=== PATIENT | male | born 1945 | race Caucasian/White ===

== ENCOUNTER 2016-12-14 06:38 | Emergency (ER) | payer OTHER ==
[~2016-12-14] VITALS: Ht 175.3 cm; Wt 123.0 kg
[~2016-12-14 06:38] MED LIST: ASPI325T PO; ATOR20TA15 PO; CHOL1TAB42 PO; COQ-100C2 PO; DOXA4TAB3 PO; FEXO15TA PO; FURO1TAB62 PO; GABA300C5 PO; GABA600T PO; GLIM4TAB PO; LANTUS2P SQ; LEVO-171 PO; LISI-515 PO; LORA-373 PO; MAGN250T2 PO; METH8TAB3 PO; METO50TA PO; NOVOLOGP2 SQ; OMEG100010 PO; OXYGEN NAS.CANULA; POTA1TAB4 PO; SITA50TA4 PO; [UNRECOGNIZED DRUG - OTHER] PO
[2016-12-14 06:41] VITALS: BP 195/85; PULSE 82; RESP 22; TEMP 98; O2SAT 89
[2016-12-14 06:48] VITALS: BP 181/79; PULSE 76; RESP 22; O2SAT 92
[2016-12-14] MEDS ORDERED: FUROSEMIDE 100 MG/10 ML VIAL IVP ONE (07:00)
[2016-12-14] MEDS ORDERED: SODIUM CHLORIDE 0.9% FLUSH 10 ML FLUSH IVF PRN (07:00)
--- NOTE | 2016-12-14 07:03 | PD ---
HPI Chief Complaint: Respiratory Symptoms Time Seen by Provider: 06:55 Travel History International Travel<30 days: No Contact w/Intl Traveler<30days: No Traveled to known affect area: No History of Present Illness HPI The patient is a 71-year-old male with a history of congestive heart failure, diabetes and coronary artery disease who complains of shortness of breath for weeks but in the middle the night tonight it got worse. He states he has congestive heart failure but it doesn't cause swelling in his legs, it goes to the abdomen. He denies any significant chest pain. He denies any fever. He took an albuterol treatment at home. He does have an albuterol nebulizer at home and thinks he might have a history of COPD. PFSH Past Medical History Hx Anticoagulant Therapy: No Blood Disorders: No Heart Rhythm Problems: No Cancer: No Cardiac Catheterization: Yes Cardiovascular Problems: Yes High Cholesterol: Yes Chemotherapy: No Chest Pain: No Congestive Heart Failure: Yes (past) COPD: Yes Cerebrovascular Accident: No Diabetes: Yes Diminished Hearing: No Endocrine: Yes Genitourinary: No Hypertension: Yes Immune Disorder: No Musculoskeletal: No Neurologic: No Psychiatric: No Reproductive: No Respiratory: Yes (COPD) Immunizations Current: Yes Thyroid Disease: Yes Past Surgical History Abdominal Surgery: Yes (UMBILICAL HERNIA REPAIR.) Cardiac Surgery: Yes ([place] ANGIOPLASTY 1993) Hysterectomy: No Other Surgery: Yes Social History Alcohol Use: No Tobacco Use: No Substance Use: No Allergies-Medications (Allergen,Severity, Reaction): Coded Allergies: No Known Allergies (Unverified , 12/14/16) Reported Meds & Prescriptions Reported Meds & Active Scripts Active Reported [place] 3 1000 mg ([place]-3 Fatty Acids) 1 Cap Cap 2 Cap PO DAILY Metoprolol Tartrate 50 Mg Tab 50 Mg PO TID Magnesium 250 Mg Tab 250 Mg PO DAILY Lorazepam 0.5 Mg Tab 0.5 Mg PO BID PRN Lisinopril 20 Mg Tab 20 Mg PO BID Levothyroxine (Levothyroxine Sodium) 300 Mcg Tab 300 Mcg PO DAILY Janumet Xr (Sitagliptin-Metformin ER) 50-1,000 Mg Tab 1 Tab PO BID Lantus Inj (Insulin Glargine) 100 Unit/Ml Inj 80 Mg SQ HS Novolog Inj (Insulin Aspart) 1,000 Unit/10 Ml Vial 35 Units SQ DAILY Glimepiride 4 Mg Tab 4 Mg PO BIDAC Gabapentin 300 Mg Cap 300 Mg PO DAILY Lasix (Furosemide) 20 Mg Tab 40 Mg PO DAILY Sunni Allergy (Fexofenadine HCl) 180 Mg Tab 180 Mg PO DAILY Doxazosin (Doxazosin Mesylate) 4 Mg Tab 4 Mg PO DAILY Coq-10 (Coenzyme Q10 (Ubidecarenone)) 100 Mg Cap 1 Tab PO DAILY Vitamin D-3 (Cholecalciferol) 2,000 Unit Tab 1 Tab PO DAILY Atorvastatin (Atorvastatin Calcium) 20 Mg Tab 20 Mg PO HS Aspirin 325 Mg Tab 325 Mg PO DAILY Review of Systems Except as stated in HPI: all other systems reviewed are Neg Physical Exam Narrative GENERAL: The patient is alert, obese, oriented 3 and slight respiratory distress. His vital signs show blood pressure 195/85 with oximetry 89% on room air. SKIN: Focused skin assessment warm/dry. HEAD: Atraumatic. Normocephalic. EYES: Pupils equal and round. No scleral icterus. No injection or drainage. ENT: No nasal bleeding or discharge. Mucous membranes pink and moist. NECK: Trachea midline. No JVD. CARDIOVASCULAR: Regular rate and rhythm. No murmur appreciated. RESPIRATORY: No accessory muscle use. Clear to auscultation except for a few widely scattered Rales.. Breath sounds equal bilaterally. GASTROINTESTINAL: Abdomen soft, non-tender, distended. Hepatic and splenic margins not palpable. No guarding or rebound is present. MUSCULOSKELETAL: No obvious deformities. No clubbing. No cyanosis. No edema. NEUROLOGICAL: Awake and alert. No obvious cranial nerve deficits. Motor grossly within normal limits. Normal speech. PSYCHIATRIC: Appropriate mood and affect; insight and judgment normal. Data Data Last Documented VS Vital Signs Date Time Temp Pulse Resp B/P Pulse Ox O2 Delivery O2 Flow Rate FiO2 12/14/16 06:47 26 92 Nasal Cannula 3 12/14/16 06:41 98.0 82 195/85 [facility] Medical Decision Making Medical Screen Exam Complete: Yes Emergency Medical Condition: Yes Medical Record Reviewed: Yes Differential Diagnosis Congestive heart failure, COPD with acute exacerbation, acute coronary syndrome , pulmonary embolushighly unlikely Narrative Course Is now 07 and the patient is transferred to Dr. Pressley. Telly Obando MD December 14, 2016 07:03
[2016-12-14 07:04] VITALS: O2SAT 91
[2016-12-14 07:09] VITALS: BP 163/59; PULSE 72; RESP 24; O2SAT 90
[2016-12-14 07:11] LABS: AUTOMATED NEUTROPHIL # 4.5 TH/MM3 (1.8-7.7); BASOPHIL # 0.1 TH/MM3 (0-0.2); BASOPHIL % 1.6 % (0.0-2.0); EOSINOPHIL # 0.1 TH/MM3 (0-0.4); EOSINOPHIL % 0.9 % (0.0-4.0); HEMATOCRIT 36.2 % (39.0-51.0); LYMPH % 16.2 % (9.0-44.0); LYMPHOCYTE # 0.9 TH/MM3 (1.0-4.8); MEAN CELL VOLUME 90.6 FL (80.0-100.0); MEAN CORPUSCULAR HEMOGLOBIN 30.9 PG (27.0-34.0); MEAN CORPUSCULAR HGB CONC 34.1 % (32.0-36.0); MONO % 3.7 % (0.0-8.0); NEUT % 77.6 % (16.0-70.0); PLATELET COUNT 228 TH/MM3 (150-450); WHITE BLOOD COUNT 5.8 TH/MM3 (4.0-11.0)
[2016-12-14 07:15] LABS: HEMO FLAGS DIFF FINAL
[2016-12-14 07:29] LABS: CHLORIDE 102 MEQ/L (98-107); POTASSIUM 4.6 MEQ/L (3.5-5.1); SODIUM (NA) 139 MEQ/L (136-145)
[2016-12-14 07:33] LABS: ANION GAP 6 MEQ/L (5-15); APTT (PATIENT) 27.3 SEC (24.3-30.1); BICARBONATE 30.8 MEQ/L (21.0-32.0); BLOOD UREA NITROGEN 31 MG/DL (7-18); INTERNATIONAL NORMALIZED RATIO 1.1 RATIO; MAGNESIUM 1.7 MG/DL (1.5-2.5); PROTHROMBIN TIME - PATIENT 11.8 SEC (9.8-11.6)
[2016-12-14 07:36] LABS: ALT (GPT) 30 U/L (12-78); AST (GOT) 32 U/L (15-37); GLOMERULAR FILTRATION RATE 74 ML/MIN (>89)
[2016-12-14 07:38] LABS: TOTAL BILIRUBIN ADULT 0.3 MG/DL (0.2-1.0)
[2016-12-14 07:39] LABS: ALKALINE PHOSPHATASE 37 U/L (45-117)
[2016-12-14 07:40] VITALS: BP 156/72; PULSE 74; RESP 20; O2SAT 94
--- NOTE | 2016-12-14 08:16 | RADHPO ---
EXAM DATE/TIME: 12/14/2016 07:46 [facility] COMPARISON: CHEST PA & LAT, August 25, 2015, 10:11. INDICATIONS : Severe shortness of breath. MEDICAL HISTORY : Myocardial infarction. Hypercholesterolemia. Chronic obstructive pulmonary disease. Hypertension. CHF. Thyriod disease. Diabetic, CAD. SURGICAL HISTORY : Umbilical hernia repair. Cardiac cath. [place] angioplasty. ENCOUNTER: Initial ACUITY: 1 day PAIN SCORE: 0/10 LOCATION: chest FINDINGS: PA and lateral views of the chest show persistent cardiomegaly. Pulmonary vascular engorgement. No di screte infiltrate or effusion. Study limited by the patient's body habitus. CONCLUSION: Cardiomegaly with pulmonary vascular engorgement. Ravi Fernandez Jr., MD on December 14, 2016 at 8:13 Board Certified Radiologist. This report was verified electronically.
[2016-12-14 08:18] LABS: BLOOD, URINE NEG (NEG); GLUCOSE,URINE 250 mg/dL (NEG); KETONE, URINE NEG (NEG); NITRITE,URINE NEG (NEG); PH, URINE 5.5 (5.0-8.5)
[2016-12-14 08:20] LABS: URINE COLOR YELLOW (YELLW/STRAW)
[2016-12-14 08:32] LABS: COMMENT (UR) CULT NOT INDICATED; CULTURE IF INDICATED CULT NOT INDICATED; WBC, URINE 0-2 /hpf (0-5)
[2016-12-14 08:33] LABS: MUCUS URINE OCC /lpf (OCC)
[2016-12-14 09:19] VITALS: BP 130/62; PULSE 75; RESP 20; O2SAT 93
--- NOTE | 2016-12-14 09:29 | PD ---
Data Data Last Documented VS Vital Signs Date Time Temp Pulse Resp B/P Pulse Ox O2 Delivery O2 Flow Rate FiO2 12/14/16 09:19 75 20 130/62 93 Nasal Cannula 3 12/14/16 06:41 98.0 Orders Complete Blood Count With Diff (12/14/16 06:56) Comprehensive Metabolic Panel (12/14/16 06:56) B-Type Natriuretic Peptide (12/14/16 06:56) Act Partial Throm Time (Ptt) (12/14/16 06:56) Prothrombin Time / Inr (Pt) (12/14/16 06:56) Magnesium (Mg) (12/14/16 06:56) Troponin I (12/14/16 06:56) Urinalysis - C+S If Indicated (12/14/16 06:56) Iv Access Insert/Monitor (12/14/16 06:56) Electrocardiogram (12/14/16 06:56) Ecg Monitoring (12/14/16 06:56) Oximetry (12/14/16 06:56) Oxygen Administration (12/14/16 06:56) Chest, Pa & Lat (12/14/16 06:56) Sodium Chloride 0.9% Flush (Ns Flush) (12/14/16 07:00) Furosemide Inj (Lasix Inj) (12/14/16 07:00) Labs Laboratory Tests Test 12/14/16 12/14/16 06:45 08:10 White Blood Count 5.8 TH/MM3 Red Blood Count 4.00 MIL/MM3 Hemoglobin 12.3 GM/DL Hematocrit 36.2 % Mean Corpuscular Volume 90.6 FL Mean Corpuscular Hemoglobin 30.9 PG Mean Corpuscular Hemoglobin 34.1 % Concent Red Cell Distribution Width 15.0 % Platelet Count 228 TH/MM3 Mean Platelet Volume 10.2 FL Neutrophils (%) (Auto) 77.6 % Lymphocytes (%) (Auto) 16.2 % Monocytes (%) (Auto) 3.7 % Eosinophils (%) (Auto) 0.9 % Basophils (%) (Auto) 1.6 % Neutrophils # (Auto) 4.5 TH/MM3 Lymphocytes # (Auto) 0.9 TH/MM3 Monocytes # (Auto) 0.2 TH/MM3 Eosinophils # (Auto) 0.1 TH/MM3 Basophils # (Auto) 0.1 TH/MM3 CBC Comment DIFF FINAL Differential Comment Prothrombin Time 11.8 SEC Prothromb Time International 1.1 RATIO Ratio Activated Partial 27.3 SEC Thromboplast Time Sodium Level 139 MEQ/L Potassium Level 4.6 MEQ/L Chloride Level 102 MEQ/L Carbon Dioxide Level 30.8 MEQ/L Anion Gap 6 MEQ/L Blood Urea Nitrogen 31 MG/DL Creatinine 0.99 MG/DL Estimat Glomerular Filtration 74 ML/MIN Rate Random Glucose 261 MG/DL Calcium Level 8.8 MG/DL Magnesium Level 1.7 MG/DL Total Bilirubin 0.3 MG/DL Aspartate Amino Transf 32 U/L (AST/SGOT) Alanine Aminotransferase 30 U/L (ALT/SGPT) Alkaline Phosphatase 37 U/L Troponin I LESS THAN 0.02 NG/ML B-Type Natriuretic Peptide 90 PG/ML Total Protein 7.9 GM/DL Albumin 3.6 GM/DL Urine Color YELLOW Urine Turbidity CLEAR Urine pH 5.5 Urine Specific [place] 1.012 Urine Protein NEG mg/dL Urine Glucose (UA) 250 mg/dL Urine Ketones NEG mg/dL Urine Occult Blood NEG Urine Nitrite NEG Urine Bilirubin NEG Urine Leukocyte Esterase NEG Urine WBC 0-2 /hpf Urine Mucus OCC /lpf Microscopic Urinalysis Comment CULT NOT INDICATED MDM Supervised Visit with [facility]: No Narrative Course This case is checked out to me by Dr. Obando at 7 AM. I have reviewed the entirety of the workup with the patient and reevaluated him He has normal CBC and normal metabolic profile normal Bnp and normal cardiac enzymes I reviewed his EKG which shows sinus rhythm but no ST elevation or ectopy Extended cardiac monitoring reveals sinus rhythm without ectopy I reviewed his chest x-ray which shows cardiomegaly and some pulmonary vascular congestion He received 100 mg IV Lasix and is diuresing Patient does not have much peripheral or pulmonary edema. I suspect he has fluid in his abdomen. He says that his abdomen has been this size for a couple of years. He said he has had [address] scans of abdomen and pelvis that he reports didn't show anything wrong with his liver. Saturations are 96% on his usual nasal cannula which he wears [id number]. He reports that he feels better I don't see any indication for hospitalization Patient's follow-up with his primary care physician to determine whether he needs repeat abdominal imaging or consideration of paracentesis. Diagnosis Primary Impression: CHF (congestive heart failure) Qualified Code: I50.21 - Acute systolic congestive heart failure Additional Impression: Shortness of breath Additional Instruction: Double your Lasix for the next 3 days then return to normal dosing Have low sodium diet Limit fluid intake Follow-up with primary care Med/Other Pt SpecificInfo: Other Disposition: 01 DISCHARGE HOME Condition: Stable Diego Pressley MD December 14, 2016 09:28
--- NOTE | 2016-12-14 14:45 | EKG ---
Date Performed: 12/14/2016 Time Performed: 06:58:58 PTAGE: 71 years EKG: Sinus rhythm Inferior ST-T changes are nonspecific Compared to prior tracing no significant change Borderline ECG PREVIOUS TRACING : 08/23/2015 10.50 DOCTOR: Roel Montelongo Interpretating Date/Time 12/14/2016 14:41:38
== END 2016-12-14 09:35 | disposition home or self-care (01) ==
LOC: PHED 06:38
DX: I50.9 Heart failure, unspecified (principal); R06.02 Shortness of breath; E66.9 Obesity, unspecified; E11.9 Type 2 diabetes mellitus without complications; I25.10 Atherosclerotic heart disease of native coronary artery without angina pectoris; E78.00 Pure hypercholesterolemia, unspecified; J44.9 Chronic obstructive pulmonary disease, unspecified; I10 Essential (primary) hypertension; E07.9 Disorder of thyroid, unspecified
CPT/HCPCS: 71020; 80053; 81001; 83735; 83880; 84484; 85025; 85610; 85730; 93005; 96374; 99285; J1940

== ENCOUNTER 2017-02-02 13:30 | Inpatient (IN) | payer OTHER, MEDICARE ==
[~2017-02-02] VITALS: Ht 172.7 cm; Wt 167.0 kg
[2017-02-02] VITALS (10 sets, daily range): BP systolic 111–150; BP diastolic 57–82; PULSE 74–88; RESP 18–22; TEMP 97.2–98.6; O2SAT 86–96
[~2017-02-02 13:30] MED LIST changes: -GABA600T PO; -METH8TAB3 PO; -OXYGEN NAS.CANULA; -POTA1TAB4 PO; -[UNRECOGNIZED DRUG - OTHER] PO
[2017-02-02] MEDS ORDERED: SODIUM CHLORIDE 0.9% FLUSH 10 ML FLUSH IVF PRN (13:45)
[2017-02-02] MEDS ORDERED: FUROSEMIDE 40 MG/4 ML VIAL IVP ONE (13:45)
--- NOTE | 2017-02-02 13:45 | PD ---
HPI Chief Complaint: shortness of breath Time Seen by Provider: 13:41 Travel History International Travel<30 days: No Contact w/Intl Traveler<30days: No Traveled to known affect area: No History of Present Illness HPI This 71-year-old male says he been short of breath for several weeks. He has a history of congestive heart failure and COPD. He has a history of myocardial infarction in 1993. At that time he stop smoking. He has had abdominal distention for some time and he feels like his belly may be getting more distended. He has not been a drinker. He has had CAT scan of the abdomen which did not reveal a cause for the distention. He is on home oxygen as well as nebulizer treatments. He says his breathing breathing is worse when he lays flat. He was here in December 14 and his Lasix was increased at that time. He says he really has not felt better since then PFSH Past Medical History Hx Anticoagulant Therapy: No Blood Disorders: No Heart Rhythm Problems: No Cancer: No Cardiac Catheterization: Yes Cardiovascular Problems: Yes High Cholesterol: Yes Chemotherapy: No Chest Pain: No Congestive Heart Failure: Yes COPD: Yes Cerebrovascular Accident: No Diabetes: Yes Diminished Hearing: No Endocrine: Yes Genitourinary: No Hypertension: Yes Immune Disorder: No Musculoskeletal: No Neurologic: No Psychiatric: No Reproductive: No Respiratory: Yes (COPD) Immunizations Current: Yes Thyroid Disease: Yes Past Surgical History Abdominal Surgery: Yes (UMBILICAL HERNIA REPAIR.) Cardiac Surgery: Yes ([place] ANGIOPLASTY 1993) Hysterectomy: No Other Surgery: Yes Social History Alcohol Use: No Tobacco Use: No Substance Use: No Allergies-Medications (Allergen,Severity, Reaction): Coded Allergies: No Known Allergies (Unverified , 02/02/17) Reported Meds & Prescriptions Reported Meds & Active Scripts Active Reported Amlodipine (Amlodipine Besylate) 10 Mg Tab 10 Mg PO DAILY Magnesium 250 Mg Tab 1 Tab PO DAILY Novolog Penfill Inj (Insulin Aspart) 300 Unit/3 Ml Pen 2-40 Units SQ TIDAC PRN sliding scale Coq10 (Coenzyme Q10 (Ubidecarenone)) 50 Mg Cap 100 Mg PO DAILY Aspirin EC (Aspirin) 81 Mg Tabdr 81 Mg PO DAILY [place] 3 1000 mg ([place]-3 Fatty Acids) 1 Cap Cap 2 Cap PO DAILY Metoprolol Tartrate 50 Mg Tab 50 Mg PO TID Lorazepam 0.5 Mg Tab 0.5 Mg PO BID PRN Lisinopril 20 Mg Tab 20 Mg PO BID Levothyroxine (Levothyroxine Sodium) 300 Mcg Tab 300 Mcg PO DAILY Janumet Xr (Sitagliptin-Metformin ER) 50-1,000 Mg Tab 1 Tab PO BID Lantus Inj (Insulin Glargine) 100 Unit/Ml Inj 80 Mg SQ HS Glimepiride 4 Mg Tab 4 Mg PO BIDAC Gabapentin 300 Mg Cap 300 Mg PO HS Lasix (Furosemide) 20 Mg Tab 40 Mg PO BID Sunni Allergy (Fexofenadine HCl) 180 Mg Tab 180 Mg PO DAILY Doxazosin (Doxazosin Mesylate) 4 Mg Tab 4 Mg PO DAILY Vitamin D-3 (Cholecalciferol) 2,000 Unit Tab 1 Tab PO BID Atorvastatin (Atorvastatin Calcium) 20 Mg Tab 20 Mg PO HS Review of Systems General / Constitutional: No: Fever, Chills Eyes: No: Diploplia, Blurred Vision HENT: No: Headaches, Vertigo Cardiovascular: No: Chest Pain or Discomfort Respiratory: Positive: Shortness of Breath Gastrointestinal: No: Vomiting, Diarrhea Genitourinary: No: Urgency, Frequency Musculoskeletal: No: Myalgias, Arthralgias Skin: No Rash, No Itching Neurologic: No: Weakness Endocrine: No: Heat Intolerance, Cold Intolerance Hematologic/Lymphatic: No: Easy Bruising Physical Exam Narrative GENERAL: Well-developed male SKIN: Focused skin assessment warm/dry. HEAD: Atraumatic. Normocephalic. EYES: Pupils equal and round. No scleral icterus. No injection or drainage. ENT: No nasal bleeding or discharge. Mucous membranes pink and moist. NECK: Trachea midline. CARDIOVASCULAR: Regular rate and rhythm. No murmur appreciated. RESPIRATORY: No accessory muscle use. Clear to auscultation. Breath sounds equal bilaterally. GASTROINTESTINAL: Abdomen soft, there is marked distention. Hepatic and splenic margins not palpable. MUSCULOSKELETAL: No obvious deformities. No clubbing. No cyanosis. Bilateral pedal edema. NEUROLOGICAL: Awake and alert. No obvious cranial nerve deficits. Motor grossly within normal limits. Normal speech. PSYCHIATRIC: Appropriate mood and affect; insight and judgment normal. Data Data Last Documented VS Vital Signs Date Time Temp Pulse Resp B/P Pulse Ox O2 Delivery O2 Flow Rate FiO2 02/02/17 14:42 88 18 143/65 94 Nasal Cannula 3 74/17 13:30 98.6 Orders Complete Blood Count With Diff (02/02/17 13:42) Comprehensive Metabolic Panel (02/02/17 13:42) B-Type Natriuretic Peptide (02/02/17 13:42) Act Partial Throm Time (Ptt) (02/02/17 13:42) Prothrombin Time / Inr (Pt) (02/02/17 13:42) Magnesium (Mg) (02/02/17 13:42) Troponin I (02/02/17 13:42) Urinalysis - C+S If Indicated (02/02/17 13:42) Iv Access Insert/Monitor (02/02/17 13:42) Electrocardiogram (02/02/17 13:42) Ecg Monitoring (02/02/17 13:42) Oximetry (02/02/17 13:42) Oxygen Administration (02/02/17 13:42) Chest, Single Ap (02/02/17 13:42) Sodium Chloride 0.9% Flush (Ns Flush) (02/02/17 13:45) Furosemide Inj (Lasix Inj) (02/02/17 13:45) Albuterol-Ipratropium Neb (Duoneb Neb) (02/02/17 13:45) Labs Laboratory Tests Test 02/02/17 02/02/17 13:46 15:00 White Blood Count 6.7 TH/MM3 Red Blood Count 3.95 MIL/MM3 Hemoglobin 11.5 GM/DL Hematocrit 37.0 % Mean Corpuscular Volume 93.7 FL Mean Corpuscular Hemoglobin 29.1 PG Mean Corpuscular Hemoglobin 31.1 % Concent Red Cell Distribution Width 15.0 % Platelet Count 188 TH/MM3 Mean Platelet Volume 8.6 FL Neutrophils (%) (Auto) 76.0 % Lymphocytes (%) (Auto) 16.7 % Monocytes (%) (Auto) 5.1 % Eosinophils (%) (Auto) 1.6 % Basophils (%) (Auto) 0.6 % Neutrophils # (Auto) 5.2 TH/MM3 Lymphocytes # (Auto) 1.1 TH/MM3 Monocytes # (Auto) 0.3 TH/MM3 Eosinophils # (Auto) 0.1 TH/MM3 Basophils # (Auto) 0.0 TH/MM3 CBC Comment DIFF FINAL Differential Comment Prothrombin Time 12.2 SEC Prothromb Time International 1.1 RATIO Ratio Activated Partial 26.1 SEC Thromboplast Time Sodium Level 143 MEQ/L Potassium Level 4.3 MEQ/L Chloride Level 103 MEQ/L Carbon Dioxide Level 32.1 MEQ/L Anion Gap 8 MEQ/L Blood Urea Nitrogen 38 MG/DL Creatinine 1.10 MG/DL Estimat Glomerular Filtration 66 ML/MIN Rate Random Glucose 118 MG/DL Calcium Level 9.0 MG/DL Magnesium Level 1.9 MG/DL Total Bilirubin 0.2 MG/DL Aspartate Amino Transf 15 U/L (AST/SGOT) Alanine Aminotransferase 20 U/L (ALT/SGPT) Alkaline Phosphatase 35 U/L Troponin I LESS THAN 0.02 NG/ML B-Type Natriuretic Peptide 213 PG/ML Total Protein 7.5 GM/DL Albumin 3.5 GM/DL Urine Collection Type CLEAN CATCH Urine Color YELLOW Urine Turbidity CLEAR Urine pH 5.5 Urine Specific [place] 1.011 Urine Protein NEG mg/dL Urine Glucose (UA) NEG mg/dL Urine Ketones NEG mg/dL Urine Occult Blood NEG Urine Nitrite NEG Urine Bilirubin NEG Urine Leukocyte Esterase NEG Urine WBC 0-2 /hpf Urine Squamous Epithelial 0-5 /hpf Cells Microscopic Urinalysis Comment CULT NOT INDICATED MDM Medical Decision Making Medical Screen Exam Complete: Yes Emergency Medical Condition: Yes Medical Record Reviewed: Yes Differential Diagnosis Differential includes pneumonia, COPD, CHF Narrative Course Chest x-ray shows marked cardiomegaly. Patient has been given 3 nebulizer treatments and Lasix. He has persistent dyspnea. On 4 L his O2 sat is 94%. On arrival is 89% on 2 L. I'm reluctant to give steroids at this time because I think weight gain would be a serious problem for this gentleman. His BNP is 213. Diagnosis Primary Impression: CHF (congestive heart failure) Additional Impression: Chronic obstructive pulmonary disease Admitting Information Admitting Physician Requests: Admit Grzegorz Valles MD Feb 02, 2017 13:45
[2017-02-02] MEDS: RESP: ALBUTEROL 2.5 MG/IPRATROPIUM 0.5 MG NEB (SCH) INH (13:57)
[2017-02-02 14:02] LABS: AUTOMATED NEUTROPHIL # 5.2 TH/MM3 (1.8-7.7); BASOPHIL % 0.6 % (0.0-2.0); EOSINOPHIL # 0.1 TH/MM3 (0-0.4); EOSINOPHIL % 1.6 % (0.0-4.0); HEMO FLAGS DIFF FINAL; LYMPH % 16.7 % (9.0-44.0); LYMPHOCYTE # 1.1 TH/MM3 (1.0-4.8); MEAN CELL VOLUME 93.7 FL (80.0-100.0); MEAN CORPUSCULAR HEMOGLOBIN 29.1 PG (27.0-34.0); MEAN CORPUSCULAR HGB CONC 31.1 % (32.0-36.0); MONO % 5.1 % (0.0-8.0); PLATELET COUNT 188 TH/MM3 (150-450); RED BLOOD COUNT 3.95 MIL/MM3 (4.50-5.90); WHITE BLOOD COUNT 6.7 TH/MM3 (4.0-11.0)
[2017-02-02 14:05] LABS: CHLORIDE 103 MEQ/L (98-107); POTASSIUM 4.3 MEQ/L (3.5-5.1); SODIUM (NA) 143 MEQ/L (136-145)
[2017-02-02 14:08] LABS: ANION GAP 8 MEQ/L (5-15); BICARBONATE 32.1 MEQ/L (21.0-32.0); BLOOD UREA NITROGEN 38 MG/DL (7-18); MAGNESIUM 1.9 MG/DL (1.5-2.5)
[2017-02-02 14:11] LABS: ALT (GPT) 20 U/L (12-78); AST (GOT) 15 U/L (15-37); GLOMERULAR FILTRATION RATE 66 ML/MIN (>89)
[2017-02-02 14:13] LABS: TOTAL BILIRUBIN ADULT 0.2 MG/DL (0.2-1.0)
[2017-02-02 14:14] LABS: ALKALINE PHOSPHATASE 35 U/L (45-117)
[2017-02-02 14:18] LABS: APTT (PATIENT) 26.1 SEC (24.3-30.1); INTERNATIONAL NORMALIZED RATIO 1.1 RATIO; PROTHROMBIN TIME - PATIENT 12.2 SEC (9.8-11.6)
[2017-02-02] MEDS ORDERED: ASPI81TA11 PO (14:30)
[2017-02-02] MEDS ORDERED: NOVOINJ SQ (14:30)
[2017-02-02] MEDS ORDERED: ESSE250T PO (14:30)
[2017-02-02] MEDS ORDERED: COQ150CA PO (14:30)
[2017-02-02] MEDS ORDERED: AMLO10TA2 PO (14:32)
--- NOTE | 2017-02-02 14:46 | RADRPT ---
EXAM DATE/TIME: 02/02/2017 14:19 [facility] COMPARISON: CHEST SINGLE AP, August 23, 2015, 11:05. INDICATIONS : Short of breath. MEDICAL HISTORY : Chronic obstructive pulmonary disease. Congestive heart failure. Hypertension. Myocardial infarct ion, Diabetes SURGICAL HISTORY : Coronary artery stent. ENCOUNTER: Initial ACUITY: 3 days PAIN SCORE: 0/10 LOCATION: Bilateral chest FINDINGS: There is global cardiomegaly with basilar density, probably atelectasis. Density at the left base is believed to be related mostly to overlying soft tissues. No pneumothorax. CONCLUSION: 1. Global cardiomegaly with basilar atelectasis. Exam limited by patient's size. Yony Driscoll MD on February 02, 2017 at 14:43 Board Certified Radiologist. This report was verified electronically.
[2017-02-02 15:18] LABS: BLOOD, URINE NEG (NEG); GLUCOSE,URINE NEG (NEG); KETONE, URINE NEG (NEG); NITRITE,URINE NEG (NEG); PH, URINE 5.5 (5.0-8.5)
[2017-02-02 15:25] LABS: METHOD OF COLLECTION CLEAN CATCH; URINE COLOR YELLOW (YELLW/STRAW)
[2017-02-02 15:27] LABS: COMMENT (UR) CULT NOT INDICATED; CULTURE IF INDICATED CULT NOT INDICATED; SQUAMOUS EPITHELIAL CELL URINE 0-5 /hpf (0-5); WBC, URINE 0-2 /hpf (0-5)
[2017-02-02] MEDS ORDERED: SENNOSIDES 8.6 MG TAB PO PRN (15:45)
[2017-02-02] MEDS ORDERED: LACTULOSE SYRUP 20 GM/30 ML CUP PO PRN (15:45)
[2017-02-02] MEDS ORDERED: BISACODYL 10 MG SUPP RECTAL PRN (15:45)
[2017-02-02] MEDS ORDERED: MAGNESIUM HYDROXIDE SUSP 30 ML CUP PO PRN (15:45)
[2017-02-02] MEDS ORDERED: NALOXONE HCL 0.4 MG/ML AMP IV PRN (15:45)
[2017-02-02] MEDS ORDERED: SODIUM CHLORIDE 0.9% FLUSH 10 ML FLUSH IV FLUSH PRN (15:45)
[2017-02-02] MEDS ORDERED: ONDANSETRON HCL 4 MG/2 ML VIAL IVP PRN (15:45)
--- NOTE | 2017-02-02 17:04 | HHI.HP ---
[facility] Adri Hudson MD Admission Diagnosis CHF, COPD EXACERBATION Diagnoses: Chief Complaint: Shortness of breath. Travel History International Travel<30 Days: No Contact w/Intl Traveler <30 Da: No Traveled to Known Affected Are: No History of Present Illness Mr. Otoole is a pleasant 71 year old male with a history of diabetes mellitus, CHF, CAD, COPD who presents to the ED on 02/02/2017 due to shortness of breath. Although he has been having shortness of breath for the last several weeks, in the last few days, his shortness of breath has been worsening. He reports orthopnea although he feels slightly better in left later decubitus position. Patient denies any cough, fever, chills. No chest pain. No lower extremity swelling but he reports his abdomen is much more distended. He denies any changes in bowel or bladder habits. Review of Systems Except as stated in HPI: all other systems reviewed are Neg Past Family Social History Past Medical History Hypertension Hyperlipidemia Diabetes Coronary artery disease History myocardial infarction Hypothyroidism Chronic obstructive pulmonary disease Past Surgical History Cardiac catheterization Umbilical hernia repair Reported Medications Amlodipine (Amlodipine Besylate) 10 Mg Tab 10 Mg PO DAILY Magnesium 250 Mg Tab 1 Tab PO DAILY Novolog Penfill Inj (Insulin Aspart) 300 Unit/3 Ml Pen 2-40 Units SQ TIDAC PRN sliding scale Coq10 (Coenzyme Q10 (Ubidecarenone)) 50 Mg Cap 100 Mg PO DAILY Aspirin EC (Aspirin) 81 Mg Tabdr 81 Mg PO DAILY [place] 3 1000 mg ([place]-3 Fatty Acids) 1 Cap Cap 2 Cap PO DAILY Metoprolol Tartrate 50 Mg Tab 50 Mg PO TID Lorazepam 0.5 Mg Tab 0.5 Mg PO BID PRN Lisinopril 20 Mg Tab 20 Mg PO BID Levothyroxine (Levothyroxine Sodium) 300 Mcg Tab 300 Mcg PO DAILY Janumet Xr (Sitagliptin-Metformin ER) 50-1,000 Mg Tab 1 Tab PO BID Lantus Inj (Insulin Glargine) 100 Unit/Ml Inj 80 Mg SQ HS Glimepiride 4 Mg Tab 4 Mg PO BIDAC Gabapentin 300 Mg Cap 300 Mg PO HS Lasix (Furosemide) 20 Mg Tab 40 Mg PO BID Sunni Allergy (Fexofenadine HCl) 180 Mg Tab 180 Mg PO DAILY Doxazosin (Doxazosin Mesylate) 4 Mg Tab 4 Mg PO DAILY Vitamin D-3 (Cholecalciferol) 2,000 Unit Tab 1 Tab PO BID Atorvastatin (Atorvastatin Calcium) 20 Mg Tab 20 Mg PO HS Allergies: Coded Allergies: No Known Allergies (Unverified , 02/02/17) Family History Brother with diabetes mellitus. Social History Patient quit smoking in 1993 when he had his first heart attack. Prior to that he smoked up to 4 pack of cigarettes a day for 20 years. Patient only alcohol or illicit drugs Physical Exam Vital Signs Vital Signs Date Time Temp Pulse Resp B/P Pulse Ox O2 Delivery O2 Flow Rate FiO2 02/02/17 16:52 78 16 128/82 96 02/02/17 15:59 81 16 96 Nasal Cannula 3 02/02/17 15:45 80 18 132/67 96 Nasal Cannula 3 02/02/17 14:42 88 18 143/65 94 Nasal Cannula 3 02/02/17 14:00 94 Nasal Cannula 4.00 02/02/17 13:51 94 Nasal Cannula 4 02/02/17 13:51 93 4 02/02/17 13:51 94 Nasal Cannula 4 02/02/17 13:30 98.6 83 22 150/60 86 Physical Exam GENERAL: This is a well-nourished, well-developed patient, in no apparent distress. Morbidly obese. SKIN: No rashes, ecchymoses or lesions. Cool and dry. HEAD: Atraumatic. Normocephalic. No temporal or scalp tenderness. EYES: Pupils equal round and reactive. Extraocular motions intact. No scleral icterus. No injection or drainage. ENT: Nose without bleeding, purulent drainage or septal hematoma. Throat without erythema, tonsillar hypertrophy or exudate. Uvula midline. Airway patent. NECK: Trachea midline. No JVD or lymphadenopathy. Supple, nontender, no meningeal signs. CARDIOVASCULAR: Regular rate and rhythm without murmurs, gallops, or rubs. RESPIRATORY: Clear to auscultation. Breath sounds equal bilaterally. No wheezes , rales, or rhonchi. GASTROINTESTINAL: Morbidly obese abdomen, abdomen is soft nontender no guarding. Bowel sounds positive. MUSCULOSKELETAL: Extremities without clubbing, cyanosis, or edema. No joint tenderness, effusion, or edema noted. No calf tenderness. Negative Homans sign bilaterally. NEUROLOGICAL: Awake and alert. Cranial nerves II through XII intact. Motor and sensory grossly within normal limits. Five out of 5 muscle strength in all muscle groups. Normal speech. Laboratory Laboratory Tests Test 02/02/17 02/02/17 13:46 15:00 White Blood Count 6.7 Red Blood Count 3.95 Hemoglobin 11.5 Hematocrit 37.0 Mean Corpuscular Volume 93.7 Mean Corpuscular Hemoglobin 29.1 Mean Corpuscular Hemoglobin 31.1 Concent Red Cell Distribution Width 15.0 Platelet Count 188 Mean Platelet Volume 8.6 Neutrophils (%) (Auto) 76.0 Lymphocytes (%) (Auto) 16.7 Monocytes (%) (Auto) 5.1 Eosinophils (%) (Auto) 1.6 Basophils (%) (Auto) 0.6 Neutrophils # (Auto) 5.2 Lymphocytes # (Auto) 1.1 Monocytes # (Auto) 0.3 Eosinophils # (Auto) 0.1 Basophils # (Auto) 0.0 CBC Comment DIFF FINAL Differential Comment Prothrombin Time 12.2 Prothromb Time International 1.1 Ratio Activated Partial 26.1 Thromboplast Time Sodium Level 143 Potassium Level 4.3 Chloride Level 103 Carbon Dioxide Level 32.1 Anion Gap 8 Blood Urea Nitrogen 38 Creatinine 1.10 Estimat Glomerular Filtration 66 Rate Random Glucose 118 Calcium Level 9.0 Magnesium Level 1.9 Total Bilirubin 0.2 Aspartate Amino Transf 15 (AST/SGOT) Alanine Aminotransferase 20 (ALT/SGPT) Alkaline Phosphatase 35 Troponin I LESS THAN 0.02 B-Type Natriuretic Peptide 213 Total Protein 7.5 Albumin 3.5 Urine Collection Type CLEAN CATCH Urine Color YELLOW Urine Turbidity CLEAR Urine pH 5.5 Urine Specific [place] 1.011 Urine Protein NEG Urine Glucose (UA) NEG Urine Ketones NEG Urine Occult Blood NEG Urine Nitrite NEG Urine Bilirubin NEG Urine Leukocyte Esterase NEG Urine WBC 0-2 Urine Squamous Epithelial 0-5 Cells Microscopic Urinalysis Comment CULT NOT INDICATED Result Diagram: 02/02/17 1346 02/02/17 1346 Imaging Last Impressions Chest X-Ray 02/02/17 1342 Signed Impressions: Service Date/Time: Thursday, February 02, 2017 14:19 - CONCLUSION: 1. Global cardiomegaly with basilar atelectasis. Exam limited by patient's size. Yony Driscoll MD Assessment and Plan Problem List: (1) Diastolic heart failure ICD Code: I50.30 Status: Acute (2) Hypertension ICD Code: I10 Status: Acute (3) Diabetes ICD Code: E11.9 Status: Acute (4) Coronary artery disease ICD Code: I25.10 Status: Acute (5) Chronic obstructive pulmonary disease ICD Code: J44.9 Status: Acute Assessment and Plan Mr. Otoole is a pleasant 71-year-old male with a history of congestive heart failure, diabetes mellitus, coronary artery disease who presents to the emergency department today due to shortness of breath. He reports no chest pain , cough, fever or chills. - Acute exacerbation of diastolic heart failure - Echo from August 2015 shows ejection fraction 50-55%. - Patient will likely benefit from a repeat of echocardiogram. - Patient reports improvement after 40 mg of IV Lasix. We'll continue IV Lasix twice a day. - Consider torsemide 20 mg twice a day upon discharge. - Coronary artery disease - status post angioplasty in 1993. - Hypertension - Continue aspirin 81 mg, atorvastatin 20 mg, Lisinopril 20mg BID. - Continue metoprolol tartrate 50 mg 3 times a day. - Diabetes mellitus - Patient takes glargine 80 units daily at bedtime. However his blood glucose was 118 today. - Start Levemir 15 units daily at bedtime and sliding scale insulin. - Start aspart 6 units 3 times a day before meals. Hold if pre-meal blood glucose below 110. - Titrate up insulin as needed. - Moderately severe COPD - continue DuoNeb. O2 supplement to keep O2 sat > 90%. Full code. Lovenox 40mg Q24hrs. Jese Yeung DO Feb 02, 2017 5:04 pm
[2017-02-02] MEDS ORDERED: GLUCAGON 1 MG/ML VIAL OTHER PRN (18:15)
[2017-02-02] MEDS ORDERED: LORazepam 0.5 MG TAB PO PRN (18:15)
[2017-02-02] MEDS ORDERED: DEXTROSE 50% IN WATER 50 ML VIAL(D50) IV PRN (18:15)
[2017-02-02] MEDS ORDERED: K-TA10TA PO (18:36)
[2017-02-02] MEDS ORDERED: TORS20TA PO (18:36)
[2017-02-02] MEDS: RESP: ALBUTEROL 2.5 MG/IPRATROPIUM 0.5 MG NEB (PRN) NEB (19:45)
[2017-02-02] MEDS: INSULIN DETEMIR 100 UNITS/ML VIAL SQ SCH (21:00)
[2017-02-02] MEDS: ENOXAPARIN SODIUM 40 MG/0.4 ML SYRINGE SQ SCH (21:32)
[2017-02-02] MEDS: DOCUSATE SODIUM 50 MG/SENNA 8.6 MG TAB PO SCH (21:33)
[2017-02-02] MEDS: LISINOPRIL 20 MG TAB PO SCH (21:33)
[2017-02-02] MEDS: ATORVASTATIN 20 MG TAB PO SCH (21:34)
[2017-02-02] MEDS: GABAPENTIN 300 MG CAP PO SCH (21:34)
[2017-02-02] MEDS: SODIUM CHLORIDE 0.9% FLUSH 10 ML FLUSH IV FLUSH SCH (21:34)
[2017-02-02] MEDS: INSULIN ASPART SUPPLEMENTAL SCALE SQ SCH (21:40)
[2017-02-03] VITALS (8 sets, daily range): BP systolic 119–162; BP diastolic 51–75; PULSE 67–86; RESP 18–24; TEMP 96.6–97.9; O2SAT 90–96
[2017-02-03] MEDS: LEVOTHYROXINE SODIUM 150 MCG TAB PO SCH (06:12)
[2017-02-03] MEDS: ACETAMINOPHEN 325 MG TAB PO PRN ×2 (06:12→16:57)
[2017-02-03] MEDS: INSULIN ASPART SUPPLEMENTAL SCALE SQ SCH ×4 (06:14→21:00)
[2017-02-03 06:26] LABS: AUTOMATED NEUTROPHIL # 4.1 TH/MM3 (1.8-7.7); BASOPHIL % 0.6 % (0.0-2.0); EOSINOPHIL # 0.1 TH/MM3 (0-0.4); HEMATOCRIT 34.9 % (39.0-51.0); HEMO FLAGS DIFF FINAL; LYMPH % 19.5 % (9.0-44.0); LYMPHOCYTE # 1.1 TH/MM3 (1.0-4.8); MEAN CELL VOLUME 91.6 FL (80.0-100.0); MEAN CORPUSCULAR HEMOGLOBIN 29.7 PG (27.0-34.0); MEAN CORPUSCULAR HGB CONC 32.4 % (32.0-36.0); MONO % 6.4 % (0.0-8.0); NEUT % 71.5 % (16.0-70.0); PLATELET COUNT 159 TH/MM3 (150-450); RED BLOOD COUNT 3.81 MIL/MM3 (4.50-5.90); RED CELL DISTRIBUTION WIDTH 14.2 % (11.6-17.2); WHITE BLOOD COUNT 5.7 TH/MM3 (4.0-11.0)
[2017-02-03 06:36] LABS: POTASSIUM 4.3 MEQ/L (3.5-5.1)
[2017-02-03 06:39] LABS: BICARBONATE 34.6 MEQ/L (21.0-32.0)
[2017-02-03] MEDS ORDERED: FUROSEMIDE 40 MG/4 ML VIAL IV PUSH SCH (09:00)
[2017-02-03] MEDS: INSULIN ASPART 1,000 UNITS/10 ML VIAL SQ SCH ×3 (09:22→16:59)
[2017-02-03] MEDS: DOCUSATE SODIUM 50 MG/SENNA 8.6 MG TAB PO SCH ×2 (09:23→21:55)
[2017-02-03] MEDS: ASPIRIN EC 81 MG TABEC PO SCH (09:23)
[2017-02-03] MEDS: DOXAZOSIN MESYLATE 4 MG TAB PO SCH (09:24)
[2017-02-03] MEDS: METOPROLOL TARTRATE 50 MG TAB PO SCH ×3 (09:24→16:56)
[2017-02-03] MEDS: LISINOPRIL 20 MG TAB PO SCH (09:24)
[2017-02-03] MEDS: SODIUM CHLORIDE 0.9% FLUSH 10 ML FLUSH IV FLUSH SCH ×2 (09:24→21:55)
--- NOTE | 2017-02-03 09:59 | EKG ---
Date Performed: 02/02/2017 Time Performed: 13:50:24 PTAGE: 71 years EKG: Sinus rhythm NONSPECIFIC T-WAVE ABNORMALITY BORDERLINE ECG PREVIOUS TRACING : 12/14/2016 06.58 DOCTOR: Steve Spear Interpretating Date/Time 02/03/2017 09:58:37
[2017-02-03] MEDS: RESP: ALBUTEROL 2.5 MG/IPRATROPIUM 0.5 MG NEB (PRN) NEB ×3 (10:29→21:02)
--- NOTE | 2017-02-03 10:51 | HHI.PR ---
Subjective Remarks Patient seen today in follow-up for shortness of breath and dyspnea on exertion. Patient with a history of CHF and with COPD. Compliant with oxygen and medication at home but appears to have increased abdominal girth with associated orthopnea and trouble sleeping. Objective Vitals Vital Signs Date Time Temp Pulse Resp B/P Pulse Ox O2 Delivery O2 Flow Rate FiO2 02/03/17 10:33 92 Nasal Cannula 3.00 02/03/17 08:01 18 02/03/17 08:00 97.4 86 24 162/72 94 02/03/17 04:00 96.6 79 18 132/51 91 02/03/17 00:00 97.3 82 20 136/57 90 02/02/17 20:05 77 02/02/17 20:00 98.3 76 22 111/57 92 02/02/17 19:45 92 Nasal Cannula 2.00 02/02/17 17:00 97.2 74 22 116/62 93 02/02/17 16:52 78 16 128/82 96 02/02/17 15:59 81 16 96 Nasal Cannula 3 02/02/17 15:45 80 18 132/67 96 Nasal Cannula 3 02/02/17 14:42 88 18 143/65 94 Nasal Cannula 3 02/02/17 14:00 94 Nasal Cannula 4.00 02/02/17 13:51 94 Nasal Cannula 4 02/02/17 13:51 93 4 02/02/17 13:51 94 Nasal Cannula 4 02/02/17 13:30 98.6 83 22 150/60 86 I/O 02/02/17 02/02/17 02/02/17 02/03/17 02/03/17 02/03/17 07:00 15:00 23:00 07:00 15:00 23:00 Intake Total 2000 ml Output Total 1100 ml Balance 900 ml Intake IV Total 2000 ml Output Urine Total 1100 ml Result Diagram: 02/03/17 0457 02/03/17 0457 Imaging Last Impressions Chest X-Ray 02/02/17 1342 Signed Impressions: Service Date/Time: Thursday, February 02, 2017 14:19 - CONCLUSION: 1. Global cardiomegaly with basilar atelectasis. Exam limited by patient's size. Yony Driscoll MD Objective Remarks GENERAL: This is a well-nourished, well-developed patient, in no apparent distress. CARDIOVASCULAR: Regular rate and rhythm without murmurs, gallops, or rubs. RESPIRATORY: Clear to auscultation. Breath sounds equal bilaterally. No wheezes , rales, or rhonchi. GASTROINTESTINAL: Abdomen soft, non-tender, moderately distended. hypoactive active bowel sounds MUSCULOSKELETAL: Extremities without clubbing, cyanosis, or edema. NEURO: Alert & Oriented x4 to person, place, time, situation. Moves all ext x4 A/P Problem List: (1) Diastolic heart failure ICD Code: I50.30 Status: Acute Plan: With acute exacerbation Will use Bumex for now and follow up echocardiogram Continue JASPREET inhibitor (lisinopril) and beta gaurang (Lopressor) (2) Hypertension ICD Code: I10 Status: Acute Plan: Controlled on Cardura, amlodipine, lisinopril and Lopressor However his amlodipine may be causing more fluid retention and we will hold this medication and adjust his other medicines (3) Diabetes ICD Code: E11.9 Status: Acute Plan: Continue home medications and sliding scale, diabetic heart healthy diet Patient on junivia/metformin, NovoLog and Lantus We'll hold metformin and continue home medications (4) Coronary artery disease ICD Code: I25.10 Status: Acute Plan: Cardiac catheterization 2014 shows occlusion right coronary artery Continue aspirin and blood pressure control and diabetic control (5) Chronic obstructive pulmonary disease ICD Code: J44.9 Status: Acute Plan: Bronchodilators, home O2 at baseline currently Follow-up for acute exacerbation Assessment and Plan Plan of care to be determined by Hospital course Full code Lovenox for DVT prophylaxis Anupama Mclean MD Feb 03, 2017 10:51
--- NOTE | 2017-02-03 11:40 | ECHRPT ---
Indication: EF assessment in CHF CONCLUSIONS The left ventricular systolic function is hyperdynamic with an estimated ejection fraction in the ra nge of 65- 70%. Left ventricular diastolic function parameters are normal. Normal left ventricular size. Moderate concentric left ventricular hypertrophy. The left atrial size is mildly dilated. Technically difficult study due to poor acoutstic windows. BP: 132 / 51 HR: 79 Rhythm: Sinus MEASUREMENTS (Male / Female) Normal Values Technical Quality:Poor 2D ECHO LV Diastolic Diameter PLAX 4.1 cm 4.2 - 5.9 / 3.9 - 5.3 cm LV Systolic Diameter PLAX 2.8 cm IVS Diastolic Thickness 1.5 cm 0.6 - 1.0 / 0.6 - 0.9 cm LVPW Diastolic Thickness 1.5 cm 0.6 - 1.0 / 0.6 - 0.9 cm LV Relative Wall Thickness 0.7 LVOT Diameter 2.6 cm Aortic Root Diameter 4.2 cm LA Systolic Diameter LX 4.1 cm 3.0 - 4.0 / 2.7 - 3.8 cm M-MODE AV Cusp Separation MM 2.1 cm DOPPLER AV Peak Velocity 168.0 cm/s AV Peak Gradient 11.3 mmHg AV Mean Gradient 5.0 mmHg AV Velocity Time Integral 32.3 cm LVOT Peak Velocity 110.0 cm/s LVOT Peak Gradient 4.8 mmHg LVOT Velocity Time Integral 24.3 cm LVOT Cardiac Index 3859.6 cm/minm AV Area Cont Eq vti 4.0 cm AV Area Cont Eq pk 3.5 cm Mitral E Point Velocity 139.0 cm/s Mitral A Point Velocity 111.0 cm/s Mitral E to A Ratio 1.3 LV E' Lateral Velocity 10.3 cm/s Mitral E to LV E' Lateral Ratio 13.5 LV E' Septal Velocity 9.6 cm/s Mitral E to LV E' Septal Ratio 14.4 TR Peak Velocity 259.0 cm/s TR Peak Gradient 26.8 mmHg FINDINGS LEFT VENTRICLE The left ventricular systolic function is hyperdynamic with an estimated ejection fraction in the ra nge of 65- 70%. Left ventricular diastolic function parameters are normal. Normal left ventricular size. Moderate concentric left ventricular hypertrophy. RIGHT VENTRICLE The right ventricle is mildly dilated. LEFT ATRIUM The left atrial size is mildly dilated. RIGHT ATRIUM The right atrial size is normal. ATRIAL SEPTUM Normal atrial septal thickness without atrial level shunting by limited color doppler interrogation. AORTA The aortic root and proximal ascending aorta are normal in size on limited imaging. MITRAL VALVE Structurally normal mitral valve. Trace mitral valve regurgitation. AORTIC VALVE Aortic valve sclerosis is present. No aortic valve stenosis. TRICUSPID VALVE Structurally normal tricuspid valve. There is trace tricuspid valve regurgitation. Normal estimated pulmonary pressures. PULMONARY VALVE The pulmonary valve is not well visualized. VESSELS The inferior vena cava is normal in size. PERICARDIUM No pericardial effusion. Steve Spear MD, FACC (Electronically Signed) Final Date:03 February 2017 11:40
[2017-02-03] MEDS ORDERED: DIATRIZOATE MEGLUM/DIATRIZOATE SOD 9 ML CUP PO ONE (11:45)
[2017-02-03] MEDS: LOSARTAN 50 MG TAB PO SCH (13:22)
--- NOTE | 2017-02-03 15:31 | RADRPT ---
EXAM DATE/TIME: 02/03/2017 14:50 [place] COMPARISON: ABDOMEN FLAT & UPRIGHT, August 23, 2015, 15:07. INDICATIONS : Abdominal distention. ORAL CONTRAST: Prescribed oral contrast ingested. RADIATION DOSE: 22.64 CTDIvol (mGy) MEDICAL HISTORY : Chronic obstructive pulmonary disease. Myocardial infarction. Diabetes mellitus type 2.Hypertension. SURGICAL HISTORY : Umbilical hernia repair. ENCOUNTER: Initial ACUITY: 2 weeks PAIN SCALE: 2/10 LOCATION: Abdomen. TECHNIQUE: Volumetric scanning of the abdomen and pelvis was performed. Using automated exposure control and ad justment of the mA and/or kV according to patient size, radiation dose was kept as low as reasonably achievable to obtain optimal diagnostic quality images. DICOM format image data is available electro nically for review and comparison. The lack of IV contrast limits the diagnosis for certain organ pat hology. FINDINGS: LOWER LUNGS: Mild atelectasis in both lung bases. LIVER: Homogeneous density without lesion. The liver appears to be large in size. There is no dilation of th e biliary tree. No calcified gallstones. SPLEEN: Normal size without lesion. PANCREAS: Within normal limits. KIDNEYS: Normal in size and shape. There is no mass, stone, or hydronephrosis. ADRENAL GLANDS: Within normal limits. VASCULAR: There is no aortic aneurysm. Atherosclerotic changes. BOWEL/MESENTERY: The stomach, small bowel, and colon demonstrate no acute abnormality. There is no free intraperitone al air or fluid. Scattered diverticula in the descending and sigmoid colon without inflammatory caceres es. There is some stool in the colon. No abnormal dilatation is seen. ABDOMINAL WALL: There is nonspecific edema in the subcutaneous soft tissues of the abdominal wall. There is a very la rge pendulous. There appears to be a nonspecific small fluid collection in the panniculus along the l eft lower quadrant measuring 4.5 cm. RETROPERITONEUM: There is no lymphadenopathy. BLADDER: Decompressed. REPRODUCTIVE: The prostate gland measures 4.6 cm. INGUINAL: There is no lymphadenopathy or hernia. MUSCULOSKELETAL: Within normal limits for patient age. Bony degenerative changes. CONCLUSION: 1. The liver appears to be enlarged. 2. Normal bowel gas pattern with some scattered diverticulosis of the descending and sigmoid colon. 3. Very large panniculus with edema in the subcutaneous soft tissues. There appears to be a nonspecif ic fluid collection in the subcutaneous soft tissues of the large panniculus on the left side. This m easures about 4.5 cm. 4. No acute intra-abdominal or pelvic pathology. Hermelindo Arthur MD on February 03, 2017 at 15:24 Board Certified Radiologist. This report was verified electronically.
[2017-02-03] MEDS: BUMETANIDE INJ 1 MG/4 ML VIAL IV PUSH SCH (17:00)
[2017-02-03 17:27] LABS: HEMOGLOBIN A1a 1.6 %; HEMOGLOBIN Ao 82.2 %; HEMOGLOBIN LA1C 2.2 %; HEMOGLOBIN P3 4.1 %
[2017-02-03] MEDS: GABAPENTIN 300 MG CAP PO SCH (21:54)
[2017-02-03] MEDS: ATORVASTATIN 20 MG TAB PO SCH (21:54)
[2017-02-03] MEDS: ENOXAPARIN SODIUM 40 MG/0.4 ML SYRINGE SQ SCH (21:55)
[2017-02-03] MEDS: INSULIN DETEMIR 100 UNITS/ML VIAL SQ SCH (21:57)
[2017-02-04] VITALS: BP 126/57; PULSE 71; RESP 20; TEMP 98; O2SAT 96
[2017-02-04 04:00] VITALS: BP 110/59; PULSE 75; RESP 20; TEMP 97.6; O2SAT 96
[2017-02-04] MEDS: LEVOTHYROXINE SODIUM 150 MCG TAB PO SCH (06:22)
[2017-02-04 06:35] LABS: POTASSIUM 4.3 MEQ/L (3.5-5.1)
[2017-02-04 06:42] LABS: BICARBONATE 36.6 MEQ/L (21.0-32.0)
[2017-02-04] MEDS: RESP: ALBUTEROL 2.5 MG/IPRATROPIUM 0.5 MG NEB (PRN) NEB (07:19)
[2017-02-04 07:21] VITALS: O2SAT 92
[2017-02-04] MEDS: DOXAZOSIN MESYLATE 4 MG TAB PO SCH (07:57)
[2017-02-04] MEDS: ASPIRIN EC 81 MG TABEC PO SCH (07:57)
[2017-02-04] MEDS: DOCUSATE SODIUM 50 MG/SENNA 8.6 MG TAB PO SCH (07:57)
[2017-02-04] MEDS: METOPROLOL TARTRATE 50 MG TAB PO SCH (07:58)
[2017-02-04] MEDS: LOSARTAN 50 MG TAB PO SCH (07:58)
[2017-02-04] MEDS: ACETAMINOPHEN 325 MG TAB PO PRN (07:59)
[2017-02-04 08:00] VITALS: BP 166/83; PULSE 78; RESP 20; TEMP 97.8; O2SAT 94
[2017-02-04] MEDS: SODIUM CHLORIDE 0.9% FLUSH 10 ML FLUSH IV FLUSH SCH (08:00)
[2017-02-04] MEDS ORDERED: SODIUM CHLORIDE 0.65% NASAL SPRAY 45 ML BTL EACH NARE PRN (08:00)
[2017-02-04] MEDS: BUMETANIDE INJ 1 MG/4 ML VIAL IV PUSH SCH (08:00)
[2017-02-04] MEDS: INSULIN ASPART SUPPLEMENTAL SCALE SQ SCH (08:01)
[2017-02-04] MEDS: INSULIN ASPART 1,000 UNITS/10 ML VIAL SQ SCH (08:02)
--- NOTE | 2017-02-04 08:36 | HHI.PR ---
Subjective Remarks Feels better. He was able to sleep overnight. Shortness of breath improved significantly. No lower extremity edema. Had 3 bowel movement, feels less bloated. Eating well. He is also drinking too much water, advised to limit water intake. He expressed understanding. He feels comfortable to go home today. He has oxygen at home. Objective Vitals Vital Signs Date Time Temp Pulse Resp B/P Pulse Ox O2 Delivery O2 Flow Rate FiO2 02/04/17 08:00 97.8 78 20 166/83 94 02/04/17 07:21 92 Nasal Cannula 3.00 02/04/17 04:00 97.6 75 20 110/59 96 02/04/17 00:00 98.0 71 20 126/57 96 02/03/17 21:02 93 Nasal Cannula 3.00 02/03/17 20:00 97.5 67 18 146/70 96 02/03/17 18:02 18 02/03/17 16:00 97.9 73 24 154/75 94 02/03/17 12:00 97.9 75 22 119/67 93 02/03/17 10:33 92 Nasal Cannula 3.00 I/O 02/03/17 02/03/17 02/03/17 02/04/17 02/04/17 02/04/17 07:00 15:00 23:00 07:00 15:00 23:00 Intake Total 950 ml 420 ml Balance 950 ml 420 ml Intake Oral 950 ml 420 ml # Voids 5 4 # Bowel Movements 3 1 Result Diagram: 02/03/17 0457 02/04/17 0520 Imaging Last Impressions Abdomen/Pelvis CT 02/03/17 0000 Signed Impressions: Service Date/Time: Friday, February 03, 2017 14:50 - CONCLUSION: 1. The liver appears to be enlarged. 2. Normal bowel gas pattern with some scattered diverticulosis of the descending and sigmoid colon. 3. Very large panniculus with edema in the subcutaneous soft tissues. There appears to be a nonspecific fluid collection in the subcutaneous soft tissues of the large panniculus on the left side. This measures about 4.5 cm. 4. No acute intra-abdominal or pelvic pathology. Hermelindo Arthur MD Chest X-Ray 02/02/17 1342 Signed Impressions: Service Date/Time: Ml, February 02, 2017 14:19 - CONCLUSION: 1. Global cardiomegaly with basilar atelectasis. Exam limited by patient's size. Yony Driscoll MD Objective Remarks GENERAL: This is a well-nourished, well-developed patient, in no apparent distress. CARDIOVASCULAR: Regular rate and rhythm without murmurs, gallops, or rubs. RESPIRATORY: Clear to auscultation. Breath sounds equal bilaterally. No wheezes , rales, or rhonchi. GASTROINTESTINAL: Abdomen soft, non-tender, moderately distended. hypoactive active bowel sounds MUSCULOSKELETAL: Extremities without clubbing, cyanosis, or edema. NEURO: Alert & Oriented x4 to person, place, time, situation. Moves all ext x4 A/P Problem List: (1) Diastolic heart failure ICD Code: I50.30 Status: Acute (2) Hypertension ICD Code: I10 Status: Acute (3) Diabetes ICD Code: E11.9 Status: Acute (4) Coronary artery disease ICD Code: I25.10 Status: Acute (5) Chronic obstructive pulmonary disease ICD Code: J44.9 Status: Acute Assessment and Plan (1) Diastolic heart failure ICD Code: I50.30 Status: Acute Plan: With acute exacerbation Continue Bumex, change to torsamide 20 mg po bid as OP. Fluid restriction. 2D echocardiogram reviewed EF 65-70 % Continue JASPREET inhibitor (lisinopril) and beta gaurang (Lopressor). Monitor VS closely (2) Hypertension ICD Code: I10 Status: Acute Controlled. On Cardura, amlodipine, lisinopril and Lopressor However his amlodipine may be causing more fluid retention and we will hold this medication and adjust his other medicines (3) Diabetes, uncontrolled A1c 7.7 ICD Code: E11.9 Status: Acute Plan: Continue home medications and sliding scale, diabetic heart healthy diet Patient on junivia/metformin, NovoLog and Lantus Hold metformin. (4) Coronary artery disease ICD Code: I25.10 Status: Acute Plan: Cardiac catheterization 2014 shows occlusion right coronary artery Continue aspirin and blood pressure control and diabetic control (5) Chronic obstructive pulmonary disease ICD Code: J44.9 Status: Acute Plan: Bronchodilators, home O2 at baseline currently Follow-up for acute exacerbation DC plan: Pending improvement. Plan of care to be determined by Hospital course Full code Lovenox for DVT prophylaxis Discussed with the patient, nurse. Improved. Discharged home. To follow up as outpatient with PCP and consultants. Kathia Chahal MD Feb 04, 2017 08:36
--- NOTE | 2017-02-04 08:39 | HHI.DS ---
Discharge Summary Admission Date Feb 03, 2017 at 11:13 Discharge Date: Feb 04, 2017 Admitting Diagnosis CHF, COPD EXACERBATION (1) Diastolic heart failure ICD Code: I50.30 Diagnosis: Principal (2) Hypertension ICD Code: I10 Diagnosis: Secondary (3) Diabetes ICD Code: E11.9 Diagnosis: Secondary (4) Coronary artery disease ICD Code: I25.10 Diagnosis: Secondary (5) Chronic obstructive pulmonary disease ICD Code: J44.9 Diagnosis: Secondary Procedures None Brief History - From Admission Mr. Otoole is a pleasant 71 year old male with a history of diabetes mellitus, CHF, CAD, COPD who presents to the ED on 02/02/2017 due to shortness of breath. Although he has been having shortness of breath for the last several weeks, in the last few days, his shortness of breath has been worsening. He reports orthopnea although he feels slightly better in left later decubitus position. Patient denies any cough, fever, chills. No chest pain. No lower extremity swelling but he reports his abdomen is much more distended. He denies any changes in bowel or bladder habits. CBC/BMP: 02/03/17 0457 02/04/17 0520 Significant Findings Laboratory Tests Test 02/02/17 02/03/17 02/04/17 13:46 04:57 05:20 Red Blood Count 3.95 MIL/MM3 3.81 MIL/MM3 (4.50-5.90) (4.50-5.90) Hemoglobin 11.5 GM/DL 11.3 GM/DL (13.0-17.0) (13.0-17.0) Hematocrit 37.0 % 34.9 % (39.0-51.0) (39.0-51.0) Mean Corpuscular Hemoglobin 31.1 % Concent (32.0-36.0) Neutrophils (%) (Auto) 76.0 % 71.5 % (16.0-70.0) (16.0-70.0) Prothrombin Time 12.2 SEC (9.8-11.6) Carbon Dioxide Level 32.1 MEQ/L 34.6 MEQ/L 36.6 MEQ/L (21.0-32.0) (21.0-32.0) (21.0-32.0) Blood Urea Nitrogen 38 MG/DL (7-18) 33 MG/DL (7-18) 26 MG/DL (7-18) Estimat Glomerular Filtration 66 ML/MIN (>89) 81 ML/MIN (>89) 81 ML/MIN (>89) Rate Random Glucose 118 MG/DL 189 MG/DL 227 MG/DL (74-106) (74-106) (74-106) Alkaline Phosphatase 35 U/L (45-117) Troponin I LESS THAN 0.02 NG/ML (0.02-0.05) B-Type Natriuretic Peptide 213 PG/ML (0-100) Hemoglobin A1c 7.7 % (4.3-6.0) Chloride Level 97 MEQ/L (98-107) Anion Gap 4 MEQ/L (5-15) Imaging Last Impressions Abdomen/Pelvis CT 02/03/17 0000 Signed Impressions: Service Date/Time: Friday, February 03, 2017 14:50 - CONCLUSION: 1. The liver appears to be enlarged. 2. Normal bowel gas pattern with some scattered diverticulosis of the descending and sigmoid colon. 3. Very large panniculus with edema in the subcutaneous soft tissues. There appears to be a nonspecific fluid collection in the subcutaneous soft tissues of the large panniculus on the left side. This measures about 4.5 cm. 4. No acute intra-abdominal or pelvic pathology. Hermelindo Arthur MD Chest X-Ray 02/02/17 1342 Signed Impressions: Service Date/Time: Thursday, February 02, 2017 14:19 - CONCLUSION: 1. Global cardiomegaly with basilar atelectasis. Exam limited by patient's size. Yony Driscoll MD PE at Discharge GENERAL: This is a well-nourished, well-developed patient, in no apparent distress. CARDIOVASCULAR: Regular rate and rhythm without murmurs, gallops, or rubs. RESPIRATORY: Clear to auscultation. Breath sounds equal bilaterally. No wheezes , rales, or rhonchi. GASTROINTESTINAL: Abdomen soft, non-tender, moderately distended. hypoactive active bowel sounds MUSCULOSKELETAL: Extremities without clubbing, cyanosis, or edema. NEURO: Alert & Oriented x4 to person, place, time, situation. Moves all ext x4 Hospital Course (1) Diastolic heart failure ICD Code: I50.30 Status: Acute Plan: With acute exacerbation Continue Bumex, change to torsamide 20 mg po bid as OP. Fluid restriction. 2D echocardiogram reviewed EF 65-70 % Continue JASPREET inhibitor (lisinopril) and beta gaurang (Lopressor). Monitor VS closely (2) Hypertension ICD Code: I10 Status: Acute Controlled. On Cardura, amlodipine, lisinopril and Lopressor However his amlodipine may be causing more fluid retention and we will hold this medication and adjust his other medicines (3) Diabetes, uncontrolled A1c 7.7 ICD Code: E11.9 Status: Acute Plan: Continue home medications and sliding scale, diabetic heart healthy diet Patient on junivia/metformin, NovoLog and Lantus Hold metformin. (4) Coronary artery disease ICD Code: I25.10 Status: Acute Plan: Cardiac catheterization 2014 shows occlusion right coronary artery Continue aspirin and blood pressure control and diabetic control (5) Chronic obstructive pulmonary disease ICD Code: J44.9 Status: Acute Plan: Bronchodilators, home O2 at baseline currently Follow-up for acute exacerbation DC plan: Pending improvement. Plan of care to be determined by Hospital course Full code Lovenox for DVT prophylaxis Discussed with the patient, nurse. Improved. Discharged home. To follow up as outpatient with PCP and consultants. Pt Condition on Discharge: Stable Discharge Disposition: Discharge Home Discharge Time: > 30 minutes Discharge Instructions DIET: Follow Instructions for: Heart Healthy Diet, Diabetic Diet Activities you can perform: Regular-No Restrictions Follow up Referrals: PCP Follow-up - 2-3 Days New Medications: Potassium Chloride ER (K-Tab) 10 Meq Tab 10 MEQ PO BID Electrolyte Replacement #60 Ref 0 TAB Torsemide (Torsemide) 20 Mg Tab 20 MG PO BID CHF #60 Ref 0 TAB Discontinued Medications: Furosemide (Lasix) 20 Mg Tab 40 MG PO BID #30 Ref 0 TAB Kathia Chahal MD Feb 04, 2017 08:39
[2017-02-04 08:59] VITALS: RESP 18
== END 2017-02-04 11:40 | disposition home or self-care (01) | DRG 190 ==
LOC: PHED 13:30 → INTOOBSV 15:34 → PHEDA 15:34 → PH3A 16:53 → OBSVTOIN 02-03 11:13
PROVIDERS: ADMIT Hospitalist; ATTEND Hospitalist
DX: J44.1 Chronic obstructive pulmonary disease with (acute) exacerbation (principal); I50.33 Acute on chronic diastolic (congestive) heart failure; E11.65 Type 2 diabetes mellitus with hyperglycemia; Z99.81 Dependence on supplemental oxygen; I11.0 Hypertensive heart disease with heart failure; I25.2 Old myocardial infarction; I25.10 Atherosclerotic heart disease of native coronary artery without angina pectoris; E03.9 Hypothyroidism, unspecified; E78.5 Hyperlipidemia, unspecified; Z79.4 Long term (current) use of insulin; Z83.3 Family history of diabetes mellitus; Z87.891 Personal history of nicotine dependence; Z98.61 Coronary angioplasty status
CPT/HCPCS: 71010; 74176; 80048; 80053; 81001; 83036; 83735; 83880; 84443; 84484; 85025; 85610; 85730; 93005; 93308; 94640; 94664; 96374; G0378; J1650; J1815; J1940; Q9963

== ENCOUNTER 2017-05-05 16:03 | Inpatient (IN) | payer OTHER, MEDICARE ==
[~2017-05-05] VITALS: Ht 175.3 cm; Wt 129.2 kg
[~2017-05-05 16:03] MED LIST changes: +AMLO10TA2 PO; -ASPI325T PO; +ASPI81TA11 PO; -COQ-100C2 PO; +COQ150CA PO; +ESSE250T PO; -FURO1TAB62 PO; +K-TA10TA PO; -MAGN250T2 PO; +NOVOINJ SQ; -NOVOLOGP2 SQ; +TORS20TA PO
[2017-05-05 16:12] VITALS: BP 170/75; PULSE 84; RESP 0; RESP 20; TEMP 98.6; O2SAT 95
[2017-05-05] MEDS ORDERED: LANTUS2P SQ (16:35)
[2017-05-05] MEDS ORDERED: FURO1TAB60 PO (16:35)
[2017-05-05] MEDS ORDERED: POTA-163 PO (16:35)
[2017-05-05 16:58] VITALS: O2SAT 98
[2017-05-05] MEDS ORDERED: ACETAMINOPHEN 325 MG TAB PO ONE (17:00)
[2017-05-05] MEDS ORDERED: SODIUM CHLORIDE 0.9% FLUSH 10 ML FLUSH IVF PRN (17:00)
--- NOTE | 2017-05-05 17:04 | PD ---
HPI Chief Complaint: Headache Time Seen by Provider: 16:29 Travel History International Travel<30 days: No Contact w/Intl Traveler<30days: No Traveled to known affect area: No History of Present Illness HPI patient 71-year-old male presents emergency department for evaluation of binocular diplopia for the past 5 days. Patient does have a history of diabetes high blood pressure high cholesterol and morbid obesity. He states that when he closes one of his eyes the double vision goes away but typically gets worse when he looks to the right. Patient also states she's been having a mild retrobulbar headache on the right side. Denies any chest pain shortness of breath abdominal pain nausea vomiting. States he does have some shortness of breath he is on chronic oxygen at home for COPD. PFSH Past Medical History Hx Anticoagulant Therapy: No Blood Disorders: No Heart Rhythm Problems: No Cancer: No Cardiac Catheterization: Yes Cardiovascular Problems: Yes High Cholesterol: Yes Chemotherapy: No Chest Pain: No Congestive Heart Failure: Yes COPD: Yes Cerebrovascular Accident: No Diabetes: Yes Patient Takes Glucophage: Yes Diminished Hearing: No Endocrine: Yes Gastrointestinal Disorders: No Genitourinary: No Hypertension: Yes Immune Disorder: No Implanted Vascular Access Dvce: No Musculoskeletal: No Neurologic: No Psychiatric: No Reproductive: No Respiratory: Yes (COPD) Immunizations Current: Yes Thyroid Disease: Yes Tetanus Vaccination: > 5 Years Influenza Vaccination: Yes Past Surgical History Abdominal Surgery: Yes (UMBILICAL HERNIA REPAIR.) Cardiac Surgery: Yes ([place] ANGIOPLASTY 1993) Hysterectomy: No Neurologic Surgery: No Other Surgery: Yes Social History Alcohol Use: No Tobacco Use: No (quit 1993) Substance Use: No Allergies-Medications (Allergen,Severity, Reaction): Coded Allergies: No Known Allergies (Unverified , 05/05/17) Reported Meds & Prescriptions Reported Meds & Active Scripts Active Reported Potassium Chloride ER (Potassium Chloride) 20 Meq Tab 20 Meq PO DAILY Lasix (Furosemide) 40 Mg Tab 40 Mg PO BID Lantus Inj (Insulin Glargine) 1,000 Unit/10 Ml Vial 50 Units SQ BID Amlodipine (Amlodipine Besylate) 10 Mg Tab 10 Mg PO DAILY Magnesium 250 Mg Tab 1 Tab PO DAILY Novolog Penfill Inj (Insulin Aspart) 300 Unit/3 Ml Pen 2-40 Units SQ TIDAC PRN sliding scale Coq10 (Coenzyme Q10 (Ubidecarenone)) 50 Mg Cap 100 Mg PO DAILY Aspirin EC (Aspirin) 81 Mg Tabdr 81 Mg PO DAILY Bellevue 3 1000 mg (Bellevue-3 Fatty Acids) 1 Cap Cap 2 Cap PO DAILY Metoprolol Tartrate 50 Mg Tab 50 Mg PO TID Lorazepam 0.5 Mg Tab 0.5 Mg PO BID PRN Lisinopril 20 Mg Tab 20 Mg PO BID Levothyroxine (Levothyroxine Sodium) 300 Mcg Tab 300 Mcg PO DAILY Janumet Xr (Sitagliptin-Metformin ER) 50-1,000 Mg Tab 1 Tab PO BID Glimepiride 4 Mg Tab 4 Mg PO BIDAC Gabapentin 300 Mg Cap 300 Mg PO HS Sunni Allergy (Fexofenadine HCl) 180 Mg Tab 180 Mg PO DAILY Doxazosin (Doxazosin Mesylate) 4 Mg Tab 4 Mg PO DAILY Vitamin D-3 (Cholecalciferol) 2,000 Unit Tab 1 Tab PO BID Atorvastatin (Atorvastatin Calcium) 20 Mg Tab 20 Mg PO HS Review of Systems Except as stated in HPI: all other systems reviewed are Neg Physical Exam Narrative GENERAL: Well-developed well-nourished no obvious distress. Morbidly obese. He covers one of his eyes at all times and alternates between the 2 of them. SKIN: Focused skin assessment warm/dry. HEAD: Atraumatic. Normocephalic. EYES: Pupils equal and round. No scleral icterus. No injection or drainage. ENT: No nasal bleeding or discharge. Mucous membranes pink and moist. NECK: Trachea midline. No JVD. CARDIOVASCULAR: Regular rate and rhythm. No murmur appreciated. RESPIRATORY: No accessory muscle use. Clear to auscultation. Breath sounds equal bilaterally. GASTROINTESTINAL: Abdomen soft, non-tender, nondistended. Hepatic and splenic margins not palpable. MUSCULOSKELETAL: No obvious deformities. No clubbing. No cyanosis. No edema. NEUROLOGICAL: Awake and alert. Cranial nerve examination shows an isolated cranial nerve palsy on the right. Cranial nerves otherwise appear to be intact. 5 out of 5 strength in all 4 extremities, cerebellar testing negative. Visual finley intact by confrontation. Patient does endorse double vision through all extra movements however worse when he looks to the right. PSYCHIATRIC: Appropriate mood and affect; insight and judgment normal. Data Data Last Documented VS Vital Signs Date Time Temp Pulse Resp B/P (MAP) Pulse Ox O2 Delivery O2 Flow Rate FiO2 05/05/17 22:20 82 18 161/74 (103) 94 Nasal Cannula 3.00 05/05/17 16:12 98.6 Orders Orders Complete Blood Count With Diff (05/05/17 16:55) Comprehensive Metabolic Panel (05/05/17 16:55) Westergren Sedimentation Rate (05/05/17 16:55) C-Reactive Protein (Crp) (05/05/17 16:55) Ct Brain W/O Iv Contrast(Rout) (05/05/17 16:55) Ecg Monitoring (05/05/17 16:55) Iv Access Insert/Monitor (05/05/17 16:55) Oximetry (05/05/17 16:55) Sodium Chloride 0.9% Flush (Ns Flush) (05/05/17 17:00) Acetaminophen (Tylenol) (05/05/17 17:00) Mri Brain W/O Contrast (05/05/17 18:39) Electrocardiogram (05/05/17 ) Aspirin Chew (Aspirin Chew) (05/05/17 20:45) Rmzq-Qsdyr-Bkou 325-50-40 Mg (Fioricet 3 (05/05/17 22:30) Admit Order (Ed Use Only) (05/06/17 ) Vital Signs (Adult) Q4H (05/06/17 01:07) Nih Stroke Scale - Nihss .On admission and discharge (05/06/17 01:07) Consult Pt Eval & Treat (05/06/17 01:07) Case Management Consult (05/06/17 ) Activity Bed Rest (05/06/17 01:07) Nursing Bedside Swallow Assess .ONCE (05/06/17 01:07) Scd Bilateral/Knee High JONATHAN.QSHIFT (05/06/17 01:07) Hemoglobin (Hgb) A1c (05/06/17 01:07) Lipid Profile (05/07/17 06:00) Us Carotid Arteries Comp Bilat (05/06/17 ) Mra Brain W/O Contrast (Cow) (05/06/17 ) Echo 2d Comp With Doppler (05/06/17 ) Resp Oxygen Chirag C Titrat 1-4 L (05/06/17 ) ^ Hold Medication (05/06/17 01:07) Consult Neurology (05/06/17 ) Sodium Chloride 0.9% Flush (Ns Flush) (05/06/17 09:00) Sodium Chloride 0.9% Flush (Ns Flush) (05/06/17 01:15) Bedside Glucose JONATHAN.CSUGAR (05/06/17 01:07) ^ Discontinue Insulin Orders (05/06/17 01:07) Insulin Aspart Supplemtl Scale (Novolog (05/06/17 08:00) Dextrose 50% In Zaira (Vial) Inj (D50w (Vi (05/06/17 01:15) Glucagon Inj (Glucagon Inj) (05/06/17 01:15) Consult Rehab Medicine (05/06/17 01:07) Card Grinder / Telemetry JONATHAN.Q8H (05/06/17 01:07) Consult Stroke Navigator (05/06/17 ) Place In Observation (05/06/17 ) Labs Laboratory Tests Test 05/05/17 17:00 05/06/17 00:00 White Blood Count 5.6 TH/MM3 Red Blood Count 4.29 MIL/MM3 Hemoglobin 12.8 GM/DL Hematocrit 38.5 % Mean Corpuscular Volume 89.9 FL Mean Corpuscular Hemoglobin 29.9 PG Mean Corpuscular Hemoglobin Concent 33.2 % Red Cell Distribution Width 14.6 % Platelet Count 204 TH/MM3 Mean Platelet Volume 8.3 FL Neutrophils (%) (Auto) 68.4 % Lymphocytes (%) (Auto) 23.2 % Monocytes (%) (Auto) 6.6 % Eosinophils (%) (Auto) 1.1 % Basophils (%) (Auto) 0.7 % Neutrophils # (Auto) 3.8 TH/MM3 Lymphocytes # (Auto) 1.3 TH/MM3 Monocytes # (Auto) 0.4 TH/MM3 Eosinophils # (Auto) 0.1 TH/MM3 Basophils # (Auto) 0.0 TH/MM3 CBC Comment DIFF FINAL Differential Comment Erythrocyte Sedimentation Rate 20 mm/hr Blood Urea Nitrogen 34 MG/DL Creatinine 0.95 MG/DL Random Glucose 141 MG/DL Total Protein 8.1 GM/DL Albumin 3.9 GM/DL Calcium Level 9.5 MG/DL Alkaline Phosphatase 42 U/L Aspartate Amino Transf (AST/SGOT) 19 U/L Alanine Aminotransferase (ALT/SGPT) 34 U/L Total Bilirubin 0.3 MG/DL Sodium Level 135 MEQ/L Potassium Level 4.2 MEQ/L Chloride Level 100 MEQ/L Carbon Dioxide Level 27.7 MEQ/L Anion Gap 7 MEQ/L Estimat Glomerular Filtration Rate 78 ML/MIN C-Reactive Protein 0.56 MG/DL MDM Medical Decision Making Medical Screen Exam Complete: Yes Emergency Medical Condition: Yes Differential Diagnosis Diabetic ophthalmoplegia, CVA, TIA, less likely is giant cell arteritis. Narrative Course Patient roomed emergency department, CT head negative, basic labs negative, EKG showing sinus rhythm. Patient was discussed with Dr. Mcguire my impression of diabetic ophthalmoplegia versus stroke. She agrees with the assessment and recommends the patient have MRI prior to being discharged to confirm the absence of stroke. The patient was taken to the MRI table in call and unfortunately he does not fit into the scanner secondary to body habitus. The patient was then discussed with Dr. Trinh for observation status and she requested the MRI be done possibly at the [facility] as the MRI machine is slightly bigger per the technician plant and maintenance. She would like to avoid on the [facility] hospitalization if possible. This was discussed with patient and he is agreeable. The patient was transported to the [facility] return to [place] in stable condition. I reviewed the MRI results and the patient in fact has a pontine stroke which is small and old. Given the history that his symptoms been going on for 5 days this certainly is contributing to his symptoms. The patient was discussed with again with Dr. Mcguire and Dr. Trinh and patient will be placed in the hospital for further workup of stroke. Diagnosis Primary Impression: Left pontine stroke Admitting Information Admitting Physician Requests: Admit Condition: Stable Brendan Hernández MD May 05, 2017 17:04
[2017-05-05 17:12] LABS: AUTOMATED NEUTROPHIL # 3.8 TH/MM3 (1.8-7.7); BASOPHIL % 0.7 % (0.0-2.0); EOSINOPHIL # 0.1 TH/MM3 (0-0.4); EOSINOPHIL % 1.1 % (0.0-4.0); HEMATOCRIT 38.5 % (39.0-51.0); HEMO FLAGS DIFF FINAL; LYMPH % 23.2 % (9.0-44.0); LYMPHOCYTE # 1.3 TH/MM3 (1.0-4.8); MEAN CELL VOLUME 89.9 FL (80.0-100.0); MEAN CORPUSCULAR HEMOGLOBIN 29.9 PG (27.0-34.0); MEAN CORPUSCULAR HGB CONC 33.2 % (32.0-36.0); MONO % 6.6 % (0.0-8.0); NEUT % 68.4 % (16.0-70.0); PLATELET COUNT 204 TH/MM3 (150-450); RED BLOOD COUNT 4.29 MIL/MM3 (4.50-5.90); RED CELL DISTRIBUTION WIDTH 14.6 % (11.6-17.2); WHITE BLOOD COUNT 5.6 TH/MM3 (4.0-11.0)
[2017-05-05 17:22] LABS: CHLORIDE 100 MEQ/L (98-107); POTASSIUM 4.2 MEQ/L (3.5-5.1); SODIUM (NA) 135 MEQ/L (136-145)
[2017-05-05 17:26] LABS: ANION GAP 7 MEQ/L (5-15); BICARBONATE 27.7 MEQ/L (21.0-32.0); BLOOD UREA NITROGEN 34 MG/DL (7-18)
--- NOTE | 2017-05-05 17:26 | RADRPT ---
EXAM DATE/TIME: 05/05/2017 17:02 [facility] COMPARISON: No previous studies available for comparison. INDICATIONS : Cephalgia, posterior orbital pressure. RADIATION DOSE: 59.84 CTDIvol (mGy) MEDICAL HISTORY : Cardiovascular disease. Diabetes mellitus type 2. Hypertension. SURGICAL HISTORY : None. ENCOUNTER: Initial ACUITY: 1 day PAIN SCALE: 8/10 LOCATION: Bilateral orbits TECHNIQUE: Multiple contiguous axial images were obtained of the head. Using automated exposure control and adj ustment of the mA and/or kV according to patient size, radiation dose was kept as low as reasonably a chievable to obtain optimal diagnostic quality images. DICOM format image data is available electro nically for review and comparison. FINDINGS: CEREBRUM: The ventricles are normal for age. No evidence of midline shift, mass lesion, hemorrhage or acute in farction. No extra-axial fluid collections are seen. POSTERIOR FOSSA: The cerebellum and brainstem are intact. The 4th ventricle is midline. The cerebellopontine angle i s unremarkable. EXTRACRANIAL: The visualized portion of the orbits is intact. SKULL: The calvaria is intact. No evidence of skull fracture. CONCLUSION: 1. No acute intracranial abnormality. Zhen Stallworth MD on May 05, 2017 at 17:23 Board Certified Radiologist. This report was verified electronically.
[2017-05-05 17:29] LABS: ALT (GPT) 34 U/L (12-78); AST (GOT) 19 U/L (15-37); GLOMERULAR FILTRATION RATE 78 ML/MIN (>89)
[2017-05-05 17:30] LABS: TOTAL BILIRUBIN ADULT 0.3 MG/DL (0.2-1.0)
[2017-05-05 17:32] LABS: ALKALINE PHOSPHATASE 42 U/L (45-117)
[2017-05-05 17:49] VITALS: BP 148/66; PULSE 81; RESP 22; O2SAT 95
[2017-05-05 20:16] VITALS: BP 150/59; PULSE 88; RESP 18; O2SAT 100
[2017-05-05] MEDS ORDERED: ASPIRIN 81 MG CHEW TAB CHEW ONE (20:45)
[2017-05-05 22:20] VITALS: BP_SYST 161; BP_DIAS 74; BP_DIAS 77; PULSE 82; RESP 18; O2SAT 94
[2017-05-05] MEDS ORDERED: ACETAMIN 325 MG/BUTALBITAL 50 MG/CAFFEINE 40 MG TAB PO ONE (22:30)
[2017-05-06] VITALS (10 sets, daily range): BP systolic 137–151; BP diastolic 51–67; PULSE 59–88; RESP 18–20; TEMP 97.7–98.2; O2SAT 94–97
--- NOTE | 2017-05-06 00:04 | RADRPT ---
EXAM DATE/TIME: 05/05/2017 23:35 [facility] COMPARISON: CT BRAIN W/O CONTRAST, May 05, 2017, 17:02. INDICATIONS : TIA. Blurred vision for three days. MEDICAL HISTORY : Diabetes mellitus type 2. Hypertension. Hypercholesterolemia. SURGICAL HISTORY : Angioplasty. Hernia Repair ENCOUNTER: Initial ACUITY: 3 day PAIN SCORE: 3/10 LOCATION: Bilateral cranial TECHNIQUE: Multiplanar, multisequence MRI of the brain was performed without contrast. FINDINGS: CEREBRUM: The ventricles are normal for age. No evidence of midline shift, mass lesion, hemorrhage or acute in farction. No extraaxial fluid collections are seen. The pituitary gland and suprasellar cistern are normal in configuration. WHITE MATTER: Several scattered faint subcentimeter foci of chronic flair signal abnormality seen of both through h emispheres, mostly the frontal lobes. POSTERIOR FOSSA: The cerebellum and brainstem are intact. Approximately 3 x 5 x 5 mm area of flair signal abnormality seen of the left side of the dante. The 4th ventricle is midline. The cerebellopontine angle is unrem arkable. The cerebellar tonsils are normal in position. DIFFUSION IMAGING: No focal areas of restricted diffusion are seen. No evidence of acute infarction. EXTRACRANIAL: The visualized portions of the orbits and paranasal sinuses are unremarkable. CONCLUSION: 1. No acute infarct or other acute intracranial abnormality. 2. Minimal chronic white matter changes. Also suspected small, old infarct of the left side of the po ns. Sanchez Parra MD on May 06, 2017 at 0:00 Board Certified Radiologist. This report was verified electronically.
[2017-05-06] MEDS ORDERED: SODIUM CHLORIDE 0.9% FLUSH 5 ML FLUSH IV FLUSH PRN (01:15)
[2017-05-06] MEDS ORDERED: GLUCAGON 1 MG/ML VIAL OTHER PRN (01:15)
[2017-05-06] MEDS ORDERED: DEXTROSE 50% IN WATER 50 ML VIAL(D50) IV PUSH PRN (01:15)
[2017-05-06] MEDS ORDERED: SYMB80AE INH (03:01)
[2017-05-06] MEDS ORDERED: RESP: ALBUTEROL 2.5 MG/IPRATROPIUM 0.5 MG NEB (PRN) NEB (03:30)
[2017-05-06] MEDS ORDERED: diphenhydrAMINE HCL 25 MG CAP PO ONE (03:30)
[2017-05-06] MEDS: RESP: ALBUTEROL 2.5 MG/IPRATROPIUM 0.5 MG NEB (SCH) NEB ×4 (04:42→21:05)
[2017-05-06] MEDS: INSULIN ASPART SUPPLEMENTAL SCALE SQ SCH ×4 (08:00→20:59)
[2017-05-06] MEDS ORDERED: LORazepam 0.5 MG TAB PO PRN (08:30)
[2017-05-06] MEDS: ASPIRIN EC 325 MG TABEC PO SCH (09:00)
[2017-05-06] MEDS: DOXAZOSIN MESYLATE 4 MG TAB PO SCH (09:00)
--- NOTE | 2017-05-06 09:03 | RADRPT ---
EXAM DATE/TIME: 05/06/2017 07:53 [facility] COMPARISON: No previous studies available for comparison. INDICATIONS : Cerebrovascular accident. MEDICAL HISTORY : Hypercholesterolemia. Hypertension. Chronic obstructive pulmonary disease. Thyroid disease. Cerebrov ascular accident. Myocardial infarction. Congestive heart failure. Asthma. Urinary tract infectio n. Arthritis. Anxiety. SURGICAL HISTORY : Cardiac catheterization. Umbilical hernia repair. Balloon angioplasty. ENCOUNTER: Initial ACUITY: 2 days PAIN SCORE: 5/10 LOCATION: Bilateral neck PEAK SYSTOLIC VELOCITIES (cm/sec): ICA/CCA RATIO: Right: 1.0 Left: 1.0 ICA: Right: 83.4 Left: 95.0 CCA: Right: 80.6 Left: 95.0 ECA: Right: 167.8 Left: 83.4 VERTEBRAL: Right: 58.9 antegrade Left: 55.0 antegrade Elevated flow velocities and ICA/CCA ratios have been found to correlate with increased degrees of vessel stenosis, calculated as percentage of diameter relative to a normal segment of distal ICA/CCA FINDINGS: RIGHT CAROTID: No significant stenosis is visualized. The waveforms are within normal limits. LEFT CAROTID: No significant stenosis is visualized. The waveforms are within normal limits. VERTEBRAL ARTERIES: Antegrade flow is seen in both vertebral arteries. MISCELLANEOUS: None. CONCLUSION: No evidence of flow-limiting carotid stenosis. Sanchez Mcdonnell MD on May 06, 2017 at 9:00 Board Certified Radiologist. This report was verified electronically.
[2017-05-06 09:28] LABS: HEMOGLOBIN A1a 1.1 %; HEMOGLOBIN A1b 2.2 %; HEMOGLOBIN Ao 81.8 %; HEMOGLOBIN LA1C 2.2 %; HEMOGLOBIN P3 5.9 %
[2017-05-06] MEDS: FUROSEMIDE 40 MG TAB PO SCH ×2 (09:39→20:52)
[2017-05-06] MEDS: POTASSIUM CHLORIDE 20 MEQ CONTROLLED RELEASE TAB PO SCH (09:39)
[2017-05-06] MEDS: LORATADINE 10 MG TAB PO SCH (09:39)
[2017-05-06] MEDS: METOPROLOL TARTRATE 50 MG TAB PO SCH ×3 (09:39→18:28)
[2017-05-06] MEDS: LISINOPRIL 20 MG TAB PO SCH ×2 (09:40→20:52)
--- NOTE | 2017-05-06 14:48 | EKG ---
Date Performed: 05/05/2017 Time Performed: 20:57:44 PTAGE: 71 years EKG: Sinus rhythm WITH OCCASIONAL SUPRAVENTRICULAR PREMATURE COMPLEXES NONSPECIFIC T-WAVE ABNORMALITY BORDERLINE ECG PREVIOUS TRACING : 02/02/2017 13.50 Compared to prior tracing no significant change DOCTOR: Roel Montelongo Interpretating Date/Time 05/06/2017 14:47:45
--- NOTE | 2017-05-06 15:02 | ECHRPT ---
Indication: CVA/TIA CONCLUSIONS Normal left ventricular size. Moderate concentric left ventricular hypertrophy. The left ventricular systolic function is hyperdynamic with an estimated ejection fraction in the ra nge of 65- 70%. Calcification of both mitral valve leaflets. Aortic valve sclerosis is present. There is trace tricuspid valve regurgitation. Normal estimated pulmonary pressures. A prominent epicardial fat pad is present. BP: 138 / 51 HR: 81 Rhythm: Sinus MEASUREMENTS (Male / Female) Normal Values Technical Quality:Very technically difficult study 2D ECHO LV Diastolic Diameter PLAX 5.8 cm 4.2 - 5.9 / 3.9 - 5.3 cm LV Systolic Diameter PLAX 4.1 cm IVS Diastolic Thickness 1.4 cm 0.6 - 1.0 / 0.6 - 0.9 cm LVPW Diastolic Thickness 1.4 cm 0.6 - 1.0 / 0.6 - 0.9 cm LV Relative Wall Thickness 0.5 LVOT Diameter 1.9 cm Aortic Root Diameter 2.8 cm M-MODE AV Cusp Separation MM 2.2 cm DOPPLER AV Peak Velocity 113.0 cm/s AV Peak Gradient 5.1 mmHg AV Mean Gradient 3.0 mmHg AV Velocity Time Integral 25.1 cm LVOT Peak Velocity 72.2 cm/s LVOT Peak Gradient 2.1 mmHg LVOT Velocity Time Integral 13.0 cm LVOT Cardiac Index 1148.7 cm/minm AV Area Cont Eq vti 1.5 cm AV Area Cont Eq pk 1.8 cm Mitral E Point Velocity 75.5 cm/s Mitral A Point Velocity 69.1 cm/s Mitral E to A Ratio 1.1 TR Peak Velocity 149.0 cm/s TR Peak Gradient 8.9 mmHg PV Peak Velocity 83.5 cm/s PV Peak Gradient 2.8 mmHg FINDINGS LEFT VENTRICLE Normal left ventricular size. Moderate concentric left ventricular hypertrophy. The left ventricular systolic function is hyperdynamic with an estimated ejection fraction in the ra nge of 65- 70%. RIGHT VENTRICLE Normal right ventricular size and systolic function. LEFT ATRIUM The left atrial size is normal. RIGHT ATRIUM The right atrial size is normal. ATRIAL SEPTUM Normal atrial septal thickness without atrial level shunting by limited color doppler interrogation. AORTA The aortic root and proximal ascending aorta are normal in size on limited imaging. MITRAL VALVE Calcification of both mitral valve leaflets. AORTIC VALVE Aortic valve sclerosis is present. TRICUSPID VALVE There is trace tricuspid valve regurgitation. Normal estimated pulmonary pressures. PULMONARY VALVE The pulmonary valve is not well visualized. VESSELS The inferior vena cava is normal in size. PERICARDIUM A prominent epicardial fat pad is present. Steve Spear MD, FACC (Electronically Signed) Final Date:06 May 2017 15:01
--- NOTE | 2017-05-06 15:40 | HHI.HP ---
[facility] Adri Hudson MD Admission Diagnosis Subacute Pontine Stroke. Diagnoses: Travel History International Travel<30 Days: No Contact w/Intl Traveler <30 Da: No Traveled to Known Affected Are: No History of Present Illness This is a 71-year-old male with past medical history of COPD, type 2 diabetes, diastolic CHF who presents with a five-day history of for Hugo diplopia. The patient states that he first noticed the diplopia 5 days ago when he was driving to work the lines on the road appeared double and side-by- side. Several days later he started to develop a headache above his right eye. He denies any temporal headache. He states is not unusual for him to have this type of headache or chills usually associated with sinus congestion. He states he stopped taking his Sunni a week ago after he ran out of it. The patient denies other symptoms such as dysarthria, slurred speech, unilateral weakness or paresthesias. The patient denies previous history of stroke. He takes an aspirin a day. He continues to have persistent diplopia which resolves when he closed either eye. Denies previous vision problems. Review of Systems Constitutional: DENIES: Fever, Chills Eyes: COMPLAINS OF: Diplopia Ears, nose, mouth, throat: DENIES: Nasal discharge, Throat pain Respiratory: DENIES: Cough, Shortness of breath Cardiovascular: DENIES: Chest pain, Palpitations Gastrointestinal: DENIES: Abdominal pain, Vomiting Genitourinary: DENIES: Hematuria, Dysuria Musculoskeletal: DENIES: Back pain, Neck pain Integumentary: DENIES: Pruritus, Rash Hematologic/lymphatic: DENIES: Lymphadenopathy Neurologic: COMPLAINS OF: Headache, DENIES: Abnormal gait, Localized weakness, Paresthesias Psychiatric: DENIES: Anxiety, Confusion Past Family Social History Past Medical History Diastolic CHF coronary artery disease status post angioplasty in the Dr. Otoole is his claims specialist COPD on home oxygen at night hypothyroidism Obesity Hypertension Hyperlipidemia History of PR in Allergies: Coded Allergies: No Known Allergies (Unverified , 05/05/17) Family History Reviewed and noncontributory Social History Denies alcohol tobacco or drug use Physical Exam Vital Signs Vital Signs Date Time Temp Pulse Resp B/P (MAP) Pulse Ox O2 Delivery O2 Flow Rate FiO2 05/06/17 09:37 94 Nasal Cannula 3.00 05/06/17 08:48 98.0 86 20 145/57 (86) 96 05/06/17 04:42 96 Nasal Cannula 3.00 05/06/17 04:00 98.2 81 20 138/51 (80) 94 05/06/17 02:45 88 05/06/17 02:35 97.8 88 20 138/55 (82) 95 05/06/17 02:30 95 Nasal Cannula 3.00 05/06/17 02:02 05/06/17 01:42 86 18 151/64 (93) 94 Room Air 05/05/17 22:20 82 18 161/74 (103) 94 Nasal Cannula 3.00 05/05/17 20:16 88 18 150/59 (89) 100 Nasal Cannula 3.00 05/05/17 19:27 Nasal Cannula 3.00 05/05/17 17:49 81 22 148/66 (93) 95 Nasal Cannula 3.00 05/05/17 16:58 98 Nasal Cannula 3.00 05/05/17 16:27 73 98 Nasal Cannula 3.00 05/05/17 16:12 98.6 84 20 170/75 (106) 95 Physical Exam GENERAL: This is a well-nourished, well-developed patient, in no apparent distress. SKIN: No rashes, ecchymoses or lesions. Cool and dry. HEAD: Atraumatic. Normocephalic. No temporal or scalp tenderness. EYES: Pupils equal round and reactive. Patient is unable to fully abduct his right eye. No scleral icterus. No injection or drainage. ENT: Nose without bleeding, purulent drainage or septal hematoma. Throat without erythema, tonsillar hypertrophy or exudate. Uvula midline. Airway patent. NECK: Trachea midline. No JVD or lymphadenopathy. Supple, nontender, no meningeal signs. CARDIOVASCULAR: Regular rate and rhythm without murmurs, gallops, or rubs. RESPIRATORY: Clear to auscultation. Breath sounds equal bilaterally. No wheezes , rales, or rhonchi. GASTROINTESTINAL: Abdomen soft, non-tender, nondistended. No hepato-splenomegaly , or palpable masses. No guarding. MUSCULOSKELETAL: Extremities without clubbing, cyanosis, or edema. NEUROLOGICAL: Awake and alert. Cranial nerves II through XII intact. Motor and sensory grossly within normal limits. Five out of 5 muscle strength in all muscle groups. Normal speech. Laboratory Laboratory Tests Test 05/05/17 17:00 05/06/17 00:00 White Blood Count 5.6 Red Blood Count 4.29 Hemoglobin 12.8 Hematocrit 38.5 Mean Corpuscular Volume 89.9 Mean Corpuscular Hemoglobin 29.9 Mean Corpuscular Hemoglobin Concent 33.2 Red Cell Distribution Width 14.6 Platelet Count 204 Mean Platelet Volume 8.3 Neutrophils (%) (Auto) 68.4 Lymphocytes (%) (Auto) 23.2 Monocytes (%) (Auto) 6.6 Eosinophils (%) (Auto) 1.1 Basophils (%) (Auto) 0.7 Neutrophils # (Auto) 3.8 Lymphocytes # (Auto) 1.3 Monocytes # (Auto) 0.4 Eosinophils # (Auto) 0.1 Basophils # (Auto) 0.0 CBC Comment DIFF FINAL Differential Comment Erythrocyte Sedimentation Rate 20 Blood Urea Nitrogen 34 Creatinine 0.95 Random Glucose 141 Total Protein 8.1 Albumin 3.9 Calcium Level 9.5 Alkaline Phosphatase 42 Aspartate Amino Transf (AST/SGOT) 19 Alanine Aminotransferase (ALT/SGPT) 34 Total Bilirubin 0.3 Sodium Level 135 Potassium Level 4.2 Chloride Level 100 Carbon Dioxide Level 27.7 Anion Gap 7 Estimat Glomerular Filtration Rate 78 C-Reactive Protein 0.56 Hemoglobin A1c 7.8 Result Diagram: 05/05/17169905/05/171699 Imaging Last Impressions Carotid Artery Ultrasound 05/06/17 0000 Signed Impressions: Service Date/Time: May 07:53 - CONCLUSION: No evidence of flow-limiting carotid stenosis. Sanchez Mcdonnell MD Brain MRI 05/05/17 [id number] Signed Impressions: Service Date/Time: Friday, May 05, 2017 23:35 - CONCLUSION: 1. No acute infarct or other acute intracranial abnormality. 2. Minimal chronic white matter changes. Also suspected small, old infarct of the left side of the dante. Sanchez Parra MD Head CT 05/05/17 [id number] Signed Impressions: Service Date/Time: Friday, May 05, 2017 17:02 - CONCLUSION: 1. No acute intracranial abnormality. MD Keesha Duarte VTE Risk Assessment Keesha VTE Risk Assessment: Mod/High Risk (score >= 2) Caprini Risk Assessment Model Point Value = 1 Point Value = 2 Point Value = 3 Point Value = 5 Age 41-60 Minor surgery BMI > 25 kg/m2 Swollen legs Varicose veins or History of unexplained or recurrent spontaneous Oral contraceptives or hormone replacement Sepsis (< 1 month) Serious lung disease, including pneumonia (< 1 month) Abnormal pulmonary function Acute myocardial infarction Congestive heart failure (< 1 month) History of inflammatory bowel disease Medical patient at bed rest Age 61-74 Arthroscopic surgery Major open surgery (> 45 min) Laparoscopic surgery (> 45 min) Malignancy Confined to bed (> 72 hours) Immobilizing plaster cast Central venous access Age >= 75 History of VTE Family history of VTE Factor V Leiden Prothrombin [id number] Lupus anticoagulant Anticardiolipin antibodies Elevated serum homocysteine Heparin-induced thrombocytopenia Other congenital or acquired thrombophilia Stroke (< 1 month) Elective arthroplasty Hip, pelvis, or leg fracture Acute spinal cord injury (< 1 month) Prophylaxis Regimen Total Risk Factor Score Risk Level Prophylaxis Regimen 0-1 Low Early ambulation 2 Moderate Order ONE of the following: *Sequential Compression Device (SCD) *Heparin 5000 units SQ BID 3-4 Higher Order ONE of the following medications: *Heparin 5000 units SQ TID *Enoxaparin/Lovenox 40 mg SQ daily (WT < 150 kg, CrCl > 30 mL/min) *Enoxaparin/Lovenox 30 mg SQ daily (WT < 150 kg, CrCl > 10-29 mL/min) *Enoxaparin/Lovenox 30 mg SQ BID (WT < 150 kg, CrCl > 30 mL/min) AND/OR *Sequential Compression Device (SCD) 5 or more Highest Order ONE of the following medications: *Heparin 5000 units SQ TID (Preferred with Epidurals) *Enoxaparin/Lovenox 40 mg SQ daily (WT < 150 kg, CrCl > 30 mL/min) *Enoxaparin/Lovenox 30 mg SQ daily (WT < 150 kg, CrCl > 10-29 mL/min) *Enoxaparin/Lovenox 30 mg SQ BID (WT < 150 kg, CrCl > 30 mL/min) AND *Sequential Compression Device (SCD) Assessment and Plan Problem List: (1) 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 Brain MRI was negative for acute stroke, did show a possible old small pontine stroke. Doppler ultrasound is negative. Patient has no history of atrial fibrillation. Neurology consultation has been requested. Continue aspirin. Follow-up lipid profile and continue statin. -History of diastolic CHF, coronary artery disease, COPD on home oxygen at night , type 2 diabetes, neuropathy, obesity, hypothyroidism, hypertension. Continue home medications as appropriate. -DVT prophylaxis Neli Stapleton MD May 06, 2017 15:40
[2017-05-06] MEDS ORDERED: LORazepam 1 MG TAB PO ONE (20:00)
[2017-05-06] MEDS: BUDESONIDE-FORMOTEROL 80/4.5 MCG INHALER INH SCH ×2 (20:52→21:00)
[2017-05-06] MEDS: SODIUM CHLORIDE 0.9% FLUSH 5 ML FLUSH IV FLUSH SCH (20:53)
[2017-05-06] MEDS ORDERED: ATORVASTATIN 40 MG TAB PO SCH (21:00)
[2017-05-06] MEDS ORDERED: ATORVASTATIN 20 MG TAB PO SCH (21:00)
[2017-05-06] MEDS ORDERED: GABAPENTIN 300 MG CAP PO SCH (21:00)
--- NOTE | 2017-05-06 21:24 | MB ---
cc: ZACHARY DEVI. PHD DATE OF CONSULTATION 05/06/17 REASON FOR CONSULTATION Double vision. HISTORY OF PRESENT ILLNESS Mr. Otoole is a 71-year-old man who noted double vision several days ago. This is mainly if he looks to the right side. He has no other neurologic symptoms such as vertigo, slurred speech, focal weakness. PERSONAL HISTORY 1. History of type 2 diabetes, 2. COPD, 3. Congestive heart failure, 4. Coronary artery disease, 5. Hypertension, 6. Hyperlipidemia 7. Hypothyroidism. ALLERGIES None known. MEDICATIONS Current are 1. Gabapentin 2. Lipitor 3. Aspirin 325 mg daily on. 4. Metoprolol 50 mg t.i.d. 5. Amlodipine. 6. Symbicort. 7. Cardura. 8. Lasix. 9. Synthroid. 10. Prinivil 11. Potassium chloride 12. Claritin 13. NovoLog insulin. NEUROLOGIC EXAMINATION VITAL SIGNS: Blood pressure is 137/66, pulse 78, respirations 20, temperature 97 degrees. Higher cortical functions normal. Cranial nerves: He has a right lateral rectus palsy. Other cranial nerves are normal. Pupils equal, reactive. There is no ptosis. Motor exam normal strength and tone of all groups in both upper and lower extremities. There is no drift. Fine motor skills normal. MRI of the brain - no acute change present. There is chronic ischemic change, old infarct left dante identified but no acute change. Carotid ultrasound is normal. LABORATORY DATA The white count is 5600, hemoglobin 12.8, hematocrit 38%, platelet count is 204,000, sed rate is 20. Sodium 135, potassium 4.2, chloride 100, CO2 27, BUN is 34, creatinine 0.95, glucose 141, hemoglobin A1c 7.8. IMPRESSION Right cranial nerve palsy, probably from diabetes. There is no evidence of stroke. RECOMMENDATIONS We will check additional labs including a thyroid panel, B12 level, myasthenia gravis antibody panel. From the neurologic standpoint, the patient is stable for discharge tomorrow if okay with the medicine service. MD CRISTOBAL Vanegas/ /7:46 PM /9:11 PM
[2017-05-07] VITALS: BP 124/47; PULSE 73; RESP 24; TEMP 97.1; O2SAT 96
[2017-05-07] MEDS: RESP: ALBUTEROL 2.5 MG/IPRATROPIUM 0.5 MG NEB (SCH) NEB ×2 (03:16→09:44)
[2017-05-07 04:00] VITALS: BP 144/71; PULSE 73; RESP 20; TEMP 97.8; O2SAT 93
[2017-05-07] MEDS: LEVOTHYROXINE SODIUM 150 MCG TAB PO SCH ×2 (06:00→09:20)
[2017-05-07 08:08] VITALS: BP 150/52; PULSE 67; RESP 16; TEMP 97.6; O2SAT 97
[2017-05-07] MEDS ORDERED: INFLUENZA VIRUS VACCINE (QUADRIVALENT) 0.5 ML SYR IM ONE (09:00)
[2017-05-07] MEDS: LISINOPRIL 20 MG TAB PO SCH (09:10)
[2017-05-07] MEDS: POTASSIUM CHLORIDE 20 MEQ CONTROLLED RELEASE TAB PO SCH (09:11)
[2017-05-07] MEDS: LORATADINE 10 MG TAB PO SCH (09:11)
[2017-05-07] MEDS: METOPROLOL TARTRATE 50 MG TAB PO SCH ×2 (09:13→13:12)
[2017-05-07] MEDS: FUROSEMIDE 40 MG TAB PO SCH (09:13)
[2017-05-07] MEDS: BUDESONIDE-FORMOTEROL 80/4.5 MCG INHALER INH SCH (09:16)
[2017-05-07] MEDS: SODIUM CHLORIDE 0.9% FLUSH 5 ML FLUSH IV FLUSH SCH (09:17)
[2017-05-07] MEDS: DOXAZOSIN MESYLATE 4 MG TAB PO SCH (09:18)
[2017-05-07] MEDS: ASPIRIN EC 325 MG TABEC PO SCH (09:18)
[2017-05-07] MEDS: INSULIN ASPART SUPPLEMENTAL SCALE SQ SCH ×2 (09:35→12:20)
[2017-05-07 09:46] VITALS: O2SAT 88
--- NOTE | 2017-05-07 10:25 | HHI.PR ---
Subjective Remarks Patient still has double vision which is worse when he looks to the right. No other acute concerns. Objective Vitals Vital Signs Date Time Temp Pulse Resp B/P (MAP) Pulse Ox O2 Delivery O2 Flow Rate FiO2 05/07/17 09:46 88 21 05/07/17 08:08 97.6 67 16 150/52 (84) 97 05/07/17 04:00 97.8 73 20 144/71 (95) 93 05/07/17 00:00 97.1 73 24 124/47 (72) 96 05/06/17 21:05 95 Nasal Cannula 3.00 05/06/17 20:00 60 05/06/17 20:00 Nasal Cannula 2.00 05/06/17 20:00 97.8 59 20 141/67 (91) 95 05/06/17 16:20 97.7 78 20 137/66 (89) 97 I/O 05/06/17 05/06/17 05/06/17 05/07/17 05/07/17 05/07/17 07:00 15:00 23:00 07:00 15:00 23:00 Intake Total 220 ml 1680 ml 480 ml Output Total 250 ml 0 ml Balance -30 ml 1680 ml 480 ml Intake Oral 220 ml 1680 ml 480 ml Output Urine Total 250 ml Stool Total 0 ml # Voids 2 10 2 # Bowel Movements 0 3 0 Result Diagram: 05/05/17 1700 05/05/17 1700 Objective Remarks GENERAL: Well-nourished, well-developed obese male patient. SKIN: Warm and dry. HEAD: Normocephalic. EYES: No scleral icterus. No injection or drainage. Unable to abduct the right eye. NECK: Supple, trachea midline. No JVD or lymphadenopathy. CARDIOVASCULAR: Regular rate and rhythm without murmurs, gallops, or rubs. RESPIRATORY: Breath sounds equal bilaterally. No accessory muscle use. GASTROINTESTINAL: Abdomen soft, non-tender, nondistended. EXTREMITIES: No cyanosis, or edema. NEUROLOGICAL: Awake, alert, and oriented x 3. Non-focal. A/P Problem List: (1) 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 Brain MRI was negative for acute stroke, did show a possible old small pontine stroke. Doppler ultrasound is negative. Continue aspirin and statin. Patient was seen by neurology. He is cleared for discharge. Myasthenia gravis antibodies were ordered; these will need to be followed up by his primary care physician, patient was educated on this and to follow-up with PCP next week. -History of diastolic CHF, coronary artery disease, COPD on home oxygen at night , type 2 diabetes, neuropathy, obesity, hypothyroidism, hypertension. Continue home medications as appropriate. Neli Stapleton MD May 07, 2017 10:25
[2017-05-07 12:43] VITALS: BP 137/74; PULSE 72; RESP 18; TEMP 97.7; O2SAT 97
--- NOTE | 2017-05-10 16:34 | PD.CONS ---
Assessment and Plan Plan Consult received per stroke order set. EMR reviewed. MRI negative for acute stroke. Neurology consult reviewed and indicates cranial nerve VII palsy Consult deferred due to no acute stroke. Please reconsult as appropriate. Thank you. Demetria Amaro MD May 10, 2017 16:34
[2017-05-11 13:51] LABS: ACETYLCHOLINE REC BINDING LESS THAN 0.30 nmol/L
[2017-05-11 19:50] LABS: STRIATED MUCLE AB TITER ND (<1:40)
== END 2017-05-07 13:17 | disposition home or self-care (01) | DRG 123 ==
LOC: PHED 16:03 → PHEDA 05-06 01:06 → INTOOBSV 05-06 01:11 → UNDOADMOB 05-06 01:11 → OBSVTOIN 05-06 01:11 → PHEDA 05-06 01:11 → PH5A 05-06 02:20 → OBSVTOIN 05-06 08:26 → INTOOBSV 05-06 08:26 → UNDODISOB 05-07 13:17
PROVIDERS: ADMIT Family Medicine; ATTEND Family Medicine
DX: H49.21 Sixth [abducent] nerve palsy, right eye (principal); I11.0 Hypertensive heart disease with heart failure; I50.32 Chronic diastolic (congestive) heart failure; Z99.81 Dependence on supplemental oxygen; Z68.41 Body mass index [BMI] 40.0-44.9, adult; J44.9 Chronic obstructive pulmonary disease, unspecified; E11.9 Type 2 diabetes mellitus without complications; Z98.61 Coronary angioplasty status; E03.9 Hypothyroidism, unspecified; E78.5 Hyperlipidemia, unspecified; I25.10 Atherosclerotic heart disease of native coronary artery without angina pectoris; E66.01 Morbid (severe) obesity due to excess calories; I25.2 Old myocardial infarction; Z79.4 Long term (current) use of insulin; Z23 Encounter for immunization
CPT/HCPCS: 70450; 70551; 80053; 80061; 82607; 82948; 83036; 83519; 84443; 85025; 85652; 86140; 86255; 90471; 90686; 93005; 93306; 93880; 94640; 94664; G0008; G8987-GP; G8988-GP; J1815; Q2038

== ENCOUNTER 2017-09-27 17:11 | Inpatient (IN) | payer OTHER, MEDICARE ==
[2017-09-27] VITALS (7 sets, daily range): BP systolic 109–144; BP diastolic 46–69; PULSE 72–85; RESP 20–32; TEMP 97.8–98.1; O2SAT 88–92
[~2017-09-27 17:11] MED LIST changes: -ASPI81TA11 PO; +ASPI81TA23 PO; +FURO1TAB60 PO; -K-TA10TA PO; -LORA-373 PO; +LORA0.5T PO; +POTA-163 PO; +SYMB80AE INH; -TORS20TA PO
[2017-09-27] MEDS ORDERED: MAGNESIUM SULFATE 1 GM PREMIX 100 ML IV ONE (17:15)
[2017-09-27] MEDS ORDERED: RESP: ALBUTEROL 2.5 MG/IPRATROPIUM 0.5 MG NEB (SCH) INH ONE (17:15)
--- NOTE | 2017-09-27 17:19 | PD ---
HPI Chief Complaint: Respiratory Distress Time Seen by Provider: 17:14 Travel History International Travel<30 days: No Contact w/Intl Traveler<30days: No Traveled to known affect area: No History of Present Illness HPI Patient states that he has had a worsening shortness of breath and increasing swelling to his abdomen over the past 3-4 days. denies alleviating factors...worsened sob when laying on his back....denies assoc factors such as fever/rash/cp/abdpain/backpain/shirley/n/v/d/ at this point. No known drug allergy. Past medical and surgical history significant for hypothyroidism, [place], CHF, catheterization, hypercholesterolemia, hypertension, COPD oxygen dependent on 2 L, umbilical hernia, previous UTI, arthritis, and diabetes. PFSH Past Medical History Hx Anticoagulant Therapy: No Arthritis: Yes Asthma: Yes Autoimmune Disease: No Blood Disorders: No Anxiety: Yes Depression: No Heart Rhythm Problems: No Cancer: No Cardiac Catheterization: Yes Cardiovascular Problems: Yes High Cholesterol: Yes Chemotherapy: No Chest Pain: No Congestive Heart Failure: Yes COPD: Yes Cerebrovascular Accident: Yes (CURRANT DIAGNOSIS) Diabetes: Yes Diminished Hearing: No Endocrine: Yes Gastrointestinal Disorders: No Genitourinary: Yes Hypertension: Yes Immune Disorder: No Implanted Vascular Access Dvce: No Musculoskeletal: Yes Neurologic: Yes Psychiatric: Yes Reproductive: No Respiratory: Yes (COPD) Immunizations Current: Yes Migraines: Yes Seizures: No Thyroid Disease: Yes Past Surgical History Abdominal Surgery: Yes (UMBILICAL HERNIA REPAIR.) Cardiac Surgery: Yes ([place] ANGIOPLASTY 1993) Eye Surgery: No Hysterectomy: No Neurologic Surgery: No Thoracic Surgery: No Other Surgery: Yes Social History Alcohol Use: No Tobacco Use: No (quit 1993) Substance Use: No Allergies-Medications (Allergen,Severity, Reaction): Coded Allergies: No Known Allergies (Unverified , 05/05/17) Reported Meds & Prescriptions Reported Meds & Active Scripts Active Reported Potassium Chloride ER (Potassium Chloride) 20 Meq Tab 20 Meq PO DAILY Lasix (Furosemide) 40 Mg Tab 40 Mg PO BID Lantus Inj (Insulin Glargine) 1,000 Unit/10 Ml Vial 50 Units SQ BID Amlodipine (Amlodipine Besylate) 10 Mg Tab 10 Mg PO DAILY Magnesium 250 Mg Tab 1 Tab PO DAILY Novolog Penfill Inj (Insulin Aspart) 300 Unit/3 Ml Pen 2-40 Units SQ TIDAC PRN sliding scale Coq10 (Coenzyme Q10 (Ubidecarenone)) 50 Mg Cap 100 Mg PO DAILY Aspirin EC (Aspirin) 81 Mg Tabdr 81 Mg PO DAILY [place] 3 1000 mg ([place]-3 Fatty Acids) 1 Cap Cap 2 Cap PO DAILY Metoprolol Tartrate 50 Mg Tab 50 Mg PO TID Lorazepam 0.5 Mg Tab 0.5 Mg PO BID PRN Lisinopril 20 Mg Tab 20 Mg PO BID Levothyroxine (Levothyroxine Sodium) 300 Mcg Tab 300 Mcg PO DAILY Janumet Xr (Sitagliptin-Metformin ER) 50-1,000 Mg Tab 1 Tab PO BID Gabapentin 300 Mg Cap 300 Mg PO HS Doxazosin (Doxazosin Mesylate) 4 Mg Tab 4 Mg PO DAILY Vitamin D-3 (Cholecalciferol) 2,000 Unit Tab 1 Tab PO BID Atorvastatin (Atorvastatin Calcium) 20 Mg Tab 20 Mg PO HS Review of Systems General / Constitutional: No: Fever Eyes: No: Visual changes HENT: No: Headaches Cardiovascular: No: Chest Pain or Discomfort Respiratory: Positive: Shortness of Breath, Wheezing Gastrointestinal: No: Abdominal Pain Genitourinary: No: Dysuria Musculoskeletal: No: Pain Skin: No Rash Neurologic: No: Weakness Psychiatric: No: Depression Endocrine: No: Polydipsia Hematologic/Lymphatic: No: Easy Bruising Physical Exam Narrative GENERAL: SKIN: Warm and dry. HEAD: Atraumatic. Normocephalic. EYES: Pupils equal and round. No scleral icterus. No injection or drainage. ENT: No nasal bleeding or discharge. Mucous membranes pink and moist. NECK: Trachea midline. No JVD. CARDIOVASCULAR: Regular rate and rhythm. RESPIRATORY: No accessory muscle use. Bilateral scattered wheezing noted. Good tidal volume. GASTROINTESTINAL: Abdomen soft, non-tender, obese abdomen difficult to assess if any fluid waves are present. MUSCULOSKELETAL: Extremities without clubbing, cyanosis, or edema. No obvious deformities. NEUROLOGICAL: Awake and alert. No obvious cranial nerve deficits. Motor grossly within normal limits. Five out of 5 muscle strength in the arms and legs. Normal speech. PSYCHIATRIC: Appropriate mood and affect; insight and judgment normal. Data Data Last Documented VS Vital Signs Date Time Temp Pulse Resp B/P (MAP) Pulse Ox O2 Delivery O2 Flow Rate FiO2 09/27/17 18:41 90 Nasal Cannula 4.00 09/27/17 17:15 98.1 83 32 109/46 (67) Orders Orders Complete Blood Count With Diff (09/27/17 17:14) Comprehensive Metabolic Panel (09/27/17 17:14) B-Type Natriuretic Peptide (09/27/17 17:14) Act Partial Throm Time (Ptt) (09/27/17 17:14) Prothrombin Time / Inr (Pt) (09/27/17 17:14) Ckmb (Isoenzyme) Profile (09/27/17 17:14) Troponin I (09/27/17 17:14) Arterial Blood Gas (Abg) (09/27/17 17:14) Influenzae A/B Antigen (09/27/17 17:14) Iv Access Insert/Monitor (09/27/17 17:14) Electrocardiogram (09/27/17 17:14) Ecg Monitoring (09/27/17 17:14) Oximetry (09/27/17 17:14) Oxygen Administration (09/27/17 17:14) Chest, Single Ap (09/27/17 17:14) Albuterol-Ipratropium Neb (Duoneb Neb) (09/27/17 17:15) Magnesium Sulfate 1 Gm Premix (Magnesium (09/27/17 17:15) Furosemide Inj (Lasix Inj) (09/27/17 18:00) Nitroglycerin 2% Oint (Nitroglycerin 2% (09/27/17 18:00) Furosemide Inj (Lasix Inj) (09/27/17 18:15) Place In Observation (09/27/17 ) Vital Signs (Adult) Q4H (09/27/17 18:36) Activity Oob With Assistance (09/27/17 18:36) Physical Optics Teacher / Telemetry .CONTINUOUS (09/27/17 18:36) Intake + Output JONATHAN.QSHIFT (09/27/17 18:36) Diet Heart Healthy (09/27/17 Dinner) Sodium Chloride 0.9% Flush (Ns Flush) (09/27/17 18:45) Sodium Chloride 0.9% Flush (Ns Flush) (09/27/17 21:00) Acetaminophen (Tylenol) (09/27/17 18:45) Ondansetron Inj (Zofran Inj) (09/27/17 18:45) Comprehensive Metabolic Panel (09/28/17 06:00) Complete Blood Count With Diff (09/28/17 06:00) Resp Oxygen Chirag C Titrat 1-4 L (09/27/17 ) Pt Request For Service (09/27/17 18:36) Ot Request For Service (09/27/17 18:36) Heparin Inj (Heparin Inj) (09/27/17 21:00) Scd Bilateral/Knee High JONATHAN.BID (09/27/17 18:36) Naloxone Inj (Narcan Inj) (09/27/17 18:45) Docusate Sodium-Senna (Renae-Colace) (09/27/17 21:00) Magnesium Hydroxide Liq (Milk Of Magnesi (09/27/17 18:45) Sennosides (Senokot) (09/27/17 18:45) Bisacodyl Supp (Dulcolax Supp) (09/27/17 18:45) Amlodipine (Norvasc) (09/28/17 09:00) Aspirin Ec (Ecotrin Ec) (09/28/17 09:00) Atorvastatin (Lipitor) (09/27/17 21:00) Doxazosin (Cardura) (09/28/17 09:00) Gabapentin (Neurontin) (09/27/17 21:00) Levothyroxine (Synthroid) (09/28/17 06:00) Lorazepam (Ativan) (09/27/17 18:45) Metoprolol Tartrate (Lopressor) (09/28/17 09:00) Cholecalciferol (Vitamin D3) (09/27/17 21:00) (Nf) Coenzyme Q10 (Ubidecarenone) (Coq10 (09/28/17 09:00) Magnesium Oxide (Mag-Ox) (09/28/17 11:00) (Nf) [place]-3 Fatty Acids ([place] 3 1000 M (09/28/17 09:00) Bedside Glucose JONATHAN.CSUGAR (09/27/17 18:40) Blood Glucose Goal (Criteria) (09/27/17 18:40) Hypoglycemia 70 Mg/Dl Or < (09/27/17 18:40) Notify Dr: Other (09/27/17 18:40) Dextrose 50% In Zaira (Vial) Inj (D50w (Vi (09/27/17 18:45) Glucagon Inj (Glucagon Inj) (09/27/17 18:45) Insulin Aspart Supplemtl Scale (Novolog (09/27/17 21:00) Furosemide Inj (Lasix Inj) (09/28/17 09:00) Admit Order (Ed Use Only) (09/27/17 18:50) Labs Laboratory Tests Test 09/27/17 17:10 09/27/17 18:00 Blood Gas Puncture Site LT RADIAL Blood Gas Patient Temperature 98.6 Blood Gas HCO3 32 mmol/L Blood Gas Base Excess 6.3 mmol/L Blood Gas Oxygen Saturation 89 % Arterial Blood pH 7.34 Arterial Blood Partial Pressure CO2 61 mmHG Arterial Blood Partial Pressure O2 63 mmHG Arterial Blood Oxygen Content 13.6 Vol % Arterial Blood Carboxyhemoglobin 2.0 % Arterial Blood Methemoglobin 1.2 % Blood Gas Hemoglobin 10.8 G/DL Oxygen Delivery Device NASAL CANNULA Blood Gas Liter Flow 4 L/M White Blood Count 7.1 TH/MM3 Red Blood Count 3.67 MIL/MM3 Hemoglobin 10.8 GM/DL Hematocrit 34.6 % Mean Corpuscular Volume 94.3 FL Mean Corpuscular Hemoglobin 29.5 PG Mean Corpuscular Hemoglobin Concent 31.3 % Red Cell Distribution Width 14.7 % Platelet Count 235 TH/MM3 Mean Platelet Volume 8.9 FL Neutrophils (%) (Auto) 83.2 % Lymphocytes (%) (Auto) 12.2 % Monocytes (%) (Auto) 2.8 % Eosinophils (%) (Auto) 0.8 % Basophils (%) (Auto) 1.0 % Neutrophils # (Auto) 5.8 TH/MM3 Lymphocytes # (Auto) 0.9 TH/MM3 Monocytes # (Auto) 0.2 TH/MM3 Eosinophils # (Auto) 0.1 TH/MM3 Basophils # (Auto) 0.1 TH/MM3 CBC Comment DIFF FINAL Differential Comment Prothrombin Time 12.0 SEC Prothromb Time International Ratio 1.2 RATIO Activated Partial Thromboplast Time 24.3 SEC Blood Urea Nitrogen 54 MG/DL Creatinine 1.20 MG/DL Random Glucose 139 MG/DL Total Protein 7.1 GM/DL Albumin 3.2 GM/DL Calcium Level 8.4 MG/DL Alkaline Phosphatase 33 U/L Aspartate Amino Transf (AST/SGOT) 14 U/L Alanine Aminotransferase (ALT/SGPT) 16 U/L Total Bilirubin 0.2 MG/DL Sodium Level 143 MEQ/L Potassium Level 5.6 MEQ/L Chloride Level 106 MEQ/L Carbon Dioxide Level 31.1 MEQ/L Anion Gap 6 MEQ/L Estimat Glomerular Filtration Rate 59 ML/MIN Total Creatine Kinase 41 U/L Troponin I LESS THAN 0.02 NG/ML B-Type Natriuretic Peptide 241 PG/ML MDM Medical Decision Making Medical Screen Exam Complete: Yes Emergency Medical Condition: Yes Medical Record Reviewed: Yes Interpretation(s) Pulse ox on 4 L showed good Pleth wave, pulse ox of 94% on 4 L which is consistent with hypoxemia ABG shows a pH of 7.34 PCO2 of 61 PaO2 of 63 this was on 4 L nasal cannula. This ABG is consistent with compensated hypoxemic respiratory failure. Patient's EKG shows a normal sinus rhythm at 70 bpm, normal intervals, no evidence of any LVH or any STEMI pattern noted. Differential Diagnosis COPD versus CHF versus non-STEMI versus STEMI versus coronary effusion versus pulmonary edema versus pneumothorax Narrative Course Chest x-ray shows cardiomegaly with bilateral lower pulmonary edema Diagnosis Primary Impression: Hypoxemic respiratory insufficiency Additional Impression: pulmonary edema Admitting Information Admitting Physician Requests: Gabriel Mukherjee MD Sep 27, 2017 17:19
--- NOTE | 2017-09-27 17:45 | RADRPT ---
EXAM DATE/TIME: 09/27/2017 17:26 [facility] COMPARISON: CHEST SINGLE AP, February 02, 2017, 14:19. INDICATIONS : Shortness of breath. MEDICAL HISTORY : Chronic obstructive pulmonary disease. Congestive heart failure. Hypertension. Myocardial infarct ion, Diabetes SURGICAL HISTORY : Coronary artery stent. ENCOUNTER: Initial ACUITY: 1 day PAIN SCORE: 0/10 LOCATION: Bilateral chest FINDINGS: The lower lung finley are underpenetrated. There does appear to be stable moderate cardiomegaly and v ascular congestion. CONCLUSION: Stable chest appearance of cardiomegaly and vascular congestion. Lower lung zones are underpenetrated for technical reasons Sanchez Mcdonnell MD on September 27, 2017 at 17:43 Board Certified Radiologist. This report was verified electronically.
[2017-09-27] MEDS ORDERED: FUROSEMIDE 100 MG/10 ML VIAL IVP ONE (18:00)
[2017-09-27] MEDS ORDERED: NITROGLYCERIN 2% OINT 1 GM PACKET TOPICAL ONE (18:00)
[2017-09-27] MEDS ORDERED: FUROSEMIDE 100 MG/10 ML VIAL IV PUSH ONE (18:15)
[2017-09-27 18:27] LABS: AUTOMATED NEUTROPHIL # 5.8 TH/MM3 (1.8-7.7); BASOPHIL # 0.1 TH/MM3 (0-0.2); EOSINOPHIL # 0.1 TH/MM3 (0-0.4); EOSINOPHIL % 0.8 % (0.0-4.0); HEMATOCRIT 34.6 % (39.0-51.0); HEMOGLOBIN 10.8 GM/DL (13.0-17.0); LYMPH % 12.2 % (9.0-44.0); LYMPHOCYTE # 0.9 TH/MM3 (1.0-4.8); MEAN CELL VOLUME 94.3 FL (80.0-100.0); MEAN CORPUSCULAR HEMOGLOBIN 29.5 PG (27.0-34.0); MEAN CORPUSCULAR HGB CONC 31.3 % (32.0-36.0); MEAN PLATELET VOLUME 8.9 FL (7.0-11.0); MONO % 2.8 % (0.0-8.0); MONOCYTE # 0.2 TH/MM3 (0-0.9); NEUT % 83.2 % (16.0-70.0); PLATELET COUNT 235 TH/MM3 (150-450); RED BLOOD COUNT 3.67 MIL/MM3 (4.50-5.90); RED CELL DISTRIBUTION WIDTH 14.7 % (11.6-17.2); WHITE BLOOD COUNT 7.1 TH/MM3 (4.0-11.0)
[2017-09-27 18:38] LABS: CHLORIDE 106 MEQ/L (98-107); SODIUM (NA) 143 MEQ/L (136-145)
[2017-09-27 18:42] LABS: ALBUMIN 3.2 GM/DL (3.4-5.0); BICARBONATE 31.1 MEQ/L (21.0-32.0); BLOOD UREA NITROGEN 54 MG/DL (7-18); CALCIUM 8.4 MG/DL (8.5-10.1); GLUCOSE,RANDOM 139 MG/DL (74-106)
[2017-09-27 18:44] LABS: INTERNATIONAL NORMALIZED RATIO 1.2 RATIO
[2017-09-27 18:45] LABS: ALT (GPT) 16 U/L (12-78); AST (GOT) 14 U/L (15-37); GLOMERULAR FILTRATION RATE 59 ML/MIN (>89)
[2017-09-27] MEDS ORDERED: GLUCAGON 1 MG/ML VIAL OTHER PRN (18:45)
[2017-09-27] MEDS ORDERED: SODIUM CHLORIDE 0.9% FLUSH 10 ML FLUSH IV FLUSH PRN (18:45)
[2017-09-27] MEDS ORDERED: NALOXONE HCL 0.4 MG/ML AMP IV PUSH PRN (18:45)
[2017-09-27] MEDS ORDERED: ONDANSETRON HCL 4 MG/2 ML VIAL IVP PRN (18:45)
[2017-09-27] MEDS ORDERED: BISACODYL 10 MG SUPP RECTAL PRN (18:45)
[2017-09-27] MEDS ORDERED: SENNOSIDES 8.6 MG TAB PO PRN (18:45)
[2017-09-27] MEDS ORDERED: MAGNESIUM HYDROXIDE SUSP 30 ML CUP PO PRN (18:45)
[2017-09-27] MEDS ORDERED: DEXTROSE 50% IN WATER 50 ML VIAL(D50) IV PUSH PRN (18:45)
[2017-09-27 18:47] LABS: TOTAL BILIRUBIN ADULT 0.2 MG/DL (0.2-1.0); TOTAL PROTEIN 7.1 GM/DL (6.4-8.2)
[2017-09-27 18:48] LABS: ALKALINE PHOSPHATASE 33 U/L (45-117)
[2017-09-27 18:50] LABS: TROPONIN I LESS THAN 0.02 NG/ML (0.02-0.05)
[2017-09-27] MEDS: RESP: ALBUTEROL 2.5 MG/IPRATROPIUM 0.5 MG NEB (PRN) NEB (22:27)
[2017-09-27] MEDS: INSULIN ASPART SUPPLEMENTAL SCALE SQ SCH (23:24)
[2017-09-27] MEDS: CHOLECALCIFEROL (VIT D3) 1000 UNIT TAB PO SCH (23:26)
[2017-09-27] MEDS: ATORVASTATIN 20 MG TAB PO SCH (23:27)
[2017-09-27] MEDS: GABAPENTIN 300 MG CAP PO SCH (23:27)
[2017-09-27] MEDS: DOCUSATE SODIUM 50 MG/SENNA 8.6 MG TAB PO SCH (23:27)
[2017-09-27] MEDS: SODIUM CHLORIDE 0.9% FLUSH 10 ML FLUSH IV FLUSH SCH (23:28)
[2017-09-27] MEDS: HEPARIN SODIUM - SQ 10,000 UNITS/ML VIAL SQ SCH (23:28)
[2017-09-27] MEDS: LORazepam 0.5 MG TAB PO PRN (23:36)
[2017-09-28] VITALS (9 sets, daily range): BP systolic 127–178; BP diastolic 61–80; PULSE 72–87; RESP 20–22; TEMP 96.5–97.7; O2SAT 91–94
[2017-09-28] MEDS: RESP: ALBUTEROL 2.5 MG/IPRATROPIUM 0.5 MG NEB (PRN) NEB (04:37)
[2017-09-28] MEDS: LEVOTHYROXINE SODIUM 150 MCG TAB PO SCH (06:10)
[2017-09-28 07:12] LABS: AUTOMATED NEUTROPHIL # 7.5 TH/MM3 (1.8-7.7); BASOPHIL % 0.4 % (0.0-2.0); EOSINOPHIL % 0.1 % (0.0-4.0); HEMATOCRIT 34.3 % (39.0-51.0); HEMOGLOBIN 10.9 GM/DL (13.0-17.0); LYMPH % 8.9 % (9.0-44.0); LYMPHOCYTE # 0.8 TH/MM3 (1.0-4.8); MEAN CELL VOLUME 94.8 FL (80.0-100.0); MEAN CORPUSCULAR HGB CONC 31.6 % (32.0-36.0); MEAN PLATELET VOLUME 9.9 FL (7.0-11.0); MONOCYTE # 0.2 TH/MM3 (0-0.9); NEUT % 88.6 % (16.0-70.0); PLATELET COUNT 197 TH/MM3 (150-450); RED BLOOD COUNT 3.62 MIL/MM3 (4.50-5.90); RED CELL DISTRIBUTION WIDTH 14.2 % (11.6-17.2); WHITE BLOOD COUNT 8.5 TH/MM3 (4.0-11.0)
[2017-09-28 07:31] LABS: ALBUMIN 3.4 GM/DL (3.4-5.0); ALKALINE PHOSPHATASE 37 U/L (45-117); ALT (GPT) 15 U/L (12-78); AST (GOT) 8 U/L (15-37); BICARBONATE 32.3 MEQ/L (21.0-32.0); BLOOD UREA NITROGEN 53 MG/DL (7-18); CALCIUM 8.8 MG/DL (8.5-10.1); CHLORIDE 102 MEQ/L (98-107); GLOMERULAR FILTRATION RATE 54 ML/MIN (>89); GLUCOSE,RANDOM 304 MG/DL (74-106); SODIUM (NA) 141 MEQ/L (136-145); TOTAL BILIRUBIN ADULT 0.2 MG/DL (0.2-1.0); TOTAL PROTEIN 7.5 GM/DL (6.4-8.2)
[2017-09-28] MEDS ORDERED: RESP: ALBUTEROL 2.5 MG/IPRATROPIUM 0.5 MG NEB (SCH) NEB (08:00)
[2017-09-28] MEDS ORDERED: FATTY ACIDS PO SCH (09:00)
[2017-09-28] MEDS ORDERED: OMEGA PO SCH (09:00)
[2017-09-28] MEDS ORDERED: FUROSEMIDE 40 MG/4 ML VIAL IV PUSH SCH (09:00)
[2017-09-28] MEDS ORDERED: NON-FORMULARY DRUG (Coenzyme Q10 (Ubidecarenone) (Coq10) 100 MG) PO SCH (09:00)
--- NOTE | 2017-09-28 10:01 | HHI.HP ---
HPI Service [facility] Primary Care Physician Adri Hudson MD Admission Diagnosis CHF EXACERBATION, HYPOXEMIA Diagnoses: Travel History International Travel<30 Days: No Contact w/Intl Traveler <30 Da: No Traveled to Known Affected Are: No History of Present Illness History from patient, interview of medical records. ER notes overnight reviewed short of breath for past 1 week no fever but had aches and pains no cough usually on o2 2-3L at home, here needs at least 4L and is still short of breath today no sputum no bleedign no real chest pains, but felt no air in no peripheral edema have to raise bed to sleep last month, have bloated up has copd exacerbations whenever pollen hits here from aug to september had to take days off from work when it rains, pollen down, and breathing perfect then usually takes flonase bid, and claritin/ zyrtec/shailesh- not much help takes albuterol nebs at home stating alubtero/ atrovent from [facility] helps him more 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 Review of Systems Except as stated in HPI: all other systems reviewed are Neg Past Family Social History Past Medical History htn dm hyperlipidemia cad- [place] in 1993- Petey Otoole prior use of bumex but was never told of chf copd on home oxygen 2-3L never had sleep studies hx of 6th nerve palsy hypothyroidism BPH Past Surgical History umbilical hernia coronary angiogram and angioplasty Allergies: Coded Allergies: No Known Allergies (Unverified , 05/05/17) Family History none that he knows of except mom- emphysema Social History used to smoke , quit 22 yrs ago no etoh abuse no drugs lives with son, 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 Physical Exam Vital Signs Vital Signs Date Time Temp Pulse Resp B/P (MAP) Pulse Ox O2 Delivery O2 Flow Rate FiO2 09/28/17 08:00 97.1 87 20 178/80 (112) 91 09/28/17 07:54 92 Nasal Cannula 4.00 09/28/17 04:00 96.8 86 22 155/70 (98) 09/28/17 04:00 93 09/28/17 00:15 96.8 87 22 133/62 (85) 94 09/28/17 00:00 94 Nasal Cannula 4.00 09/27/17 22:25 92 Nasal Cannula 4.00 09/27/17 21:15 97.8 85 22 144/69 (94) 90 09/27/17 20:45 80 20 90 Nasal Cannula 4.00 09/27/17 20:30 80 20 140/61 (87) 90 Nasal Cannula 4.00 09/27/17 19:10 72 20 118/53 (74) 92 Nasal Cannula 4.00 09/27/17 18:41 90 Nasal Cannula 4.00 09/27/17 18:13 88 Nasal Cannula 4.00 09/27/17 18:12 88 Nasal Cannula 4.00 09/27/17 17:28 92 Nasal Cannula 2.00 09/27/17 17:15 98.1 83 32 109/46 (67) 90 Physical Exam GENERAL: This is a well-nourished, well-developed patient, dyspenic at rest while sitting up in bed, able to complete sentences ; obese SKIN: No rashes, ecchymoses or lesions. Cool and dry. HEAD: Atraumatic. Normocephalic. No temporal or scalp tenderness. EYES: No scleral icterus. No injection or drainage. ENT: Nose without bleeding, purulent drainage or septal hematoma.. Airway patent. NECK: Trachea midline. No JVD. Supple, nontender, no meningeal signs. CARDIOVASCULAR: Regular rate and rhythm without murmurs, gallops, or rubs. RESPIRATORY: bilateral expiratory wheezing GASTROINTESTINAL: Abdomen soft, non-tender, nondistended. No guarding. limited exam due to body habitus MUSCULOSKELETAL: Extremities without clubbing, cyanosis,. No calf tenderness. bilateral LE 2+ pedal edema NEUROLOGICAL: Awake and alert. Motor and sensory grossly within normal limits. Normal speech. Laboratory Laboratory Tests Test 09/27/17 17:10 09/27/17 18:00 09/28/17 05:12 Blood Gas Puncture Site LT RADIAL Blood Gas Patient Temperature 98.6 Blood Gas HCO3 32 Blood Gas Base Excess 6.3 Blood Gas Oxygen Saturation 89 Arterial Blood pH 7.34 Arterial Blood Partial Pressure CO2 61 Arterial Blood Partial Pressure O2 63 Arterial Blood Oxygen Content 13.6 Arterial Blood Carboxyhemoglobin 2.0 Arterial Blood Methemoglobin 1.2 Blood Gas Hemoglobin 10.8 Oxygen Delivery Device NASAL CANNULA Blood Gas Liter Flow 4 White Blood Count 7.1 8.5 Red Blood Count 3.67 3.62 Hemoglobin 10.8 10.9 Hematocrit 34.6 34.3 Mean Corpuscular Volume 94.3 94.8 Mean Corpuscular Hemoglobin 29.5 30.0 Mean Corpuscular Hemoglobin Concent 31.3 31.6 Red Cell Distribution Width 14.7 14.2 Platelet Count 235 197 Mean Platelet Volume 8.9 9.9 Neutrophils (%) (Auto) 83.2 88.6 Lymphocytes (%) (Auto) 12.2 8.9 Monocytes (%) (Auto) 2.8 2.0 Eosinophils (%) (Auto) 0.8 0.1 Basophils (%) (Auto) 1.0 0.4 Neutrophils # (Auto) 5.8 7.5 Lymphocytes # (Auto) 0.9 0.8 Monocytes # (Auto) 0.2 0.2 Eosinophils # (Auto) 0.1 0.0 Basophils # (Auto) 0.1 0.0 CBC Comment DIFF FINAL DIFF FINAL Differential Comment Prothrombin Time 12.0 Prothromb Time International Ratio 1.2 Activated Partial Thromboplast Time 24.3 Blood Urea Nitrogen 54 53 Creatinine 1.20 1.30 Random Glucose 139 304 Total Protein 7.1 7.5 Albumin 3.2 3.4 Calcium Level 8.4 8.8 Alkaline Phosphatase 33 37 Aspartate Amino Transf (AST/SGOT) 14 8 Alanine Aminotransferase (ALT/SGPT) 16 15 Total Bilirubin 0.2 0.2 Sodium Level 143 141 Potassium Level 5.6 4.7 Chloride Level 106 102 Carbon Dioxide Level 31.1 32.3 Anion Gap 6 7 Estimat Glomerular Filtration Rate 59 54 Total Creatine Kinase 41 Troponin I LESS THAN 0.02 B-Type Natriuretic Peptide 241 Date/Time Source Procedure Growth Status 09/27/17 18:00 Nasal Washing Influenza Types A,B Antigen (RODERICK) - Final NEGATIVE FOR FLU A AND B ANTIGEN.... Complete Result Diagram: 09/28/1751109/28/17511 Caprini VTE Risk Assessment Caprini VTE Risk Assessment: Mod/High Risk (score >= 2) Caprini Risk Assessment Model Point Value = 1 Point Value = 2 Point Value = 3 Point Value = 5 Age 41-60 Minor surgery BMI > 25 kg/m2 Swollen legs Varicose veins or History of unexplained or recurrent spontaneous Oral contraceptives or hormone replacement Sepsis (< 1 month) Serious lung disease, including pneumonia (< 1 month) Abnormal pulmonary function Acute myocardial infarction Congestive heart failure (< 1 month) History of inflammatory bowel disease Medical patient at bed rest Age 61-74 Arthroscopic surgery Major open surgery (> 45 min) Laparoscopic surgery (> 45 min) Malignancy Confined to bed (> 72 hours) Immobilizing plaster cast Central venous access Age >= 75 History of VTE Family history of VTE Factor V Leiden Prothrombin [id number] Lupus anticoagulant Anticardiolipin antibodies Elevated serum homocysteine Heparin-induced thrombocytopenia Other congenital or acquired thrombophilia Stroke (< 1 month) Elective arthroplasty Hip, pelvis, or leg fracture Acute spinal cord injury (< 1 month) Prophylaxis Regimen Total Risk Factor Score Risk Level Prophylaxis Regimen 0-1 Low Early ambulation 2 Moderate Order ONE of the following: *Sequential Compression Device (SCD) *Heparin 5000 units SQ BID 3-4 Higher Order ONE of the following medications: *Heparin 5000 units SQ TID *Enoxaparin/Lovenox 40 mg SQ daily (WT < 150 kg, CrCl > 30 mL/min) *Enoxaparin/Lovenox 30 mg SQ daily (WT < 150 kg, CrCl > 10-29 mL/min) *Enoxaparin/Lovenox 30 mg SQ BID (WT < 150 kg, CrCl > 30 mL/min) AND/OR *Sequential Compression Device (SCD) 5 or more Highest Order ONE of the following medications: *Heparin 5000 units SQ TID (Preferred with Epidurals) *Enoxaparin/Lovenox 40 mg SQ daily (WT < 150 kg, CrCl > 30 mL/min) *Enoxaparin/Lovenox 30 mg SQ daily (WT < 150 kg, CrCl > 10-29 mL/min) *Enoxaparin/Lovenox 30 mg SQ BID (WT < 150 kg, CrCl > 30 mL/min) AND *Sequential Compression Device (SCD) Assessment and Plan Assessment and Plan Impression: dyspnea/hypoxia - multifactorial- likely due to allergy triggering copd exacerbation copd exacerbation possible pulmonary embolism given pt is obese, sedantary 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 Resolved. Patient received a few doses of Lasix overnight which resolved this. Possible angina equivalent in a diabetic patient with prior history of AL, risk factors. htn dm hyperlipidemia cad- [place] in 1993- Petey Otoole prior use of bumex but was never told of chf copd on home oxygen 2-3L never had sleep studies hx of 6th nerve palsy hypothyroidism BPH Plan: Nebulizers scheduled and when necessary. Serial enzymes and EKGs. Echocardiogram in a.m. CT pulmonary angiogram to rule out pulmonary embolism. Oxygen supplementation. Discontinue Lasix as patient's history is not really suggestive of heart failure. Will use it as when necessary if there is further evidence of pulmonary edema. Chest x-ray personally reviewed. No acute evidence of pulmonary edema/vascular congestion Questionable infiltrates. Also with patient's history of quite long-standing symptoms, COPD with already compromised long, I would cover with antibiotics. Start on levofloxacin 500 mg by mouth daily. We'll monitor fingersticks and cover with sliding scale coverage. Resume patient's home meds. Patient is advised to have sleep studies as an outpatient. DVT prophylaxis with heparin. Discussed Condition With Patient, nursing staff Physician Certification 2 Midnight Certification Type: Admission for Inpatient Services Order for Inpatient Services The services are ordered in accordance with Medicare regulations or non- Medicare payer requirements, as applicable. In the case of services not specified as inpatient-only, they are appropriately provided as inpatient services in accordance with the 2-midnight benchmark. Estimated LOS (days): 3 days is the estimated time the patient will need to remain in the hospital, assuming treatment plan goals are met and no additional complications. Post-Hospital Plan: Home Nicole Cavanaugh MD Sep 28, 2017 10:01
[2017-09-28] MEDS: ASPIRIN EC 81 MG TABEC PO SCH (10:35)
[2017-09-28] MEDS: CHOLECALCIFEROL (VIT D3) 1000 UNIT TAB PO SCH ×2 (10:35→21:11)
[2017-09-28] MEDS: METOPROLOL TARTRATE 50 MG TAB PO SCH ×3 (10:35→18:44)
[2017-09-28] MEDS: DOCUSATE SODIUM 50 MG/SENNA 8.6 MG TAB PO SCH ×2 (10:35→21:11)
[2017-09-28] MEDS: DOXAZOSIN MESYLATE 4 MG TAB PO SCH (10:35)
[2017-09-28] MEDS: MAGNESIUM OXIDE 400 MG TAB PO SCH (10:35)
[2017-09-28] MEDS: INSULIN ASPART SUPPLEMENTAL SCALE SQ SCH ×4 (10:36→21:17)
[2017-09-28] MEDS: SODIUM CHLORIDE 0.9% FLUSH 10 ML FLUSH IV FLUSH SCH ×2 (10:36→21:10)
[2017-09-28] MEDS: HEPARIN SODIUM - SQ 10,000 UNITS/ML VIAL SQ SCH ×2 (10:36→21:12)
[2017-09-28 11:24] LABS: TROPONIN I LESS THAN 0.02 NG/ML (0.02-0.05)
[2017-09-28] MEDS: RESP: ALBUTEROL 2.5 MG/IPRATROPIUM 0.5 MG NEB (SCH) NEB ×2 (14:39→19:53)
[2017-09-28] MEDS ORDERED: IOHEXOL 350 MG/ML 10 ML VIAL (for RAD DIAG) IVCONTRAST ONE (15:35)
--- NOTE | 2017-09-28 15:55 | RADRPT ---
EXAM DATE/TIME: 09/28/2017 15:22 [facility] COMPARISON: CT PULMONARY ANGIOGRAM, February 21, 2015, 4:54. INDICATIONS : Hypoxemia. Evaluate for pulmonary embolism. IV CONTRAST: 65 cc Omnipaque 350 (iohexol) IV RADIATION DOSE: 21.91 CTDIvol (mGy) ; Patient body habitus MEDICAL HISTORY : Cerebrovascular disease. Cardiovascular disease Chronic obstructive pulmonary disease.Congestive hear t failure. Diabetes. Hypertension. SURGICAL HISTORY : Umbilical hernia repair. Cardiac catheterization. ENCOUNTER: Initial ACUITY: 2 days PAIN SCALE: 0/10 LOCATION: chest TECHNIQUE: Volumetric scanning of the chest was performed using a pulmonary embolism protocol MIP images were re constructed. Using automated exposure control and adjustment of the mA and/or kV according to patien t size, radiation dose was kept as low as reasonably achievable to obtain optimal diagnostic quality images. DICOM format image data is available electronically for review and comparison. Follow-up recommendations for detected pulmonary nodules are based at a minimum on nodule size and pa tient risk factors according to Fleischner Society Guidelines. FINDINGS: PULMONARY ARTERIES: No filling defects are seen in the pulmonary arteries through the segmental level. LUNGS: There is no pneumothorax . There is mild consolidation in both posterior lung bases right greater amira n left The previously noted right middle lobe pulmonary nodule is stable on axial image #67. PLEURAE: Small bilateral pleural effusions are now noted right greater than left. MEDIASTINUM: There is good visualization of the great vessels of the middle mediastinum. No evidence of mediastin al or hilar adenopathy/mass. MUSCULOSKELETAL: Within normal limits for patient age. MISCELLANEOUS: The visualized upper abdominal organs demonstrate no acute abnormality. CONCLUSION: 1. No evidence of pulmonary embolism. 2. Small bilateral pleural effusions right greater than left with mild consolidation in both posterio r lung bases right greater than left. 3. Stable 9 mm pulmonary nodule in the right middle lobe. This is a benign finding. Maurice Staples MD on September 28, 2017 at 15:49 Board Certified Radiologist. This report was verified electronically.
--- NOTE | 2017-09-28 17:10 | ECHRPT ---
Indication: sob CONCLUSIONS Normal left ventricular size. Estimated EF 60-65%, normal LV systolic function. Mild mitral valve regurgitation. There is mild tricuspid valve regurgitation. Mild to moderate pulmonary hypertension. The estimated pulmonary arterial pressure is 52 mmHg. BP: / HR: Rhythm: MEASUREMENTS (Male / Female) Normal Values Technical Quality:Very technically difficult study 2D ECHO LV Diastolic Diameter PLAX 4.4 cm 4.2 - 5.9 / 3.9 - 5.3 cm LV Systolic Diameter PLAX 3.1 cm IVS Diastolic Thickness 1.6 cm 0.6 - 1.0 / 0.6 - 0.9 cm LVPW Diastolic Thickness 1.3 cm 0.6 - 1.0 / 0.6 - 0.9 cm LV Relative Wall Thickness 0.7 RV Internal Dim ED PLAX 3.3 cm M-MODE Aortic Root Diameter MM 5.0 cm LA Systolic Diameter MM 5.5 cm LA Ao Ratio MM 1.1 AV Cusp Separation MM 2.5 cm DOPPLER TR Peak Velocity 326.0 cm/s TR Peak Gradient 42.5 mmHg Right Atrial Pressure 10.0 mmHg Pulmonary Artery Systolic Pressu 52.5 mmHg Right Ventricular Systolic Press 52.5 mmHg FINDINGS LEFT VENTRICLE Normal left ventricular size. The left ventricular systolic function is normal with an estimated ejection fraction in the range of 60-65%. RIGHT VENTRICLE Normal right ventricular size and systolic function. LEFT ATRIUM The left atrial size is normal. RIGHT ATRIUM The right atrial size is normal. ATRIAL SEPTUM Normal atrial septal thickness without atrial level shunting by limited color doppler interrogation. AORTA The aortic root and proximal ascending aorta are normal in size on limited imaging. MITRAL VALVE Structurally normal mitral valve. Mild mitral valve regurgitation. AORTIC VALVE Trileaflet aortic valve. TRICUSPID VALVE Structurally normal tricuspid valve. There is mild tricuspid valve regurgitation. The estimated pulmonary arterial pressure is 52.5 mmHg. PULMONARY VALVE No pulmonary valve regurgitation or stenosis. VESSELS The inferior vena cava is normal in size. PERICARDIUM No pericardial effusion. Soha Shah MD, FACC (Electronically Signed) Final Date:28 September 2017 17:10
[2017-09-28 17:43] LABS: TROPONIN I LESS THAN 0.02 NG/ML (0.02-0.05)
[2017-09-28] MEDS ORDERED: MELATONIN 5 MG TAB PO ONE (21:00)
[2017-09-28] MEDS: ACETAMINOPHEN 325 MG TAB PO PRN (21:10)
[2017-09-28] MEDS: ATORVASTATIN 20 MG TAB PO SCH (21:11)
[2017-09-28] MEDS: GABAPENTIN 300 MG CAP PO SCH (21:11)
[2017-09-28] MEDS: LEVOFLOXACIN 500 MG TAB PO SCH (21:11)
[2017-09-28] MEDS: LORazepam 0.5 MG TAB PO PRN (21:22)
--- NOTE | 2017-09-28 21:49 | EKG ---
Date Performed: 09/28/2017 Time Performed: 10:57:40 PTAGE: 72 years EKG: Sinus rhythm NONSPECIFIC ST & T-WAVE ABNORMALITY ABNORMAL ECG PREVIOUS TRACING : 09/27/2017 17.32 Since the prior tracing, there has been no significant benz DOCTOR: Soha Shah Interpretating Date/Time 09/28/2017 21:48:50
--- NOTE | 2017-09-28 22:41 | EKG ---
Date Performed: 09/27/2017 Time Performed: 17:32:05 PTAGE: 72 years EKG: Sinus rhythm ABNORMAL RHYTHM ECG PREVIOUS TRACING : 05/05/2017 20.57 Since the prior tracing, there has been no significant benz jorge l DOCTOR: Soha Shah Interpretating Date/Time 09/28/2017 22:39:36
[2017-09-29] VITALS (12 sets, daily range): BP systolic 117–161; BP diastolic 55–83; PULSE 52–97; RESP 18–22; TEMP 96.3–97.8; O2SAT 90–94
[2017-09-29] MEDS: LEVOTHYROXINE SODIUM 150 MCG TAB PO SCH (06:36)
[2017-09-29] MEDS: ACETAMINOPHEN 325 MG TAB PO PRN ×2 (06:50→22:59)
[2017-09-29] MEDS: RESP: ALBUTEROL 2.5 MG/IPRATROPIUM 0.5 MG NEB (SCH) NEB ×3 (07:41→20:41)
[2017-09-29] MEDS: HEPARIN SODIUM - SQ 10,000 UNITS/ML VIAL SQ SCH ×2 (08:57→23:00)
[2017-09-29] MEDS: DOXAZOSIN MESYLATE 4 MG TAB PO SCH (08:57)
[2017-09-29] MEDS: CHOLECALCIFEROL (VIT D3) 1000 UNIT TAB PO SCH ×2 (08:58→22:58)
[2017-09-29] MEDS: METOPROLOL TARTRATE 50 MG TAB PO SCH ×3 (08:58→17:28)
[2017-09-29] MEDS: INSULIN ASPART SUPPLEMENTAL SCALE SQ SCH ×3 (08:58→17:27)
[2017-09-29] MEDS: SODIUM CHLORIDE 0.9% FLUSH 10 ML FLUSH IV FLUSH SCH ×2 (08:58→21:20)
[2017-09-29] MEDS: DOCUSATE SODIUM 50 MG/SENNA 8.6 MG TAB PO SCH ×2 (08:58→22:58)
[2017-09-29] MEDS: ASPIRIN EC 81 MG TABEC PO SCH (08:58)
[2017-09-29] MEDS: MAGNESIUM OXIDE 400 MG TAB PO SCH (10:00)
[2017-09-29] MEDS: LISINOPRIL 20 MG TAB PO SCH ×2 (10:02→22:59)
--- NOTE | 2017-09-29 10:14 | HHI.PR ---
Subjective Remarks Nursing denies any deterioration since last night. Patient Subsys he reports being 50% better with his breathing. Says that every year he has seasonal allergies that are quite problematic. Objective Vital Signs Date Time Temp Pulse Resp B/P (MAP) Pulse Ox O2 Delivery O2 Flow Rate FiO2 09/29/17 07:50 96.5 79 20 137/63 (87) 94 09/29/17 07:43 92 Nasal Cannula 4.00 09/29/17 04:00 96.3 85 22 161/78 (105) 94 09/29/17 00:00 97.8 80 20 126/64 (84) 93 09/28/17 21:30 85 09/28/17 20:00 97.7 80 20 127/61 (83) 92 09/28/17 20:00 92 Nasal Cannula 4.00 09/28/17 19:52 92 Nasal Cannula 4.00 09/28/17 16:00 97.4 75 20 160/61 (94) 93 09/28/17 12:00 96.5 72 20 135/62 (86) 94 I/O 09/28/17 09/28/17 09/28/17 09/29/17 09/29/17 09/29/17 06:59 14:59 22:59 06:59 14:59 22:59 Intake Total 780 ml 600 ml 240 ml 680 ml Output Total 1750 ml 1100 ml 1200 ml 1460 ml Balance -970 ml -500 ml -960 ml -780 ml Intake Oral 780 ml 600 ml 240 ml 680 ml Output Urine Total 1750 ml 1100 ml 1200 ml 1460 ml # Voids 2 # Bowel Movements 0 1 Result Diagram: 09/28/17 0512 09/28/17 [address] Angiography 09/28/17 0000 Signed Impressions: Service Date/Time: Thursday, September 28, 2017 15:22 - CONCLUSION: 1. No evidence of pulmonary embolism. 2. Small bilateral pleural effusions right greater than left with mild consolidation in both posterior lung bases right greater than left. 3. Stable 9 mm pulmonary nodule in the right middle lobe. This is a benign finding. Maurice Staples MD Chest X-Ray 09/27/17 [id number] Signed Impressions: Service Date/Time: Wednesday, September 27, 2017 17:26 - CONCLUSION: Stable chest appearance of cardiomegaly and vascular congestion. Lower lung zones are underpenetrated for technical reasons Sanchez Mcdonnell MD Objective Remarks Coarse breath sounds bilaterally that are slightly diminished in the bases, no sana wheezing heard Sitting up, minimal respiratory distress, with nasal cannula in place, no cyanosis, no lower extremity edema noted A/P Assessment and Plan Acute hypoxic respiratory failure -Likely multifactorial from pleural effusions and COPD -Still requiring 4 L, titrate as tolerated down to home 2 L Pleural effusion -I personally reviewed the CT scan I see mild to moderate right-sided pleural effusion, will see if radiology can perform ultrasound guided thoracentesis COPD - continue duonebs and starting steroids and Levaquin, will obtain procalcitonin HTN -Lopressor, lisinopril, amlodipine Lovenox Julio Cardenas MD Sep 29, 2017 10:14
[2017-09-29] MEDS ORDERED: methylPREDNISolone SOD SUCC 125 MG/2 ML VIAL IV PUSH ONE (10:15)
--- NOTE | 2017-09-29 12:22 | EKG ---
Date Performed: 09/28/2017 Time Performed: 16:52:33 PTAGE: 72 years EKG: Sinus rhythm WITH SINUS ARRHYTHMIA NORMAL ECG PREVIOUS TRACING : 09/28/2017 10.57 Since the prior tracing, there has been no significant benz DOCTOR: Lopez Antonio Interpretating Date/Time 09/29/2017 12:20:49
--- NOTE | 2017-09-29 13:41 | RADRPT ---
EXAM DATE/TIME: 09/29/2017 13:28 [facility] COMPARISON: CT PULMONARY ANGIOGRAM, September 28, 2017, 15:22. INDICATIONS : Post thoracentesis. MEDICAL HISTORY : :Cerebrovascular disease. Cardiovascular disease Chronic obstructive pulmonary SURGICAL HISTORY : Umbilical hernia repair. Cardiac catheterization. ENCOUNTER: Initial ACUITY: 1 day PAIN SCORE: 0/10 LOCATION: Right chest FINDINGS: There is no pneumothorax. Cardiomegaly with consolidative changes both lung base is worse on the rig ht. CONCLUSION: No pneumothorax. Jaun Pascual MD FACR on September 29, 2017 at 13:39 Board Certified Radiologist. This report was verified electronically.
[2017-09-29 15:11] LABS: PLEURAL FLUID RBC 6100 /MM3 (0-0)
[2017-09-29 15:13] LABS: PLEURAL FLUID WBC 260 /MM3 (0-10)
[2017-09-29 16:00] LABS: PLEURAL FLUID HISTIOCYTES 4 %; PLEURAL FLUID LYMPHS 92 %; PLEURAL FLUID MESOTHELIAL 4 %
--- NOTE | 2017-09-29 16:03 | RADRPT ---
EXAM DATE/TIME: 09/29/2017 13:00 [facility] COMPARISON: CHEST EXPIRATION ONLY, September 29, 2017, 13:28. INDICATIONS : Right pleural effusion. MEDICAL HISTORY : Hypercholesterolemia. Myocardial infarction. Chronic obstructive pulmonary disease. CVA. Hypertension . CHF. UTI. SURGICAL HISTORY : Cardiac cath. ENCOUNTER: Initial ACUITY: 1 week PAIN SCORE: 3/10 LOCATION: Right chest FLUID: Total volume of 10 cc of clear, red fluid was removed. Fluid was sent to lab for ordered studies. TECHNIQUE: 1. Ultrasound guidance for thoracentesis. 2. Thoracentesis. The risks, benefits, and alternatives to ultrasound guided thoracentesis were explained to the patien t in lay simple terms, including the risk of bleeding and infection. Written and verbal informed con sent was obtained. Appropriate area for thoracentesis was marked under ultrasound guidance with the patient in the uprig ht position. Overlying skin was prepped and draped in the usual sterile fashion and with local anest hetic, a dermatotomy was made with an 11 blade scalpel. A 6 Armenian thoracentesis catheter was placed in the pleural space. Only approximately 10 cc of thick fluid were removed. The catheter was manipulated but significant am ounts of pleural fluid could not be obtained. An ultrasound examination was performed demonstrating t he catheter in the pleural space. The catheter was then removed and a sterile dressing applied. There were no immediate complications. The patient tolerated the procedure well and the left the ultrasound suite in stable condition. [facility] radiograph is to be obtained. CONCLUSION: Ultrasound guided thoracentesis with only a small line, 10 cc, obtained. This was sent for analysis. Sanchez Larios MD on September 29, 2017 at 16:00 Board Certified Radiologist. This report was verified electronically.
[2017-09-29] MEDS: INSULIN NovoLIN REGULAR SUPPLEMENTAL SCALE SQ SCH (21:19)
[2017-09-29] MEDS: INSULIN DETEMIR 100 UNITS/ML VIAL SQ SCH (21:20)
[2017-09-29] MEDS: LEVOFLOXACIN 500 MG TAB PO SCH (21:30)
[2017-09-29] MEDS: MELATONIN 5 MG TAB PO PRN (22:56)
[2017-09-29] MEDS: ATORVASTATIN 20 MG TAB PO SCH (22:59)
[2017-09-29] MEDS: GABAPENTIN 300 MG CAP PO SCH (23:00)
[2017-09-29] MEDS: methylPREDNISolone SOD SUCC 125 MG/2 ML VIAL IV PUSH SCH (23:01)
[2017-09-29] MEDS: LORazepam 0.5 MG TAB PO PRN (23:06)
[2017-09-30] VITALS (8 sets, daily range): BP systolic 103–165; BP diastolic 52–83; PULSE 63–86; RESP 20–22; TEMP 96.6–97.5; O2SAT 92–95
[2017-09-30] MEDS: ACETAMINOPHEN 325 MG TAB PO PRN (05:53)
[2017-09-30] MEDS: LEVOTHYROXINE SODIUM 150 MCG TAB PO SCH (05:54)
[2017-09-30] MEDS: RESP: ALBUTEROL 2.5 MG/IPRATROPIUM 0.5 MG NEB (SCH) NEB ×3 (07:18→19:54)
[2017-09-30] MEDS: DOXAZOSIN MESYLATE 4 MG TAB PO SCH (09:32)
[2017-09-30] MEDS: ASPIRIN EC 81 MG TABEC PO SCH (09:32)
[2017-09-30] MEDS: METOPROLOL TARTRATE 50 MG TAB PO SCH ×3 (09:32→17:36)
[2017-09-30] MEDS: LISINOPRIL 20 MG TAB PO SCH ×2 (09:32→21:00)
[2017-09-30] MEDS: HEPARIN SODIUM - SQ 10,000 UNITS/ML VIAL SQ SCH ×2 (09:32→21:11)
[2017-09-30] MEDS: CHOLECALCIFEROL (VIT D3) 1000 UNIT TAB PO SCH ×2 (09:32→21:00)
[2017-09-30] MEDS: DOCUSATE SODIUM 50 MG/SENNA 8.6 MG TAB PO SCH ×2 (09:32→21:10)
[2017-09-30] MEDS: SODIUM CHLORIDE 0.9% FLUSH 10 ML FLUSH IV FLUSH SCH ×2 (09:33→20:09)
[2017-09-30] MEDS: methylPREDNISolone SOD SUCC 125 MG/2 ML VIAL IV PUSH SCH (09:33)
[2017-09-30] MEDS: INSULIN DETEMIR 100 UNITS/ML VIAL SQ SCH ×2 (09:33→21:10)
[2017-09-30] MEDS: MAGNESIUM OXIDE 400 MG TAB PO SCH (09:36)
[2017-09-30] MEDS: INSULIN NovoLIN REGULAR SUPPLEMENTAL SCALE SQ SCH ×4 (09:36→21:10)
--- NOTE | 2017-09-30 10:36 | HHI.PR ---
Subjective Remarks Nursing denies any deterioration since last night except for some arm pain that he slept on. says his breathing is unchanged in improvement since yesterday. Thoracentesis yesterday performed with only 10 cc obtained Objective Vital Signs Date Time Temp Pulse Resp B/P (MAP) Pulse Ox O2 Delivery O2 Flow Rate FiO2 09/30/17 07:50 96.8 79 20 165/83 (110) 93 09/30/17 07:20 92 Nasal Cannula 4.00 09/30/17 00:00 97.5 86 22 126/58 (80) 93 09/29/17 20:40 92 Nasal Cannula 4.00 09/29/17 20:00 91 Nasal Cannula 4.00 Humidified 09/29/17 20:00 97.8 76 22 122/58 (79) 91 09/29/17 16:37 92 Nasal Cannula 4.00 09/29/17 16:37 76 09/29/17 15:50 97.0 52 20 117/56 (76) 91 09/29/17 15:47 72 09/29/17 14:00 97.0 97 20 124/55 (78) 93 09/29/17 13:55 78 18 142/83 (102) 92 09/29/17 11:50 96.7 77 20 145/77 (99) 90 I/O 09/29/17 09/29/17 09/29/17 09/30/17 09/30/17 09/30/17 07:00 15:00 23:00 07:00 15:00 23:00 Intake Total 680 ml 742 ml Output Total 1460 ml 1800 ml Balance -780 ml -1058 ml Intake Oral 680 ml 742 ml Output Urine Total 1460 ml 1800 ml # Bowel Movements 1 3 Result Diagram: 09/28/1751109/28/17 0512 Objective Remarks no wheezing heard today; good aeration Sitting up, minimal respiratory distress, with nasal cannula in place, no cyanosis, no lower extremity edema noted A/P Assessment and Plan Acute hypoxic respiratory failure - Likely multifactorial from pleural effusions and COPD - Still requiring 4 L, titrate as tolerated down to home 2 L Pleural effusion - 10 cc obtained; specimen sent for workup; starting Lasix, continue Levaquin given elevated procalcitonin COPD - continue duonebs and tapering steroids and Levaquin HTN -Lopressor, lisinopril, amlodipine Lovenox Julio Cardenas MD Sep 30, 2017 10:36
[2017-09-30] MEDS: FUROSEMIDE 20 MG/2 ML VIAL IV PUSH SCH ×2 (11:38→17:36)
[2017-09-30] MEDS: REMOVE OLD PATCH T-DERMAL SCH (14:00)
[2017-09-30] MEDS: LIDOCAINE HCL 5% PATCH T-DERMAL SCH (14:04)
[2017-09-30] MEDS: POTASSIUM CHLORIDE 10 MEQ CONTROLLED RELEASE TAB PO SCH (14:35)
[2017-09-30] MEDS: FINASTERIDE 5 MG TAB PO SCH (14:35)
[2017-09-30] MEDS ORDERED: TAMSULOSIN HCL 0.4 MG CAP PO ONE (15:00)
[2017-09-30] MEDS: ATORVASTATIN 20 MG TAB PO SCH (21:10)
[2017-09-30] MEDS: GABAPENTIN 300 MG CAP PO SCH (21:10)
[2017-09-30] MEDS: LORazepam 0.5 MG TAB PO PRN (21:11)
[2017-09-30] MEDS: LEVOFLOXACIN 500 MG TAB PO SCH (21:11)
[2017-10-01] VITALS (8 sets, daily range): BP systolic 117–151; BP diastolic 56–69; PULSE 66–98; RESP 14–22; TEMP 96.2–98; O2SAT 90–96
[2017-10-01] MEDS: LEVOTHYROXINE SODIUM 150 MCG TAB PO SCH (05:35)
[2017-10-01 06:56] LABS: BICARBONATE 33.8 MEQ/L (21.0-32.0)
[2017-10-01] MEDS: RESP: ALBUTEROL 2.5 MG/IPRATROPIUM 0.5 MG NEB (SCH) NEB ×3 (07:38→19:06)
[2017-10-01] MEDS: INSULIN NovoLIN REGULAR SUPPLEMENTAL SCALE SQ SCH ×4 (07:40→21:11)
[2017-10-01] MEDS: REMOVE OLD PATCH T-DERMAL SCH (09:00)
[2017-10-01] MEDS: HEPARIN SODIUM - SQ 10,000 UNITS/ML VIAL SQ SCH ×2 (09:26→21:11)
[2017-10-01] MEDS: LIDOCAINE HCL 5% PATCH T-DERMAL SCH (09:29)
[2017-10-01] MEDS: DOCUSATE SODIUM 50 MG/SENNA 8.6 MG TAB PO SCH ×2 (09:31→21:09)
[2017-10-01] MEDS: METOPROLOL TARTRATE 50 MG TAB PO SCH ×3 (09:31→17:09)
[2017-10-01] MEDS: FINASTERIDE 5 MG TAB PO SCH (09:31)
[2017-10-01] MEDS: LISINOPRIL 20 MG TAB PO SCH ×2 (09:32→21:09)
[2017-10-01] MEDS: POTASSIUM CHLORIDE 10 MEQ CONTROLLED RELEASE TAB PO SCH (09:32)
[2017-10-01] MEDS: ASPIRIN EC 81 MG TABEC PO SCH (09:32)
[2017-10-01] MEDS: DOXAZOSIN MESYLATE 4 MG TAB PO SCH (09:32)
[2017-10-01] MEDS: FUROSEMIDE 20 MG/2 ML VIAL IV PUSH SCH (09:33)
[2017-10-01] MEDS: SODIUM CHLORIDE 0.9% FLUSH 10 ML FLUSH IV FLUSH SCH ×2 (09:34→20:32)
[2017-10-01] MEDS: CHOLECALCIFEROL (VIT D3) 1000 UNIT TAB PO SCH ×2 (09:54→21:10)
[2017-10-01] MEDS: INSULIN DETEMIR 100 UNITS/ML VIAL SQ SCH ×2 (09:55→21:10)
[2017-10-01] MEDS: MAGNESIUM OXIDE 400 MG TAB PO SCH (11:33)
--- NOTE | 2017-10-01 12:36 | HHI.PR ---
Subjective Remarks Patient seen and evaluated today in follow-up for CHF and COPD with acute exacerbation of both. Overall improved. Up and comfortable in the bedside chair chair. Still requiring quite a bit oxygen and may require this at home. We will continue with medical management. Objective Vitals Vital Signs Date Time Temp Pulse Resp B/P (MAP) Pulse Ox O2 Delivery O2 Flow Rate FiO2 10/01/17 08:00 96.3 98 14 151/67 (95) 90 10/01/17 07:45 92 Nasal Cannula 4.00 10/01/17 04:00 97.0 72 22 130/66 (87) 96 10/01/17 00:00 97.1 81 22 133/62 (85) 93 09/30/17 22:16 Nasal Cannula 09/30/17 20:00 96.6 63 22 103/52 (69) 95 09/30/17 19:54 95 Nasal Cannula 4.00 09/30/17 16:48 94 Nasal Cannula 4.00 09/30/17 16:32 69 09/30/17 15:50 97.3 66 20 130/63 (85) 92 I/O 09/30/17 09/30/17 09/30/17 10/01/17 10/01/17 10/01/17 07:00 15:00 23:00 07:00 15:00 23:00 Intake Total 1122 ml 540 ml Output Total 1250 ml Balance -128 ml 540 ml Intake Oral 1122 ml 540 ml Output Urine Total 1250 ml # Voids 5 # Bowel Movements 3 Result Diagram: 09/28/17 0512 10/01/17 0518 Imaging Last Impressions Thoracentesis Ultrasound 09/29/17 0000 Signed Impressions: Service Date/Time: Friday, September 29, 2017 13:00 - CONCLUSION: Ultrasound guided thoracentesis with only a small line, 10 cc, obtained. This was sent for analysis. Sanchez Larios MD Chest X-Ray 09/29/17 0000 Signed Impressions: Service Date/Time: Friday, September 29, 2017 13:28 - CONCLUSION: No pneumothorax. Jaun Pascual MD FACR CT Angiography 09/28/17 0000 Signed Impressions: Service Date/Time: Thursday, September 28, 2017 15:22 - CONCLUSION: 1. No evidence of pulmonary embolism. 2. Small bilateral pleural effusions right greater than left with mild consolidation in both posterior lung bases right greater than left. 3. Stable 9 mm pulmonary nodule in the right middle lobe. This is a benign finding. Maurice Staples MD Objective Remarks GENERAL: This is a well-nourished, well-developed patient, comfortable breathing but dyspneic with exertion CARDIOVASCULAR: Regular rate and rhythm without murmurs, gallops, or rubs. RESPIRATORY: Clear to auscultation. Breath sounds equal bilaterally. No wheezes , rales, or rhonchi. GASTROINTESTINAL: Abdomen soft, non-tender, nondistended. Normal active bowel sounds MUSCULOSKELETAL: Extremities without clubbing, cyanosis, or edema. NEURO: Alert & Oriented x4 to person, place, time, situation. Moves all ext x4 A/P Problem List: (1) Diastolic heart failure ICD Code: I50.30 - Unspecified diastolic (congestive) heart failure Status: Acute Plan: With mild exacerbation, patient education provided Continue with medical management with oral Lasix, echocardiogram reviewed which does show some evidence of diastolic heart failure We will continue treating his COPD (2) Chronic obstructive pulmonary disease ICD Code: J44.9 - Chronic obstructive pulmonary disease, unspecified Status: Acute Plan: We will continue with bronchodilators, patient education provided Will taper steroids, patient encouraged to continue follow-up with his primary electronic prepress technician, Continue nebulized bronchodilators Discharge Planning Likely discharge in a.m. We will repeat walk study Anupama Mclean MD Oct 01, 2017 12:36
[2017-10-01] MEDS ORDERED: predniSONE 50 MG TAB PO SCH (14:00)
[2017-10-01] MEDS: predniSONE 20 MG TAB PO SCH (14:37)
[2017-10-01] MEDS ORDERED: TAMSULOSIN HCL 0.4 MG CAP PO SCH (21:00)
[2017-10-01] MEDS: MELATONIN 5 MG TAB PO PRN (21:09)
[2017-10-01] MEDS: LEVOFLOXACIN 500 MG TAB PO SCH (21:09)
[2017-10-01] MEDS: ATORVASTATIN 20 MG TAB PO SCH (21:10)
[2017-10-01] MEDS: FUROSEMIDE 40 MG TAB PO SCH (21:10)
[2017-10-01] MEDS: GABAPENTIN 300 MG CAP PO SCH (21:10)
[2017-10-02 00:05] VITALS: BP 138/68; PULSE 60; RESP 18; TEMP 98.3; O2SAT 94
[2017-10-02] MEDS: LEVOTHYROXINE SODIUM 150 MCG TAB PO SCH (06:13)
[2017-10-02 07:30] VITALS: O2SAT 95
[2017-10-02] MEDS: RESP: ALBUTEROL 2.5 MG/IPRATROPIUM 0.5 MG NEB (SCH) NEB (07:38)
[2017-10-02 08:00] VITALS: BP 158/70; PULSE 86; RESP 22; TEMP 96.7; O2SAT 92
[2017-10-02] MEDS: INSULIN DETEMIR 100 UNITS/ML VIAL SQ SCH (08:25)
[2017-10-02] MEDS: INSULIN NovoLIN REGULAR SUPPLEMENTAL SCALE SQ SCH ×2 (08:30→11:55)
[2017-10-02] MEDS: LIDOCAINE HCL 5% PATCH T-DERMAL SCH (08:33)
[2017-10-02] MEDS: DOCUSATE SODIUM 50 MG/SENNA 8.6 MG TAB PO SCH (08:36)
[2017-10-02] MEDS: CHOLECALCIFEROL (VIT D3) 1000 UNIT TAB PO SCH (08:36)
[2017-10-02] MEDS: predniSONE 20 MG TAB PO SCH (08:36)
[2017-10-02] MEDS: DOXAZOSIN MESYLATE 4 MG TAB PO SCH (08:36)
[2017-10-02] MEDS: ASPIRIN EC 81 MG TABEC PO SCH (08:36)
[2017-10-02] MEDS: METOPROLOL TARTRATE 50 MG TAB PO SCH ×2 (08:36→11:57)
[2017-10-02] MEDS: FINASTERIDE 5 MG TAB PO SCH (08:37)
[2017-10-02] MEDS: LISINOPRIL 20 MG TAB PO SCH (08:37)
[2017-10-02] MEDS: FUROSEMIDE 40 MG TAB PO SCH (08:37)
[2017-10-02] MEDS: POTASSIUM CHLORIDE 10 MEQ CONTROLLED RELEASE TAB PO SCH (08:37)
[2017-10-02] MEDS: SODIUM CHLORIDE 0.9% FLUSH 10 ML FLUSH IV FLUSH SCH (08:46)
[2017-10-02] MEDS: REMOVE OLD PATCH T-DERMAL SCH (08:46)
[2017-10-02] MEDS: HEPARIN SODIUM - SQ 10,000 UNITS/ML VIAL SQ SCH (08:46)
[2017-10-02] MEDS ORDERED: TAMS5CAP PO (10:14)
[2017-10-02] MEDS ORDERED: MELA5 PO (10:14)
[2017-10-02] MEDS ORDERED: LEVA500T33 PO (10:14)
[2017-10-02] MEDS ORDERED: SYMB80AE INH (10:14)
[2017-10-02] MEDS ORDERED: Albuterol-Ipratropium Neb NEB (10:14)
--- NOTE | 2017-10-02 10:15 | HHI.DCPOC ---
Discharge Care Plan Diagnosis: (1) Diastolic heart failure (2) Chronic obstructive pulmonary disease Goals to Promote Your Health * To prevent worsening of your condition and complications * To maintain your health at the optimal level Directions to Meet Your Goals Take your medications as prescribed Follow your dietary instruction Follow activity as directed Keep your appointments as scheduled Take your immunizations and boosters as scheduled If your symptoms worsen call your PCP, if no PCP go to Urgent Care Center or Emergency Room Smoking is Dangerous to Your Health. Avoid second hand smoke Call the 24-hour hour crisis hotline for domestic abuse at Anupama Mclean MD Oct 02, 2017 10:15
--- NOTE | 2017-10-02 11:17 | HHI.DS ---
Discharge Summary Admission Date Sep 30, 2017 at 10:14 Discharge Date: Oct 02, 2017 Admitting Diagnosis CHF EXACERBATION, HYPOXEMIA (1) Diastolic heart failure ICD Code: I50.30 - Unspecified diastolic (congestive) heart failure Status: Acute (2) Chronic obstructive pulmonary disease ICD Code: J44.9 - Chronic obstructive pulmonary disease, unspecified Status: Acute Procedures none Brief History - From Admission History from patient, interview of medical records. ER notes overnight reviewed short of breath for past 1 week no fever but had aches and pains no cough usually on o2 2-3L at home, here needs at least 4L and is still short of breath today no sputum no bleedign no real chest pains, but felt no air in no peripheral edema have to raise bed to sleep last month, have bloated up has copd exacerbations whenever pollen hits here from aug to september had to take days off from work when it rains, pollen down, and breathing perfect then usually takes flonase bid, and claritin/ zyrtec/shailesh- not much help takes albuterol nebs at home stating alubtero/ atrovent from [facility] helps 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 RESPIRATORY: Clear to auscultation. Breath sounds equal bilaterally. No wheezes , rales, or rhonchi. GASTROINTESTINAL: Abdomen soft, non-tender, nondistended. Normal active bowel sounds MUSCULOSKELETAL: Extremities without clubbing, cyanosis, or edema. NEURO: Alert & Oriented x4 to person, place, time, situation. Moves all ext x4 Pt update on day of discharge GENERAL: This is a well-nourished, well-developed patient, in no apparent distress. CARDIOVASCULAR: Regular rate and rhythm without murmurs, gallops, or rubs. RESPIRATORY: Clear to auscultation. Breath sounds equal bilaterally. No wheezes , rales, or rhonchi. GASTROINTESTINAL: Abdomen soft, non-tender, nondistended. Normal active bowel sounds MUSCULOSKELETAL: Extremities without clubbing, cyanosis, or edema. NEURO: Alert & Oriented x4 to person, place, time, situation. Moves all ext x4 Hospital Course Patient was seen and treated for CHF exacerbation in the setting of COPD. Patient has systolic diastolic heart failure secondary COPD. He did receive steroids, bronchodilators as well as patient education. Patient did improve and was discharged home Pt Condition on Discharge: Good Discharge Disposition: Discharge Home Discharge Time: <= 30 minutes Discharge Instructions DIET: Follow Instructions for: Diabetic Diet Activities you can perform: Regular-No Restrictions Follow up Referrals: PCP Follow-up - 1 Week New Medications: Budesonide-Formoterol Inh (Symbicort Inh) 80-4.5 Mcg/Act Aero 1 PUFF INH Q12HR for Asthma Management, #1 INHALER 0 Refills Levofloxacin (Levaquin) 500 Mg Tablet 500 MG PO Q24H for Infection, #4 TAB Melatonin (Melatonin) 5 Mg Tab 5 MG PO HS PRN for INSOMINA, #30 TAB Tamsulosin (Flomax) 0.4 Mg Cap 0.4 MG PO HS for urine, #30 CAP [Albuterol-Ipratropium Neb] () 1 AMPULE NEBU 1 AMPULE NEB Q2HR NEB PRN for sob, wheeze, #90 AMPULE 3 Refills Continued Medications: Amlodipine (Amlodipine) 10 Mg Tab 10 MG PO DAILY for Blood Pressure Management, #30 TAB [address] (Aspirin EC) 81 Mg Tabdr 81 MG PO DAILY, TAB 0 Refills Atorvastatin (Atorvastatin) 20 Mg Tab 20 MG PO HS for Cholesterol Management, #30 TAB 0 Refills Cholecalciferol (Vitamin D-3) 2,000 Unit Tab 1 TAB PO BID Coenzyme Q10 (Ubidecarenone) (Coq10) 50 Mg Cap 100 MG PO DAILY Doxazosin (Doxazosin) 4 Mg Tab 4 MG PO DAILY, TAB Furosemide (Lasix) 40 Mg Tab 40 MG PO BID, #60 TAB 0 Refills Gabapentin (Gabapentin) 300 Mg Cap 300 MG PO HS, #60 CAP 0 Refills Insulin Aspart Inj (Novolog Penfill Inj) 300 Unit/3 Ml Pen 2-40 UNITS SQ TIDAC PRN for Blood Sugar Management, BOX 0 Refills sliding scale Insulin Glargine Inj (Lantus Inj) 1,000 Unit/10 Ml Vial 50 UNITS SQ BID for Blood Sugar Management, VIAL 0 Refills Levothyroxine (Levothyroxine) 300 Mcg Tab 300 MCG PO DAILY for Thyroid, #30 TAB 0 Refills Lisinopril (Lisinopril) 20 Mg Tab 20 MG PO BID, #30 TAB 0 Refills Lorazepam (Lorazepam) 0.5 Mg Tab 0.5 MG PO BID PRN for ANXIETY, TAB 0 Refills Magnesium (Magnesium) 250 Mg Tab 1 TAB PO DAILY Metoprolol Tartrate (Metoprolol Tartrate) 50 Mg Tab 50 MG PO TID, #30 TAB 0 Refills Othello-3 Fatty Acids (Othello 3 1000 mg) 1 Cap Cap 2 CAP PO DAILY Potassium Chloride ER (Potassium Chloride ER) 20 Meq Tab 20 MEQ PO DAILY for Electrolyte Replacement, #30 TAB 0 Refills Sitagliptin-Metformin ER (Janumet Xr) 50-1,000 Mg Tab 1 TAB PO BID for Blood Sugar Management, #30 TAB 0 Refills Anupama Mclean MD Oct 02, 2017 11:17
[2017-10-02] MEDS ORDERED: OXYGENDME NAS.CANULA (11:27)
[2017-10-02] MEDS: MAGNESIUM OXIDE 400 MG TAB PO SCH (11:57)
[2017-10-02 12:00] VITALS: BP 139/62; PULSE 60; RESP 22; TEMP 98; O2SAT 96
== END 2017-10-02 13:53 | disposition home or self-care (01) | DRG 291 ==
LOC: PHED 17:11 → PHEDA 18:51 → PH3A 20:50 → OBSVTOIN 09-30 10:14
PROVIDERS: ADMIT Hospitalist; ATTEND Hospitalist
PROC: 0W993ZX Drainage of Right Pleural Cavity, Percutaneous Approach, Diagnostic (ICD-10-PCS; principal; 2017-09-29)
DX: I11.0 Hypertensive heart disease with heart failure (principal); J96.01 Acute respiratory failure with hypoxia; J90 Pleural effusion, not elsewhere classified; J44.1 Chronic obstructive pulmonary disease with (acute) exacerbation; I50.30 Unspecified diastolic (congestive) heart failure; Z99.81 Dependence on supplemental oxygen; E11.9 Type 2 diabetes mellitus without complications; E78.00 Pure hypercholesterolemia, unspecified; E03.9 Hypothyroidism, unspecified; M19.90 Unspecified osteoarthritis, unspecified site; E07.9 Disorder of thyroid, unspecified; N40.0 Benign prostatic hyperplasia without lower urinary tract symptoms; E66.9 Obesity, unspecified; E87.5 Hyperkalemia; I25.10 Atherosclerotic heart disease of native coronary artery without angina pectoris; M79.603 Pain in arm, unspecified; R91.1 Solitary pulmonary nodule; Z87.440 Personal history of urinary (tract) infections; I25.2 Old myocardial infarction; Z95.5 Presence of coronary angioplasty implant and graft; Z87.891 Personal history of nicotine dependence; Z86.73 Personal history of transient ischemic attack (TIA), and cerebral infarction without residual deficits; Z79.84 Long term (current) use of oral hypoglycemic drugs
CPT/HCPCS: 32555; 36600; 71045; 71275; 80048; 80053; 82550; 82805; 82948; 83880; 84145; 84484; 85025; 85610; 85730; 87015; 87070; 87102; 87116; 87205; 87206; 87804; 88112; 89051; 93005; 93306; 94640; 94664; 96365; 96372; 96375; 96376; C1729; G0378; G8987-GO; G8987-GP; G8988-GO; G8988-GP; G8989-GO; J1644; J1815; J1940; J2930; J3475; J7512; Q9967

== ENCOUNTER 2017-10-09 11:34 | Inpatient (IN) | payer OTHER, MEDICARE ==
[2017-10-09] VITALS (8 sets, daily range): BP systolic 114–153; BP diastolic 52–67; PULSE 80–90; RESP 20–22; TEMP 97.9–98.4; O2SAT 89–95
[~2017-10-09] VITALS: Ht 175.3 cm; Wt 134.5 kg
[~2017-10-09 11:34] MED LIST changes: +Albuterol-Ipratropium Neb NEB; -FEXO15TA PO; -GLIM4TAB PO; +LEVA500T33 PO; +MELA5 PO; +OXYGENDME NAS.CANULA; +TAMS5CAP PO
[2017-10-09] MEDS ORDERED: SODIUM CHLORIDE 0.9% FLUSH 10 ML FLUSH IVF PRN (12:30)
[2017-10-09 12:42] LABS: BASOPHIL % 0.6 % (0.0-2.0); EOSINOPHIL % 0.5 % (0.0-4.0); HEMATOCRIT 34.5 % (39.0-51.0); LYMPH % 10.3 % (9.0-44.0); LYMPHOCYTE # 0.7 TH/MM3 (1.0-4.8); MEAN CELL VOLUME 92.9 FL (80.0-100.0); MEAN CORPUSCULAR HEMOGLOBIN 29.7 PG (27.0-34.0); MEAN PLATELET VOLUME 10.2 FL (7.0-11.0); MONO % 6.8 % (0.0-8.0); MONOCYTE # 0.5 TH/MM3 (0-0.9); NEUT % 81.8 % (16.0-70.0); PLATELET COUNT 158 TH/MM3 (150-450); RED BLOOD COUNT 3.72 MIL/MM3 (4.50-5.90); RED CELL DISTRIBUTION WIDTH 13.8 % (11.6-17.2); WHITE BLOOD COUNT 7.2 TH/MM3 (4.0-11.0)
[2017-10-09 12:52] LABS: CHLORIDE 102 MEQ/L (98-107); SODIUM (NA) 137 MEQ/L (136-145)
[2017-10-09 12:55] LABS: ALBUMIN 3.3 GM/DL (3.4-5.0); CALCIUM 9.2 MG/DL (8.5-10.1)
[2017-10-09 12:56] LABS: BICARBONATE 32.9 MEQ/L (21.0-32.0); BLOOD UREA NITROGEN 66 MG/DL (7-18); GLUCOSE,RANDOM 187 MG/DL (74-106); MAGNESIUM 2.1 MG/DL (1.5-2.5)
[2017-10-09 12:57] LABS: INTERNATIONAL NORMALIZED RATIO 1.2 RATIO
[2017-10-09 12:58] LABS: ALT (GPT) 20 U/L (12-78)
[2017-10-09 12:59] LABS: AST (GOT) 13 U/L (15-37); GLOMERULAR FILTRATION RATE 59 ML/MIN (>89)
[2017-10-09 13:00] LABS: TOTAL BILIRUBIN ADULT 0.2 MG/DL (0.2-1.0)
[2017-10-09 13:02] LABS: ALKALINE PHOSPHATASE 35 U/L (45-117)
[2017-10-09 13:04] LABS: TROPONIN I LESS THAN 0.02 NG/ML (0.02-0.05)
--- NOTE | 2017-10-09 13:06 | RADRPT ---
EXAM DATE/TIME: 10/09/2017 12:37 [facility] COMPARISON: CHEST EXPIRATION ONLY, September 29, 2017, 13:28. CHEST SINGLE AP, September 27, 2017, 17:26. INDICATIONS : Short of breath, weak MEDICAL HISTORY : Chronic obstructive pulmonary disease. Congestive heart failure. SURGICAL HISTORY : None. ENCOUNTER: Initial ACUITY: 2 weeks PAIN SCORE: 0/10 LOCATION: Bilateral chest FINDINGS: Single AP view of the chest. Bilateral confluent lower lung zone opacity. The opacity in the right zena ng has decreased when compared to 09/29/17. Persistent enlargement of the cardiac silhouette unchanged . No evidence of pleural effusion or pneumothorax. CONCLUSION: Bilateral lower lung zone opacity and cardiac silhouette margin. Decrease in opacity on t he right when compared to most recent chest radiograph. Baudilio Cornell MD on October 09, 2017 at 13:02 Board Certified Radiologist. This report was verified electronically.
--- NOTE | 2017-10-09 13:21 | PD ---
HPI Chief Complaint: General Weakness Time Seen by Provider: 11:49 Travel History International Travel<30 days: No Contact w/Intl Traveler<30days: No Traveled to known affect area: No History of Present Illness HPI 72-year-old male describes weakness. He has difficulty ambulating in his house. He describes shortness of breath on exertion. He describes insomnia for the past 5 days or so. He reports discharged from here about 5 days ago as well following admission for CHF exacerbation. He reports urinary hesitancy. Additional complaints loose stools. Compliance with CHF medications and dietary guidelines is reported. No fever or chest pain. PFSH Past Medical History Hx Anticoagulant Therapy: No Arthritis: Yes Asthma: Yes Autoimmune Disease: No Blood Disorders: No Anxiety: Yes Depression: No Heart Rhythm Problems: No Cancer: No Cardiac Catheterization: Yes Cardiovascular Problems: Yes High Cholesterol: Yes Chemotherapy: No Chest Pain: No Congestive Heart Failure: Yes COPD: Yes Cerebrovascular Accident: Yes Diabetes: Yes Patient Takes Glucophage: No Diminished Hearing: No Endocrine: Yes Gastrointestinal Disorders: Yes GERD: No Genitourinary: Yes Headaches: Yes Hiatal Hernia: No Hypertension: Yes Immune Disorder: No Implanted Vascular Access Dvce: No Kidney Stones: No Musculoskeletal: Yes Neurologic: Yes Psychiatric: Yes Reproductive: No Respiratory: Yes (COPD) Immunizations Current: Yes Migraines: Yes Seizures: No Sleep Apnea: No Thyroid Disease: Yes Ulcer: No Tetanus Vaccination: > 5 Years Influenza Vaccination: Yes Past Surgical History Abdominal Surgery: Yes (UMBILICAL HERNIA REPAIR.) Cardiac Surgery: Yes ([place] ANGIOPLASTY 1993) Endocrine Surgery: No Eye Surgery: No Genitourinary Surgery: No Gynecologic Surgery: No Hysterectomy: No Neurologic Surgery: No Thoracic Surgery: No Other Surgery: Yes Social History Alcohol Use: No Tobacco Use: No (quit 1993) Substance Use: No Allergies-Medications (Allergen,Severity, Reaction): Coded Allergies: No Known Allergies (Unverified Allergy, Unknown, 10/09/17) Reported Meds & Prescriptions Reported Meds & Active Scripts Active Oxygen (O2) Device Liter TAMMI.CANULA CONTINUOUS Oxygen Concentrator Portable Gaseous 4 L/min via Nasal Canula Continuous For 99 months Symbicort Inh (Budesonide/Formoterol Fumarate) 80-4.5 Mcg/Act Aero 1 Puff INH Q12HR Melatonin 5 Mg Tab 5 Mg PO HS PRN Flomax (Tamsulosin HCl) 0.4 Mg Cap 0.4 Mg PO HS [Albuterol-Ipratropium Neb] 1 AMPULE Nebu 1 Ampule NEB Q2HR NEB PRN Reported Potassium Chloride ER (Potassium Chloride) 20 Meq Tab 20 Meq PO DAILY Lasix (Furosemide) 40 Mg Tab 40 Mg PO BID Lantus Inj (Insulin Glargine) 1,000 Unit/10 Ml Vial 50 Units SQ BID Amlodipine (Amlodipine Besylate) 10 Mg Tab 10 Mg PO DAILY Magnesium 250 Mg Tab 1 Tab PO DAILY Novolog Penfill Inj (Insulin Aspart) 300 Unit/3 Ml Pen 2-40 Units SQ TIDAC PRN sliding scale Coq10 (Coenzyme Q10 (Ubidecarenone)) 50 Mg Cap 100 Mg PO DAILY Aspirin EC (Aspirin) 81 Mg Tabdr 81 Mg PO DAILY [place] 3 1000 mg ([place]-3 Fatty Acids) 1 Cap Cap 2 Cap PO DAILY Metoprolol Tartrate 50 Mg Tab 50 Mg PO TID Lorazepam 0.5 Mg Tab 0.5 Mg PO BID PRN Lisinopril 20 Mg Tab 20 Mg PO BID Levothyroxine (Levothyroxine Sodium) 300 Mcg Tab 300 Mcg PO DAILY Janumet Xr (Sitagliptin-Metformin ER) 50-1,000 Mg Tab 1 Tab PO BID Gabapentin 300 Mg Cap 300 Mg PO HS Doxazosin (Doxazosin Mesylate) 4 Mg Tab 4 Mg PO DAILY Vitamin D-3 (Cholecalciferol) 2,000 Unit Tab 1 Tab PO BID Atorvastatin (Atorvastatin Calcium) 20 Mg Tab 20 Mg PO HS Review of Systems Except as stated in HPI: all other systems reviewed are Neg Physical Exam Narrative GENERAL: 72 yo M, WNWD, minimal dyspnea Vital Signs Date Time Temp Pulse Resp B/P (MAP) Pulse Ox O2 Delivery O2 Flow Rate FiO2 10/09/17 12:33 91 Nasal Cannula 4.00 10/09/17 12:33 91 Nasal Cannula 4.00 10/09/17 11:42 (81) 10/09/17 11:38 97.9 80 22 114/65 (81) 90 Nasal Cannula 4.00 10/09/17 11:38 90 Nasal Cannula 4.00 SKIN: Warm and dry. The abdominal wall is markedly erythematous without fluctuance or induration. Minimal warmth is present along with tenderness. HEAD: Atraumatic. Normocephalic. EYES: Pupils equal and round. No scleral icterus. No injection or drainage. ENT: No nasal bleeding or discharge. Mucous membranes pink and moist. NECK: Trachea midline. No JVD. CARDIOVASCULAR: Regular rate and rhythm. RESPIRATORY: Nasal cannula. Respiratory rate about 22. The patient's be short sentences. Lungs sound clear. GASTROINTESTINAL: Abdomen habitus is notable for substantial pannus. Erythema about the abdominal wall is noted with minimal tenderness without induration or fluctuance. GENITOURINARY: No gross abnormality for external genitalia. MUSCULOSKELETAL: Extremities without clubbing, cyanosis, or edema. No obvious deformities. NEUROLOGICAL: Awake and alert. No obvious cranial nerve deficits. Motor grossly within normal limits. Five out of 5 muscle strength in the arms and legs. Normal speech. PSYCHIATRIC: Appropriate mood and affect; insight and judgment normal. Data Data Last Documented VS Vital Signs Date Time Temp Pulse Resp B/P (MAP) Pulse Ox O2 Delivery O2 Flow Rate FiO2 10/09/17 13:26 80 22 128/58 (81) 94 Nasal Cannula 4.00 10/09/17 11:38 97.9 Vital signs reviewed Orders Orders Complete Blood Count With Diff (10/09/17 12:28) Comprehensive Metabolic Panel (10/09/17 12:28) B-Type Natriuretic Peptide (10/09/17 12:28) Act Partial Throm Time (Ptt) (10/09/17 12:28) Prothrombin Time / Inr (Pt) (10/09/17 12:28) Magnesium (Mg) (10/09/17 12:28) Ckmb (Isoenzyme) Profile (10/09/17 12:28) Troponin I (10/09/17 12:28) Urinalysis - C+S If Indicated (10/09/17 12:28) Iv Access Insert/Monitor (10/09/17 12:28) Electrocardiogram (10/09/17 12:28) Ecg Monitoring (10/09/17 12:28) Oximetry (10/09/17 12:28) Oxygen Administration (10/09/17 12:28) Chest, Single Ap (10/09/17 12:28) Sodium Chloride 0.9% Flush (Ns Flush) (10/09/17 12:30) Ct Brain W/O Iv Contrast(Rout) (10/09/17 ) Calcium Gluconate Inj (Calcium Gluconate (10/09/17 13:45) Dextrose 50% In Zaira (Vial) Inj (D50w (Vi (10/09/17 13:45) Sodium Polysty Sulfate Liq (Kayexalate L (10/09/17 13:45) Insulin Human Regular Inj (Novolin R Inj (10/09/17 13:45) Ct Pulmonary Angiogram (10/09/17 14:15) Admit Order (Ed Use Only) (10/09/17 ) Maintenance Mechanic Elevators / Telemetry JONATHAN.Q8H (10/09/17 14:15) Vital Signs (Adult) Q4H (10/09/17 14:15) Diet Heart Healthy (10/09/17 Dinner) Activity Bed Rest (10/09/17 14:15) Notify Dr: Other (10/09/17 14:15) Sulfamet-Trimeth Ds 800-160 Mg (Bactrim (10/09/17 14:15) Labs Laboratory Tests Test 10/09/17 12:30 10/09/17 14:15 White Blood Count 7.2 TH/MM3 Red Blood Count 3.72 MIL/MM3 Hemoglobin 11.0 GM/DL Hematocrit 34.5 % Mean Corpuscular Volume 92.9 FL Mean Corpuscular Hemoglobin 29.7 PG Mean Corpuscular Hemoglobin Concent 32.0 % Red Cell Distribution Width 13.8 % Platelet Count 158 TH/MM3 Mean Platelet Volume 10.2 FL Neutrophils (%) (Auto) 81.8 % Lymphocytes (%) (Auto) 10.3 % Monocytes (%) (Auto) 6.8 % Eosinophils (%) (Auto) 0.5 % Basophils (%) (Auto) 0.6 % Neutrophils # (Auto) 6.0 TH/MM3 Lymphocytes # (Auto) 0.7 TH/MM3 Monocytes # (Auto) 0.5 TH/MM3 Eosinophils # (Auto) 0.0 TH/MM3 Basophils # (Auto) 0.0 TH/MM3 CBC Comment DIFF FINAL Differential Comment Prothrombin Time 12.0 SEC Prothromb Time International Ratio 1.2 RATIO Activated Partial Thromboplast Time 25.2 SEC Blood Urea Nitrogen 66 MG/DL Creatinine 1.20 MG/DL Random Glucose 187 MG/DL Total Protein 7.0 GM/DL Albumin 3.3 GM/DL Calcium Level 9.2 MG/DL Magnesium Level 2.1 MG/DL Alkaline Phosphatase 35 U/L Aspartate Amino Transf (AST/SGOT) 13 U/L Alanine Aminotransferase (ALT/SGPT) 20 U/L Total Bilirubin 0.2 MG/DL Sodium Level 137 MEQ/L Potassium Level 6.0 MEQ/L Chloride Level 102 MEQ/L Carbon Dioxide Level 32.9 MEQ/L Anion Gap 2 MEQ/L Estimat Glomerular Filtration Rate 59 ML/MIN Total Creatine Kinase 67 U/L Troponin I LESS THAN 0.02 NG/ML B-Type Natriuretic Peptide 197 PG/ML Urine Collection Type CLEAN CATCH Urine Color YELLOW Urine Turbidity CLEAR Urine pH 5.0 Urine Specific [place] 1.010 Urine Protein NEG mg/dL Urine Glucose (UA) NEG mg/dL Urine Ketones NEG mg/dL Urine Occult Blood NEG Urine Nitrite NEG Urine Bilirubin NEG Urine Urobilinogen 0.2 MG/DL Urine Leukocyte Esterase NEG Urine Squamous Epithelial Cells 0-5 /hpf Urine Amorphous Sediment FEW Urine Hyaline Casts 3-5 /lpf Microscopic Urinalysis Comment CULT NOT INDICATED Urine Collection Time 1415 MDM Medical Decision Making Medical Screen Exam Complete: Yes Emergency Medical Condition: Yes Medical Record Reviewed: Yes Differential Diagnosis CHF exacerbation, anemia, metabolic disorder, urinary retention, pneumonia Narrative Course CBC & BMP Diagram 10/09/17 12:30 Total Protein 7.0, Albumin 3.3 L, Calcium Level 9.2, Magnesium Level 2.1, Alkaline Phosphatase 35 L, Aspartate Amino Transf (AST/SGOT) 13 L, Alanine Aminotransferase (ALT/SGPT) 20, Total Bilirubin 0.2 Troponin is less than 0.02 the BNP is 197 INR is 1.2 Calcium, insulin and dextrose given EKG: No hyperK EKG changes on EKG, sinus rhythm, rate 81, no ischemic EKG change Last Impressions Chest X-Ray 10/09/17 1228 Signed Impressions: Service Date/Time: Monday, October 09, 2017 12:37 - CONCLUSION: Bilateral lower lung zone opacity and cardiac silhouette margin. Decrease in opacity on the right when compared to most recent chest radiograph. Baudilio Cornell MD Head CT 10/09/17 0000 Signed Impressions: Service Date/Time: Monday, October 09, 2017 12:59 - CONCLUSION: No acute disease. No significant change has occurred. No evidence of acute infarct, hemorrhage, mass or edema. Zachary Hensley MD Bedside US: distended urinary bladder RN reports pt urinated 600cc at bedside d/w Dr Luu who request CT pulmonary angiogram add on Diagnosis Primary Impression: Hyperkalemia Additional Impressions: Weakness Urinary hesitancy Admitting Information Admitting Physician Requests: Admit Nikita Dyer MD Oct 09, 2017 13:21
--- NOTE | 2017-10-09 13:27 | RADRPT ---
EXAM DATE/TIME: 10/09/2017 12:59 [facility] COMPARISON: CT BRAIN W/O CONTRAST, May 05, 2017, 17:02. INDICATIONS : Weakness, altered mental status. RADIATION DOSE: 64.69 CTDIvol (mGy) ; Patient body habitus MEDICAL HISTORY : Congestive hearrt failure. Cardiovascular disease Hypercholesterolemia.Diabetes,HTN SURGICAL HISTORY : Umbilical hernia repair. ENCOUNTER: Initial ACUITY: 1 day PAIN SCALE: 0/10 LOCATION: cranial TECHNIQUE: Multiple contiguous axial images were obtained of the head. Using automated exposure control and adj ustment of the mA and/or kV according to patient size, radiation dose was kept as low as reasonably a chievable to obtain optimal diagnostic quality images. DICOM format image data is available electro nically for review and comparison. FINDINGS: CEREBRUM: The ventricles are normal for age. No evidence of midline shift, mass lesion, hemorrhage or acute in farction. No extra-axial fluid collections are seen. POSTERIOR FOSSA: The cerebellum and brainstem are intact. The 4th ventricle is midline. The cerebellopontine angle i s unremarkable. EXTRACRANIAL: The visualized portion of the orbits is intact. SKULL: The calvaria is intact. No evidence of skull fracture. CONCLUSION: No acute disease. No significant change has occurred. No evidence of acute infarct, hemorrhage, mass or edema. Zachary Hensley MD on October 09, 2017 at 13:24 Board Certified Radiologist. This report was verified electronically.
[2017-10-09] MEDS ORDERED: SODIUM POLYSTYRENE SULFONATE SUSP 15 GM/60 ML CUP PO ONE (13:45)
[2017-10-09] MEDS ORDERED: DEXTROSE 50% IN WATER 50 ML VIAL(D50) IV PUSH ONE (13:45)
[2017-10-09] MEDS ORDERED: INSULIN HUMAN REGULAR 1,000 UNITS/10 ML VIAL IV PUSH ONE (13:45)
[2017-10-09] MEDS ORDERED: CALCIUM GLUCONATE 10% 1 GM/10 ML VIAL SLOW IVP ONE (13:45)
[2017-10-09] MEDS ORDERED: SODIUM CHLORIDE 0.9% FLUSH 10 ML FLUSH IV FLUSH PRN (14:15)
[2017-10-09] MEDS ORDERED: MAGNESIUM HYDROXIDE SUSP 30 ML CUP PO PRN (14:15)
[2017-10-09] MEDS ORDERED: ONDANSETRON HCL 4 MG/2 ML VIAL IVP PRN (14:15)
[2017-10-09] MEDS ORDERED: SULFAMETHOXAZOLE-TRIMETHOPRIM DS 800-160 MG TAB PO ONE (14:15)
[2017-10-09] MEDS ORDERED: NALOXONE HCL 0.4 MG/ML AMP IV PUSH PRN (14:15)
[2017-10-09] MEDS ORDERED: SODIUM CHLOR 0.9% 250 ML INJ 250 ML IV ONE (14:30)
[2017-10-09 14:31] LABS: BILIRUBIN, URINE NEG (NEG); BLOOD, URINE NEG (NEG); GLUCOSE,URINE NEG (NEG); KETONE, URINE NEG (NEG); NITRITE,URINE NEG (NEG); URINE COLOR YELLOW (YELLW/STRAW); URINE LEUKOCYTE ESTERASE NEG (NEG)
[2017-10-09 14:41] LABS: AMORPHOUS SEDIMENT, URINE FEW; SQUAMOUS EPITHELIAL CELL URINE 0-5 /hpf (0-5)
--- NOTE | 2017-10-09 14:48 | EKG ---
Date Performed: 10/09/2017 Time Performed: 12:45:37 PTAGE: 72 years EKG: PROBABLE Normal Sinus rhythm No significant change from prior electrocardiogram. PREVIOUS TRACING : 09/28/2017 16.52 DOCTOR: Varinder Llamas Interpretating Date/Time 10/09/2017 14:47:13
[2017-10-09] MEDS: ENOXAPARIN SODIUM 40 MG/0.4 ML SYRINGE SQ SCH (14:49)
[2017-10-09] MEDS ORDERED: IOHEXOL 350 MG/ML 10 ML VIAL (for RAD DIAG) IVCONTRAST ONE (15:18)
--- NOTE | 2017-10-09 15:34 | RADRPT ---
EXAM DATE/TIME: 10/09/2017 15:11 [facility] COMPARISON: CT PULMONARY ANGIOGRAM, September 28, 2017, 15:22. INDICATIONS : General weakness. IV CONTRAST: 75 cc Omnipaque 350 (iohexol) IV RADIATION DOSE: 21.64 CTDIvol (mGy) MEDICAL HISTORY : Cerebrovascular disease. Chronic obstructive pulmonary disease. CHF,Diabetes,GERD SURGICAL HISTORY : Umbilical hernia repair. ENCOUNTER: Initial ACUITY: 2 days PAIN SCALE: 0/10 LOCATION: chest TECHNIQUE: Volumetric scanning of the chest was performed using a pulmonary embolism protocol MIP images were re constructed. Using automated exposure control and adjustment of the mA and/or kV according to patien t size, radiation dose was kept as low as reasonably achievable to obtain optimal diagnostic quality images. DICOM format image data is available electronically for review and comparison. Follow-up recommendations for detected pulmonary nodules are based at a minimum on nodule size and pa tient risk factors according to Fleischner Society Guidelines. FINDINGS: PULMONARY ARTERIES: Pulmonary arteries are only moderately opacified on this study limiting evaluation of the smaller bra nches. No filling defects are seen to suggest pulmonary embolus. LUNGS: Bilateral lower lobe atelectasis/mild consolidation again seen previously noted right middle lobe nod ular density is not seen on today's study. PLEURAE: Right greater than left pleural effusions again seen with slight increase in size of right pleural ef fusion when compared to the prior study. It is now moderate in size measuring approximately 30% of th e AP diameter of the thorax. Left pleural effusion is small. MEDIASTINUM: Small pericardial effusion unchanged. No enlarged lymph nodes. Coronary artery calcifications. Thorac ic aorta is calcified but normal diameter. MUSCULOSKELETAL: Within normal limits for patient age. MISCELLANEOUS: The visualized upper abdominal organs demonstrate no acute abnormality. CONCLUSION: 1. No evidence of pulmonary embolus. 2. Right greater than left pleural effusion again seen with slight increase on the right. 3. Bilateral lower lobe atelectasis/mild consolidation again seen. Baudilio Cornell MD on October 09, 2017 at 15:27 Board Certified Radiologist. This report was verified electronically.
[2017-10-09] MEDS ORDERED: DEXTROSE 50% IN WATER 50 ML VIAL(D50) IV PUSH PRN (20:00)
[2017-10-09] MEDS ORDERED: GLUCAGON 1 MG/ML VIAL OTHER PRN (20:00)
--- NOTE | 2017-10-09 20:17 | HHI.HP ---
[facility] [place] [facility] Adri Hudson MD Admission Diagnosis HyperK, Weakness, Abd Wall Cellulitis Diagnoses: Travel History International Travel<30 Days: No Contact w/Intl Traveler <30 Da: No Traveled to Known Affected Are: No History of Present Illness Mr. Otoole is a 72-year-old male. He came to the hospital today because she's been feeling weak and his oxygen level has been low. He is found to be hyperkalemic. Hyperkalemia may be contributory to his weakness but is likely not contributory to his hypoxia. Imaging of the chest shows no evidence of pulmonary embolism. However he does have progression of pleural effusion which is a right side greater than left. Degree of pleural effusion is considered moderate at this time. The patient has attempted a thoracentesis at a prior hospitalization and he reports he only got 10 mL out at that time so the pleural effusion is likely loculated. He denies any cough or fevers. He has CHF at baseline. No evidence of diffuse pulmonary edema on imaging and blood work shows no acute exacerbation of his CHF, however she does have mild pulmonary edema on physical exam heard at the left. Review of Systems Constitutional: COMPLAINS OF: Fatigue, DENIES: Fever, Chills, Night Sweats Eyes: DENIES: Blurred vision, Diplopia, Eye inflammation, Eye pain Respiratory: COMPLAINS OF: Shortness of breath, DENIES: Cough, Wheezing Cardiovascular: DENIES: Chest pain, Palpitations, Syncope Gastrointestinal: DENIES: Abdominal pain, Black stools, Bloody stools Musculoskeletal: DENIES: Joint pain, Muscle aches, Stiffness, Joint Swelling Integumentary: DENIES: Abnormal pigmentation, Nail changes, Pruritus, Rash Hematologic/lymphatic: DENIES: Bruising, Lymphadenopathy Immunologic/allergic: DENIES: Eczema, Urticaria Neurologic: DENIES: Abnormal gait, Headache, Paresthesias Psychiatric: DENIES: Anxiety, Confusion, Hallucinations Past Family Social History Past Medical History Diabetes mellitus type 2 Hypertension Hyperlipidemia Coronary artery disease [place] in 1993- Angelo Xiang Congestive heart failure COPD Chronic respiratory failure with oxygen dependence hx of 6th nerve palsy hypothyroidism BPH Past Surgical History umbilical hernia coronary angiogram and angioplasty Reported Medications Reported Meds & Active Scripts Active Oxygen (O2) Device Liter TAMMI.CANULA CONTINUOUS Oxygen Concentrator Portable Gaseous 4 L/min via Nasal Canula Continuous For 99 months Symbicort Inh (Budesonide/Formoterol Fumarate) 80-4.5 Mcg/Act Aero 1 Puff INH Q12HR Melatonin 5 Mg Tab 5 Mg PO HS PRN Flomax (Tamsulosin HCl) 0.4 Mg Cap 0.4 Mg PO HS [Albuterol-Ipratropium Neb] 1 AMPULE Nebu 1 Ampule NEB Q2HR NEB PRN Reported Potassium Chloride ER (Potassium Chloride) 20 Meq Tab 20 Meq PO DAILY Lasix (Furosemide) 40 Mg Tab 40 Mg PO BID Lantus Inj (Insulin Glargine) 1,000 Unit/10 Ml Vial 50 Units SQ BID Amlodipine (Amlodipine Besylate) 10 Mg Tab 10 Mg PO DAILY Magnesium 250 Mg Tab 1 Tab PO DAILY Novolog Penfill Inj (Insulin Aspart) 300 Unit/3 Ml Pen 2-40 Units SQ TIDAC PRN sliding scale Coq10 (Coenzyme Q10 (Ubidecarenone)) 50 Mg Cap 100 Mg PO DAILY Aspirin EC (Aspirin) 81 Mg Tabdr 81 Mg PO DAILY [place] 3 1000 mg ([place]-3 Fatty Acids) 1 Cap Cap 2 Cap PO DAILY Metoprolol Tartrate 50 Mg Tab 50 Mg PO TID Lorazepam 0.5 Mg Tab 0.5 Mg PO BID PRN Lisinopril 20 Mg Tab 20 Mg PO BID Levothyroxine (Levothyroxine Sodium) 300 Mcg Tab 300 Mcg PO DAILY Janumet Xr (Sitagliptin-Metformin ER) 50-1,000 Mg Tab 1 Tab PO BID Gabapentin 300 Mg Cap 300 Mg PO HS Doxazosin (Doxazosin Mesylate) 4 Mg Tab 4 Mg PO DAILY Vitamin D-3 (Cholecalciferol) 2,000 Unit Tab 1 Tab PO BID Atorvastatin (Atorvastatin Calcium) 20 Mg Tab 20 Mg PO HS Allergies: Coded Allergies: No Known Allergies (Unverified Allergy, Unknown, 10/09/17) Active Ordered Medications Administered Medications Medications (Trade) Dose Ordered Sig/[place] Route PRN Reason Start Time Stop Time Status Last Admin Dose Admin Enoxaparin Sodium (Lovenox Inj) 40 mg Q24H SQ 3/10/18 15:00 10/09/17 14:49 Family History Emphysema in mother Social History Past history of smoking, not currently smoking No alcohol abuse No illicit drug abuse Physical Exam Vital Signs Vital Signs Date Time Temp Pulse Resp B/P (MAP) Pulse Ox O2 Delivery O2 Flow Rate FiO2 10/09/17 17:41 98.4 88 22 134/61 (85) 92 Nasal Cannula 4.00 10/09/17 16:32 Nasal Cannula 4.00 10/09/17 16:06 90 22 153/52 (85) 89 Nasal Cannula 10/09/17 15:22 90 22 152/67 (95) 93 Nasal Cannula 4.00 10/09/17 13:26 80 22 128/58 (81) 94 Nasal Cannula 4.00 10/09/17 12:33 91 Nasal Cannula 4.00 10/09/17 12:33 91 Nasal Cannula 4.00 10/09/17 11:42 (81) 10/09/17 11:38 97.9 80 22 114/65 (81) 90 Nasal Cannula 4.00 10/09/17 11:38 90 Nasal Cannula 4.00 Physical Exam GENERAL: This is a well-nourished, well-developed patient, in no apparent distress. SKIN: No rashes, ecchymoses or lesions. Cool and dry. HEAD: Atraumatic. Normocephalic. No temporal or scalp tenderness. EYES: Pupils equal round and reactive. Extraocular motions intact. No scleral icterus. No injection or drainage. ENT: Nose without bleeding, purulent drainage or septal hematoma. Throat without erythema, tonsillar hypertrophy or exudate. Uvula midline. Airway patent. NECK: Trachea midline. No JVD or lymphadenopathy. Supple, nontender, no meningeal signs. CARDIOVASCULAR: Regular rate and rhythm without murmurs, gallops, or rubs. RESPIRATORY: Clear to auscultation. Breath sounds equal bilaterally. No wheezes , rales, or rhonchi. GASTROINTESTINAL: Abdomen soft, non-tender, nondistended. No hepato-splenomegaly , or palpable masses. No guarding. MUSCULOSKELETAL: Extremities without clubbing, cyanosis, or edema. No joint tenderness, effusion, or edema noted. No calf tenderness. Negative Homans sign bilaterally. NEUROLOGICAL: Awake and alert. Cranial nerves II through XII intact. Motor and sensory grossly within normal limits. Five out of 5 muscle strength in all muscle groups. Normal speech. Laboratory Laboratory Tests Test 10/09/17 12:30 10/09/17 14:15 10/09/17 15:20 White Blood Count 7.2 Red Blood Count 3.72 Hemoglobin 11.0 Hematocrit 34.5 Mean Corpuscular Volume 92.9 Mean Corpuscular Hemoglobin 29.7 Mean Corpuscular Hemoglobin Concent 32.0 Red Cell Distribution Width 13.8 Platelet Count 158 Mean Platelet Volume 10.2 Neutrophils (%) (Auto) 81.8 Lymphocytes (%) (Auto) 10.3 Monocytes (%) (Auto) 6.8 Eosinophils (%) (Auto) 0.5 Basophils (%) (Auto) 0.6 Neutrophils # (Auto) 6.0 Lymphocytes # (Auto) 0.7 Monocytes # (Auto) 0.5 Eosinophils # (Auto) 0.0 Basophils # (Auto) 0.0 CBC Comment DIFF FINAL Differential Comment Prothrombin Time 12.0 Prothromb Time International Ratio 1.2 Activated Partial Thromboplast Time 25.2 Blood Urea Nitrogen 66 Creatinine 1.20 Random Glucose 187 Total Protein 7.0 Albumin 3.3 Calcium Level 9.2 Magnesium Level 2.1 Alkaline Phosphatase 35 Aspartate Amino Transf (AST/SGOT) 13 Alanine Aminotransferase (ALT/SGPT) 20 Total Bilirubin 0.2 Sodium Level 137 Potassium Level 6.0 5.5 Chloride Level 102 Carbon Dioxide Level 32.9 Anion Gap 2 Estimat Glomerular Filtration Rate 59 Total Creatine Kinase 67 Troponin I LESS THAN 0.02 B-Type Natriuretic Peptide 197 Urine Collection Type CLEAN CATCH Urine Color YELLOW Urine Turbidity CLEAR Urine pH 5.0 Urine Specific [place] 1.010 Urine Protein NEG Urine Glucose (UA) NEG Urine Ketones NEG Urine Occult Blood NEG Urine Nitrite NEG Urine Bilirubin NEG Urine Urobilinogen 0.2 Urine Leukocyte Esterase NEG Urine Squamous Epithelial Cells 0-5 Urine Amorphous Sediment FEW Urine Hyaline Casts 3-5 Microscopic Urinalysis Comment CULT NOT INDICATED Urine Collection Time 1415 Result Diagram: 10/09/17 1230 10/09/[address] Angiography 10/09/17 141 Signed Impressions: Service Date/Time: Monday, October 09, 2017 15:11 - CONCLUSION: 1. No evidence of pulmonary embolus. 2. Right greater than left pleural effusion again seen with slight increase on the right. 3. Bilateral lower lobe atelectasis/mild consolidation again seen. Baudilio Cornell MD Chest X-Ray 10/09/17 1228 Signed Impressions: Service Date/Time: Monday, October 09, 2017 12:37 - CONCLUSION: Bilateral lower lung zone opacity and cardiac silhouette margin. Decrease in opacity on the right when compared to most recent chest radiograph. Baudilio Cornell MD Head CT 10/09/17 0000 Signed Impressions: Service Date/Time: Monday, October 09, 2017 12:59 - CONCLUSION: No acute disease. No significant change has occurred. No evidence of acute infarct, hemorrhage, mass or edema. Zachary Hensley MD Caprini VTE Risk Assessment Caprini VTE Risk Assessment: Mod/High Risk (score >= 2) Caprini Risk Assessment Model Point Value = 1 Point Value = 2 Point Value = 3 Point Value = 5 Age 41-60 Minor surgery BMI > 25 kg/m2 Swollen legs Varicose veins or History of unexplained or recurrent spontaneous Oral contraceptives or hormone replacement Sepsis (< 1 month) Serious lung disease, including pneumonia (< 1 month) Abnormal pulmonary function Acute myocardial infarction Congestive heart failure (< 1 month) History of inflammatory bowel disease Medical patient at bed rest Age 61-74 Arthroscopic surgery Major open surgery (> 45 min) Laparoscopic surgery (> 45 min) Malignancy Confined to bed (> 72 hours) Immobilizing plaster cast Central venous access Age >= 75 History of VTE Family history of VTE Factor V Leiden Prothrombin [id number] Lupus anticoagulant Anticardiolipin antibodies Elevated serum homocysteine Heparin-induced thrombocytopenia Other congenital or acquired thrombophilia Stroke (< 1 month) Elective arthroplasty Hip, pelvis, or leg fracture Acute spinal cord injury (< 1 month) Prophylaxis Regimen Total Risk Factor Score Risk Level Prophylaxis Regimen 0-1 Low Early ambulation 2 Moderate Order ONE of the following: *Sequential Compression Device (SCD) *Heparin 5000 units SQ BID 3-4 Higher Order ONE of the following medications: *Heparin 5000 units SQ TID *Enoxaparin/Lovenox 40 mg SQ daily (WT < 150 kg, CrCl > 30 mL/min) *Enoxaparin/Lovenox 30 mg SQ daily (WT < 150 kg, CrCl > 10-29 mL/min) *Enoxaparin/Lovenox 30 mg SQ BID (WT < 150 kg, CrCl > 30 mL/min) AND/OR *Sequential Compression Device (SCD) 5 or more Highest Order ONE of the following medications: *Heparin 5000 units SQ TID (Preferred with Epidurals) *Enoxaparin/Lovenox 40 mg SQ daily (WT < 150 kg, CrCl > 30 mL/min) *Enoxaparin/Lovenox 30 mg SQ daily (WT < 150 kg, CrCl > 10-29 mL/min) *Enoxaparin/Lovenox 30 mg SQ BID (WT < 150 kg, CrCl > 30 mL/min) AND *Sequential Compression Device (SCD) Assessment and Plan Problem List: (1) Weakness ICD Code: R53.1 - Weakness Status: Acute (2) Hyperkalemia ICD Code: E87.5 - Hyperkalemia Status: Acute (3) Shortness of breath ICD Code: R06.02 - Shortness of breath Status: Acute Assessment and Plan 72-year-old male admitted secondary to hypoxia, hyperkalemia, and weakness with pleural effusion Right-sided pleural effusion Failed thoracentesis a prior admit Increase strength of Lasix for now Consult pulmonology If no other options are present will consider undigested regime of diuretics for attempt of long-term treatment Diabetes mellitus type 2 Follow blood sugars Insulin sliding scale Diabetic diet Hypertension Continue baseline treatment Follow blood pressures Adjust treatments as needed Hyperlipidemia Continue present treatment Follow as an outpatient Coronary artery disease [place] in 1993- Petey Otoole Congestive heart failure No acute exacerbation Follow clinically No change to baseline treatments COPD Chronic respiratory failure with oxygen dependence Worsened from baseline, likely secondary to pleural effusion Progression of right pleural effusion compared to previous admitted/imaging Increased diuretics as above hypothyroidism BPH Continue baseline treatments Follow clinically DVT prophylaxis Lovenox Physician Certification 2 Midnight Certification Type: Admission for Inpatient Services Order for Inpatient Services The services are ordered in accordance with Medicare regulations or non- Medicare payer requirements, as applicable. In the case of services not specified as inpatient-only, they are appropriately provided as inpatient services in accordance with the 2-midnight benchmark. Estimated LOS (days): 3 days is the estimated time the patient will need to remain in the hospital, assuming treatment plan goals are met and no additional complications. Post-Hospital Plan: Home Nikita Luu MD Oct 09, 2017 20:17
[2017-10-09] MEDS: ATORVASTATIN 20 MG TAB PO SCH (21:23)
[2017-10-09] MEDS: CHOLECALCIFEROL (VIT D3) 1000 UNIT TAB PO SCH (21:23)
[2017-10-09] MEDS: TAMSULOSIN HCL 0.4 MG CAP PO SCH (21:23)
[2017-10-09] MEDS: LISINOPRIL 20 MG TAB PO SCH (21:24)
[2017-10-09] MEDS: INSULIN DETEMIR 100 UNITS/ML VIAL SQ SCH (21:24)
[2017-10-09] MEDS: GABAPENTIN 300 MG CAP PO SCH (21:24)
[2017-10-09] MEDS: SODIUM CHLORIDE 0.9% FLUSH 10 ML FLUSH IV FLUSH SCH (21:25)
[2017-10-09] MEDS: INSULIN ASPART SUPPLEMENTAL SCALE SQ SCH (21:25)
[2017-10-09] MEDS: BUDESONIDE-FORMOTEROL 80/4.5 MCG INHALER INH SCH (22:13)
[2017-10-09] MEDS: RESP: ALBUTEROL 2.5 MG/IPRATROPIUM 0.5 MG NEB (PRN) NEB (22:48)
[2017-10-10] VITALS (7 sets, daily range): BP systolic 115–170; BP diastolic 51–72; PULSE 77–102; RESP 18–22; TEMP 97.5–98.2; O2SAT 92–98
[2017-10-10] MEDS: LEVOTHYROXINE SODIUM 150 MCG TAB PO SCH (06:00)
[2017-10-10] MEDS: RESP: ALBUTEROL 2.5 MG/IPRATROPIUM 0.5 MG NEB (PRN) NEB ×2 (07:54→22:24)
[2017-10-10] MEDS: METOPROLOL TARTRATE 50 MG TAB PO SCH ×3 (08:12→16:39)
[2017-10-10] MEDS: DOXAZOSIN MESYLATE 4 MG TAB PO SCH (08:12)
[2017-10-10] MEDS: LISINOPRIL 20 MG TAB PO SCH ×2 (08:12→21:38)
[2017-10-10] MEDS: FUROSEMIDE 40 MG/4 ML VIAL IV PUSH SCH ×2 (08:13→16:30)
[2017-10-10] MEDS: MAGNESIUM OXIDE 400 MG TAB PO SCH (08:13)
[2017-10-10] MEDS: ASPIRIN EC 81 MG TABEC PO SCH (08:13)
[2017-10-10] MEDS: BUDESONIDE-FORMOTEROL 80/4.5 MCG INHALER INH SCH ×2 (08:14→21:34)
[2017-10-10] MEDS: SODIUM CHLORIDE 0.9% FLUSH 10 ML FLUSH IV FLUSH SCH ×2 (08:17→21:34)
[2017-10-10] MEDS ORDERED: FATTY ACIDS PO SCH (09:00)
[2017-10-10] MEDS ORDERED: OMEGA PO SCH (09:00)
[2017-10-10] MEDS ORDERED: POTASSIUM CHLORIDE 20 MEQ CONTROLLED RELEASE TAB PO SCH (09:00)
[2017-10-10 09:14] LABS: CHLORIDE 102 MEQ/L (98-107); SODIUM (NA) 140 MEQ/L (136-145)
[2017-10-10 09:17] LABS: CALCIUM 9.4 MG/DL (8.5-10.1)
[2017-10-10 09:18] LABS: ALBUMIN 3.4 GM/DL (3.4-5.0); BICARBONATE 31.8 MEQ/L (21.0-32.0); GLUCOSE,RANDOM 180 MG/DL (74-106)
[2017-10-10 09:20] LABS: AUTOMATED NEUTROPHIL # 5.9 TH/MM3 (1.8-7.7); BASOPHIL # 0.2 TH/MM3 (0-0.2); BASOPHIL % 2.9 % (0.0-2.0); EOSINOPHIL # 0.1 TH/MM3 (0-0.4); EOSINOPHIL % 0.9 % (0.0-4.0); HEMATOCRIT 33.7 % (39.0-51.0); HEMOGLOBIN 10.7 GM/DL (13.0-17.0); LYMPH % 10.6 % (9.0-44.0); LYMPHOCYTE # 0.8 TH/MM3 (1.0-4.8); MEAN CELL VOLUME 93.1 FL (80.0-100.0); MEAN CORPUSCULAR HEMOGLOBIN 29.5 PG (27.0-34.0); MEAN CORPUSCULAR HGB CONC 31.7 % (32.0-36.0); MEAN PLATELET VOLUME 9.6 FL (7.0-11.0); MONO % 6.7 % (0.0-8.0); MONOCYTE # 0.5 TH/MM3 (0-0.9); NEUT % 78.9 % (16.0-70.0); PLATELET COUNT 149 TH/MM3 (150-450); RED BLOOD COUNT 3.62 MIL/MM3 (4.50-5.90); RED CELL DISTRIBUTION WIDTH 14.1 % (11.6-17.2); WHITE BLOOD COUNT 7.5 TH/MM3 (4.0-11.0)
[2017-10-10 09:28] LABS: ALKALINE PHOSPHATASE 35 U/L (45-117); ALT (GPT) 20 U/L (12-78); AST (GOT) 12 U/L (15-37); BLOOD UREA NITROGEN 41 MG/DL (7-18); CREATININE 0.98 MG/DL (0.60-1.30); GLOMERULAR FILTRATION RATE 75 ML/MIN (>89); TOTAL BILIRUBIN ADULT 0.3 MG/DL (0.2-1.0); TOTAL PROTEIN 7.3 GM/DL (6.4-8.2)
[2017-10-10] MEDS: INSULIN ASPART SUPPLEMENTAL SCALE SQ SCH ×4 (09:55→21:36)
[2017-10-10] MEDS: CHOLECALCIFEROL (VIT D3) 1000 UNIT TAB PO SCH ×2 (09:58→21:37)
[2017-10-10] MEDS: INSULIN DETEMIR 100 UNITS/ML VIAL SQ SCH ×2 (11:57→21:35)
--- NOTE | 2017-10-10 13:13 | MB ---
cc: Kayla Garza MD DATE OF CONSULT: REASON FOR CONSULTATION: Shortness of breath, pleural effusion. HISTORY OF PRESENT ILLNESS: Mr. Otoole is a 72-year-old male who is admitted with weakness, increasing shortness of breath. The patient was noted upon presentation to the ER to be hyperkalemia. CT angiogram was undertaken without evidence of pulmonary embolization. It did reveal bilateral pleural effusions, which were perviously present; however, the effusion on the right has increased. An attempt at a thoracentesis during previous visit was unsuccessful. PAST MEDICAL HISTORY: 1. Congestive heart failure. 2. COPD. 3. Diabetes mellitus. 4. Hypertension. 5. Hyperlipidemia. 6. Coronary artery disease. 7. Chronic respiratory failure, on home oxygen therapy. 8. Hypothyroidism, on replacement therapy. 9. History of sixth nerve palsy. 10. BPH. PAST SURGICAL HISTORY: Had previously angioplasty as well as umbilical hernia repair. ALLERGIES: NONE KNOWN TO MEDICATION. MEDICATIONS AT HOME: Include insulin, Lasix, amlodipine, CO-Q10, aspirin, lisinopril, levothyroxine, gabapentin, doxazosin, and he uses an inhaler, he does not recall the name, and atorvastatin. FAMILY HISTORY: Noncontributory. SYSTEMS REVIEW: A 12-point review of systems as per HPI and past history, otherwise negative. PHYSICAL EXAMINATION: GENERAL: Patient alert. VITAL SIGNS: Temperature 98, pulse 80, respiration 18, blood pressure 130/60. HEENT: Unremarkable. Eyes without icterus. NECK: Without adenopathy, thyroid enlargement. Central trachea. CHEST: Decreased breath sounds at bases. CARDIAC: PMI not appreciated. S1, S2 audible. A I/ ejection systolic murmur, left sternal border. ABDOMEN: Obese, lax, bowel sounds audible. EXTREMITIES: No clubbing, cyanosis or edema. LABORATORY DATA:: White count 7000, hemoglobin 10, hematocrit 33, platelets at 149,000. Sodium 140, potassium 5.1, admission potassium was 6.0, BUN 41, creatinine 0.98. DIAGNOSTIC DATA: CT angiogram of the chest without evidence of pulmonary emboli, bilateral effusion, bigger on the right, has indeed increased in size, and underlying bibasilar atelectatic change. IMPRESSION: 1. Bilateral pleural effusions, probably due to congestive heart failure and/or chronic. 2. Chronic obstructive pulmonary disease. 3. Diabetes mellitus. 4. Hypertension. 5. Coronary artery disease. 6. Chronic kidney disease. 7. Benign prostatic hypertrophy. 8. Hypothyroidism. PLAN: Patient will be maintained on oxygen therapy as needed, patient's home O2. Meanwhile, bronchodilator therapy should be continued. Nebulized medication would be appropriate at present during his hospitalization. Attempt at repeat thoracentesis on the right would be appropriate since the effusion has indeed increased. This effusion may be loculated and chronic in nature and difficult to remove; however, it has increased in size, may allow for some aspiration for diagnostic as well as therapeutic objective. Treatment for the patient's underlying COPD will be continue now and upon discharge, and Dr. Otoole, who knows the patient, can reevaluate now or as an outpatient as well. The patient is obese. He does snore on occasion and sleep-disordered breathing is a consideration as well, which could be addressed as an outpatient. I do thank you for asking me to partake in Mr. Otoole's care. Kayla Garza MD [facility] , 12:49 PM , 01:13 PM
--- NOTE | 2017-10-10 13:40 | HHI.PR ---
Subjective Remarks Minimal improvement in respiratory status today. Patient complains of periumbilical redness and irritation in thickness. Case discussed with pulmonology, repeat thoracentesis recommended. Objective Vital Signs Date Time Temp Pulse Resp B/P (MAP) Pulse Ox O2 Delivery O2 Flow Rate FiO2 10/10/17 12:00 98.2 85 22 131/56 (81) 92 10/10/17 08:00 92 Nasal Cannula 3.00 10/10/17 08:00 97.8 102 20 163/70 (101) 92 10/10/17 04:00 97.7 92 18 115/51 (72) 94 10/10/17 00:00 97.7 90 18 170/72 (104) 95 10/09/17 22:38 95 Nasal Cannula 4.00 10/09/17 22:15 10/09/17 21:00 89 20 143/55 (84) 92 Nasal Cannula 4.00 10/09/17 17:41 98.4 88 22 134/61 (85) 92 Nasal Cannula 4.00 10/09/17 16:32 Nasal Cannula 4.00 10/09/17 16:06 90 22 153/52 (85) 89 Nasal Cannula 10/09/17 15:22 90 22 152/67 (95) 93 Nasal Cannula 4.00 I/O 10/09/17 10/09/17 10/09/17 10/10/17 10/10/17 10/10/17 07:00 15:00 23:00 07:00 15:00 23:00 Intake Total 250 ml 480 ml Output Total 600 ml Balance -600 ml 250 ml 480 ml Intake Oral 480 ml IV Total 250 ml Output Urine Total 600 ml # Voids 1 1 1 Result Diagram: 10/10/17 0850 10/10/17 0850 Objective Remarks GENERAL: NAD, A&Ox3 HEAD: Normocephalic. NECK: Supple, trachea midline. No lymphadenopathy. EYES: No scleral icterus. No injection or drainage. CARDIOVASCULAR: Regular rate and rhythm without murmurs, gallops, or rubs. RESPIRATORY: Breath sounds equal bilaterally. No accessory muscle use. GASTROINTESTINAL: Abdomen soft, non-tender, nondistended. MUSCULOSKELETAL: No cyanosis, or edema. SKIN: Warm and dry. NEURO: No focal neurological deficitis. A/P Problem List: (1) Pleural effusion ICD Code: J90 - Pleural effusion, not elsewhere classified (2) Shortness of breath ICD Code: R06.02 - Shortness of breath Status: Acute (3) CHF (congestive heart failure) ICD Code: I50.9 - Heart failure, unspecified Status: Acute Assessment and Plan 72-year-old male admitted secondary to hypoxia, hyperkalemia, and weakness with pleural effusion Right-sided pleural effusion Failed thoracentesis a prior admit Case discussed with pulmonology Plan to repeat thoracentesis If right side fails we'll attempt left-sided Continue Lasix Pulmonology following Periumbilical cellulitis Bactrim started Probiotics Diabetes mellitus type 2 Follow blood sugars Insulin sliding scale Diabetic diet Hypertension Continue baseline treatment Follow blood pressures Adjust treatments as needed Hyperlipidemia Continue present treatment Follow as an outpatient Coronary artery disease [place] in 1993- Petey Otoole Congestive heart failure No acute exacerbation Follow clinically No change to baseline treatments COPD Chronic respiratory failure with oxygen dependence Worsened from baseline, likely secondary to pleural effusion Progression of right pleural effusion compared to previous admitted/imaging Increased diuretics as above hypothyroidism BPH Continue baseline treatments Follow clinically DVT prophylaxis Nikita Grissom MD Oct 10, 2017 13:40
[2017-10-10] MEDS ORDERED: diphenhydrAMINE HCL 50 MG CAP PO PRN (13:45)
[2017-10-10] MEDS ORDERED: SULFAMETHOXAZOLE-TRIMETHOPRIM DS 800-160 MG TAB PO ONE (14:00)
[2017-10-10 14:10] LABS: HEMATOCRIT 33.4 % (39.0-51.0); HEMOGLOBIN 10.2 GM/DL (13.0-17.0); MEAN CELL VOLUME 93.3 FL (80.0-100.0); MEAN CORPUSCULAR HEMOGLOBIN 28.5 PG (27.0-34.0); MEAN CORPUSCULAR HGB CONC 30.5 % (32.0-36.0); MEAN PLATELET VOLUME 9.6 FL (7.0-11.0); PLATELET COUNT 149 TH/MM3 (150-450); RED BLOOD COUNT 3.58 MIL/MM3 (4.50-5.90)
[2017-10-10 14:20] LABS: INTERNATIONAL NORMALIZED RATIO 1.2 RATIO
[2017-10-10] MEDS: ENOXAPARIN SODIUM 40 MG/0.4 ML SYRINGE SQ SCH (14:48)
[2017-10-10] MEDS: LACTOBACILLUS ACIDOPHILUS TAB PO SCH (16:39)
[2017-10-10] MEDS: ATORVASTATIN 20 MG TAB PO SCH (21:38)
[2017-10-10] MEDS: GABAPENTIN 300 MG CAP PO SCH (21:39)
[2017-10-10] MEDS: TAMSULOSIN HCL 0.4 MG CAP PO SCH (21:39)
[2017-10-11] VITALS (7 sets, daily range): BP systolic 121–163; BP diastolic 58–73; PULSE 67–89; RESP 14–22; TEMP 96.9–97.6; O2SAT 90–96
[2017-10-11] MEDS: LEVOTHYROXINE SODIUM 150 MCG TAB PO SCH (06:33)
[2017-10-11 06:57] LABS: AUTOMATED NEUTROPHIL # 3.6 TH/MM3 (1.8-7.7); BASOPHIL # 0.2 TH/MM3 (0-0.2); BASOPHIL % 3.5 % (0.0-2.0); EOSINOPHIL # 0.1 TH/MM3 (0-0.4); EOSINOPHIL % 1.3 % (0.0-4.0); HEMATOCRIT 33.6 % (39.0-51.0); HEMOGLOBIN 10.8 GM/DL (13.0-17.0); LYMPH % 21.5 % (9.0-44.0); LYMPHOCYTE # 1.2 TH/MM3 (1.0-4.8); MEAN CELL VOLUME 92.5 FL (80.0-100.0); MEAN CORPUSCULAR HEMOGLOBIN 29.7 PG (27.0-34.0); MEAN CORPUSCULAR HGB CONC 32.1 % (32.0-36.0); MEAN PLATELET VOLUME 9.6 FL (7.0-11.0); MONO % 7.3 % (0.0-8.0); MONOCYTE # 0.4 TH/MM3 (0-0.9); NEUT % 66.4 % (16.0-70.0); PLATELET COUNT 141 TH/MM3 (150-450); RED BLOOD COUNT 3.63 MIL/MM3 (4.50-5.90); RED CELL DISTRIBUTION WIDTH 13.9 % (11.6-17.2); WHITE BLOOD COUNT 5.5 TH/MM3 (4.0-11.0)
[2017-10-11 07:04] LABS: CHLORIDE 100 MEQ/L (98-107); SODIUM (NA) 139 MEQ/L (136-145)
[2017-10-11 07:13] LABS: CALCIUM 8.9 MG/DL (8.5-10.1)
[2017-10-11 07:14] LABS: ALBUMIN 3.4 GM/DL (3.4-5.0); BLOOD UREA NITROGEN 33 MG/DL (7-18); GLUCOSE,RANDOM 143 MG/DL (74-106)
[2017-10-11 07:17] LABS: ALT (GPT) 18 U/L (12-78); AST (GOT) 15 U/L (15-37); CREATININE 0.94 MG/DL (0.60-1.30); GLOMERULAR FILTRATION RATE 79 ML/MIN (>89)
[2017-10-11 07:18] LABS: TOTAL BILIRUBIN ADULT 0.3 MG/DL (0.2-1.0); TOTAL PROTEIN 7.2 GM/DL (6.4-8.2)
[2017-10-11 07:20] LABS: ALKALINE PHOSPHATASE 36 U/L (45-117)
[2017-10-11] MEDS: INSULIN ASPART SUPPLEMENTAL SCALE SQ SCH ×4 (08:00→22:10)
[2017-10-11] MEDS: MAGNESIUM OXIDE 400 MG TAB PO SCH (08:29)
[2017-10-11] MEDS: METOPROLOL TARTRATE 50 MG TAB PO SCH ×3 (08:29→19:41)
[2017-10-11] MEDS: CHOLECALCIFEROL (VIT D3) 1000 UNIT TAB PO SCH ×2 (08:29→22:08)
[2017-10-11] MEDS: LISINOPRIL 20 MG TAB PO SCH ×2 (08:29→22:09)
[2017-10-11] MEDS: SULFAMETHOXAZOLE-TRIMETHOPRIM DS 800-160 MG TAB PO SCH ×2 (08:29→22:08)
[2017-10-11] MEDS: DOXAZOSIN MESYLATE 4 MG TAB PO SCH (08:29)
[2017-10-11] MEDS: LACTOBACILLUS ACIDOPHILUS TAB PO SCH ×3 (08:29→18:00)
[2017-10-11] MEDS: ACETAMINOPHEN 500 MG CPLT PO PRN ×2 (08:30→16:41)
[2017-10-11] MEDS: ASPIRIN EC 81 MG TABEC PO SCH (08:30)
[2017-10-11] MEDS: LORazepam 0.5 MG TAB PO PRN ×2 (08:30→22:08)
[2017-10-11] MEDS: BUDESONIDE-FORMOTEROL 80/4.5 MCG INHALER INH SCH ×2 (08:31→22:07)
[2017-10-11] MEDS: SODIUM CHLORIDE 0.9% FLUSH 10 ML FLUSH IV FLUSH SCH ×2 (08:31→22:09)
[2017-10-11] MEDS: FUROSEMIDE 40 MG/4 ML VIAL IV PUSH SCH ×2 (08:55→18:00)
[2017-10-11] MEDS: INSULIN DETEMIR 100 UNITS/ML VIAL SQ SCH ×2 (08:55→22:09)
--- NOTE | 2017-10-11 13:57 | HHI.PR ---
Subjective Remarks alert no sob at rest Objective Vital Signs Date Time Temp Pulse Resp B/P (MAP) Pulse Ox O2 Delivery O2 Flow Rate FiO2 10/11/17 08:00 97.2 89 14 163/73 (103) 90 10/11/17 00:00 97.6 81 20 121/58 (79) 96 10/10/17 22:25 95 Nasal Cannula 3.00 10/10/17 20:00 97.6 82 18 149/67 (94) 98 10/10/17 16:00 97.5 77 20 137/60 (85) 97 I/O 10/10/17 10/10/17 10/10/17 10/11/17 10/11/17 10/11/17 06:59 14:59 22:59 06:59 14:59 22:59 Intake Total 480 ml 720 ml 562 ml Output Total 2000 ml 1052 ml Balance 480 ml -2000 ml -332 ml 562 ml Intake Oral 480 ml 720 ml 562 ml Output Urine Total 2000 ml 1050 ml Stool Total 2 ml # Voids 1 3 2 4 # Bowel Movements 3 Result Diagram: 10/11/17 0638 10/11/17 0638 Objective Remarks GENERAL: SKIN: Warm and dry. HEAD: Atraumatic. Normocephalic. EYES: Pupils equal and round. No scleral icterus. No injection or drainage. ENT: No nasal bleeding or discharge. Mucous membranes pink and moist. NECK: Trachea midline. No JVD. CARDIOVASCULAR: Regular rate and rhythm. RESPIRATORY: No accessory muscle use.decrease breath sounds at basis GASTROINTESTINAL: Abdomen soft, non-tender, nondistended. Hepatic and splenic margins not palpable. MUSCULOSKELETAL: Extremities without clubbing, cyanosis, or edema. No obvious deformities. NEUROLOGICAL: Awake and alert. No obvious cranial nerve deficits. Motor grossly within normal limits. Five out of 5 muscle strength in the arms and legs. Normal speech. PSYCHIATRIC: Appropriate mood and affect; insight and judgment normal. Assessment and Plan Assessment and Plan ipression copd chf pleural effusion plan thoracentesis Bronchodilators will follow Kayla Garza MD Oct 11, 2017 13:57
--- NOTE | 2017-10-11 14:06 | RADRPT ---
EXAM DATE/TIME: 10/11/2017 13:47 [facility] COMPARISON: No previous studies available for comparison. INDICATIONS : Post thoracentesis. MEDICAL HISTORY : CHF, Diabetes, GERD,Cerebrovascular disease. Chronic obstructive pulmonary disease. SURGICAL HISTORY : Umbilical hernia repair. ENCOUNTER: Initial ACUITY: 1 day PAIN SCORE: 0/10 LOCATION: Right chest FINDINGS: There is cardiomegaly and aortic calcification. Atelectatic changes at the bases area there is signif icant improved aeration of the right lung status post thoracentesis. Small effusions remain. I do not see a pneumothorax. CONCLUSION: No evidence for pneumothorax. Improved aeration. Hank Onofre MD on October 11, 2017 at 14:04 Board Certified Radiologist. This report was verified electronically.
--- NOTE | 2017-10-11 14:13 | HHI.PR ---
Subjective Remarks Complaint of diarrhea today. Diarrhea may be related to recent start of antibiotic to treat his umbilical cellulitis. Abscess he had poor sleep. No other complaints. Respiratory status has not significantly changed. Plan for thoracentesis of the right side today. Objective Vital Signs Date Time Temp Pulse Resp B/P (MAP) Pulse Ox O2 Delivery O2 Flow Rate FiO2 10/11/17 08:00 97.2 89 14 163/73 (103) 90 10/11/17 00:00 97.6 81 20 121/58 (79) 96 10/10/17 22:25 95 Nasal Cannula 3.00 10/10/17 20:00 97.6 82 18 149/67 (94) 98 10/10/17 16:00 97.5 77 20 137/60 (85) 97 I/O 10/10/17 10/10/17 10/10/17 10/11/17 10/11/17 10/11/17 07:00 15:00 23:00 07:00 15:00 23:00 Intake Total 480 ml 720 ml 562 ml Output Total 2000 ml 1052 ml Balance 480 ml -2000 ml -332 ml 562 ml Intake Oral 480 ml 720 ml 562 ml Output Urine Total 2000 ml 1050 ml Stool Total 2 ml # Voids 1 3 2 4 # Bowel Movements 3 Result Diagram: 10/11/17 0638 10/11/17 0638 Objective Remarks GENERAL: NAD, A&Ox3 HEAD: Normocephalic. NECK: Supple, trachea midline. No lymphadenopathy. EYES: No scleral icterus. No injection or drainage. CARDIOVASCULAR: Regular rate and rhythm without murmurs, gallops, or rubs. RESPIRATORY: Breath sounds equal bilaterally. No accessory muscle use. GASTROINTESTINAL: Abdomen soft, non-tender, nondistended. MUSCULOSKELETAL: No cyanosis, or edema. SKIN: Warm and dry. NEURO: No focal neurological deficitis. A/P Problem List: (1) Pleural effusion ICD Code: J90 - Pleural effusion, not elsewhere classified (2) Shortness of breath ICD Code: R06.02 - Shortness of breath Status: Acute (3) CHF (congestive heart failure) ICD Code: I50.9 - Heart failure, unspecified Status: Acute Assessment and Plan 72-year-old male admitted secondary to hypoxia, hyperkalemia, and weakness with pleural effusion Pending thoracentesis of right lung today. If that thoracentesis fails we'll attempt left-sided. Any thoracentesis which remains significant amount of fluid that is present should help his respiratory status. Labs reviewed. No electrolyte disturbance at this point. Continue to monitor electrolytes closely status post thoracentesis. Continue to monitor labs. Labs ordered for further monitoring. Follow CBC status post thoracentesis. Right-sided pleural effusion Failed thoracentesis a prior admit Case discussed with pulmonology Plan to repeat thoracentesis If right side fails we'll attempt left-sided Continue Lasix Pulmonology following Periumbilical cellulitis Bactrim started Probiotics Diabetes mellitus type 2 Follow blood sugars Insulin sliding scale Diabetic diet Hypertension Continue baseline treatment Follow blood pressures Adjust treatments as needed Hyperlipidemia Continue present treatment Follow as an outpatient Coronary artery disease DC in 1993- Petey Otoole Congestive heart failure No acute exacerbation Follow clinically No change to baseline treatments COPD Chronic respiratory failure with oxygen dependence Worsened from baseline, likely secondary to pleural effusion Progression of right pleural effusion compared to previous admitted/imaging Increased diuretics as above hypothyroidism BPH Continue baseline treatments Follow clinically DVT prophylaxis Nikita Grissom MD Oct 11, 2017 14:13
--- NOTE | 2017-10-11 14:28 | RADRPT ---
EXAM DATE/TIME: 10/11/2017 16:22 CORRECTION Corrected on: October 18, 2017; Updated study date [facility] COMPARISON: EXTERNAL COMPARISON: CHEST EXPIRATION ONLY, October 11, 2017, 13:47. US GUIDED THORACENTESIS RIGHT, September 29, 2017, 13:0 0. [facility], Sep 27 2015. Chest xray 09/26/2015. INDICATIONS : Right pleural effusion. MEDICAL HISTORY : Cerebrovascular disease. Chronic obstructive pulmonary disease. CHF. Diabetes. GERD. SURGICAL HISTORY : Hernia repair. ENCOUNTER: Initial ACUITY: 3 weeks PAIN SCORE: 0/10 LOCATION: Right Chest. FLUID: Total volume of 0 cc of fluid was removed. TECHNIQUE: 1. Ultrasound guidance for thoracentesis. 2. Thoracentesis. The risks, benefits, and alternatives to ultrasound guided thoracentesis were explained to the patien t in lay simple terms, including the risk of bleeding and infection. Written and verbal informed con sent was obtained. Appropriate area for thoracentesis was marked under ultrasound guidance with the patient in the uprig ht position. Overlying skin was prepped and draped in the usual sterile fashion and with local anest hetic, a dermatotomy was made with an 11 blade scalpel. A 6 [place] thoracentesis catheter was placed in the pleural space. No significant fluid was seen. Only a small amount fluid was seen within the t ubing of the catheter. An ultrasound examination confirmed the catheter was in the pleural space. Robert pite manipulating the tube, fluid could not be obtained. The fluid did appear thick and echogenic on ultrasound. Catheter was then removed and a sterile dressing applied. There were no immediate compli cations. The patient tolerated the procedure well and the left the ultrasound suite in stable condit ion. Chest radiograph is to be obtained. CONCLUSION: Unsuccessful ultrasound guided thoracentesis. Only a few drops of fluid were seen within the cathete r. It is thought that if this would need to be drained, it be performed under CT were larger tube cou ld be used. Sanchez Larios MD on October 11, 2017 at 14:24 Board Certified Radiologist. This report was verified electronically.
[2017-10-11] MEDS: ENOXAPARIN SODIUM 40 MG/0.4 ML SYRINGE SQ SCH (16:37)
[2017-10-11] MEDS ORDERED: MELATONIN 5 MG TAB PO SCH (21:00)
[2017-10-11] MEDS: GABAPENTIN 300 MG CAP PO SCH (22:07)
[2017-10-11] MEDS: TAMSULOSIN HCL 0.4 MG CAP PO SCH (22:08)
[2017-10-11] MEDS: ATORVASTATIN 20 MG TAB PO SCH (22:08)
[2017-10-12] VITALS: BP 102/46; PULSE 76; RESP 22; TEMP 96.4; O2SAT 94
[2017-10-12 00:10] VITALS: O2SAT 93
[2017-10-12] MEDS: LEVOTHYROXINE SODIUM 150 MCG TAB PO SCH (06:07)
[2017-10-12 06:53] LABS: AUTOMATED NEUTROPHIL # 3.8 TH/MM3 (1.8-7.7); BASOPHIL % 0.7 % (0.0-2.0); EOSINOPHIL # 0.1 TH/MM3 (0-0.4); EOSINOPHIL % 1.5 % (0.0-4.0); HEMOGLOBIN 10.8 GM/DL (13.0-17.0); LYMPHOCYTE # 1.1 TH/MM3 (1.0-4.8); MEAN CELL VOLUME 92.8 FL (80.0-100.0); MEAN CORPUSCULAR HEMOGLOBIN 29.4 PG (27.0-34.0); MEAN CORPUSCULAR HGB CONC 31.6 % (32.0-36.0); MEAN PLATELET VOLUME 9.4 FL (7.0-11.0); MONO % 6.1 % (0.0-8.0); MONOCYTE # 0.3 TH/MM3 (0-0.9); NEUT % 71.7 % (16.0-70.0); PLATELET COUNT 143 TH/MM3 (150-450); RED BLOOD COUNT 3.67 MIL/MM3 (4.50-5.90); RED CELL DISTRIBUTION WIDTH 13.7 % (11.6-17.2); WHITE BLOOD COUNT 5.3 TH/MM3 (4.0-11.0)
[2017-10-12 06:58] LABS: CHLORIDE 98 MEQ/L (98-107); SODIUM (NA) 138 MEQ/L (136-145)
[2017-10-12 07:03] LABS: CALCIUM 8.8 MG/DL (8.5-10.1)
[2017-10-12 07:04] LABS: BLOOD UREA NITROGEN 26 MG/DL (7-18); GLUCOSE,RANDOM 180 MG/DL (74-106)
[2017-10-12 07:05] LABS: ALBUMIN 3.4 GM/DL (3.4-5.0)
[2017-10-12 07:08] LABS: ALT (GPT) 20 U/L (12-78); AST (GOT) 19 U/L (15-37); CREATININE 0.99 MG/DL (0.60-1.30); GLOMERULAR FILTRATION RATE 74 ML/MIN (>89)
[2017-10-12 07:10] LABS: ALKALINE PHOSPHATASE 37 U/L (45-117); TOTAL BILIRUBIN ADULT 0.4 MG/DL (0.2-1.0); TOTAL PROTEIN 7.3 GM/DL (6.4-8.2)
[2017-10-12 08:31] VITALS: BP 160/64; PULSE 84; RESP 18
[2017-10-12] MEDS: CHOLECALCIFEROL (VIT D3) 1000 UNIT TAB PO SCH (08:33)
[2017-10-12] MEDS: DOXAZOSIN MESYLATE 4 MG TAB PO SCH (08:33)
[2017-10-12] MEDS: SULFAMETHOXAZOLE-TRIMETHOPRIM DS 800-160 MG TAB PO SCH (08:33)
[2017-10-12] MEDS: LACTOBACILLUS ACIDOPHILUS TAB PO SCH ×2 (08:33→12:52)
[2017-10-12] MEDS: METOPROLOL TARTRATE 50 MG TAB PO SCH ×2 (08:34→12:52)
[2017-10-12] MEDS: LISINOPRIL 20 MG TAB PO SCH (08:34)
[2017-10-12] MEDS: ASPIRIN EC 81 MG TABEC PO SCH (08:34)
[2017-10-12] MEDS: MAGNESIUM OXIDE 400 MG TAB PO SCH (08:34)
[2017-10-12] MEDS: SODIUM CHLORIDE 0.9% FLUSH 10 ML FLUSH IV FLUSH SCH (08:35)
[2017-10-12] MEDS: BUDESONIDE-FORMOTEROL 80/4.5 MCG INHALER INH SCH (08:35)
[2017-10-12] MEDS: FUROSEMIDE 40 MG/4 ML VIAL IV PUSH SCH (08:41)
[2017-10-12] MEDS: INSULIN ASPART SUPPLEMENTAL SCALE SQ SCH ×2 (08:41→12:53)
[2017-10-12] MEDS: INSULIN DETEMIR 100 UNITS/ML VIAL SQ SCH (08:41)
[2017-10-12 12:00] VITALS: BP 124/73; PULSE 76; RESP 22; TEMP 97.3; O2SAT 95
[2017-10-12] MEDS ORDERED: FURO1TAB60 PO (14:26)
[2017-10-12] MEDS ORDERED: SULF1TAB23 PO (14:26)
[2017-10-12] MEDS ORDERED: FURO1TAB61 PO (14:26)
[2017-10-12] MEDS ORDERED: LACTTAB8 PO (14:26)
--- NOTE | 2017-10-12 14:45 | HHI.DS ---
Discharge Summary Admission Date Oct 09, 2017 at 14:17 Discharge Date: Oct 12, 2017 Admitting Diagnosis HyperK, Weakness, Abd Wall Cellulitis (1) Weakness ICD Code: R53.1 - Weakness Diagnosis: Principal Status: Acute (2) Hyperkalemia ICD Code: E87.5 - Hyperkalemia Diagnosis: Principal Status: Acute (3) Shortness of breath ICD Code: R06.02 - Shortness of breath Diagnosis: Principal Status: Acute Procedures Right Thoracentesis Brief History - From Admission Mr. Otoole is a 72-year-old male. He came to the hospital today because she's been feeling weak and his oxygen level has been low. He is found to be hyperkalemic. Hyperkalemia may be contributory to his weakness but is likely not contributory to his hypoxia. Imaging of the chest shows no evidence of pulmonary embolism. However he does have progression of pleural effusion which is a right side greater than left. Degree of pleural effusion is considered moderate at this time. The patient has attempted a thoracentesis at a prior hospitalization and he reports he only got 10 mL out at that time so the pleural effusion is likely loculated. He denies any cough or fevers. He has CHF at baseline. No evidence of diffuse pulmonary edema on imaging and blood work shows no acute exacerbation of his CHF, however she does have mild pulmonary edema on physical exam heard at the left. CBC/BMP: 10/12/17 0627 10/12/17 0627 Significant Findings Laboratory Tests Test 10/09/17 15:20 10/10/17 08:50 10/10/17 13:50 10/11/17 06:38 Potassium Level 5.5 MEQ/L (3.5-5.1) Red Blood Count 3.62 MIL/MM3 (4.50-5.90) 3.58 MIL/MM3 (4.50-5.90) 3.63 MIL/MM3 (4.50-5.90) Hemoglobin 10.7 GM/DL (13.0-17.0) 10.2 GM/DL (13.0-17.0) 10.8 GM/DL (13.0-17.0) Hematocrit 33.7 % (39.0-51.0) 33.4 % (39.0-51.0) 33.6 % (39.0-51.0) Mean Corpuscular Hemoglobin Concent 31.7 % (32.0-36.0) 30.5 % (32.0-36.0) Platelet Count 149 TH/MM3 (150-450) 149 TH/MM3 (150-450) 141 TH/MM3 (150-450) Neutrophils (%) (Auto) 78.9 % (16.0-70.0) Basophils (%) (Auto) 2.9 % (0.0-2.0) 3.5 % (0.0-2.0) Lymphocytes # (Auto) 0.8 TH/MM3 (1.0-4.8) Blood Urea Nitrogen 41 MG/DL (7-18) 33 MG/DL (7-18) Random Glucose 180 MG/DL (74-106) 143 MG/DL (74-106) Alkaline Phosphatase 35 U/L (45-117) 36 U/L (45-117) Aspartate Amino Transf (AST/SGOT) 12 U/L (15-37) Estimat Glomerular Filtration Rate 75 ML/MIN (>89) 79 ML/MIN (>89) Prothrombin Time 12.0 SEC (9.8-11.6) Activated Partial Thromboplast Time 24.1 SEC (24.3-30.1) Test 10/12/17 06:27 Red Blood Count 3.67 MIL/MM3 (4.50-5.90) Hemoglobin 10.8 GM/DL (13.0-17.0) Hematocrit 34.0 % (39.0-51.0) Mean Corpuscular Hemoglobin Concent 31.6 % (32.0-36.0) Platelet Count 143 TH/MM3 (150-450) Neutrophils (%) (Auto) 71.7 % (16.0-70.0) Blood Urea Nitrogen 26 MG/DL (7-18) Random Glucose 180 MG/DL (74-106) Alkaline Phosphatase 37 U/L (45-117) Carbon Dioxide Level 35.0 MEQ/L (21.0-32.0) Estimat Glomerular Filtration Rate 74 ML/MIN (>89) Hospital Course Mr. Otoole is a 72-year-old male. He came in secondary to respiratory distress. In the past he has had CHF exacerbation. No CHF exacerbation present this time. She does have a interval increase in his right pleural effusion. The past is that he has had attempted thoracentesis with failure. Repeat thoracentesis of the right was performed but fluid was unable to be obtained. As previously discussed the patient was offered a left thoracentesis , but at this time he wishes to decline any further interventional options. He wants to try diuresis at home. He says his breathing has improved a little bit. She feels at baseline and stable for discharge. During his stay here he had a noted abdominal wall cellulitis which is being treated with Bactrim. 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 Medical clearance stable for discharge home today. Pt Condition on Discharge: Stable Discharge Disposition: Discharge Home Discharge Time: <= 30 minutes Discharge Instructions DIET: Follow Instructions for: As Tolerated, No Restrictions Activities you can perform: Regular-No Restrictions Follow up Referrals: Cardiology - 2 Weeks PCP Follow-up - 2 Weeks Pulmonology - 2 Weeks New Medications: Furosemide (Lasix) 80 Mg Tab 80 MG PO DAILY for Diuresis, #30 TAB 0 Refills Take Daily at approximately 8am Furosemide (Lasix) 40 Mg Tab 40 MG PO Q24H for Diuretic, #30 TAB 0 Refills Take Daily at approximately 2pm. Lactobacillus Acidophilus (Lactobacillus Acidophilus) 1 Billion Cell Tab 1 TAB PO TIDAC for Nutritional Supplement, #30 TAB 0 Refills Sulfamethoxazole-Trimethoprim (Sulfamethoxazole-Trimethoprim) 800-160 Mg Tab 1 TAB PO Q12HR for Infection, #10 TAB Continued Medications: Amlodipine (Amlodipine) 10 Mg Tab 10 MG PO DAILY for Blood Pressure Management, #30 TAB [address] (Aspirin EC) 81 Mg Tabdr 81 MG PO DAILY, TAB 0 Refills Atorvastatin (Atorvastatin) 20 Mg Tab 20 MG PO HS for Cholesterol Management, #30 TAB 0 Refills Budesonide-Formoterol Inh (Symbicort Inh) 80-4.5 Mcg/Act Aero 1 PUFF INH Q12HR for Asthma Management, #1 INHALER 0 Refills Cholecalciferol (Vitamin D-3) 2,000 Unit Tab 1 TAB PO BID Coenzyme Q10 (Ubidecarenone) (Coq10) 50 Mg Cap 100 MG PO DAILY Doxazosin (Doxazosin) 4 Mg Tab 4 MG PO DAILY, TAB Gabapentin (Gabapentin) 300 Mg Cap 300 MG PO HS, #60 CAP 0 Refills Insulin Aspart Inj (Novolog Penfill Inj) 300 Unit/3 Ml Pen 2-40 UNITS SQ TIDAC PRN for Blood Sugar Management, BOX 0 Refills sliding scale Insulin Glargine Inj (Lantus Inj) 1,000 Unit/10 Ml Vial 50 UNITS SQ BID for Blood Sugar Management, VIAL 0 Refills Levothyroxine (Levothyroxine) 300 Mcg Tab 300 MCG PO DAILY for Thyroid, #30 TAB 0 Refills Lisinopril (Lisinopril) 20 Mg Tab 20 MG PO BID, #30 TAB 0 Refills Lorazepam (Lorazepam) 0.5 Mg Tab 0.5 MG PO BID PRN for ANXIETY, TAB 0 Refills Magnesium (Magnesium) 250 Mg Tab 1 TAB PO DAILY Melatonin (Melatonin) 5 Mg Tab 5 MG PO HS PRN for INSOMINA, #30 TAB Metoprolol Tartrate (Metoprolol Tartrate) 50 Mg Tab 50 MG PO TID, #30 TAB 0 Refills [place]-3 Fatty Acids ([place] 3 1000 mg) 1 Cap Cap 2 CAP PO DAILY Potassium Chloride ER (Potassium Chloride ER) 20 Meq Tab 20 MEQ PO DAILY for Electrolyte Replacement, #30 TAB 0 Refills Sitagliptin-Metformin ER (Janumet Xr) 50-1,000 Mg Tab 1 TAB PO BID for Blood Sugar Management, #30 TAB 0 Refills Tamsulosin (Flomax) 0.4 Mg Cap 0.4 MG PO HS for urine, #30 CAP [Albuterol-Ipratropium Neb] () 1 AMPULE NEBU 1 AMPULE NEB Q2HR NEB PRN for sob, wheeze, #90 AMPULE 3 Refills Discontinued Medications: Furosemide (Lasix) 40 Mg Tab 40 MG PO BID, #60 TAB 0 Refills Nikita Luu MD Oct 12, 2017 14:45
[2017-10-12 15:05] VITALS: O2SAT 93
[2017-10-12] MEDS: ACETAMINOPHEN 500 MG CPLT PO PRN (16:08)
[2017-10-12] MEDS: LORazepam 0.5 MG TAB PO PRN (16:08)
== END 2017-10-12 17:10 | disposition home or self-care (01) | DRG 167 ==
LOC: PHED 11:34 → PHEDA 14:17 → PH3A 22:27 → PH3B 10-11 13:32
PROVIDERS: ADMIT Hospitalist; ATTEND Hospitalist
PROC: 0W994ZZ Drainage of Right Pleural Cavity, Percutaneous Endoscopic Approach (ICD-10-PCS; principal; 2017-10-11)
DX: J90 Pleural effusion, not elsewhere classified (principal); J96.11 Chronic respiratory failure with hypoxia; I50.9 Heart failure, unspecified; I13.0 Hypertensive heart and chronic kidney disease with heart failure and stage 1 through stage 4 chronic kidney disease, or unspecified chronic kidney disease; K52.1 Toxic gastroenteritis and colitis; Z68.43 Body mass index [BMI] 50.0-59.9, adult; L03.311 Cellulitis of abdominal wall; E11.22 Type 2 diabetes mellitus with diabetic chronic kidney disease; Z99.81 Dependence on supplemental oxygen; J44.9 Chronic obstructive pulmonary disease, unspecified; E78.5 Hyperlipidemia, unspecified; G47.00 Insomnia, unspecified; M19.90 Unspecified osteoarthritis, unspecified site; F41.9 Anxiety disorder, unspecified; E78.00 Pure hypercholesterolemia, unspecified; E07.9 Disorder of thyroid, unspecified; I25.10 Atherosclerotic heart disease of native coronary artery without angina pectoris; N40.1 Benign prostatic hyperplasia with lower urinary tract symptoms; T36.95XA Adverse effect of unspecified systemic antibiotic, initial encounter; R39.11 Hesitancy of micturition; N18.9 Chronic kidney disease, unspecified; E66.9 Obesity, unspecified; E03.9 Hypothyroidism, unspecified; Z86.73 Personal history of transient ischemic attack (TIA), and cerebral infarction without residual deficits; Z79.82 Long term (current) use of aspirin; I25.2 Old myocardial infarction; Z87.891 Personal history of nicotine dependence; Z79.4 Long term (current) use of insulin
CPT/HCPCS: 32555; 70450; 71045; 71275; 80053; 81001; 82550; 82948; 83735; 83880; 84132; 84484; 85025; 85027; 85610; 85730; 87015; 93005; 94640; 94664; 96374; 96375; C1729; J0610; J1650; J1815; J1940; J7050; Q9967

== ENCOUNTER 2017-10-18 20:50 | Inpatient (IN) | payer OTHER, MEDICARE ==
[~2017-10-18] VITALS: Ht 175.3 cm; Wt 120.5 kg
[2017-10-18 20:50] VITALS: BP 109/49; PULSE 67; RESP 30; TEMP 98.1; O2SAT 81
[~2017-10-18 20:50] MED LIST changes: +FURO1TAB61 PO; +LACTTAB8 PO; -LEVA500T33 PO; +SULF1TAB23 PO
[2017-10-18 21:05] VITALS: O2SAT 93
--- NOTE | 2017-10-18 21:07 | PD ---
HPI Chief Complaint: Respiratory Symptoms Time Seen by Provider: 20:55 Travel History International Travel<30 days: No Contact w/Intl Traveler<30days: No Traveled to known affect area: No History of Present Illness HPI 72-year-old male with history of CHF, hypertension, hypo-thyroidism, diabetes, here for evaluation of shortness of breath. The patient was admitted on and discharged on 10/12/17 for similar symptoms. He reports that his shortness of breath has progressively worsened since he was discharged. Shortness of breath is at rest. He is unable to exert himself because the shortness of breath. He has chest tightness as well. Nonproductive cough. He has not noted any fevers. He reports compliance with Lasix. Apparently during his last hospital admission he had a CT pulmonary angiogram that showed no PE with bilateral pleural effusions, right greater than left. Thoracentesis was attempted, however no fluid was able to be aspirated. It was thought that these effusions are loculated. Patient was also hyperkalemic with a potassium of 6 on last admission. PFSH Past Medical History Hx Anticoagulant Therapy: No Arthritis: Yes Asthma: Yes Autoimmune Disease: No Blood Disorders: No Anxiety: Yes Depression: No Heart Rhythm Problems: No Cancer: No Cardiac Catheterization: Yes Cardiovascular Problems: Yes High Cholesterol: Yes Chemotherapy: No Chest Pain: No Congestive Heart Failure: Yes COPD: Yes Cerebrovascular Accident: Yes Diabetes: Yes Diminished Hearing: No Endocrine: Yes Gastrointestinal Disorders: Yes GERD: No Genitourinary: Yes Headaches: Yes Hiatal Hernia: No Hypertension: Yes Immune Disorder: No Implanted Vascular Access Dvce: No Kidney Stones: No Musculoskeletal: Yes Neurologic: Yes Psychiatric: Yes Reproductive: No Respiratory: Yes (COPD) Immunizations Current: Yes Migraines: Yes Seizures: No Sleep Apnea: No Thyroid Disease: Yes Ulcer: No Past Surgical History Abdominal Surgery: Yes (UMBILICAL HERNIA REPAIR.) Cardiac Surgery: Yes ([place] ANGIOPLASTY 1993) Endocrine Surgery: No Eye Surgery: No Genitourinary Surgery: No Gynecologic Surgery: No Hysterectomy: No Neurologic Surgery: No Thoracic Surgery: No Other Surgery: Yes Social History Alcohol Use: No Tobacco Use: No (quit 1993) Substance Use: No Allergies-Medications (Allergen,Severity, Reaction): Coded Allergies: No Known Allergies (Unverified Allergy, Unknown, 10/09/17) Reported Meds & Prescriptions Reported Meds & Active Scripts Active Lasix (Furosemide) 40 Mg Tab 40 Mg PO Q24H Take Daily at approximately 2pm. Lasix (Furosemide) 80 Mg Tab 80 Mg PO DAILY Take Daily at approximately 8am Lactobacillus Acidophilus 1 Billion Cell Tab 1 Tab PO TIDAC Sulfamethoxazole-Trimethoprim 800-160 Mg Tab 1 Tab PO Q12HR Oxygen (O2) Device Liter TAMMI.CANULA CONTINUOUS Oxygen Concentrator Portable Gaseous 4 L/min via Nasal Canula Continuous For 99 months Symbicort Inh (Budesonide/Formoterol Fumarate) 80-4.5 Mcg/Act Aero 1 Puff INH Q12HR Melatonin 5 Mg Tab 5 Mg PO HS PRN Flomax (Tamsulosin HCl) 0.4 Mg Cap 0.4 Mg PO HS [Albuterol-Ipratropium Neb] 1 AMPULE Nebu 1 Ampule NEB Q2HR NEB PRN Reported Potassium Chloride ER (Potassium Chloride) 20 Meq Tab 20 Meq PO DAILY Lantus Inj (Insulin Glargine) 1,000 Unit/10 Ml Vial 50 Units SQ BID Amlodipine (Amlodipine Besylate) 10 Mg Tab 10 Mg PO DAILY Magnesium 250 Mg Tab 1 Tab PO DAILY Novolog Penfill Inj (Insulin Aspart) 300 Unit/3 Ml Pen 2-40 Units SQ TIDAC PRN sliding scale Coq10 (Coenzyme Q10 (Ubidecarenone)) 50 Mg Cap 100 Mg PO DAILY Aspirin EC (Aspirin) 81 Mg Tabdr 81 Mg PO DAILY [place] 3 1000 mg ([place]-3 Fatty Acids) 1 Cap Cap 2 Cap PO DAILY Metoprolol Tartrate 50 Mg Tab 50 Mg PO TID Lorazepam 0.5 Mg Tab 0.5 Mg PO BID PRN Lisinopril 20 Mg Tab 20 Mg PO BID Levothyroxine (Levothyroxine Sodium) 300 Mcg Tab 300 Mcg PO DAILY Janumet Xr (Sitagliptin-Metformin ER) 50-1,000 Mg Tab 1 Tab PO BID Gabapentin 300 Mg Cap 300 Mg PO HS Doxazosin (Doxazosin Mesylate) 4 Mg Tab 4 Mg PO DAILY Vitamin D-3 (Cholecalciferol) 2,000 Unit Tab 1 Tab PO BID Atorvastatin (Atorvastatin Calcium) 20 Mg Tab 20 Mg PO HS Review of Systems Except as stated in HPI: all other systems reviewed are Neg Physical Exam Narrative GENERAL: Well-developed, well-nourished, moderate respiratory distress, speaking a few words at a time, accessory muscle use. SKIN: Focused skin assessment warm/dry. HEAD: Atraumatic. Normocephalic. EYES: Pupils equal and round. No scleral icterus. No injection or drainage. ENT: Mucous membranes pink and moist. NECK: Trachea midline. No JVD. CARDIOVASCULAR: Regular rate and rhythm. RESPIRATORY: Accessory muscle use. Moderate respiratory distress. Speaking a few words at a time. Diminished breath sounds on the right. Rales on the left. No wheezes. GASTROINTESTINAL: Protuberant abdomen that is soft, nontender with mild periumbilical erythema. MUSCULOSKELETAL: No obvious deformities. No clubbing. No cyanosis. No edema. NEUROLOGICAL: Awake and alert. No obvious cranial nerve deficits. Motor grossly within normal limits. Normal speech. PSYCHIATRIC: Appropriate mood and affect; insight and judgment normal. Data Data Last Documented VS Vital Signs Date Time Temp Pulse Resp B/P (MAP) Pulse Ox O2 Delivery O2 Flow Rate FiO2 10/18/17 21:33 65 14 105/48 (67) 93 BiPAP 40 10/18/17 20:50 98.1 Orders Orders Complete Blood Count With Diff (10/18/17 21:) Comprehensive Metabolic Panel (10/18/17 21:) B-Type Natriuretic Peptide (10/18/17 21:01) Act Partial Throm Time (Ptt) (10/18/17 21:01) Prothrombin Time / Inr (Pt) (10/18/17 21:01) Ckmb (Isoenzyme) Profile (10/18/17 21:) Troponin I (10/18/17 21:01) Influenzae A/B Antigen (10/18/17 21:) Iv Access Insert/Monitor (10/18/17 21:) Electrocardiogram (10/18/17 21:) Ecg Monitoring (10/18/17 21:) Oximetry (10/18/17 21:01) Oxygen Administration (10/18/17 21:) Chest, Single Ap (10/18/17 21:) Sodium Chloride 0.9% Flush (Ns Flush) (10/18/17 21:15) Furosemide Inj (Lasix Inj) (10/18/17 21:15) Resp Bipap / Cpap Non Invas Vt (10/18/17 21:01) Arterial Blood Gas (Abg) (10/18/17 ) Urinary Catheter Insert/Apply (10/18/17 21:02) Aspirin Chew (Aspirin Chew) (10/18/17 21:45) Sodium Chlor 0.9% 1000 Ml Inj (Ns 1000 M (10/18/17 21:35) Insulin Human Regular Inj (Novolin R Inj (10/18/17 21:45) Dextrose 50% In Zaira (Vial) Inj (D50w (Vi (10/18/17 21:45) Sodium Polysty Sulfate Liq (Kayexalate L (10/18/17 21:45) Calcium Gluconate Inj (Calcium Gluconate (10/18/17 21:45) Oseltamivir (Tamiflu) (10/18/17 21:45) Sodium Chlorid 0.9% 500 Ml Inj (Ns 500 M (10/18/17 21:45) Admit Order (Ed Use Only) (10/18/17 21:47) Labs Laboratory Tests Test 10/18/17 21:00 White Blood Count 9.1 TH/MM3 Red Blood Count 3.56 MIL/MM3 Hemoglobin 10.7 GM/DL Hematocrit 33.2 % Mean Corpuscular Volume 93.4 FL Mean Corpuscular Hemoglobin 30.1 PG Mean Corpuscular Hemoglobin Concent 32.2 % Red Cell Distribution Width 14.2 % Platelet Count 191 TH/MM3 Mean Platelet Volume 9.8 FL Neutrophils (%) (Auto) 77.4 % Lymphocytes (%) (Auto) 11.5 % Monocytes (%) (Auto) 6.1 % Eosinophils (%) (Auto) 0.7 % Basophils (%) (Auto) 4.3 % Neutrophils # (Auto) 7.0 TH/MM3 Lymphocytes # (Auto) 1.0 TH/MM3 Monocytes # (Auto) 0.6 TH/MM3 Eosinophils # (Auto) 0.1 TH/MM3 Basophils # (Auto) 0.4 TH/MM3 CBC Comment DIFF FINAL Differential Comment Prothrombin Time 11.9 SEC Prothromb Time International Ratio 1.2 RATIO Activated Partial Thromboplast Time 25.7 SEC Blood Urea Nitrogen 69 MG/DL Creatinine 3.40 MG/DL Random Glucose 151 MG/DL Total Protein 6.9 GM/DL Albumin 3.3 GM/DL Calcium Level 8.5 MG/DL Alkaline Phosphatase 33 U/L Aspartate Amino Transf (AST/SGOT) 10 U/L Alanine Aminotransferase (ALT/SGPT) 17 U/L Total Bilirubin 0.1 MG/DL Sodium Level 131 MEQ/L Potassium Level 6.3 MEQ/L Chloride Level 95 MEQ/L Carbon Dioxide Level 27.9 MEQ/L Anion Gap 8 MEQ/L Estimat Glomerular Filtration Rate 18 ML/MIN Total Creatine Kinase 79 U/L Troponin I LESS THAN 0.02 NG/ML B-Type Natriuretic Peptide 225 PG/ML MDM Medical Decision Making Medical Screen Exam Complete: Yes Emergency Medical Condition: Yes Interpretation(s) EKG: Sinus, rate 63, normal axis, normal intervals, new Q waves and T-wave inversions in I and aVL. Differential Diagnosis Pulmonary edema, CHF, pleural effusions, pneumonia, empyema, ACS, PE Narrative Course Initial vital signs show heart rate 67, respiratory rate 30, blood pressure 109/ 49, pulse ox 81% on room air, oral temperature 98.1F. CBC: WBC 9.1, hemoglobin 10.7, hematocrit 33.2, platelets 191. CMP is remarkable for potassium 6.3, BUN 69, creatinine 3.4, GFR 18. Cardiac enzymes are negative. BNP is 225. Chest x-ray: Cardiomegaly with mild edema pattern and bilateral effusions most characteristic of congestive heart failure. The patient was started on BiPAP almost immediately after arriving to the emergency department for hypoxia, respiratory distress, likely CHF. He experienced significant improvement in his respiratory status while on BiPAP. He was also written for 80 mEq of Lasix for suspected CHF, and was given this medication before his labs were resulted. Larson was placed with only a few cc of urine output. He was written for calcium, insulin/D50, Kayexalate after CMP was resulted showing hyperkalemia with acute renal failure. He was also given a 500 cc normal saline bolus and started on normal saline at 125 cc/h. The patient was also started on Tamiflu for influenza A positive. I discussed the case with the patient's parachute folder Dr. Otoole to inform him of the patient's EKG findings. The patient does not have any chest pain. This is not a STEMI. He agrees with management to have the patient transferred to the ICU at the [facility]. Patient was written for aspirin 325 mg. Case discussed with newspaper carriers supervisor Dr. Mead who will admit the patient to his service to the ICU at the [facility]. The patient will be transferred there emergently. The patient was made aware of all findings and plan for admission to the [facility] ICU. Critical Care Narrative Aggregate critical care time was 45 minutes. Time to perform other separately billable procedures was not included in the critical care time. My time did not include minutes spent treating any other patients simultaneously or on activities that did not directly contribute to the patient's treatment. The services I provided to this patient were to treat and/or prevent clinically significant deterioration that could result in: , permanent disability, worsening clinical condition, septic shock, acute respiratory failure I provided critical care services requiring my management, as noted below: Chart data review, documentation time, medication orders and management, vital sign assessments/reviewing monitor data, ordering and reviewing lab tests, ordering and interpreting/reviewing x-rays and diagnostic studies, care of the patient and discussion of the patient with the admitting physicians. Diagnosis Primary Impression: Hypoxia Additional Impressions: Respiratory distress Acute renal failure Qualified Codes: N17.9 - Acute kidney failure, unspecified Hyperkalemia Acute electrocardiogram changes Admitting Information Admitting Physician Requests: it Klever Barba MD Oct 18, 2017 21:07
[2017-10-18] MEDS ORDERED: SODIUM CHLORIDE 0.9% FLUSH 10 ML FLUSH IVF PRN (21:15)
[2017-10-18] MEDS ORDERED: FUROSEMIDE 100 MG/10 ML VIAL IVP ONE (21:15)
[2017-10-18 21:19] LABS: BASOPHIL # 0.4 TH/MM3 (0-0.2); BASOPHIL % 4.3 % (0.0-2.0); EOSINOPHIL # 0.1 TH/MM3 (0-0.4); EOSINOPHIL % 0.7 % (0.0-4.0); HEMATOCRIT 33.2 % (39.0-51.0); HEMOGLOBIN 10.7 GM/DL (13.0-17.0); LYMPH % 11.5 % (9.0-44.0); MEAN CELL VOLUME 93.4 FL (80.0-100.0); MEAN CORPUSCULAR HEMOGLOBIN 30.1 PG (27.0-34.0); MEAN CORPUSCULAR HGB CONC 32.2 % (32.0-36.0); MEAN PLATELET VOLUME 9.8 FL (7.0-11.0); MONO % 6.1 % (0.0-8.0); MONOCYTE # 0.6 TH/MM3 (0-0.9); NEUT % 77.4 % (16.0-70.0); PLATELET COUNT 191 TH/MM3 (150-450); RED BLOOD COUNT 3.56 MIL/MM3 (4.50-5.90); RED CELL DISTRIBUTION WIDTH 14.2 % (11.6-17.2); WHITE BLOOD COUNT 9.1 TH/MM3 (4.0-11.0)
[2017-10-18 21:23] LABS: CHLORIDE 95 MEQ/L (98-107); SODIUM (NA) 131 MEQ/L (136-145)
[2017-10-18 21:26] LABS: CALCIUM 8.5 MG/DL (8.5-10.1); INTERNATIONAL NORMALIZED RATIO 1.2 RATIO; PROTHROMBIN TIME - PATIENT 11.9 SEC (9.8-11.6)
[2017-10-18 21:27] LABS: ALBUMIN 3.3 GM/DL (3.4-5.0); BICARBONATE 27.9 MEQ/L (21.0-32.0); BLOOD UREA NITROGEN 69 MG/DL (7-18); GLUCOSE,RANDOM 151 MG/DL (74-106)
[2017-10-18 21:29] LABS: ALT (GPT) 17 U/L (12-78)
[2017-10-18 21:30] LABS: AST (GOT) 10 U/L (15-37); GLOMERULAR FILTRATION RATE 18 ML/MIN (>89)
[2017-10-18 21:31] LABS: TOTAL BILIRUBIN ADULT 0.1 MG/DL (0.2-1.0); TOTAL PROTEIN 6.9 GM/DL (6.4-8.2)
[2017-10-18 21:32] LABS: ALKALINE PHOSPHATASE 33 U/L (45-117)
[2017-10-18 21:33] VITALS: BP 105/48; PULSE 65; RESP 14; O2SAT 93
[2017-10-18 21:34] LABS: TROPONIN I LESS THAN 0.02 NG/ML (0.02-0.05)
[2017-10-18] MEDS ORDERED: SODIUM CHLOR 0.9% 1000 ML INJ 1,000 ML IV SCH (21:35)
--- NOTE | 2017-10-18 21:43 | RADRPT ---
EXAM DATE/TIME: 10/18/2017 21:06 [place] COMPARISON: CHEST SINGLE AP, October 09, 2017, 12:37. INDICATIONS : Shortness of breath. MEDICAL HISTORY : Congestive heart failure. Chronic obstructive pulmonary disease. SURGICAL HISTORY : None. ENCOUNTER: Initial ACUITY: 1 day PAIN SCORE: 0/10 LOCATION: Bilateral chest FINDINGS: A single view of the chest demonstrates cardiomegaly. Tortuous aorta. Basal airspace disease and smal l effusions. No pneumothorax. Mild edema findings are similar to October 09. CONCLUSION: 1. Cardiomegaly with mild edema pattern and bilateral effusions most characteristic of congestive hea rt failure. Yony Driscoll MD on October 18, 2017 at 21:40 Board Certified Radiologist. This report was verified electronically.
[2017-10-18] MEDS ORDERED: INSULIN HUMAN REGULAR 1,000 UNITS/10 ML VIAL IV PUSH ONE (21:45)
[2017-10-18] MEDS ORDERED: SODIUM CHLORID 0.9% 500 ML INJ 500 ML IV ONE (21:45)
[2017-10-18] MEDS ORDERED: ASPIRIN 81 MG CHEW TAB CHEW ONE (21:45)
[2017-10-18] MEDS ORDERED: SODIUM POLYSTYRENE SULFONATE SUSP 15 GM/60 ML CUP PO ONE (21:45)
[2017-10-18] MEDS ORDERED: OSELTAMIVIR PHOSPHATE 75 MG CAP PO ONE (21:45)
[2017-10-18] MEDS ORDERED: CALCIUM GLUCONATE 10% 1 GM/10 ML VIAL IV PUSH ONE (21:45)
[2017-10-18] MEDS ORDERED: DEXTROSE 50% IN WATER 50 ML VIAL(D50) IV PUSH ONE (21:45)
[2017-10-18] MEDS ORDERED: CALCIUM GLUCONATE INJ 1 GM in SODIUM CHLORIDE 0.9% INJ 100 ML IV ONE (22:15)
[2017-10-18 22:20] VITALS: BP 99/44; PULSE 70; RESP 21; O2SAT 95
[2017-10-18 22:34] VITALS: BP 163/82; PULSE 71; RESP 20; O2SAT 94
[2017-10-18 23:56] VITALS: O2SAT 95
[2017-10-19] VITALS (19 sets, daily range): BP systolic 97–158; BP diastolic 46–72; PULSE 72–96; RESP 19–26; TEMP 96.9–98.7; O2SAT 90–96
[2017-10-19] MEDS ORDERED: RESP: ALBUTEROL 2.5 MG/IPRATROPIUM 0.5 MG NEB (PRN) INH (01:00)
[2017-10-19] MEDS ORDERED: CHLORHEXIDINE GLUCONATE 2 % 1 PACK (2 CLOTHS) TOP PRN (01:00)
[2017-10-19] MEDS ORDERED: TEMAZEPAM 15 MG CAP PO PRN (01:00)
[2017-10-19] MEDS ORDERED: MORPHINE SULFATE 4 MG/ML INJ IV PUSH PRN (01:00)
[2017-10-19] MEDS ORDERED: BISACODYL 10 MG SUPP RECTAL PRN (01:00)
[2017-10-19] MEDS ORDERED: SODIUM CHLORIDE 0.9% FLUSH 10 ML FLUSH IV FLUSH PRN (01:00)
[2017-10-19] MEDS ORDERED: ONDANSETRON HCL 4 MG/2 ML VIAL IV PUSH PRN (01:00)
[2017-10-19] MEDS ORDERED: MAGNESIUM HYDROXIDE SUSP 30 ML CUP PO PRN (01:00)
[2017-10-19] MEDS ORDERED: LACTULOSE SYRUP 20 GM/30 ML CUP PO PRN (01:00)
[2017-10-19] MEDS ORDERED: MISCELLANEOUS NURSING INFORMATION XX SCH (01:00)
[2017-10-19] MEDS ORDERED: MELATONIN 5 MG TAB PO PRN (01:00)
[2017-10-19] MEDS ORDERED: SENNOSIDES 8.6 MG TAB PO PRN (01:00)
[2017-10-19] MEDS ORDERED: GLUCAGON 1 MG/ML VIAL OTHER PRN (01:15)
[2017-10-19] MEDS ORDERED: DEXTROSE 50% IN WATER 50 ML VIAL(D50) IV PUSH PRN (01:15)
[2017-10-19] MEDS ORDERED: SODIUM POLYSTYRENE SULFONATE SUSP 15 GM/60 ML CUP PO ONE (01:15)
--- NOTE | 2017-10-19 01:33 | HHI.HP ---
HPI Service Critical Care Medicine Primary Care Physician Adri Hudson MD Admission Diagnosis Hypoxia, respiratory distress, acute renal failure, influenza A Diagnosis: Travel History International Travel<30 Days: No Contact w/Intl Traveler <30 Da: No Traveled to Known Affected Are: No History of Present Illness 72-year-old male with history of CHF, hypertension, hypo-thyroidism, diabetes, presents with complaints of shortness of breath. The patient was admitted on 05/19 and discharged on 10/12/17 for similar symptoms. He reports that his shortness of breath has progressively worsened since he was discharged. Shortness of breath is at rest. He is unable to exert himself because the shortness of breath. He has chest tightness as well. Nonproductive cough. He has not noted any fevers. He reports compliance with Lasix. Apparently during his last hospital admission he had a CT pulmonary angiogram that showed no PE with bilateral pleural effusions, right greater than left. Thoracentesis was attempted, however no fluid was able to be aspirated. It was thought that these effusions are loculated. Patient was also hyperkalemic with a potassium of 6 on last admission. He was initially seen in the emergency department at [facility] and was transferred to [facility] after treatment with BiPAP, aerosols, and some he fluids with significant improvement of symptoms. Review of Systems ROS Unobtainable patient on facemask BiPAP in respiratory distress Past Family Social History Allergies: Coded Allergies: No Known Allergies (Unverified Allergy, Unknown, 10/09/17) Past Medical History Diabetes mellitus type 2 Hypertension Hyperlipidemia Coronary artery disease [place] in 1993- [facility] Congestive heart failure COPD Chronic respiratory failure with oxygen dependence hx of 6th nerve palsy hypothyroidism BPH Past Surgical History umbilical hernia coronary angiogram and angioplasty Reported Medications Reported Meds & Active Scripts Active Lasix (Furosemide) 40 Mg Tab 40 Mg PO Q24H Take Daily at approximately 2pm. Lasix (Furosemide) 80 Mg Tab 80 Mg PO DAILY Take Daily at approximately 8am Lactobacillus Acidophilus 1 Billion Cell Tab 1 Tab PO TIDAC Sulfamethoxazole-Trimethoprim 800-160 Mg Tab 1 Tab PO Q12HR Oxygen (O2) Device Liter TAMMI.CANULA CONTINUOUS Oxygen Concentrator Portable Gaseous 4 L/min via Nasal Canula Continuous For 99 months Symbicort Inh (Budesonide/Formoterol Fumarate) 80-4.5 Mcg/Act Aero 1 Puff INH Q12HR Melatonin 5 Mg Tab 5 Mg PO HS PRN Flomax (Tamsulosin HCl) 0.4 Mg Cap 0.4 Mg PO HS [Albuterol-Ipratropium Neb] 1 AMPULE Nebu 1 Ampule NEB Q2HR NEB PRN Reported Potassium Chloride ER (Potassium Chloride) 20 Meq Tab 20 Meq PO DAILY Lantus Inj (Insulin Glargine) 1,000 Unit/10 Ml Vial 50 Units SQ BID Amlodipine (Amlodipine Besylate) 10 Mg Tab 10 Mg PO DAILY Magnesium 250 Mg Tab 1 Tab PO DAILY Novolog Penfill Inj (Insulin Aspart) 300 Unit/3 Ml Pen 2-40 Units SQ TIDAC PRN sliding scale Coq10 (Coenzyme Q10 (Ubidecarenone)) 50 Mg Cap 100 Mg PO DAILY Aspirin EC (Aspirin) 81 Mg Tabdr 81 Mg PO DAILY Datil 3 1000 mg (Datil-3 Fatty Acids) 1 Cap Cap 2 Cap PO DAILY Metoprolol Tartrate 50 Mg Tab 50 Mg PO TID Lorazepam 0.5 Mg Tab 0.5 Mg PO BID PRN Lisinopril 20 Mg Tab 20 Mg PO BID Levothyroxine (Levothyroxine Sodium) 300 Mcg Tab 300 Mcg PO DAILY Janumet Xr (Sitagliptin-Metformin ER) 50-1,000 Mg Tab 1 Tab PO BID Gabapentin 300 Mg Cap 300 Mg PO HS Doxazosin (Doxazosin Mesylate) 4 Mg Tab 4 Mg PO DAILY Vitamin D-3 (Cholecalciferol) 2,000 Unit Tab 1 Tab PO BID Atorvastatin (Atorvastatin Calcium) 20 Mg Tab 20 Mg PO HS Active Ordered Medications Current Medications Medications (Trade) Dose Ordered Sig/[place] Route PRN Reason Start Time Stop Time Status Last Admin Dose Admin Sodium Chloride 1,000 ml @ 125 mls/hr Q8H IV 10/18/17 21:35 10/19/17 05:34 10/18/17 21:49 Amlodipine Besylate (Norvasc) 10 mg DAILY PO 10/19/17 09:00 Aspirin (Ecotrin Ec) 81 mg DAILY PO 10/19/17 09:00 Atorvastatin Calcium (Lipitor) 20 mg HS PO 10/19/17 21:00 Budesonide/ Formoterol Fumarate (Symbicort 80-4.5 Mcg Inh) 1 puff Q12HR INH 10/19/17 09:00 Doxazosin Mesylate (Cardura) 4 mg DAILY PO 10/19/17 09:00 Gabapentin (Neurontin) 300 mg HS PO 10/19/17 21:00 Insulin Detemir (Levemir Inj) 50 units BID SQ 10/19/17 09:00 Lactobacillus Acidophilus (Lactinex) 1 tab TIDAC PO 10/19/17 08:00 Levothyroxine Sodium (Synthroid) 300 mcg DAILY@0600 PO 10/19/17 06:00 Lorazepam (Ativan) 0.5 mg BID PRN PO ANXIETY 10/19/17 01:00 Melatonin (Melatonin) 5 mg HS PRN PO INSOMINA 10/19/17 01:00 Metoprolol Tartrate (Lopressor) 50 mg TID PO 10/19/17 09:00 Trimethoprim/ Sulfamethoxazole (Bactrim Ds 800-160 Mg) 1 tab Q12HR PO 10/19/17 09:00 Tamsulosin HCl (Flomax) 0.4 mg HS PO 10/19/17 21:00 Cholecalciferol (Vitamin D3) 2,000 units BID PO 10/19/17 09:00 Magnesium Oxide (Mag-Ox) 400 mg DAILY PO 10/19/17 09:00 Sodium Chloride (NS Flush) 2 ml UNSCH PRN IV FLUSH FLUSH AFTER USING IV ACCESS 10/19/17 01:00 Sodium Chloride (NS Flush) 2 ml BID IV FLUSH 10/19/17 09:00 Acetaminophen (Tylenol) 650 mg Q6H PRN PO PAIN 1-5 AND/OR FEVER >101F 10/19/17 01:00 Morphine Sulfate (Morphine Inj) 2 mg Q2H PRN IV PUSH PAIN SCALE 6 TO 10 10/19/17 01:00 Famotidine (Pepcid Inj) 20 mg Q12HR IV PUSH 10/19/17 09:00 Ondansetron HCl (Zofran Inj) 4 mg Q6H PRN IV PUSH NAUSEA OR VOMITING 10/19/17 01:00 Temazepam (Restoril) 15 mg HS PRN PO INSOMNIA 10/19/17 01:00 Albuterol/ Ipratropium (Duoneb Neb) 1 ampule Q4HR NEB INH 10/19/17 04:00 Albuterol/ Ipratropium (Duoneb Neb) 1 ampule Q2HR NEB PRN INH WHEEZING 10/19/17 01:00 Heparin Sodium (Porcine) (Heparin Inj) 5,000 units Q8H SQ 10/19/17 01:00 Miscellaneous Information 1 Q361D XX 10/19/17 01:00 Chlorhexidine Gluconate (Chlorhexidine 2% Cloth) 3 pack Taper DAILY@04 TOP 10/19/17 04:00 10/15/18 03:59 Chlorhexidine Gluconate (Chlorhexidine 2% Cloth) 3 pack UNSCH PRN TOP HYGIENIC CARE 10/19/17 01:00 Senna/Docusate Sodium (Renae-Colace) 1 tab BID PO 10/19/17 09:00 Magnesium Hydroxide (Milk Of Magnesia Liq) 30 ml Q12H PRN PO Mild constipation 10/19/17 01:00 Sennosides (Senokot) 17.2 mg Q12H PRN PO Moderate constipation 10/19/17 01:00 Bisacodyl (Dulcolax Supp) 10 mg DAILY PRN RECTAL SEVERE CONSITIPATION 10/19/17 01:00 Lactulose (Lactulose Liq) 30 ml DAILY PRN PO SEVERE CONSITIPATION 10/19/17 01:00 Dextrose (D50w (Vial) Inj) 50 ml UNSCH PRN IV PUSH HYPOGLYCEMIA-SEE COMMENTS 10/19/17 01:15 Glucagon (Glucagon Inj) 1 mg UNSCH PRN OTHER HYPOGLYCEMIA-SEE COMMENTS 10/19/17 01:15 Insulin Aspart (NovoLOG SUPPLEMENTAL SCALE) 1 ACHS SLIDING SCALE SQ 10/19/17 08:00 Family History Emphysema in mother Social History Past history of smoking, not currently smoking No alcohol abuse No illicit drug abuse Physical Exam Vital Signs Vital Signs Date Time Temp Pulse Resp B/P (MAP) Pulse Ox O2 Delivery O2 Flow Rate FiO2 10/19/17 00:00 96.9 73 24 111/54 (73) 94 10/19/17 00:00 Bi-Pap 40 10/18/17 23:19 10/18/17 22:36 BiPAP 10/18/17 22:34 71 20 163/82 (109) 94 BiPAP 40 10/18/17 22:20 70 21 99/44 (62) 95 BiPAP 40 10/18/17 21:33 65 14 105/48 (67) 93 BiPAP 40 10/18/17 21:06 BiPAP 10/18/17 21:05 93 40 10/18/17 20:50 98.1 67 30 109/49 (46) 81 Physical Exam GENERAL: Well-developed, well-nourished, moderate respiratory distress, speaking a few words at a time, accessory muscle use. Facemask BiPAP, morbidly obese SKIN: Focused skin assessment warm/dry. HEAD: Atraumatic. Normocephalic. EYES: Pupils equal and round. No scleral icterus. No injection or drainage. ENT: Mucous membranes pink and moist. NECK: Trachea midline. No JVD. CARDIOVASCULAR: Regular rate and rhythm. RESPIRATORY: Accessory muscle use. Moderate respiratory distress. Speaking a few words at a time. Diminished breath sounds on the right. Rales on the left. No wheezes. GASTROINTESTINAL: Protuberant abdomen that is soft, nontender with mild periumbilical erythema. MUSCULOSKELETAL: No obvious deformities. No clubbing. No cyanosis. No edema. NEUROLOGICAL: Awake and alert. No obvious cranial nerve deficits. Motor grossly within normal limits. Normal speech. Laboratory Laboratory Tests Test 10/18/17 21:00 10/18/17 21:40 White Blood Count 9.1 Red Blood Count 3.56 Hemoglobin 10.7 Hematocrit 33.2 Mean Corpuscular Volume 93.4 Mean Corpuscular Hemoglobin 30.1 Mean Corpuscular Hemoglobin Concent 32.2 Red Cell Distribution Width 14.2 Platelet Count 191 Mean Platelet Volume 9.8 Neutrophils (%) (Auto) 77.4 Lymphocytes (%) (Auto) 11.5 Monocytes (%) (Auto) 6.1 Eosinophils (%) (Auto) 0.7 Basophils (%) (Auto) 4.3 Neutrophils # (Auto) 7.0 Lymphocytes # (Auto) 1.0 Monocytes # (Auto) 0.6 Eosinophils # (Auto) 0.1 Basophils # (Auto) 0.4 CBC Comment DIFF FINAL Differential Comment Prothrombin Time 11.9 Prothromb Time International Ratio 1.2 Activated Partial Thromboplast Time 25.7 Blood Urea Nitrogen 69 Creatinine 3.40 Random Glucose 151 Total Protein 6.9 Albumin 3.3 Calcium Level 8.5 Alkaline Phosphatase 33 Aspartate Amino Transf (AST/SGOT) 10 Alanine Aminotransferase (ALT/SGPT) 17 Total Bilirubin 0.1 Sodium Level 131 Potassium Level 6.3 Chloride Level 95 Carbon Dioxide Level 27.9 Anion Gap 8 Estimat Glomerular Filtration Rate 18 Total Creatine Kinase 79 Troponin I LESS THAN 0.02 B-Type Natriuretic Peptide 225 Blood Gas Puncture Site RT BRACHIAL Blood Gas Patient Temperature 98.6 Blood Gas HCO3 27 Blood Gas Base Excess 0.6 Blood Gas Oxygen Saturation 92 Arterial Blood pH 7.26 Arterial Blood Partial Pressure CO2 62 Arterial Blood Partial Pressure O2 78 Arterial Blood Oxygen Content 13.0 Arterial Blood Carboxyhemoglobin 1.8 Arterial Blood Methemoglobin 1.2 Blood Gas Hemoglobin 10.0 Oxygen Delivery Device BIPAP Blood Gas Ventilator Setting IPAP 12/EPAP 5 Blood Gas Inspired Oxygen 40 Date/Time Source Procedure Growth Status 10/18/17 21:00 Nasal Washing Influenza Types A,B Antigen (RODERICK) - Final Positive For Flu A Antigen Complete Result Diagram: 10/18/17209910/18/172099 Imaging Last 24 hours Impressions Chest X-Ray 10/18/172100 Signed Impressions: Service Date/Time: Wednesday, October 18, 2017 21:06 - CONCLUSION: 1. Cardiomegaly with mild edema pattern and bilateral effusions most characteristic of congestive heart failure. Yony Driscoll MD Caprini VTE Risk Assessment Caprini VTE Risk Assessment: Mod/High Risk (score >= 2) Caprini Risk Assessment Model Point Value = 1 Point Value = 2 Point Value = 3 Point Value = 5 Age 41-60 Minor surgery BMI > 25 kg/m2 Swollen legs Varicose veins or History of unexplained or recurrent spontaneous Oral contraceptives or hormone replacement Sepsis (< 1 month) Serious lung disease, including pneumonia (< 1 month) Abnormal pulmonary function Acute myocardial infarction Congestive heart failure (< 1 month) History of inflammatory bowel disease Medical patient at bed rest Age 61-74 Arthroscopic surgery Major open surgery (> 45 min) Laparoscopic surgery (> 45 min) Malignancy Confined to bed (> 72 hours) Immobilizing plaster cast Central venous access Age >= 75 History of VTE Family history of VTE Factor V Leiden Prothrombin [id number] Lupus anticoagulant Anticardiolipin antibodies Elevated serum homocysteine Heparin-induced thrombocytopenia Other congenital or acquired thrombophilia Stroke (< 1 month) Elective arthroplasty Hip, pelvis, or leg fracture Acute spinal cord injury (< 1 month) Prophylaxis Regimen Total Risk Factor Score Risk Level Prophylaxis Regimen 0-1 Low Early ambulation 2 Moderate Order ONE of the following: *Sequential Compression Device (SCD) *Heparin 5000 units SQ BID 3-4 Higher Order ONE of the following medications: *Heparin 5000 units SQ TID *Enoxaparin/Lovenox 40 mg SQ daily (WT < 150 kg, CrCl > 30 mL/min) *Enoxaparin/Lovenox 30 mg SQ daily (WT < 150 kg, CrCl > 10-29 mL/min) *Enoxaparin/Lovenox 30 mg SQ BID (WT < 150 kg, CrCl > 30 mL/min) AND/OR *Sequential Compression Device (SCD) 5 or more Highest Order ONE of the following medications: *Heparin 5000 units SQ TID (Preferred with Epidurals) *Enoxaparin/Lovenox 40 mg SQ daily (WT < 150 kg, CrCl > 30 mL/min) *Enoxaparin/Lovenox 30 mg SQ daily (WT < 150 kg, CrCl > 10-29 mL/min) *Enoxaparin/Lovenox 30 mg SQ BID (WT < 150 kg, CrCl > 30 mL/min) AND *Sequential Compression Device (SCD) Assessment and Plan Assessment and Plan Respiratory failure - COPD exacerbation - IV steroid - Aerosols scheduled and when necessary - Facemask BiPAP as needed - CXR and ABG daily - Consider empiric antibiotics if no improvement CHF - Continue metoprolol - Hold diuretics due to acute kidney injury and worsening renal function Acute kidney injury - Overdiuresis - Gentle hydration - Monitor urine output - Nephrology consultation Influenza - Tamiflu twice a day 5 days Hypertension - Norvasc - Metoprolol Diabetes mellitus - Insulin sliding scale - Levemir Hypothyroidism - Levothyroxine DVT GI prophylaxis - Teds SCDs - Subcutaneous heparin - Pepcid Critical Care: The total critical care time was 35 minutes. Time to perform other separately billable procedures was not included in the critical care time. Art Mead MD Oct 19, 2017 1:33 am
[2017-10-19] MEDS: HEPARIN SODIUM - SQ 10,000 UNITS/ML VIAL SQ SCH ×3 (02:36→17:00)
[2017-10-19] MEDS: SODIUM CHLOR 0.9% 1000 ML INJ 1,000 ML IV SCH ×2 (02:45→10:45)
[2017-10-19 03:40] LABS: AUTOMATED NEUTROPHIL # 7.3 TH/MM3 (1.8-7.7); BASOPHIL % 0.4 % (0.0-2.0); EOSINOPHIL # 0.1 TH/MM3 (0-0.4); EOSINOPHIL % 0.7 % (0.0-4.0); HEMATOCRIT 32.6 % (39.0-51.0); HEMOGLOBIN 10.6 GM/DL (13.0-17.0); LYMPH % 11.5 % (9.0-44.0); MEAN CELL VOLUME 94.7 FL (80.0-100.0); MEAN CORPUSCULAR HEMOGLOBIN 30.8 PG (27.0-34.0); MEAN CORPUSCULAR HGB CONC 32.5 % (32.0-36.0); MEAN PLATELET VOLUME 9.4 FL (7.0-11.0); MONO % 6.7 % (0.0-8.0); MONOCYTE # 0.6 TH/MM3 (0-0.9); NEUT % 80.7 % (16.0-70.0); PLATELET COUNT 165 TH/MM3 (150-450); RED BLOOD COUNT 3.45 MIL/MM3 (4.50-5.90); RED CELL DISTRIBUTION WIDTH 14.6 % (11.6-17.2); WHITE BLOOD COUNT 9.1 TH/MM3 (4.0-11.0)
[2017-10-19] MEDS: RESP: ALBUTEROL 2.5 MG/IPRATROPIUM 0.5 MG NEB (SCH) INH ×5 (03:47→20:28)
[2017-10-19] MEDS: CHLORHEXIDINE GLUCONATE 2 % 1 PACK (2 CLOTHS) TOP SCH (04:00)
[2017-10-19] MEDS: methylPREDNISolone SOD SUCC 40 MG/1 ML VIAL IV PUSH SCH ×3 (06:33→18:36)
[2017-10-19] MEDS: LEVOTHYROXINE SODIUM 150 MCG TAB PO SCH (06:33)
[2017-10-19] MEDS: INSULIN ASPART SUPPLEMENTAL SCALE SQ SCH ×4 (08:00→21:00)
--- NOTE | 2017-10-19 08:44 | EKG ---
Date Performed: 10/19/2017 Time Performed: 07:59:48 PTAGE: 72 years EKG: Sinus rhythm NONSPECIFIC T-WAVE ABNORMALITY ABNORMAL ECG PREVIOUS TRACING : 10/18/2017 21.20 No significant change from previous tracing noted. DOCTOR: Noe Gomez Interpretating Date/Time 10/19/2017 08:22:48
--- NOTE | 2017-10-19 08:45 | EKG ---
Date Performed: 10/18/2017 Time Performed: 21:20:26 PTAGE: 72 years EKG: Sinus rhythm POSSIBLE ARM LEAD REVERSAL LATERAL MYOCARDIAL INFARCTION, AGE UNDETERMINED PREVIOUS TRACING : 10/09/2017 12.45 Compared to previous tracing, arm lead reversal is no w present. DOCTOR: Noe Gomez Interpretating Date/Time 10/19/2017 08:31:30
[2017-10-19] MEDS ORDERED: NON-FORMULARY DRUG (Coenzyme Q10 (Ubidecarenone) (Coq10) 100 MG) PO SCH (09:00)
[2017-10-19] MEDS: DOCUSATE SODIUM 50 MG/SENNA 8.6 MG TAB PO SCH ×2 (09:00→21:09)
[2017-10-19] MEDS: BUDESONIDE-FORMOTEROL 80/4.5 MCG INHALER INH SCH ×2 (09:00→21:09)
[2017-10-19] MEDS ORDERED: OMEGA PO SCH (09:00)
[2017-10-19] MEDS: SODIUM CHLORIDE 0.9% FLUSH 10 ML FLUSH IV FLUSH SCH ×2 (09:00→21:00)
[2017-10-19] MEDS ORDERED: SULFAMETHOXAZOLE-TRIMETHOPRIM DS 800-160 MG TAB PO SCH (09:00)
[2017-10-19] MEDS ORDERED: FATTY ACIDS PO SCH (09:00)
[2017-10-19 10:49] LABS: ALBUMIN 3.5 GM/DL (3.4-5.0); ALT (GPT) 20 U/L (12-78); AST (GOT) 16 U/L (15-37); BICARBONATE 29.4 MEQ/L (21.0-32.0); BLOOD UREA NITROGEN 68 MG/DL (7-18); CHLORIDE 97 MEQ/L (98-107); CREATININE 2.87 MG/DL (0.60-1.30); GLOMERULAR FILTRATION RATE 22 ML/MIN (>89); GLUCOSE,RANDOM 152 MG/DL (74-106); SODIUM (NA) 134 MEQ/L (136-145)
[2017-10-19 10:54] LABS: ALKALINE PHOSPHATASE 35 U/L (45-117); TOTAL BILIRUBIN ADULT 0.2 MG/DL (0.2-1.0); TOTAL PROTEIN 7.2 GM/DL (6.4-8.2); TROPONIN I LESS THAN 0.02 NG/ML (0.02-0.05)
[2017-10-19] MEDS: MAGNESIUM OXIDE 400 MG TAB PO SCH (11:39)
[2017-10-19] MEDS: LACTOBACILLUS ACIDOPHILUS TAB PO SCH ×3 (11:39→17:00)
[2017-10-19] MEDS: OSELTAMIVIR PHOSPHATE 75 MG CAP PO SCH ×2 (11:39→21:09)
[2017-10-19] MEDS: ASPIRIN EC 81 MG TABEC PO SCH (11:39)
[2017-10-19] MEDS: DOXAZOSIN MESYLATE 4 MG TAB PO SCH (11:40)
[2017-10-19] MEDS: METOPROLOL TARTRATE 50 MG TAB PO SCH ×2 (11:40→18:00)
[2017-10-19] MEDS: FAMOTIDINE 20 MG/2 ML VIAL IV PUSH SCH ×2 (11:40→21:09)
[2017-10-19] MEDS: INSULIN DETEMIR 100 UNITS/ML VIAL SQ SCH ×2 (11:40→21:00)
[2017-10-19] MEDS ORDERED: DEXTROSE 50% IN WATER 50 ML VIAL(D50) IV PUSH ONE (12:30)
[2017-10-19] MEDS ORDERED: INSULIN HUMAN REGULAR 1,000 UNITS/10 ML VIAL IV PUSH ONE (12:30)
--- NOTE | 2017-10-19 12:39 | PD.CONS ---
[facility] Service Nephrology Consult Requested By Reason for Consult Acute Renal Failure Primary Care Physician Adri Hudson MD History of Present Illness This is a 72 y/o male who is obese and has COPD. He was recently admitted to [facility] for similar complaints of shortness of breath. That admission they attempted a pleural tap but were unsuccessful. They diuresed him and sent him home. He was also given Bactrim, diuretics, and potassium supplements. At that time his renal function was normal. This admission his creatinine was 3.4 repeated is 2.87 today. He was hyperkalemic at 6.3 and today it is 5.9. He is making urine, has a cee, but abdomen is very distended, firm , he is possibly constipated. He also tested positive for the flu and is on tamiflu. We were consulted to assist with management. (Lissett Contreras) Review of Systems Respiratory: COMPLAINS OF: Shortness of breath Cardiovascular: COMPLAINS OF: Dyspnea on Exertion, Lower Extremity Edema, DENIES: Chest pain Gastrointestinal: COMPLAINS OF: Abdominal pain, Constipation (Lissett Contreras) Past Family Social History Allergies: Coded Allergies: No Known Allergies (Unverified Allergy, Unknown, 10/09/17) Past Medical History Diabetes mellitus type 2 Hypertension Hyperlipidemia Coronary artery disease [place] in 1993- Petey Otoole Congestive heart failure COPD Chronic respiratory failure with oxygen dependence hx of 6th nerve palsy hypothyroidism BPH Past Surgical History umbilical hernia coronary angiogram and angioplasty Reported Medications Lasix (Furosemide) 40 Mg Tab 40 Mg PO Q24H Take Daily at approximately 2pm. Lasix (Furosemide) 80 Mg Tab 80 Mg PO DAILY Take Daily at approximately 8am Lactobacillus Acidophilus 1 Billion Cell Tab 1 Tab PO TIDAC Sulfamethoxazole-Trimethoprim 800-160 Mg Tab 1 Tab PO Q12HR Oxygen (O2) Device Liter TAMMI.CANULA CONTINUOUS Oxygen Concentrator Portable Gaseous 4 L/min via Nasal Canula Continuous For 99 months Symbicort Inh (Budesonide/Formoterol Fumarate) 80-4.5 Mcg/Act Aero 1 Puff INH Q12HR Melatonin 5 Mg Tab 5 Mg PO HS PRN Flomax (Tamsulosin HCl) 0.4 Mg Cap 0.4 Mg PO HS [Albuterol-Ipratropium Neb] 1 AMPULE Nebu 1 Ampule NEB Q2HR NEB PRN Reported Potassium Chloride ER (Potassium Chloride) 20 Meq Tab 20 Meq PO DAILY Lantus Inj (Insulin Glargine) 1,000 Unit/10 Ml Vial 50 Units SQ BID Amlodipine (Amlodipine Besylate) 10 Mg Tab 10 Mg PO DAILY Magnesium 250 Mg Tab 1 Tab PO DAILY Novolog Penfill Inj (Insulin Aspart) 300 Unit/3 Ml Pen 2-40 Units SQ TIDAC PRN sliding scale Coq10 (Coenzyme Q10 (Ubidecarenone)) 50 Mg Cap 100 Mg PO DAILY Aspirin EC (Aspirin) 81 Mg Tabdr 81 Mg PO DAILY Gambell 3 1000 mg (Gambell-3 Fatty Acids) 1 Cap Cap 2 Cap PO DAILY Metoprolol Tartrate 50 Mg Tab 50 Mg PO TID Lorazepam 0.5 Mg Tab 0.5 Mg PO BID PRN Lisinopril 20 Mg Tab 20 Mg PO BID Levothyroxine (Levothyroxine Sodium) 300 Mcg Tab 300 Mcg PO DAILY Janumet Xr (Sitagliptin-Metformin ER) 50-1,000 Mg Tab 1 Tab PO BID Gabapentin 300 Mg Cap 300 Mg PO HS Doxazosin (Doxazosin Mesylate) 4 Mg Tab 4 Mg PO DAILY Vitamin D-3 (Cholecalciferol) 2,000 Unit Tab 1 Tab PO BID Atorvastatin (Atorvastatin Calcium) 20 Mg Tab 20 Mg PO HS Active Ordered Medications Current Medications Medications (Trade) Dose Ordered Sig/Everton Route Start Time Stop Time Status Last Admin (Norvasc) 10 mg DAILY PO 10/19/17 09:00 10/19/17 11:39 (Ecotrin Ec) 81 mg DAILY PO 10/19/17 09:00 10/19/17 11:39 (Lipitor) 20 mg HS PO 10/19/17 21:00 (Symbicort 80-4.5 Mcg Inh) 1 puff Q12HR INH 10/19/17 09:00 (Cardura) 4 mg DAILY PO 10/19/17 09:00 10/19/17 11:40 (Neurontin) 300 mg HS PO 10/19/17 21:00 (Levemir Inj) 50 units BID SQ 10/19/17 09:00 10/19/17 11:40 (Lactinex) 1 tab TIDAC PO 10/19/17 08:00 10/19/17 11:39 (Synthroid) 300 mcg DAILY@0600 PO 10/19/17 06:00 10/19/17 06:33 (Ativan) 0.5 mg BID PRN PO 10/19/17 01:00 (Melatonin) 5 mg HS PRN PO 10/19/17 01:00 (Lopressor) 50 mg TID PO 10/19/17 09:00 10/19/17 11:40 (Flomax) 0.4 mg HS PO 10/19/17 21:00 (Vitamin D3) 2,000 units BID PO 10/19/17 09:00 (Mag-Ox) 400 mg DAILY PO 10/19/17 09:00 10/19/17 11:39 (NS Flush) 2 ml UNSCH PRN IV FLUSH 10/19/17 01:00 (NS Flush) 2 ml BID IV FLUSH 10/19/17 09:00 10/19/17 09:00 (Tylenol) 650 mg Q6H PRN PO 10/19/17 01:00 (Morphine Inj) 2 mg Q2H PRN IV PUSH 10/19/17 01:00 (Pepcid Inj) 20 mg Q12HR IV PUSH 10/19/17 09:00 10/19/17 11:40 (Zofran Inj) 4 mg Q6H PRN IV PUSH 10/19/17 01:00 (Restoril) 15 mg HS PRN PO 10/19/17 01:00 (Duoneb Neb) 1 ampule Q4HR NEB INH 10/19/17 04:00 10/19/17 12:06 (Duoneb Neb) 1 ampule Q2HR NEB PRN INH 10/19/17 01:00 (Heparin Inj) 5,000 units Q8H SQ 10/19/17 01:00 10/19/17 02:36 Miscellaneous Information 1 Q361D XX 10/19/17 01:00 10/19/17 01:00 (Chlorhexidine 2% Cloth) 3 pack Taper DAILY@04 TOP 10/19/17 04:00 10/15/18 03:59 (Chlorhexidine 2% Cloth) 3 pack UNSCH PRN TOP 10/19/17 01:00 (Renae-Colace) 1 tab BID PO 10/19/17 09:00 (Milk Of Magnesia Liq) 30 ml Q12H PRN PO 10/19/17 01:00 (Senokot) 17.2 mg Q12H PRN PO 10/19/17 01:00 (Dulcolax Supp) 10 mg DAILY PRN RECTAL 10/19/17 01:00 (Lactulose Liq) 30 ml DAILY PRN PO 10/19/17 01:00 (D50w (Vial) Inj) 50 ml UNSCH PRN IV PUSH 10/19/17 01:15 (Glucagon Inj) 1 mg UNSCH PRN OTHER 10/19/17 01:15 (NovoLOG SUPPLEMENTAL SCALE) 1 ACHS SLIDING SCALE SQ 10/19/17 08:00 10/19/17 08:00 Sodium Chloride 1,000 ml @ 125 mls/hr Q8H IV 10/19/17 02:45 10/19/17 10:45 (SoluMEDROL INJ) 40 mg Q6HR IV PUSH 10/19/17 06:00 10/19/17 06:33 (Tamiflu) 75 mg BID PO 10/19/17 09:00 10/23/17 21:01 10/19/17 11:39 Family History Non contributory Social History former smoker, quit 22 yrs ago he is single lives alone full code (Lissett Contreras) Physical Exam Vital Signs Vital Signs Date Time Temp Pulse Resp B/P (MAP) Pulse Ox O2 Delivery O2 Flow Rate FiO2 10/19/17 12:00 85 10/19/17 10:00 85 10/19/17 10:00 90 Nasal Cannula 5.00 10/19/17 08:27 90 Nasal Cannula 3.00 10/19/17 08:00 75 10/19/17 08:00 90 Nasal Cannula 4.00 10/19/17 07:00 Bi-Pap 40 10/19/17 06:00 89 10/19/17 05:50 92 Nasal Cannula 3.00 10/19/17 04:00 80 10/19/17 03:46 92 40 10/19/17 03:00 98.0 78 20 116/64 (81) 96 10/19/17 02:00 98.7 74 22 116/64 (81) 96 10/19/17 01:00 97.8 72 23 105/53 (70) 95 10/19/17 00:00 96.9 73 24 111/54 (73) 94 10/19/17 00:00 Bi-Pap 40 10/18/17 23:56 95 40 10/18/17 23:19 10/18/17 22:36 BiPAP 10/18/17 22:34 71 20 163/82 (109) 94 BiPAP 40 10/18/17 22:20 70 21 99/44 (62) 95 BiPAP 40 10/18/17 21:33 65 14 105/48 (67) 93 BiPAP 40 10/18/17 21:06 BiPAP 10/18/17 21:05 93 40 10/18/17 20:50 98.1 67 30 109/49 (69) 81 Physical Exam Elderly male, obese On oxygen, visibly dyspneic, lung sounds decreased in the bases Abd distended, firm, not tender Urine is pale yellow in cee S1/S2. RRR Ext without edema, distal pulses strong. Laboratory Laboratory Tests Test 10/18/17 21:00 10/18/17 21:40 10/19/17 03:31 10/19/17 09:54 White Blood Count 9.1 9.1 Red Blood Count 3.56 3.45 Hemoglobin 10.7 10.6 Hematocrit 33.2 32.6 Mean Corpuscular Volume 93.4 94.7 Mean Corpuscular Hemoglobin 30.1 30.8 Mean Corpuscular Hemoglobin Concent 32.2 32.5 Red Cell Distribution Width 14.2 14.6 Platelet Count 191 165 Mean Platelet Volume 9.8 9.4 Neutrophils (%) (Auto) 77.4 80.7 Lymphocytes (%) (Auto) 11.5 11.5 Monocytes (%) (Auto) 6.1 6.7 Eosinophils (%) (Auto) 0.7 0.7 Basophils (%) (Auto) 4.3 0.4 Neutrophils # (Auto) 7.0 7.3 Lymphocytes # (Auto) 1.0 1.0 Monocytes # (Auto) 0.6 0.6 Eosinophils # (Auto) 0.1 0.1 Basophils # (Auto) 0.4 0.0 CBC Comment DIFF FINAL DIFF FINAL Differential Comment Prothrombin Time 11.9 Prothromb Time International Ratio 1.2 Activated Partial Thromboplast Time 25.7 Blood Urea Nitrogen 69 68 Creatinine 3.40 2.87 Random Glucose 151 152 Total Protein 6.9 7.2 Albumin 3.3 3.5 Calcium Level 8.5 8.0 Alkaline Phosphatase 33 35 Aspartate Amino Transf (AST/SGOT) 10 16 Alanine Aminotransferase (ALT/SGPT) 17 20 Total Bilirubin 0.1 0.2 Sodium Level 131 134 Potassium Level 6.3 5.9 Chloride Level 95 97 Carbon Dioxide Level 27.9 29.4 Anion Gap 8 8 Estimat Glomerular Filtration Rate 18 22 Total Creatine Kinase 79 Troponin I LESS THAN 0.02 LESS THAN 0.02 LESS THAN 0.02 B-Type Natriuretic Peptide 225 Blood Gas Puncture Site RT BRACHIAL Blood Gas Patient Temperature 98.6 Blood Gas HCO3 27 Blood Gas Base Excess 0.6 Blood Gas Oxygen Saturation 92 Arterial Blood pH 7.26 Arterial Blood Partial Pressure CO2 62 Arterial Blood Partial Pressure O2 78 Arterial Blood Oxygen Content 13.0 Arterial Blood Carboxyhemoglobin 1.8 Arterial Blood Methemoglobin 1.2 Blood Gas Hemoglobin 10.0 Oxygen Delivery Device BIPAP Blood Gas Ventilator Setting IPAP 12/EPAP 5 Blood Gas Inspired Oxygen 40 Phosphorus Level 5.0 Magnesium Level 2.0 Date/Time Source Procedure Growth Status 10/18/17 21:00 Nasal Washing Influenza Types A,B Antigen (RODERICK) - Final Positive For Flu A Antigen Complete (Lissett Contreras) Result Diagram: 10/19/17 0331 10/19/17 0954 Imaging Last 72 hours Impressions Chest X-Ray 10/18/17 210 Signed Impressions: Service Date/Time: Wednesday, October 18, 2017 21:06 - CONCLUSION: 1. Cardiomegaly with mild edema pattern and bilateral effusions most characteristic of congestive heart failure. Yony Driscoll MD (Lissett Contreras) Assessment and Plan Problem List: (1) Acute renal failure ICD Codes: N17.9 - Acute kidney failure, unspecified Status: Acute Plan: Normal renal function at baseline VICKIE multifactorial: due to overdiuresis, diuretics on hold Also due to Bactrim use: trimethoprim in Bactrim can prevent distal tubule secretion of potassium and creatinine, casuisng elevated serum levels of both On IVF, reduce to 75 cc/hr Monitor output, has jaye Obtain renal US Renal function is improving, expect continued improvement Avoid nephrotoxic agents Repeat labs in AM (2) Hyperkalemia ICD Codes: E87.5 - Hyperkalemia Status: Acute Plan: Due to reduction in GFR, KCL supplements, and bactrim use Give insulin, dextrose, repeat labs Stop Bactrim Stop potassium supplements. (3) Shortness of breath ICD Codes: R06.02 - Shortness of breath Status: Acute Plan: continue oxygen therapy nebs as needed On Tamiflu (Lissett Contreras) Assessment and Plan patient was seen and examined, agree with above assessment and plan. Continue IVF, albeit at lower rate, stop Bactrim, monitor potassium, urine output and renal function. (Lee Palomino MD) Problem Qualifiers (1) Acute renal failure: Qualified Codes: N17.9 - Acute kidney failure, unspecified Lissett Contreras Oct 19, 2017 12:39 Lee Palomino MD Oct 19, 2017 20:47
--- NOTE | 2017-10-19 12:43 | RADRPT ---
EXAM DATE/TIME: 10/19/2017 11:52 [facility] COMPARISON: No previous studies available for comparison. INDICATIONS : Increased BUN/creatinine. MEDICAL HISTORY : Myocardial infarction. Congestive heart failure. Hypercholesterolemia. Thyroid disease. CVA. Head tra [place]is. Migraines. HTN. COPD. Emphysema. Asthma. Dyspnea. UTI. Arthritis. Diabetes. Anxiety. SURGICAL HISTORY : Umbilical hernia repair. Balloon angioplasty. Cardiac cath. ENCOUNTER: Initial ACUITY: 1 day PAIN SCORE: 2/10 LOCATION: Bilateral flank MEASUREMENTS: RIGHT KIDNEY: 12.8 x 7.0 x 6.4 cm LEFT KIDNEY: 12.8 x 5.5 x 7.5 cm cm FINDINGS: RIGHT KIDNEY: Renal cortex is normal in thickness and echotexture. No hydronephrosis, stone, or mass. LEFT KIDNEY: Renal cortex is normal in thickness and echotexture. No hydronephrosis, stone, or mass. BLADDER: Larson catheter. Urinary bladder is decompressed. CONCLUSION: Unremarkable bilateral renal ultrasound. Hermelindo Arthur MD on October 19, 2017 at 12:40 Board Certified Radiologist. This report was verified electronically.
[2017-10-19] MEDS: CHOLECALCIFEROL (VIT D3) 1000 UNIT TAB PO SCH ×2 (15:24→21:10)
--- NOTE | 2017-10-19 18:04 | ECHRPT ---
Indication: heart failure CONCLUSIONS The left ventricular systolic function is normal with an estimated ejection fraction in the range of 60-65%. Normal left ventricular size. Mild concentric left ventricular hypertrophy. No regional wall motion abnormalities are present. BP: 116 / 64 HR: 78 Rhythm: MEASUREMENTS (Male / Female) Normal Values Technical Quality:Technically difficult study 2D ECHO LV Diastolic Diameter PLAX 5.4 cm 4.2 - 5.9 / 3.9 - 5.3 cm LV Systolic Diameter PLAX 3.7 cm IVS Diastolic Thickness 1.3 cm 0.6 - 1.0 / 0.6 - 0.9 cm LVPW Diastolic Thickness 1.3 cm 0.6 - 1.0 / 0.6 - 0.9 cm LV Relative Wall Thickness 0.5 M-MODE LV Diastolic Diameter MM 7.1 cm 4.2 - 5.9 / 3.9 - 5.3 cm LV Systolic Diameter MM 5.1 cm LV Ejection Fraction MM Teich 52.5 % LV Cardiac Index MM Teich 4353.9 cm/minm IVS Diastolic Thickness MM 1.3 cm 0.6 - 1.0 / 0.6 - 0.9 cm LVPW Diastolic Thickness MM 1.2 cm 0.6 - 1.0 / 0.6 - 0.9 cm LV Relative Wall Thickness MM 0.4 0.24 - 0.42 / 0.22 - 0.42 LV Mass Index MM 183.9 g/m 49 - 115 / 43 - 95 g/m FINDINGS LEFT VENTRICLE The left ventricular systolic function is normal with an estimated ejection fraction in the range of 60-65%. Normal left ventricular size. Mild concentric left ventricular hypertrophy. No regional wall motion abnormalities are present. RIGHT VENTRICLE Normal right ventricular size and systolic function. LEFT ATRIUM The left atrial size is normal. RIGHT ATRIUM The right atrial size is normal. ATRIAL SEPTUM Normal atrial septal thickness without atrial level shunting by limited color doppler interrogation. AORTA The aortic root and proximal ascending aorta are normal in size on limited imaging. MITRAL VALVE Structurally normal mitral valve. No mitral valve stenosis or regurgitation. AORTIC VALVE Trileaflet aortic valve. No aortic valve stenosis or regurgitation. TRICUSPID VALVE Structurally normal tricuspid valve. No tricuspid valve stenosis or regurgitation. PULMONARY VALVE The pulmonary valve is not well visualized. VESSELS The inferior vena cava is normal in size. PERICARDIUM No pericardial effusion. Steve Spear MD, FACC (Electronically Signed) Final Date:19 October 2017 18:04
[2017-10-19] MEDS: TAMSULOSIN HCL 0.4 MG CAP PO SCH (21:09)
[2017-10-19] MEDS: GABAPENTIN 300 MG CAP PO SCH (21:09)
[2017-10-19] MEDS: ATORVASTATIN 20 MG TAB PO SCH (21:10)
[2017-10-19] MEDS: LORazepam 0.5 MG TAB PO PRN (21:33)
[2017-10-19] MEDS: ACETAMINOPHEN 325 MG TAB PO PRN (21:33)
[2017-10-20] VITALS (13 sets, daily range): BP systolic 135–159; BP diastolic 63–95; PULSE 76–98; RESP 19–33; TEMP 97.8–98.3; O2SAT 87–94
[2017-10-20] MEDS: RESP: ALBUTEROL 2.5 MG/IPRATROPIUM 0.5 MG NEB (SCH) INH ×7 (00:08→23:46)
[2017-10-20] MEDS: SODIUM CHLOR 0.9% 1000 ML INJ 1,000 ML IV SCH ×2 (00:21→13:24)
[2017-10-20] MEDS: HEPARIN SODIUM - SQ 10,000 UNITS/ML VIAL SQ SCH ×3 (00:26→17:40)
[2017-10-20] MEDS: methylPREDNISolone SOD SUCC 40 MG/1 ML VIAL IV PUSH SCH ×4 (00:26→17:41)
[2017-10-20] MEDS: CHLORHEXIDINE GLUCONATE 2 % 1 PACK (2 CLOTHS) TOP SCH (04:00)
[2017-10-20 05:00] LABS: AUTOMATED NEUTROPHIL # 4.5 TH/MM3 (1.8-7.7); BASOPHIL % 0.1 % (0.0-2.0); EOSINOPHIL % 0.1 % (0.0-4.0); HEMATOCRIT 32.5 % (39.0-51.0); HEMOGLOBIN 10.4 GM/DL (13.0-17.0); LYMPH % 4.9 % (9.0-44.0); LYMPHOCYTE # 0.2 TH/MM3 (1.0-4.8); MEAN CELL VOLUME 94.9 FL (80.0-100.0); MEAN CORPUSCULAR HEMOGLOBIN 30.3 PG (27.0-34.0); MEAN PLATELET VOLUME 9.9 FL (7.0-11.0); MONO % 1.7 % (0.0-8.0); MONOCYTE # 0.1 TH/MM3 (0-0.9); NEUT % 93.2 % (16.0-70.0); PLATELET COUNT 153 TH/MM3 (150-450); RED BLOOD COUNT 3.43 MIL/MM3 (4.50-5.90); RED CELL DISTRIBUTION WIDTH 15.1 % (11.6-17.2); WHITE BLOOD COUNT 4.8 TH/MM3 (4.0-11.0)
[2017-10-20 05:08] LABS: INTERNATIONAL NORMALIZED RATIO 1.2 RATIO
[2017-10-20 05:40] LABS: ALBUMIN 3.2 GM/DL (3.4-5.0); ALKALINE PHOSPHATASE 37 U/L (45-117); ALT (GPT) 19 U/L (12-78); AST (GOT) 6 U/L (15-37); BICARBONATE 26.4 MEQ/L (21.0-32.0); BLOOD UREA NITROGEN 65 MG/DL (7-18); CALCIUM 8.3 MG/DL (8.5-10.1); CHLORIDE 99 MEQ/L (98-107); GLOMERULAR FILTRATION RATE 33 ML/MIN (>89); GLUCOSE,RANDOM 330 MG/DL (74-106); MAGNESIUM 2.5 MG/DL (1.5-2.5); PHOSPHORUS 3.7 MG/DL (2.5-4.9); SODIUM (NA) 133 MEQ/L (136-145); TOTAL BILIRUBIN ADULT 0.2 MG/DL (0.2-1.0); TOTAL PROTEIN 6.9 GM/DL (6.4-8.2)
[2017-10-20] MEDS: LEVOTHYROXINE SODIUM 150 MCG TAB PO SCH (05:53)
--- NOTE | 2017-10-20 06:06 | RADRPT ---
EXAM DATE/TIME: 10/20/2017 04:45 [facility] COMPARISON: CHEST SINGLE AP, October 18, 2017, 21:06. INDICATIONS : Short of breath. MEDICAL HISTORY : Congestive heart failure. Chronic obstructive pulmonary disease. SURGICAL HISTORY : None. ENCOUNTER: Subsequent ACUITY: 1 week PAIN SCORE: 0/10 LOCATION: Bilateral chest FINDINGS: Stable severe cardiomegaly. Patchy areas of consolidation in both lower lungs, left greater than rig ht, with interval increase in severity with loss of delineation of both hemidiaphragms. CONCLUSION: Increasing bilateral lower lung infiltrates. Ravi Johnson MD on October 20, 2017 at 6:02 Board Certified Radiologist. This report was verified electronically.
[2017-10-20] MEDS: BUDESONIDE-FORMOTEROL 80/4.5 MCG INHALER INH SCH ×2 (08:02→20:58)
[2017-10-20] MEDS: INSULIN DETEMIR 100 UNITS/ML VIAL SQ SCH ×2 (08:03→20:56)
[2017-10-20] MEDS: INSULIN ASPART SUPPLEMENTAL SCALE SQ SCH ×4 (08:03→20:56)
[2017-10-20] MEDS: DOCUSATE SODIUM 50 MG/SENNA 8.6 MG TAB PO SCH ×2 (08:03→20:57)
[2017-10-20] MEDS: ASPIRIN EC 81 MG TABEC PO SCH (08:03)
[2017-10-20] MEDS: OSELTAMIVIR PHOSPHATE 75 MG CAP PO SCH ×2 (08:04→20:57)
[2017-10-20] MEDS: ACETAMINOPHEN 325 MG TAB PO PRN (08:05)
[2017-10-20] MEDS: LACTOBACILLUS ACIDOPHILUS TAB PO SCH ×3 (08:05→17:41)
[2017-10-20] MEDS: FAMOTIDINE 20 MG/2 ML VIAL IV PUSH SCH (08:06)
[2017-10-20] MEDS: CHOLECALCIFEROL (VIT D3) 1000 UNIT TAB PO SCH ×2 (08:06→20:56)
[2017-10-20] MEDS: METOPROLOL TARTRATE 50 MG TAB PO SCH ×3 (08:06→17:40)
[2017-10-20] MEDS: MAGNESIUM OXIDE 400 MG TAB PO SCH (08:07)
[2017-10-20] MEDS: DOXAZOSIN MESYLATE 4 MG TAB PO SCH (08:07)
[2017-10-20] MEDS: SODIUM CHLORIDE 0.9% FLUSH 10 ML FLUSH IV FLUSH SCH ×2 (08:08→20:57)
--- NOTE | 2017-10-20 09:43 | HHI.CCPN ---
Subjective Remarks/Hospital Course 10/19: 72-year-old male with history of CHF, hypertension, hypo-thyroidism, diabetes, presents with complaints of shortness of breath. The patient was admitted on 10/09/17 and discharged on 10/12/17 for similar symptoms. He reports that his shortness of breath has progressively worsened since he was discharged. Shortness of breath is at rest. He is unable to exert himself because the shortness of breath. He has chest tightness as well. Nonproductive cough. He has not noted any fevers. He reports compliance with Lasix. Apparently during his last hospital admission he had a CT pulmonary angiogram that showed no PE with bilateral pleural effusions, right greater than left. Thoracentesis was attempted, however no fluid was able to be aspirated. It was thought that these effusions are loculated. Patient was also hyperkalemic with a potassium of 6 on last admission. He was initially seen in the emergency department at [facility] and was transferred to [facility] after treatment with BiPAP, aerosols, and some he fluids with significant improvement of symptoms. 10/20: Patient doing better, no events over the night. Patient states that breathing is much improved, he did not use BiPAP over the night. He denies chest pain, palpitations, abdominal pain. T-max 98.7. Great urine output, 5200 mL's over the last 24 hours. Objective Vital Signs Date Time Temp Pulse Resp B/P (MAP) Pulse Ox O2 Delivery O2 Flow Rate FiO2 10/20/17 08:32 92 Nasal Cannula 5.00 10/20/17 06:00 98 10/20/17 04:00 98.2 33 140/65 (90) 10/19/17 07:00 40 Intake and Output 10/20/17 10/20/17 10/21/17 08:00 16:00 00:00 Intake Total 960 ml Output Total 2000 ml Balance -1040 ml Result Diagram: 10/20/17 0354 10/20/17 0354 Other Results Microbiology Date/Time Source Procedure Growth Status 10/18/17 21:00 Nasal Washing Influenza Types A,B Antigen (RODERICK) - Final Positive For Flu A Antigen Complete Imaging Last 24 hours Impressions Chest X-Ray 10/18/172100 Signed Impressions: Service Date/Time: Wednesday, October 18, 2017 21:06 - CONCLUSION: 1. Cardiomegaly with mild edema pattern and bilateral effusions most characteristic of congestive heart failure. Yony Driscoll MD Objective Remarks General - elderly gentleman, obese, awake, in no distress HEENT - pupils equal, reactive, sclerae anicteric, neck supple, no nuchal rigidity, neck veins not distended, no carotid bruit, MMM CV - regular S1, S2, no murmurs, distant Chest - clear b/l, good air entry, no wheezes Abdomen - soft, non-tender, obese, BS present Skin - no rashes, no cyanosis Extremities - warm and well perfused, no edema, + peripheral pulses, no clubbing Neuro -awake, alert, oriented 3, moves all extremities, intact A/P Assessment and Plan Respiratory failure - Acute COPD exacerbation -much improved - Probable RADHA/OHS - Taper IV steroid - Bronchodilators - Symbicort - BiPAP at night - Supplemental O2 to keep SPO2 between 88 and 92% - Pulmonary consult CHF -does not seem to be acutely exacerbated - Continue metoprolol - Hold diuretics due to acute kidney injury and worsening renal function Acute kidney injury and hyperkalemia -improved, creatinine trending down, potassium still elevated but better - Off Bactrim and off diuretics - Gentle hydration - Monitor urine output - Appreciate nephrology consultation Influenza - Tamiflu twice a day 5 days Hypertension - Norvasc - Metoprolol Diabetes mellitus - Insulin sliding scale - Levemir Hypothyroidism - Levothyroxine DVT GI prophylaxis - Teds SCDs - Subcutaneous heparin - Pepcid We will ask hospitalist team to take over the medical management. Please call back with any questions or if additional help is needed. Thank you Karel Zavala MD Oct 20, 2017 09:42
[2017-10-20] MEDS: LORazepam 0.5 MG TAB PO PRN (10:09)
--- NOTE | 2017-10-20 11:01 | HHI.NPPN ---
Subjective Renal Failure: Acute Interval History Sitting on edge of bed. Renal function and potassium have improved. (Lissett Contreras) Review of Systems Respiratory Lungs: SOB (Lissett Contreras) Objective Data Data Vital Signs Date Time Temp Pulse Resp B/P (MAP) Pulse Ox O2 Delivery O2 Flow Rate FiO2 10/20/17 10:00 85 10/20/17 08:32 92 Nasal Cannula 5.00 10/20/17 08:00 85 10/20/17 08:00 94 Nasal Cannula 5.00 10/20/17 08:00 86 10/20/17 06:00 98 10/20/17 04:00 84 10/20/17 04:00 98.2 84 33 140/65 (90) 90 10/20/17 02:00 82 10/20/17 00:00 88 10/20/17 00:00 98.0 88 31 159/68 (98) 87 10/19/17 22:00 76 10/19/17 20:00 76 10/19/17 20:00 98.5 76 24 119/57 (77) 92 10/19/17 19:00 94 Nasal Cannula 5.00 10/19/17 18:00 74 10/19/17 16:00 81 10/19/17 16:00 98.7 78 26 97/46 (63) 90 10/19/17 15:00 86 10/19/17 14:00 84 10/19/17 12:00 97.9 96 24 158/72 (100) 96 10/19/17 12:00 85 (Lissett Contreras) -: 10/20/17 0354 10/20/17 0354 Imaging Last 72 hours Impressions Chest X-Ray 10/20/17 0000 Signed Impressions: Service Date/Time: Friday, October 20, 2017 04:45 - CONCLUSION: Increasing bilateral lower lung infiltrates. Ravi Johnson MD Renal Ultrasound 10/19/17 0000 Signed Impressions: Service Date/Time: Thursday, October 19, 2017 11:52 - CONCLUSION: Unremarkable bilateral renal ultrasound. Hermelindo Arthur MD Chest X-Ray 10/18/172100 Signed Impressions: Service Date/Time: Wednesday, October 18, 2017 21:06 - CONCLUSION: 1. Cardiomegaly with mild edema pattern and bilateral effusions most characteristic of congestive heart failure. Yony Dricsoll MD Tubes & Lines: Cee (Enrique Contrerason B. FLAME CUTTING MACHINE OPERATOR HELPER) Physical Exam General Appearance: Well Developed, Comfortable, Obese (Ben,Lissett B. FLAME CUTTING MACHINE OPERATOR HELPER) Throat Throat Exam: Oral Mucosa Ida & Moist (Ben,Lissett B. FLAME CUTTING MACHINE OPERATOR HELPER) Pulmonary Resp Exam: Breath Sounds Equal, Rhonchi, Decreased Bases, Labored (Ben,Lissett B. FLAME CUTTING MACHINE OPERATOR HELPER) Cardiology CV Exam: Regular, Normal Sinus Rhythm (Ben,Lissett B. FLAME CUTTING MACHINE OPERATOR HELPER) Gastrointestinal/Abdomen GI Exam: Non-Tender, Bowel Sounds Present (Ben,Lissett B. FLAME CUTTING MACHINE OPERATOR HELPER) Musculoskeletal MS Exam: Normal Gait, Normal Tone (BenLissett B. FLAME CUTTING MACHINE OPERATOR HELPER) Integumentary Skin Exam: Warm, Dry, Intact (Ben,Lissett B. FLAME CUTTING MACHINE OPERATOR HELPER) Extremeties Extremities Exam: No Edema, Pedal Pulses Palpable (BenLissett B. FLAME CUTTING MACHINE OPERATOR HELPER) Neurologic Neuro Exam: Alert, Awake, Oriented, Speech Clear, Moving All Extremities (Ben,Lissett B. FLAME CUTTING MACHINE OPERATOR HELPER) Psychiatric Psych Exam: Appropriate Responses (BenLissett B. FLAME CUTTING MACHINE OPERATOR HELPER) Assessment/Plan Discussed Condition With: Patient Problem List: (1) Acute renal failure ICD Codes: N17.9 - Acute kidney failure, unspecified Status: Acute Plan: Normal renal function at baseline VICKIE most likely due to overdiuresis, diuretics on hold Renal US was normal On IVF, reduce to 50 cc/hr Monitor output, has cee. Wait one more day before attempting voiding trial. Obtain UA Renal function is improving, expect continued improvement Avoid nephrotoxic agents Repeat labs in AM (2) Hyperkalemia ICD Codes: E87.5 - Hyperkalemia Status: Acute Plan: Due to reduction in GFR, KCL supplements, and Bactrim use Improved, continue to monitor (3) Shortness of breath ICD Codes: R06.02 - Shortness of breath Status: Acute Plan: continue oxygen therapy nebs as needed On Tamiflu (Ben,Lissett B. FLAME CUTTING MACHINE OPERATOR HELPER) Plan patient was seen and examined. Renal function has improved. Taper off fluids. Cee can be removed in 24 hours. (Lee Palomino MD) Problem Qualifiers (1) Acute renal failure: Qualified Codes: N17.9 - Acute kidney failure, unspecified Lissett Contreras Oct 20, 2017 11:01 Lee Palomino MD Oct 20, 2017 20:56
[2017-10-20] MEDS: GABAPENTIN 300 MG CAP PO SCH (20:56)
[2017-10-20] MEDS: TAMSULOSIN HCL 0.4 MG CAP PO SCH (20:56)
[2017-10-20] MEDS: ATORVASTATIN 20 MG TAB PO SCH (20:57)
[2017-10-21] VITALS (10 sets, daily range): BP systolic 143–157; BP diastolic 60–74; PULSE 70–92; RESP 18–30; TEMP 97.5–98.4; O2SAT 90–96
[2017-10-21] MEDS: methylPREDNISolone SOD SUCC 40 MG/1 ML VIAL IV PUSH SCH ×3 (00:12→12:13)
[2017-10-21] MEDS: HEPARIN SODIUM - SQ 10,000 UNITS/ML VIAL SQ SCH ×3 (00:12→17:59)
[2017-10-21] MEDS: ACETAMINOPHEN 325 MG TAB PO PRN ×2 (00:43→21:30)
[2017-10-21] MEDS: LORazepam 0.5 MG TAB PO PRN ×2 (00:43→20:25)
[2017-10-21] MEDS: RESP: ALBUTEROL 2.5 MG/IPRATROPIUM 0.5 MG NEB (SCH) INH ×5 (03:10→20:20)
[2017-10-21] MEDS: CHLORHEXIDINE GLUCONATE 2 % 1 PACK (2 CLOTHS) TOP SCH (04:00)
[2017-10-21] MEDS: LEVOTHYROXINE SODIUM 150 MCG TAB PO SCH (05:32)
[2017-10-21 06:28] LABS: AUTOMATED NEUTROPHIL # 5.7 TH/MM3 (1.8-7.7); BASOPHIL % 0.2 % (0.0-2.0); EOSINOPHIL % 0.1 % (0.0-4.0); HEMATOCRIT 32.2 % (39.0-51.0); HEMOGLOBIN 10.3 GM/DL (13.0-17.0); LYMPH % 6.5 % (9.0-44.0); LYMPHOCYTE # 0.4 TH/MM3 (1.0-4.8); MEAN CELL VOLUME 94.7 FL (80.0-100.0); MEAN CORPUSCULAR HEMOGLOBIN 30.4 PG (27.0-34.0); MEAN CORPUSCULAR HGB CONC 32.1 % (32.0-36.0); MEAN PLATELET VOLUME 9.9 FL (7.0-11.0); MONO % 3.7 % (0.0-8.0); MONOCYTE # 0.2 TH/MM3 (0-0.9); NEUT % 89.5 % (16.0-70.0); PLATELET COUNT 159 TH/MM3 (150-450); RED CELL DISTRIBUTION WIDTH 14.9 % (11.6-17.2); WHITE BLOOD COUNT 6.3 TH/MM3 (4.0-11.0)
[2017-10-21 06:44] LABS: ALBUMIN 3.1 GM/DL (3.4-5.0); ALKALINE PHOSPHATASE 31 U/L (45-117); ALT (GPT) 18 U/L (12-78); AST (GOT) 13 U/L (15-37); BICARBONATE 25.4 MEQ/L (21.0-32.0); BLOOD UREA NITROGEN 62 MG/DL (7-18); CALCIUM 8.6 MG/DL (8.5-10.1); CHLORIDE 101 MEQ/L (98-107); CREATININE 1.47 MG/DL (0.60-1.30); GLOMERULAR FILTRATION RATE 47 ML/MIN (>89); GLUCOSE,RANDOM 320 MG/DL (74-106); MAGNESIUM 2.4 MG/DL (1.5-2.5); PHOSPHORUS 2.5 MG/DL (2.5-4.9); SODIUM (NA) 134 MEQ/L (136-145); TOTAL BILIRUBIN ADULT 0.2 MG/DL (0.2-1.0); TOTAL PROTEIN 6.9 GM/DL (6.4-8.2)
[2017-10-21] MEDS: METOPROLOL TARTRATE 50 MG TAB PO SCH ×3 (08:14→17:59)
[2017-10-21] MEDS: FAMOTIDINE 20 MG/2 ML VIAL IV PUSH SCH (08:14)
[2017-10-21] MEDS: DOXAZOSIN MESYLATE 4 MG TAB PO SCH (08:14)
[2017-10-21] MEDS: LACTOBACILLUS ACIDOPHILUS TAB PO SCH ×3 (08:14→17:59)
[2017-10-21] MEDS: OSELTAMIVIR PHOSPHATE 75 MG CAP PO SCH ×2 (08:14→22:41)
[2017-10-21] MEDS: DOCUSATE SODIUM 50 MG/SENNA 8.6 MG TAB PO SCH ×2 (08:14→20:24)
[2017-10-21] MEDS: CHOLECALCIFEROL (VIT D3) 1000 UNIT TAB PO SCH ×2 (08:14→20:25)
[2017-10-21] MEDS: MAGNESIUM OXIDE 400 MG TAB PO SCH (08:14)
[2017-10-21] MEDS: ASPIRIN EC 81 MG TABEC PO SCH (08:15)
[2017-10-21] MEDS: BUDESONIDE-FORMOTEROL 80/4.5 MCG INHALER INH SCH ×2 (08:15→21:30)
[2017-10-21] MEDS: SODIUM CHLORIDE 0.9% FLUSH 10 ML FLUSH IV FLUSH SCH ×2 (08:15→21:00)
[2017-10-21] MEDS: INSULIN ASPART SUPPLEMENTAL SCALE SQ SCH ×4 (08:15→21:32)
[2017-10-21] MEDS: INSULIN DETEMIR 100 UNITS/ML VIAL SQ SCH ×2 (08:15→21:31)
[2017-10-21] MEDS ORDERED: INSULIN HUMAN REGULAR 1,000 UNITS/10 ML VIAL IV PUSH ONE (09:00)
[2017-10-21] MEDS ORDERED: DEXTROSE 50% IN WATER 50 ML VIAL(D50) IV PUSH ONE (09:00)
[2017-10-21] MEDS: SODIUM CHLOR 0.9% 1000 ML INJ 1,000 ML IV SCH (09:24)
[2017-10-21 10:20] LABS: BACTERIA, URINE RARE /hpf; BILIRUBIN, URINE NEG (NEG); BLOOD, URINE SMALL (NEG); GLUCOSE,URINE 1000 mg/dL (NEG); KETONE, URINE NEG (NEG); NITRITE,URINE NEG (NEG); URINE COLOR LIGHT-YELLOW (YELLW/STRAW); URINE LEUKOCYTE ESTERASE NEG (NEG)
--- NOTE | 2017-10-21 11:35 | PD.CONS ---
History of Present Illness Consult Requested By Primary Care Physician Adri Hudson MD Diagnoses: Past Family Social History Allergies: Coded Allergies: No Known Allergies (Unverified Allergy, Unknown, 10/09/17) Physical Exam Vital Signs Vital Signs Date Time Temp Pulse Resp B/P (MAP) Pulse Ox O2 Delivery O2 Flow Rate FiO2 10/21/17 08:00 98.4 92 30 155/66 (95) 96 10/21/17 08:00 92 10/21/17 07:42 93 Nasal Cannula 5.00 10/21/17 07:00 93 Nasal Cannula 5.00 10/21/17 04:00 76 10/21/17 04:00 98.2 76 22 143/65 (91) 93 10/21/17 03:27 94 Nasal Cannula 6.00 10/21/17 00:00 78 10/21/17 00:00 97.9 78 22 154/67 (96) 92 10/20/17 21:00 Nasal Cannula 5.00 10/20/17 20:10 94 50 10/20/17 20:00 94 Bi-Pap 10/20/17 20:00 98.0 89 19 149/95 (113) 94 10/20/17 20:00 89 10/20/17 18:00 86 10/20/17 16:00 97.8 85 24 142/68 (92) 93 10/20/17 16:00 84 10/20/17 14:00 76 10/20/17 12:00 82 10/20/17 12:00 98.3 84 25 135/66 (89) 91 Physical Exam GENERAL: This is a well-nourished, well-developed patient, in no apparent distress. SKIN: No rashes, ecchymoses or lesions. Cool and dry. HEAD: Atraumatic. Normocephalic. No temporal or scalp tenderness. EYES: Pupils equal round and reactive. Extraocular motions intact. No scleral icterus. No injection or drainage. ENT: Nose without bleeding, purulent drainage or septal hematoma. Throat without erythema, tonsillar hypertrophy or exudate. Uvula midline. Airway patent. NECK: Trachea midline. No JVD or lymphadenopathy. Supple, nontender, no meningeal signs. CARDIOVASCULAR: Regular rate and rhythm without murmurs, gallops, or rubs. RESPIRATORY: Clear to auscultation. Breath sounds equal bilaterally. No wheezes , rales, or rhonchi. GASTROINTESTINAL: Abdomen soft, non-tender, nondistended. No hepato-splenomegaly , or palpable masses. No guarding. MUSCULOSKELETAL: Extremities without clubbing, cyanosis, or edema. No joint tenderness, effusion, or edema noted. No calf tenderness. Negative Homans sign bilaterally. NEUROLOGICAL: Awake and alert. Cranial nerves II through XII intact. Motor and sensory grossly within normal limits. Five out of 5 muscle strength in all muscle groups. Normal speech. Laboratory Laboratory Tests Test 10/21/17 05:33 10/21/17 09:50 White Blood Count 6.3 Red Blood Count 3.40 Hemoglobin 10.3 Hematocrit 32.2 Mean Corpuscular Volume 94.7 Mean Corpuscular Hemoglobin 30.4 Mean Corpuscular Hemoglobin Concent 32.1 Red Cell Distribution Width 14.9 Platelet Count 159 Mean Platelet Volume 9.9 Neutrophils (%) (Auto) 89.5 Lymphocytes (%) (Auto) 6.5 Monocytes (%) (Auto) 3.7 Eosinophils (%) (Auto) 0.1 Basophils (%) (Auto) 0.2 Neutrophils # (Auto) 5.7 Lymphocytes # (Auto) 0.4 Monocytes # (Auto) 0.2 Eosinophils # (Auto) 0.0 Basophils # (Auto) 0.0 CBC Comment AUTO DIFF Differential Comment AUTO DIFF CONFIRMED Blood Urea Nitrogen 62 Creatinine 1.47 Random Glucose 320 Total Protein 6.9 Albumin 3.1 Calcium Level 8.6 Phosphorus Level 2.5 Magnesium Level 2.4 Alkaline Phosphatase 31 Aspartate Amino Transf (AST/SGOT) 13 Alanine Aminotransferase (ALT/SGPT) 18 Total Bilirubin 0.2 Sodium Level 134 Potassium Level 6.0 Chloride Level 101 Carbon Dioxide Level 25.4 Anion Gap 8 Estimat Glomerular Filtration Rate 47 Urine Color LIGHT-YELLOW Urine Turbidity CLEAR Urine pH 6.0 Urine Specific [place] 1.017 Urine Protein NEG Urine Glucose (UA) 1000 Urine Ketones NEG Urine Occult Blood SMALL Urine Nitrite NEG Urine Bilirubin NEG Urine Urobilinogen LESS THAN 2.0 Urine Leukocyte Esterase NEG Urine RBC 7 Urine WBC 5 Urine Bacteria RARE Microscopic Urinalysis Comment CATH-CULTURE IND Date/Time Source Procedure Growth Status 10/18/17 21:00 Nasal Washing Influenza Types A,B Antigen (RODERICK) - Final Positive For Flu A Antigen Complete 10/21/17 09:50 Urine Catheterized Urine Urine Culture Pending Received Result Diagram: 10/21/17 0533 10/21/17 0533 Assessment and Plan Assessment and Plan The patient is a 72-year-old gentleman who is known to have history of congestive heart failure diabetes chemo shortness of breath. The patient is known to have history of morbid obesity. The patient started on treatment with BiPAP and he improved a lot he lost the BiPAP specially when he sleeps with it. The patient reported that he needs to see a viticulture teacher in [facility] because that is where he lives. Right now is not having any cough is not having any chest pain. He is being treated with diuretics. Past medical history positive for diabetes mellitus, hypertension, hyperlipidemia, carotid disease, COPD, congestive heart failure. Past surgical history about for umbilical hernia and coronary artery disease. Review of system done negative except was mentioned HPI. Physical exam Vital signs reviewed in detail stable vital signs at this point General appearance morbidly obese Neck trachea midline lungs decreased breath sounds with basilar crackles heart S1-S2 abdomen morbidly obese extremities positive edema Neurological again time she moves all extremities. All labs reviewed Imaging reviewed in details assessment and plan 1. Shortness of breath 2. CHF with exacerbation 3. COPD 4. Obstructive sleep apnea 5. Possible obesity hypoventilation syndrome I had a long discussion the patient and do believe he is improving I do recommend diuretics and optimization of his volume status. Since the patient wants a viticulture teacher in [facility] I decided to have him see Dr. elton daily he requested already because his primary care physician recommended to him. I do recommend noninvasive positive pressure ventilation with sleep and as needed. I will sign off at this point since Dr. conde showed be following him later on. I will sign off at this point. of note the consultation was done on 10/20/2017 Carroll Farrell MD Oct 21, 2017 11:35
--- NOTE | 2017-10-21 12:29 | HHI.NPPN ---
Subjective Renal Failure: Acute Interval History Renal function improved. He does however have worsening hyperkalemia, K 6.0 today. He reports a diet high in potassium past few days. Up in chair, on venti mask as he had some epistaxis related to oxygen via NC. (Lissett Contreras) Review of Systems Respiratory Lungs: SOB (Lissett Contreras) Cardiovascular Cardiac: Edema (Lissett Contreras) Objective Data Data Vital Signs Date Time Temp Pulse Resp B/P (MAP) Pulse Ox O2 Delivery O2 Flow Rate FiO2 10/21/17 08:00 98.4 92 30 155/66 (95) 96 10/21/17 08:00 92 10/21/17 07:42 93 Nasal Cannula 5.00 10/21/17 07:00 93 Nasal Cannula 5.00 10/21/17 04:00 76 10/21/17 04:00 98.2 76 22 143/65 (91) 93 10/21/17 03:27 94 Nasal Cannula 6.00 10/21/17 00:00 78 10/21/17 00:00 97.9 78 22 154/67 (96) 92 10/20/17 21:00 Nasal Cannula 5.00 10/20/17 20:10 94 50 10/20/17 20:00 94 Bi-Pap 10/20/17 20:00 98.0 89 19 149/95 (113) 94 10/20/17 20:00 89 10/20/17 18:00 86 10/20/17 16:00 97.8 85 24 142/68 (92) 93 10/20/17 16:00 84 10/20/17 14:00 76 (Lissett Contreras) -: 10/21/17 0533 10/21/17 0533 Microbiology 10/21/17 Urine Culture, Received Pending Imaging Last Impressions Chest X-Ray 10/20/17 0000 Signed Impressions: Service Date/Time: Friday, October 20, 2017 04:45 - CONCLUSION: Increasing bilateral lower lung infiltrates. Ravi Johnson MD Renal Ultrasound 10/19/17 0000 Signed Impressions: Service Date/Time: Thursday, October 19, 2017 11:52 - CONCLUSION: Unremarkable bilateral renal ultrasound. Hermelindo Arthur MD Tubes & Lines: Cee (Lissett Contreras) Physical Exam General Appearance: Well Developed, Well Nourished, Comfortable, Obese (Lissett Contreras) Ears & Nose Ears & Nose Exam: Nosebleed Ears & Nose Remarks minor epistaxis related to non humidified oxygen (Lissett ContrerasP) Throat Throat Exam: Oral Mucosa Laura & Moist (Lissett Contreras AURIST) Pulmonary Resp Exam: Breath Sounds Equal, Rhonchi, Decreased Bases, Labored (Lissett Contreras AURIST) Cardiology CV Exam: Regular, Normal Sinus Rhythm (Lissett Contreras) Gastrointestinal/Abdomen GI Exam: Non-Tender, Bowel Sounds Present, Distended GI Remarks firm abd, distended, normal BS (Lissett Contreras AURIST) Musculoskeletal MS Exam: Joints Intact, Normal Tone, Good Strength (Lissett Contreras) Integumentary Skin Exam: Clear, Warm, Dry, Intact (Lissett Contreras) Extremeties Extremities Exam: No Edema, Pedal Pulses Palpable (Lissett Contreras) Neurologic Neuro Exam: Alert, Awake, Oriented, Speech Clear, Moving All Extremities (Lissett Contreras) Psychiatric Psych Exam: Appropriate Responses (Lissett Contreras) Assessment/Plan Discussed Condition With: Patient Assessment Summary: VICKIE/Acute Renal Failure Electrolyte Assessment: Hyperkalemia Problem List: (1) Acute renal failure ICD Codes: N17.9 - Acute kidney failure, unspecified Status: Acute Plan: Normal renal function at baseline VICKIE most likely due to overdiuresis, diuretics on hold Renal US was normal Renal function is improving, expect continued improvement Stop IVF Treat hyperkalemia per below Non oliguric. cee removal today with voiding trial. UA with glucosuria otherwise unremarkable Avoid nephrotoxic agents Repeat labs in AM (2) Hyperkalemia ICD Codes: E87.5 - Hyperkalemia Status: Acute Plan: Initially due to reduction in GFR, KCL supplements, and Bactrim use Had improved, now most likely related to diet high in potassium Low K diet discussed Ordered IV insulin and dextrose. Repeat labs. (3) Shortness of breath ICD Codes: R06.02 - Shortness of breath Status: Acute Plan: continue oxygen therapy nebs as needed On Tamiflu (Lissett Contreras) Plan patient was seen and examined. Renal function has improved, but he has hyperkalemia. Hyperkalemia is most likely secondary to respiratory acidosis and extracellular shift of potassium. Patient has been advised to follow a potassium restricted diet. Insulin and dextrose ordered. He needs CPAP or BiPAP. (Lee Palomino MD) Problem Qualifiers (1) Acute renal failure: Qualified Codes: N17.9 - Acute kidney failure, unspecified Lisestt Contreras Oct 21, 2017 12:29 Lee Palomino MD Oct 21, 2017 15:37
--- NOTE | 2017-10-21 14:41 | HHI.PR ---
Subjective Remarks Follow up for dyspnea, COPD, CHF, probable RADHA. Patient is currently sitting in his chair, on nasal cannula. No fever, chills. No chest pain. He reports some shortness of breath especially with any movements. Objective Vitals Vital Signs Date Time Temp Pulse Resp B/P (MAP) Pulse Ox O2 Delivery O2 Flow Rate FiO2 10/21/17 12:00 76 10/21/17 12:00 98.1 76 30 157/74 (101) 90 10/21/17 08:00 98.4 92 30 155/66 (95) 96 10/21/17 08:00 92 10/21/17 07:42 93 Nasal Cannula 5.00 10/21/17 07:00 93 Nasal Cannula 5.00 10/21/17 04:00 76 10/21/17 04:00 98.2 76 22 143/65 (91) 93 10/21/17 03:27 94 Nasal Cannula 6.00 10/21/17 00:00 78 10/21/17 00:00 97.9 78 22 154/67 (96) 92 10/20/17 21:00 Nasal Cannula 5.00 10/20/17 20:10 94 50 10/20/17 20:00 94 Bi-Pap 10/20/17 20:00 98.0 89 19 149/95 (113) 94 10/20/17 20:00 89 10/20/17 18:00 86 10/20/17 16:00 97.8 85 24 142/68 (92) 93 10/20/17 16:00 84 I/O 10/20/17 10/20/17 10/20/17 10/21/17 10/21/17 10/21/17 07:00 15:00 23:00 07:00 15:00 23:00 Intake Total 960 ml 620 ml 600 ml Output Total 2000 ml 2350 ml 2200 ml Balance -1040 ml -1730 ml -1600 ml Intake Oral 960 ml 620 ml 600 ml Output Urine Total 2000 ml 2350 ml 2200 ml # Bowel Movements 0 1 1 Result Diagram: 10/21/17 0533 10/21/17 0533 Imaging Last Impressions Chest X-Ray 10/20/17 0000 Signed Impressions: Service Date/Time: Friday, October 20, 2017 04:45 - CONCLUSION: Increasing bilateral lower lung infiltrates. Ravi Johnson MD Renal Ultrasound 10/19/17 0000 Signed Impressions: Service Date/Time: Thursday, October 19, 2017 11:52 - CONCLUSION: Unremarkable bilateral renal ultrasound. Hermelindo Arthur MD Objective Remarks GENERAL: Alert, Oriented x 3, NAD. Mild difficulty in speaking in full sentences. Morbidly obese. SKIN: Warm and dry. HEAD: Normocephalic. EYES: No scleral icterus. No injection or drainage. NECK: Supple, trachea midline. No JVD or lymphadenopathy. CARDIOVASCULAR: Regular rate and rhythm without murmurs, gallops, or rubs. RESPIRATORY: Poor air entry, no appreciable wheezing. No accessory muscle use. GASTROINTESTINAL: Abdomen soft, non-tender, nondistended. MUSCULOSKELETAL: No cyanosis, or edema. BACK: Nontender without obvious deformity. No CVA tenderness. Procedures Echo 10/19/2017 The left ventricular systolic function is normal with an estimated ejection fraction in the range of 60-65%. Normal left ventricular size. Mild concentric left ventricular hypertrophy. No regional wall motion abnormalities are present. A/P Assessment and Plan 72-year-old male with history of CHF, hypertension, hypo-thyroidism, diabetes, presented with complaints of shortness of breath on 10/19/2017. He was initially seen in [place]. However, he was transferred to the [facility] hospital due to need for BiPAP. He remained under the care of [facility] team. - Acute respiratory failure with hypoxia and hypercapnia (O2 sat was 81 initially, PCO2 was 62). - Acute COPD exacerbation - Probable Obesity hypoventilation syndrome - Probable Obstructive sleep apnea - Continue DuoNeb treatments, Symbicort, supplemental O2 to keep O2 sat > 90% . - Will give Spiriva upon discharge. - Will need pulmonary follow up. Patient wants to follow up with Dr. Barton. - May need an outpatient sleep study and CPAP. - Start Levaquin 750mg Q48hrs. - D/C Solu-medrol and start Prednisone 20mg BID. - Influenza - continue Tamiflu. - Diabetes mellitus - Hypothyroidism - Continue Levemir 50 units BID, sliding scale insulin and add pre-meal insulin. - Continue Levothyroxine. - Hypertension - continue Amlodipine 10mg Qday, Metoprolol 50mg TID. Full code. Heparin SQ. Jese Yeung DO Oct 21, 2017 14:41
[2017-10-21] MEDS ORDERED: LEVOFLOXACIN 750 MG TAB PO SCH (18:00)
[2017-10-21] MEDS: INSULIN ASPART 1,000 UNITS/10 ML VIAL SQ SCH (18:00)
[2017-10-21] MEDS: predniSONE 20 MG TAB PO SCH (20:24)
[2017-10-21] MEDS: ATORVASTATIN 20 MG TAB PO SCH (20:24)
[2017-10-21] MEDS: TAMSULOSIN HCL 0.4 MG CAP PO SCH (20:25)
[2017-10-21] MEDS: GABAPENTIN 300 MG CAP PO SCH (20:25)
[2017-10-22] VITALS (11 sets, daily range): BP systolic 139–167; BP diastolic 59–88; PULSE 66–90; RESP 18–22; TEMP 97.5–98.6; O2SAT 93–97
[2017-10-22] MEDS: RESP: ALBUTEROL 2.5 MG/IPRATROPIUM 0.5 MG NEB (SCH) INH ×7 (00:06→23:40)
[2017-10-22] MEDS: CHLORHEXIDINE GLUCONATE 2 % 1 PACK (2 CLOTHS) TOP SCH (01:47)
[2017-10-22] MEDS: HEPARIN SODIUM - SQ 10,000 UNITS/ML VIAL SQ SCH ×3 (01:47→16:40)
[2017-10-22] MEDS: LEVOTHYROXINE SODIUM 150 MCG TAB PO SCH (05:31)
[2017-10-22 07:51] LABS: ALBUMIN 3.5 GM/DL (3.4-5.0); BICARBONATE 31.1 MEQ/L (21.0-32.0); CALCIUM 9.7 MG/DL (8.5-10.1); CREATININE 1.12 MG/DL (0.60-1.30); PHOSPHORUS 2.3 MG/DL (2.5-4.9)
[2017-10-22] MEDS: DOCUSATE SODIUM 50 MG/SENNA 8.6 MG TAB PO SCH ×2 (09:04→21:33)
[2017-10-22] MEDS: DOXAZOSIN MESYLATE 4 MG TAB PO SCH (09:04)
[2017-10-22] MEDS: OSELTAMIVIR PHOSPHATE 75 MG CAP PO SCH ×2 (09:04→21:34)
[2017-10-22] MEDS: MAGNESIUM OXIDE 400 MG TAB PO SCH (09:05)
[2017-10-22] MEDS: LACTOBACILLUS ACIDOPHILUS TAB PO SCH ×3 (09:05→16:40)
[2017-10-22] MEDS: METOPROLOL TARTRATE 50 MG TAB PO SCH ×3 (09:05→16:40)
[2017-10-22] MEDS: predniSONE 20 MG TAB PO SCH ×2 (09:05→21:34)
[2017-10-22] MEDS: CHOLECALCIFEROL (VIT D3) 1000 UNIT TAB PO SCH ×2 (09:05→21:33)
[2017-10-22] MEDS: FAMOTIDINE 20 MG/2 ML VIAL IV PUSH SCH (09:06)
[2017-10-22] MEDS: SODIUM CHLORIDE 0.9% FLUSH 10 ML FLUSH IV FLUSH SCH ×2 (09:06→21:34)
[2017-10-22] MEDS: BUDESONIDE-FORMOTEROL 80/4.5 MCG INHALER INH SCH ×2 (09:06→21:34)
[2017-10-22] MEDS: ASPIRIN EC 81 MG TABEC PO SCH (09:07)
[2017-10-22] MEDS: INSULIN ASPART SUPPLEMENTAL SCALE SQ SCH ×4 (09:08→21:35)
[2017-10-22] MEDS: LORATADINE 10 MG TAB PO SCH (09:08)
[2017-10-22] MEDS: INSULIN ASPART 1,000 UNITS/10 ML VIAL SQ SCH ×3 (09:08→16:39)
[2017-10-22] MEDS: INSULIN DETEMIR 100 UNITS/ML VIAL SQ SCH ×3 (09:09→21:35)
[2017-10-22] MEDS ORDERED: FUROSEMIDE 40 MG/4 ML VIAL IV PUSH ONE (09:15)
[2017-10-22] MEDS: LORazepam 0.5 MG TAB PO PRN ×2 (09:17→21:34)
[2017-10-22] MEDS ORDERED: SODIUM POLYSTYRENE SULFONATE SUSP 15 GM/60 ML CUP PO ONE (09:30)
--- NOTE | 2017-10-22 10:22 | HHI.PR ---
Subjective Remarks Follow up for dyspnea, COPD, CHF, probable RADHA. Patient is currently doing well. Sitting at the side of his bed. No fever or chills. He does not feel like he is at his baseline. He is currently on nasal cannula oxygen 5 L. Objective Vitals Vital Signs Date Time Temp Pulse Resp B/P (MAP) Pulse Ox O2 Delivery O2 Flow Rate FiO2 10/22/17 08:55 96 Nasal Cannula 4.00 10/22/17 05:21 97.8 79 18 139/63 (88) 96 10/22/17 03:48 96 50 10/22/17 01:14 98.6 80 18 156/88 (110) 97 10/22/17 00:00 97 50 10/21/17 21:34 97.5 75 18 152/68 (96) 95 10/21/17 20:20 91 Nasal Cannula 6.00 10/21/17 19:30 91 Nasal Cannula 5.00 10/21/17 18:31 98.2 81 20 154/60 (91) 92 10/21/17 16:00 98.2 92 28 153/66 (95) 92 10/21/17 16:00 70 10/21/17 12:00 76 10/21/17 12:00 98.1 76 30 157/74 (101) 90 I/O 10/21/17 10/21/17 10/21/17 10/22/17 10/22/17 10/22/17 07:00 15:00 23:00 07:00 15:00 23:00 Intake Total 600 ml Output Total 2200 ml 450 ml 1150 ml 750 ml Balance -1600 ml -450 ml -1150 ml -750 ml Intake Oral 600 ml Output Urine Total 2200 ml 450 ml 1150 ml 750 ml # Voids 2 # Bowel Movements 1 Result Diagram: 10/21/17 0533 10/22/17 0553 Imaging Last Impressions Chest X-Ray 10/20/17 0000 Signed Impressions: Service Date/Time: Friday, October 20, 2017 04:45 - CONCLUSION: Increasing bilateral lower lung infiltrates. Ravi Johnson MD Renal Ultrasound 10/19/17 0000 Signed Impressions: Service Date/Time: Thursday, October 19, 2017 11:52 - CONCLUSION: Unremarkable bilateral renal ultrasound. Hermelindo Arthur MD Objective Remarks GENERAL: Alert, Oriented x 3, NAD. Mild difficulty in speaking in full sentences. Morbidly obese. SKIN: Warm and dry. HEAD: Normocephalic. EYES: No scleral icterus. No injection or drainage. NECK: Supple, trachea midline. No JVD or lymphadenopathy. CARDIOVASCULAR: Regular rate and rhythm without murmurs, gallops, or rubs. RESPIRATORY: Poor air entry, no appreciable wheezing. No accessory muscle use. GASTROINTESTINAL: Abdomen soft, non-tender, nondistended. MUSCULOSKELETAL: No cyanosis, or edema. BACK: Nontender without obvious deformity. No CVA tenderness. Procedures Echo 10/19/2017 The left ventricular systolic function is normal with an estimated ejection fraction in the range of 60-65%. Normal left ventricular size. Mild concentric left ventricular hypertrophy. No regional wall motion abnormalities are present. A/P Problem List: (1) Acute respiratory failure with hypoxia and hypercapnia ICD Code: J96.01 - Acute respiratory failure with hypoxia; J96.02 - Acute respiratory failure with hypercapnia (2) COPD with acute exacerbation ICD Code: J44.1 - Chronic obstructive pulmonary disease with (acute) exacerbation (3) VICKIE (acute kidney injury) ICD Code: N17.9 - Acute kidney failure, unspecified (4) Hyperkalemia ICD Code: E87.5 - Hyperkalemia Status: Acute Assessment and Plan 72-year-old male with history of CHF, hypertension, hypo-thyroidism, diabetes, presented with complaints of shortness of breath on 10/19/2017. He was initially seen in [place]. However, he was transferred to the Main hospital due to need for BiPAP. He remained under the care of [facility] team. - Acute respiratory failure with hypoxia and hypercapnia (O2 sat was 81 initially, PCO2 was 62). - Acute COPD exacerbation - Probable Obesity hypoventilation syndrome - Probable Obstructive sleep apnea - Continue DuoNeb treatments, Symbicort, supplemental O2 to keep O2 sat > 90% . - Will give Spiriva upon discharge. - Patient wants to follow up with Dr. Barton. Will consult Dr. Barton. - May need an outpatient sleep study and CPAP. - Levaquin 750mg Q48hrs. - Prednisone 20mg BID. - Acute kidney injury - Hyperkalemia - Creatinine continues to improve. 3.40 on admission to 1.12 on 10/22/2017. - K+ improved from 6.0 --> 5.7. - Will give Kayexalate 30 mg once and then 50 mg twice daily for 1 day. - Nephrology is following. - Influenza - continue Tamiflu. - Diabetes mellitus - Hypothyroidism - Continue Levemir 50 units BID, sliding scale insulin and add pre-meal insulin. - Continue Levothyroxine. - Blood glucose is improved but still higher than 200. Will increase pre- meal insulin from 6 to 8 units TIDAC. - Hypertension - continue Amlodipine 10mg Qday, Metoprolol 50mg TID. Full code. Heparin SQ. Jese Yeung DO Oct 22, 2017 10:22 am
[2017-10-22] MEDS ORDERED: TORSEMIDE 5 MG TAB PO ONE (10:30)
--- NOTE | 2017-10-22 12:47 | HHI.NPPN ---
Subjective Renal Failure: Acute Interval History Moved out of ICU. Renal function is better but he is again hyperkalemic. (Lissett Contreras) Review of Systems Respiratory Lungs: SOB (Lissett Contreras) Cardiovascular Cardiac: Edema (Lissett Contreras) Objective Data Data 10/22/17 10/23/17 19:00 07:00 Output Total 750 ml Balance -750 ml Output Urine Total 750 ml Vital Signs Date Time Temp Pulse Resp B/P (MAP) Pulse Ox O2 Delivery O2 Flow Rate FiO2 10/22/17 08:55 96 Nasal Cannula 4.00 10/22/17 08:00 97.5 90 22 167/84 (111) 94 10/22/17 05:21 97.8 79 18 139/63 (88) 96 10/22/17 03:48 96 50 10/22/17 01:14 98.6 80 18 156/88 (110) 97 10/22/17 00:00 97 50 10/21/17 21:34 97.5 75 18 152/68 (96) 95 10/21/17 20:20 91 Nasal Cannula 6.00 10/21/17 19:30 91 Nasal Cannula 5.00 10/21/17 18:31 98.2 81 20 154/60 (91) 92 10/21/17 16:00 98.2 92 28 153/66 (95) 92 10/21/17 16:00 70 (Lissett Contreras) -: 10/21/17 0533 10/22/17 0553 Imaging Last 72 hours Impressions Chest X-Ray 10/20/17 0000 Signed Impressions: Service Date/Time: Friday, October 20, 2017 04:45 - CONCLUSION: Increasing bilateral lower lung infiltrates. Rvai Johnson MD (Lissett Contreras) Physical Exam General Appearance: Well Developed, Well Nourished, Comfortable, Obese (Lissett Contreras) Ears & Nose Ears & Nose Exam: Nosebleed Ears & Nose Remarks minor epistaxis related to non humidified oxygen (Lissett Contreras) Throat Throat Exam: Oral Mucosa [place] & Moist (Lissett Contreras) Pulmonary Resp Exam: Breath Sounds Equal, Rhonchi, Decreased Bases, Diminished Breath Sounds, Labored (Lissett Contreras) Cardiology CV Exam: Regular, Normal Sinus Rhythm, Good Perfusion (Lissett Contreras) Gastrointestinal/Abdomen GI Exam: Non-Tender, Bowel Sounds Present, Distended GI Remarks morbidly obese, abd is firm, distended, normal BS (Lissett Contreras) Musculoskeletal MS Exam: Joints Intact, Normal Tone, Good Strength (Lissett Contreras) Integumentary Skin Exam: Clear, Warm, Dry, Intact (Lissett Contreras) Extremeties Extremities Exam: Pedal Pulses Palpable, Trace Edema (Lissett Contreras) Neurologic Neuro Exam: Alert, Awake, Oriented, Speech Clear, Moving All Extremities (Lissett Contreras) Psychiatric Psych Exam: Appropriate Responses (Lissett Contreras) Assessment/Plan Discussed Condition With: Patient Assessment Summary: VICKIE/Acute Renal Failure Electrolyte Assessment: Hyperkalemia Problem List: (1) Acute renal failure ICD Codes: N17.9 - Acute kidney failure, unspecified Status: Acute Plan: Normal renal function at baseline VICKIE most likely due to overdiuresis Renal function has improved, off IVF. Treat hyperkalemia per below Non oliguric. cee removed without difficulty voiding Avoid nephrotoxic agents Repeat labs in AM (2) Hyperkalemia ICD Codes: E87.5 - Hyperkalemia Status: Acute Plan: Initially due to reduction in GFR, KCL supplements, and Bactrim use Had improved, now most likely related to diet high in potassium and respiratory acidosis with extracellular shift of potassium Low K diet discussed Ordered IV insulin and dextrose. Repeat labs. Ordered Kayexalate BID x 4 doses. (3) Shortness of breath ICD Codes: R06.02 - Shortness of breath Status: Acute Plan: continue oxygen therapy nebs as needed On Tamiflu Has COPD with chronic CO2 retention, may need BiPap or CPAP (Lissett Contreras) Plan patient was seen and examined. Stop Kayexalate after 1 dose. Start Veltassa. Consider ABG. Most likely reason for hyperkalemia is respiratory acidosis and hypercapnia, with extracellular shift of potassium. (Lee Palomino MD) Problem Qualifiers (1) Acute renal failure: Qualified Codes: N17.9 - Acute kidney failure, unspecified Lissett Contreras Oct 22, 2017 12:47 Lee Palomino MD Oct 22, 2017 15:11
[2017-10-22] MEDS: PATIROMER CALCIUM SORBITEX 16.8 GM PKT PO SCH (16:53)
[2017-10-22] MEDS ORDERED: TORSEMIDE 5 MG TAB PO SCH (18:00)
[2017-10-22] MEDS ORDERED: SODIUM POLYSTYRENE SULFONATE SUSP 15 GM/60 ML CUP PO SCH (21:00)
[2017-10-22] MEDS: GABAPENTIN 300 MG CAP PO SCH (21:32)
[2017-10-22] MEDS: ATORVASTATIN 20 MG TAB PO SCH (21:33)
[2017-10-22] MEDS: ACETAMINOPHEN 325 MG TAB PO PRN (21:34)
[2017-10-22] MEDS: TAMSULOSIN HCL 0.4 MG CAP PO SCH (21:34)
[2017-10-23] VITALS: BP 166/70; PULSE 80; RESP 20; TEMP 97.7; O2SAT 93
[2017-10-23] MEDS: HEPARIN SODIUM - SQ 10,000 UNITS/ML VIAL SQ SCH ×2 (00:56→10:09)
[2017-10-23] MEDS: CHLORHEXIDINE GLUCONATE 2 % 1 PACK (2 CLOTHS) TOP SCH (04:00)
[2017-10-23 04:33] VITALS: BP 162/70; PULSE 84; RESP 20; TEMP 98.4; O2SAT 93
[2017-10-23] MEDS: RESP: ALBUTEROL 2.5 MG/IPRATROPIUM 0.5 MG NEB (SCH) INH ×4 (05:18→16:00)
[2017-10-23] MEDS: LEVOTHYROXINE SODIUM 150 MCG TAB PO SCH (05:33)
[2017-10-23 08:00] VITALS: BP 172/79; PULSE 81; RESP 16; TEMP 98.6; O2SAT 94
[2017-10-23 08:20] VITALS: O2SAT 94
[2017-10-23] MEDS: SODIUM CHLORIDE 0.9% FLUSH 10 ML FLUSH IV FLUSH SCH (09:00)
[2017-10-23] MEDS: BUDESONIDE-FORMOTEROL 80/4.5 MCG INHALER INH SCH (09:00)
[2017-10-23] MEDS: PATIROMER CALCIUM SORBITEX 16.8 GM PKT PO SCH (09:00)
[2017-10-23] MEDS: INSULIN DETEMIR 100 UNITS/ML VIAL SQ SCH (09:23)
[2017-10-23] MEDS: INSULIN ASPART 1,000 UNITS/10 ML VIAL SQ SCH ×2 (09:25→12:31)
[2017-10-23] MEDS: INSULIN ASPART SUPPLEMENTAL SCALE SQ SCH ×2 (09:25→12:31)
[2017-10-23] MEDS: LORazepam 0.5 MG TAB PO PRN (09:26)
[2017-10-23] MEDS: ACETAMINOPHEN 325 MG TAB PO PRN (09:26)
[2017-10-23] MEDS: MAGNESIUM OXIDE 400 MG TAB PO SCH (10:09)
[2017-10-23] MEDS: DOXAZOSIN MESYLATE 4 MG TAB PO SCH (10:09)
[2017-10-23] MEDS: LACTOBACILLUS ACIDOPHILUS TAB PO SCH (10:09)
[2017-10-23] MEDS: LORATADINE 10 MG TAB PO SCH (10:09)
[2017-10-23] MEDS: predniSONE 20 MG TAB PO SCH (10:10)
[2017-10-23] MEDS: DOCUSATE SODIUM 50 MG/SENNA 8.6 MG TAB PO SCH (10:10)
[2017-10-23] MEDS: CHOLECALCIFEROL (VIT D3) 1000 UNIT TAB PO SCH (10:10)
[2017-10-23] MEDS: ASPIRIN EC 81 MG TABEC PO SCH (10:10)
[2017-10-23] MEDS: METOPROLOL TARTRATE 50 MG TAB PO SCH ×2 (10:10→12:28)
[2017-10-23] MEDS: OSELTAMIVIR PHOSPHATE 75 MG CAP PO SCH (10:13)
[2017-10-23] MEDS: FAMOTIDINE 20 MG/2 ML VIAL IV PUSH SCH (10:24)
[2017-10-23] MEDS ORDERED: LISINOPRIL 10 MG TAB PO ONE (11:00)
[2017-10-23 12:00] VITALS: BP 147/65; PULSE 74; RESP 16; TEMP 97.5; O2SAT 94
[2017-10-23] MEDS ORDERED: SPIRCAP INH (12:33)
[2017-10-23] MEDS ORDERED: CLAR10CA3 PO (12:33)
[2017-10-23] MEDS ORDERED: PRED20 PO (12:34)
[2017-10-23] MEDS ORDERED: LEVA750T9 PO (12:35)
[2017-10-23] MEDS ORDERED: VENTAER INH (12:36)
[2017-10-23 14:04] LABS: BICARBONATE 32.1 MEQ/L (21.0-32.0); CALCIUM 9.6 MG/DL (8.5-10.1)
--- NOTE | 2017-10-23 15:02 | HHI.PR ---
Subjective Remarks 72 YOWM with COPD,CHF, likly RADHA On NC Feels much better Anxious to go home Has home 02 Objective Vital Signs Vital Signs Date Time Temp Pulse Resp B/P (MAP) Pulse Ox O2 Delivery O2 Flow Rate FiO2 10/23/17 12:00 97.5 74 16 147/65 (92) 94 10/23/17 08:00 98.6 81 16 172/79 (110) 94 10/23/17 04:33 98.4 84 20 162/70 (100) 93 10/23/17 00:59 Bi-Pap 10/23/17 00:00 97.7 80 20 166/70 (102) 93 10/22/17 23:40 94 50 10/22/17 20:20 95 Nasal Cannula 5.00 10/22/17 20:00 98.4 66 22 148/65 (92) 94 10/22/17 16:00 98.1 79 20 143/65 (91) 93 10/22/17 15:09 93 Nasal Cannula 3.00 I/O 10/22/17 10/22/17 10/22/17 10/23/17 10/23/17 10/23/17 07:00 15:00 23:00 07:00 15:00 23:00 Output Total 1150 ml 750 ml 800 ml 800 ml Balance -1150 ml -750 ml -800 ml -800 ml Output Urine Total 1150 ml 750 ml 800 ml 800 ml # Voids 2 # Bowel Movements 1 Result Diagram: 10/21/17 0533 10/23/17 1324 Objective Remarks GENERAL: Obese WM, NAD SKIN: Warm and dry. HEAD: Normocephalic. EYES: No scleral icterus. No injection or drainage. NECK: Supple, trachea midline. No JVD or lymphadenopathy. CARDIOVASCULAR: Regular rate and rhythm without murmurs, gallops, or rubs. RESPIRATORY: Breath sounds equal bilaterally. No accessory muscle use. GASTROINTESTINAL: Abdomen soft, non-tender, nondistended. MUSCULOSKELETAL: No cyanosis, ++ edema. BACK: Nontender without obvious deformity. No CVA tenderness. A/P Assessment and Plan IMPRESSION: COPD Exac CHF Obesity RADHA Likly PLAN: Aerosol nebs 02 3LNC PO Steroids PO ABX Will need Sleep study as out pt Will FU in office Gavin Barton MD Oct 23, 2017 15:02
[2017-10-23] MEDS ORDERED: LISI10TA3 PO (15:44)
--- NOTE | 2017-10-23 15:49 | HHI.DS ---
Discharge Summary Admission Date Oct 18, 2017 at 9:48 pm Discharge Date: Oct 23, 2017 Admitting Diagnosis Hypoxia, respiratory distress, acute renal failure, influenza A (1) Acute respiratory failure with hypoxia and hypercapnia ICD Code: J96.01 - Acute respiratory failure with hypoxia; J96.02 - Acute respiratory failure with hypercapnia (2) COPD with acute exacerbation ICD Code: J44.1 - Chronic obstructive pulmonary disease with (acute) exacerbation (3) VICKIE (acute kidney injury) ICD Code: N17.9 - Acute kidney failure, unspecified (4) Hyperkalemia ICD Code: E87.5 - Hyperkalemia Status: Acute Procedures Echo 10/19/2017 The left ventricular systolic function is normal with an estimated ejection fraction in the range of 60-65%. Normal left ventricular size. Mild concentric left ventricular hypertrophy. No regional wall motion abnormalities are present. Brief History - From Admission 72-year-old male with history of CHF, hypertension, hypo-thyroidism, diabetes, presents with complaints of shortness of breath. The patient was admitted on 05/19 and discharged on 10/12/17 for similar symptoms. He reports that his shortness of breath has progressively worsened since he was discharged. Shortness of breath is at rest. He is unable to exert himself because the shortness of breath. He has chest tightness as well. Nonproductive cough. He has not noted any fevers. He reports compliance with Lasix. Apparently during his last hospital admission he had a CT pulmonary angiogram that showed no PE with bilateral pleural effusions, right greater than left. Thoracentesis was attempted, however no fluid was able to be aspirated. It was thought that these effusions are loculated. Patient was also hyperkalemic with a potassium of 6 on last admission. He was initially seen in the emergency department at [facility] and was transferred to [facility] after treatment with BiPAP, aerosols, and some he fluids with significant improvement of symptoms. CBC/BMP: 10/21/17 0533 10/23/17 1324 Significant Findings Laboratory Tests Test 10/21/17 05:33 10/21/17 09:50 10/22/17 05:53 10/23/17 13:24 Red Blood Count 3.40 MIL/MM3 (4.50-5.90) Hemoglobin 10.3 GM/DL (13.0-17.0) Hematocrit 32.2 % (39.0-51.0) Neutrophils (%) (Auto) 89.5 % (16.0-70.0) Lymphocytes (%) (Auto) 6.5 % (9.0-44.0) Lymphocytes # (Auto) 0.4 TH/MM3 (1.0-4.8) Blood Urea Nitrogen 62 MG/DL (7-18) 49 MG/DL (7-18) 34 MG/DL (7-18) Creatinine 1.47 MG/DL (0.60-1.30) Random Glucose 320 MG/DL (74-106) 243 MG/DL (74-106) 289 MG/DL (74-106) Albumin 3.1 GM/DL (3.4-5.0) Alkaline Phosphatase 31 U/L (45-117) Aspartate Amino Transf (AST/SGOT) 13 U/L (15-37) Sodium Level 134 MEQ/L (136-145) 135 MEQ/L (136-145) Potassium Level 6.0 MEQ/L (3.5-5.1) 5.7 MEQ/L (3.5-5.1) Estimat Glomerular Filtration Rate 47 ML/MIN (>89) 64 ML/MIN (>89) 73 ML/MIN (>89) Urine Glucose (UA) 1000 mg/dL (NEG) Urine Occult Blood SMALL (NEG) Urine RBC 7 /hpf (0-3) Urine Bacteria RARE /hpf (NONE) Phosphorus Level 2.3 MG/DL (2.5-4.9) Chloride Level 95 MEQ/L (98-107) Carbon Dioxide Level 32.1 MEQ/L (21.0-32.0) Imaging Last Impressions Chest X-Ray 10/20/17 0000 Signed Impressions: Service Date/Time: Friday, October 20, 2017 04:45 - CONCLUSION: Increasing bilateral lower lung infiltrates. Ravi Johnson MD Renal Ultrasound 10/19/17 0000 Signed Impressions: Service Date/Time: Thursday, October 19, 2017 11:52 - CONCLUSION: Unremarkable bilateral renal ultrasound. Hermelindo Arthur MD PE at Discharge GENERAL: Alert, Oriented x 3, NAD. Mild difficulty in speaking in full sentences. Morbidly obese. SKIN: Warm and dry. HEAD: Normocephalic. EYES: No scleral icterus. No injection or drainage. NECK: Supple, trachea midline. No JVD or lymphadenopathy. CARDIOVASCULAR: Regular rate and rhythm without murmurs, gallops, or rubs. RESPIRATORY: Poor air entry, no appreciable wheezing. No accessory muscle use. GASTROINTESTINAL: Abdomen soft, non-tender, nondistended. MUSCULOSKELETAL: No cyanosis, or edema. BACK: Nontender without obvious deformity. No CVA tenderness. Pt update on day of discharge Patient is currently doing well. No acute concerns. No cough, fever, chills. Wants to go home today. Hospital Course 72-year-old male with history of CHF, hypertension, hypo-thyroidism, diabetes, presented with complaints of shortness of breath on 10/19/2017. He was initially seen in [place]. However, he was transferred to the [facility] hospital due to need for BiPAP. He remained under the care of [facility] team. - Acute respiratory failure with hypoxia and hypercapnia (O2 sat was 81 initially, PCO2 was 62). - Acute COPD exacerbation - Probable Obesity hypoventilation syndrome - Probable Obstructive sleep apnea - Continue DuoNeb treatments, Symbicort, supplemental O2 to keep O2 sat > 90% . - Will give Spiriva upon discharge. - Patient wants to follow up with Dr. Barton. Dr. Barton was consulted in- patient. - May need an outpatient sleep study and CPAP. - Levaquin 750mg Q48hrs. - Prednisone 20mg BID. - Acute kidney injury - Hyperkalemia - Creatinine continues to improve. 3.40 on admission to 1.12 on 10/22/2017. - K+ improved from 6.0 --> 5.7 --> 4.6 - Received Kayexalate 30 mg once and then 50 mg twice daily for 1 day. - Nephrology is following. - Influenza - continue Tamiflu. - Diabetes mellitus - Hypothyroidism - Continue Levemir 50 units BID, sliding scale insulin and add pre-meal insulin. - Continue Levothyroxine. - Blood glucose is improved but still higher than 200. Will increase pre- meal insulin from 6 to 8 units TIDAC. - Hypertension - continue Amlodipine 10mg Qday, Metoprolol 50mg TID. Full code. Heparin SQ. Pt Condition on Discharge: Good Discharge Disposition: Discharge Home Discharge Time: > 30 minutes Discharge Instructions DIET: Follow Instructions for: Diabetic Diet Activities you can perform: Regular-No Restrictions Follow up Referrals: PCP Follow-up - 1 Week Pulmonology - 10 Days with Gavin Barton MD New Orders: BASIC METABOLIC PROF New Medications: Albuterol 18 GM Inh (Ventolin Hfa 18 GM Inh) 90 Mcg/Act Aer 2 PUFF INH Q4-6H PRN for SHORTNESS OF BREATH, #1 INHALER 0 Refills Levofloxacin (Levaquin) 750 Mg Tablet 750 MG PO DAILY for Infection, #6 TAB 0 Refills Loratadine (Claritin) 10 Mg Cap 10 MG PO DAILY for Allergy Management, #30 CAP 4 Refills Prednisone (Prednisone) 20 Mg Tab 20 MG PO BID for Inflammation, #6 TAB 0 Refills Tiotropium Inh (Spiriva Handihaler) 18 Mcg Cap 18 MCG INH DAILY for COPD, #30 CAP 11 Refills 1 capsule = 18 mcg Lisinopril (Lisinopril) 10 Mg Tab 10 MG PO DAILY for Blood Pressure Management, #90 TAB 3 Refills Continued Medications: Amlodipine (Amlodipine) 10 Mg Tab 10 MG PO DAILY for Blood Pressure Management, #30 TAB [address] (Aspirin EC) 81 Mg Tabdr 81 MG PO DAILY, TAB 0 Refills Atorvastatin (Atorvastatin) 20 Mg Tab 20 MG PO HS for Cholesterol Management, #30 TAB 0 Refills Budesonide-Formoterol Inh (Symbicort Inh) 80-4.5 Mcg/Act Aero 1 PUFF INH Q12HR for Asthma Management, #1 INHALER 0 Refills Cholecalciferol (Vitamin D-3) 2,000 Unit Tab 1 TAB PO BID Coenzyme Q10 (Ubidecarenone) (Coq10) 50 Mg Cap 100 MG PO DAILY Doxazosin (Doxazosin) 4 Mg Tab 4 MG PO DAILY, TAB Gabapentin (Gabapentin) 300 Mg Cap 300 MG PO HS, #60 CAP 0 Refills Insulin Aspart Inj (Novolog Penfill Inj) 300 Unit/3 Ml Pen 2-40 UNITS SQ TIDAC PRN for Blood Sugar Management, BOX 0 Refills sliding scale Insulin Glargine Inj (Lantus Inj) 1,000 Unit/10 Ml Vial 50 UNITS SQ BID for Blood Sugar Management, VIAL 0 Refills Levothyroxine (Levothyroxine) 300 Mcg Tab 300 MCG PO DAILY for Thyroid, #30 TAB 0 Refills Lorazepam (Lorazepam) 0.5 Mg Tab 0.5 MG PO BID PRN for ANXIETY, TAB 0 Refills Melatonin (Melatonin) 5 Mg Tab 5 MG PO HS PRN for INSOMINA, #30 TAB Metoprolol Tartrate (Metoprolol Tartrate) 50 Mg Tab 50 MG PO TID, #30 TAB 0 Refills [place]-3 Fatty Acids ([place] 3 1000 mg) 1 Cap Cap 2 CAP PO DAILY Sitagliptin-Metformin ER (Janumet Xr) 50-1,000 Mg Tab 1 TAB PO BID for Blood Sugar Management, #30 TAB 0 Refills Tamsulosin (Flomax) 0.4 Mg Cap 0.4 MG PO HS for urine, #30 CAP [Albuterol-Ipratropium Neb] () 1 AMPULE NEBU 1 AMPULE NEB Q2HR NEB PRN for sob, wheeze, #90 AMPULE 3 Refills Discontinued Medications: Furosemide (Lasix) 80 Mg Tab 80 MG PO DAILY for Diuresis, #30 TAB 0 Refills Take Daily at approximately 8am Furosemide (Lasix) 40 Mg Tab 40 MG PO Q24H for Diuretic, #30 TAB 0 Refills Take Daily at approximately 2pm. Lactobacillus Acidophilus (Lactobacillus Acidophilus) 1 Billion Cell Tab 1 TAB PO TIDAC for Nutritional Supplement, #30 TAB 0 Refills Lisinopril (Lisinopril) 20 Mg Tab 20 MG PO BID, #30 TAB 0 Refills Magnesium (Magnesium) 250 Mg Tab 1 TAB PO DAILY Potassium Chloride ER (Potassium Chloride ER) 20 Meq Tab 20 MEQ PO DAILY for Electrolyte Replacement, #30 TAB 0 Refills Sulfamethoxazole-Trimethoprim (Sulfamethoxazole-Trimethoprim) 800-160 Mg Tab 1 TAB PO Q12HR for Infection, #10 TAB Jese Yeung DO Oct 23, 2017 15:49
[2017-10-23 16:00] VITALS: BP 137/65; PULSE 73; RESP 16; TEMP 98.6; O2SAT 92
--- NOTE | 2017-10-23 16:46 | HHI.NPPN ---
Subjective Renal Failure: Acute Review of Systems Respiratory Lungs: SOB Cardiovascular Cardiac: Edema Objective Data Data Vital Signs Date Time Temp Pulse Resp B/P (MAP) Pulse Ox O2 Delivery O2 Flow Rate FiO2 10/23/17 16:00 98.6 73 16 137/65 (89) 92 10/23/17 12:00 97.5 74 16 147/65 (92) 94 10/23/17 08:20 94 Nasal Cannula 5.00 10/23/17 08:00 98.6 81 16 172/79 (110) 94 10/23/17 04:33 98.4 84 20 162/70 (100) 93 10/23/17 00:59 Bi-Pap 10/23/17 00:00 97.7 80 20 166/70 (102) 93 10/22/17 23:40 94 50 10/22/17 20:20 95 Nasal Cannula 5.00 10/22/17 20:00 98.4 66 22 148/65 (92) 94 -: 10/21/17 0533 10/23/17 1324 Physical Exam General Appearance: Well Developed, Well Nourished, Comfortable, Obese Ears & Nose Ears & Nose Exam: Nosebleed Throat Throat Exam: Oral Mucosa [place] & Moist Pulmonary Resp Exam: Breath Sounds Equal, Rhonchi, Decreased Bases, Diminished Breath Sounds, Labored Cardiology CV Exam: Regular, Normal Sinus Rhythm, Good Perfusion Gastrointestinal/Abdomen GI Exam: Non-Tender, Bowel Sounds Present, Distended Musculoskeletal MS Exam: Joints Intact, Normal Tone, Good Strength Integumentary Skin Exam: Clear, Warm, Dry, Intact Extremeties Extremities Exam: Pedal Pulses Palpable, Trace Edema Neurologic Neuro Exam: Alert, Awake, Oriented, Speech Clear, Moving All Extremities Psychiatric Psych Exam: Appropriate Responses Assessment/Plan Discussed Condition With: Patient Assessment Summary: VICKIE/Acute Renal Failure Electrolyte Assessment: Hyperkalemia Problem List: (1) Acute renal failure ICD Codes: N17.9 - Acute kidney failure, unspecified Status: Acute Plan: Normal renal function at baseline VICKIE most likely due to overdiuresis Renal function has improved, off IVF. Non oliguric. cee removed without difficulty voiding [facility] to follow (2) Hyperkalemia ICD Codes: E87.5 - Hyperkalemia Status: Acute Plan: Initially due to reduction in GFR, KCL supplements, and Bactrim use Had improved, now most likely related to diet high in potassium and respiratory acidosis with extracellular shift of potassium (3) Shortness of breath ICD Codes: R06.02 - Shortness of breath Status: Acute Plan: continue oxygen therapy nebs as needed On Tamiflu Has COPD with chronic CO2 retention, Problem Qualifiers (1) Acute renal failure: Qualified Codes: N17.9 - Acute kidney failure, unspecified Va Kaplan MD Oct 23, 2017 16:46
[2017-10-24] MEDS ORDERED: LISINOPRIL 10 MG TAB PO SCH (09:00)
--- NOTE | 2017-10-25 08:14 | MB ---
cc: Gavin Barton MD, Arjun D MD DATE: 10/22/2017 REQUESTING PHYSICIAN: Dr. Mead. REASON FOR CONSULTATION: Evaluation for pulmonary management. HISTORY OF PRESENT ILLNESS: Mr. Otoole is a pleasant 72-year-old obese male, who is known to me from the office before. He has a history of COPD, possible obstructive sleep apnea, tracheal bronchomalacia, diabetes mellitus and congestive heart failure. The patient has been admitted twice at this hospital. Recently, he came back with shortness of breath. Cold weather, change of weather, and pollen made his breathing worse and he started having wheezing. He did not have any chest pain. No nausea or vomiting. No fever or chills. He was worked up in the hospital. He was found to have respiratory acidosis and was given BiPAP machine and feels better now. His workup shows WBC count 6.3, hemoglobin 10.3, hematocrit 32.2, MCV 94, platelet count 159. Sodium 138, potassium 5.7, chloride 101, CO2 of 31, BUN 49, creatinine 1.12. Blood gas on 40% BiPAP, pH 7.26, pCO2 of 60, pO2 of 78. His chest x-ray shows small pleural effusions. PAST MEDICAL HISTORY: Significant for history of COPD, he is oxygen dependent, diabetes mellitus, congestive heart failure, history of umbilical hernia surgery, coronary artery disease, status post angioplasty, history of 6th nerve palsy, history of BPH and hypothyroidism. MEDICATIONS: He is currently taking Veltassa 16.8 g daily, albuterol Atrovent nebulizer treatment, prednisone 20 mg twice a day, Levaquin 750 mg q. 48 hrs, Lipitor 20 mg a day, Neurontin 300 mg at nighttime, Flovent 0.4 mg daily, amlodipine 10 mg a day, aspirin 81 mg a day, Symbicort 160/4.5 two puffs twice a day, metoprolol 50 mg 3 times a day, insulin 50 units twice a day, Tamiflu 75 mg twice a day, levothyroxine 300 mcg a day, melatonin 5 mg at night, lorazepam 0.5 mg as needed, temazepam 15 mg at nighttime as needed, heparin 5000 q.12 hours. ALLERGIES: NO KNOWN DRUG ALLERGIES. SOCIAL HISTORY: He has a long history of smoking, which he quit 22 years ago. He does not drink. 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 FAMILY HISTORY: He is . Lives with his son. He has 1 son. REVIEW OF SYSTEMS: He is a normally up, around and active. Weight is stable. No DVT or pulmonary embolism. No seizure, stroke or epilepsy. PHYSICAL EXAMINATION: GENERAL: Obese male mildly short of breath. VITAL SIGNS: Blood pressure 144/59, heart rate 70, respirations 20, temperature 98.5. HEENT: Unremarkable. NECK: Supple. JVP not raised. CHEST: He has expiratory rhonchi. CARDIOVASCULAR: S1, S2 normal. ABDOMEN: Obese, nontender. Bowel sounds are present. EXTREMITIES: Trace pedal edema. IMPRESSION: 1. Chronic obstructive pulmonary disease with exacerbation. 2. Hypercapnic respiratory failure. 3. Obesity. 4. Likely obstructive sleep apnea. 5. Diabetes mellitus 6. Congestive heart failure. 7. History of tracheobronchomalacia. PLAN: I discussed with the patient we will supplement his oxygen and keep the saturation between 88% and 92%. Continue aerosol treatment and p.o. steroid. Monitor blood sugars. Use CPAP at nighttime. He is on heparin for DVT prophylaxis. Further treatment will depend on the course in the hospital. Thank you, Dr. Mead for this consultation. MD MELINDA Montiel/SA/ , 06:19 PM , 07:49 PM
== END 2017-10-23 17:58 | disposition home or self-care (01) | DRG 189 ==
LOC: PHED 20:50 → PHEDA 21:48 → N03A 23:50 → N05A 10-21 17:52
PROVIDERS: ADMIT Hospitalist; ATTEND Hospitalist
PROC: 5A09457 Assistance with Respiratory Ventilation, 24-96 Consecutive Hours, Continuous Positive Airway Pressure (ICD-10-PCS; principal; 2017-10-18)
DX: J96.21 Acute and chronic respiratory failure with hypoxia (principal); N17.9 Acute kidney failure, unspecified; I50.9 Heart failure, unspecified; I11.0 Hypertensive heart disease with heart failure; J44.1 Chronic obstructive pulmonary disease with (acute) exacerbation; Z99.81 Dependence on supplemental oxygen; J96.22 Acute and chronic respiratory failure with hypercapnia; J10.1 Influenza due to other identified influenza virus with other respiratory manifestations; E87.5 Hyperkalemia; E11.9 Type 2 diabetes mellitus without complications; Z79.4 Long term (current) use of insulin; E03.9 Hypothyroidism, unspecified; E66.01 Morbid (severe) obesity due to excess calories; Z68.39 Body mass index [BMI] 39.0-39.9, adult; I25.10 Atherosclerotic heart disease of native coronary artery without angina pectoris; I25.2 Old myocardial infarction; E78.5 Hyperlipidemia, unspecified; N40.0 Benign prostatic hyperplasia without lower urinary tract symptoms; G47.33 Obstructive sleep apnea (adult) (pediatric); Z87.891 Personal history of nicotine dependence
CPT/HCPCS: 36600; 51702; 71045; 76775; 80048; 80053; 80069; 81001; 82550; 82805; 82948; 83735; 83880; 84100; 84484; 85025; 85610; 85730; 87086; 87641; 87804; 93005; 93308; 94003; 94640; 94664; 96374; J0610; J1644; J1815; J1940; J2270; J2920; J7030; J7040; J7512

== ENCOUNTER 2017-11-29 15:18 | Inpatient (IN) | payer OTHER, MEDICARE ==
[2017-11-29] VITALS (15 sets, daily range): BP systolic 122–161; BP diastolic 59–86; PULSE 121–131; RESP 19–36; TEMP 97.9–98.3; O2SAT 90–98
[~2017-11-29] VITALS: Ht 175.3 cm; Wt 127.5 kg
[~2017-11-29 15:18] MED LIST changes: +CLAR10CA3 PO; -ESSE250T PO; -FURO1TAB60 PO; -FURO1TAB61 PO; -LACTTAB8 PO; +LEVA750T9 PO; -LISI-515 PO; +LISI10TA3 PO; -POTA-163 PO; +PRED20 PO; +SPIRCAP INH; -SULF1TAB23 PO; +VENTAER INH
[2017-11-29] MEDS ORDERED: SODIUM CHLORIDE 0.9% FLUSH 10 ML FLUSH IVF PRN (16:00)
[2017-11-29] MEDS ORDERED: DILTIAZEM HCL 25 MG/5 ML VIAL IV ONE (16:00)
[2017-11-29] MEDS ORDERED: LANTUS2P SQ (16:06)
[2017-11-29] MEDS ORDERED: DILT240C7 PO (16:06)
[2017-11-29] MEDS ORDERED: FINA5TAB2 PO (16:06)
[2017-11-29] MEDS ORDERED: FLUT1SPR5 EACH NARE (16:06)
[2017-11-29] MEDS ORDERED: FURO40TA PO (16:06)
[2017-11-29] MEDS ORDERED: GLIM4TAB PO (16:06)
[2017-11-29] MEDS ORDERED: APIX5TAB PO (16:06)
[2017-11-29] MEDS ORDERED: LORA0.5T PO (16:06)
--- NOTE | 2017-11-29 16:11 | RADRPT ---
EXAM DATE/TIME: 11/29/2017 15:59 [place] COMPARISON: CHEST SINGLE AP, October 20, 2017, 4:45. INDICATIONS : Chest pain MEDICAL HISTORY : Congestive heart failure. Chronic obstructive pulmonary disease. SURGICAL HISTORY : None. ENCOUNTER: Initial ACUITY: 1 day PAIN SCORE: 0/10 LOCATION: chest FINDINGS: The heart is enlarged. There is a small effusion on the left. There is mild atelectatic change at the right lung base. Comparison is made to a prior dated 10/20/17. There is significant improvement in th e appearance of the parenchyma. The osseous structures are intact. CONCLUSION: 1. Cardiomegaly with small left basilar effusion and atelectatic changes at the right base. There is minimal fluid seen at the right base as well. Overall the appearance of the chest is improved compare d to a previous dated 10/20/17 Nikita Pascual MD on November 29, 2017 at 16:08 Board Certified Radiologist. This report was verified electronically.
[2017-11-29] MEDS: METOPROLOL TARTRATE 5 MG/5 ML VIAL IV PUSH PRN (16:22)
[2017-11-29] MEDS ORDERED: AMIODARONE INJ 150 MG in DEXTROSE 5% IN WATER 100ML INJ 97 ML IV ONE ×2 (16:35)
[2017-11-29] MEDS ORDERED: AMIODARONE INJ 150 MG in DEXTROSE 5% IN WATER 100ML INJ 100 ML IV ONE ×2 (16:35)
[2017-11-29 16:55] LABS: AUTOMATED NEUTROPHIL # 4.4 TH/MM3 (1.8-7.7); BASOPHIL % 0.7 % (0.0-2.0); EOSINOPHIL % 0.6 % (0.0-4.0); HEMATOCRIT 34.5 % (39.0-51.0); HEMOGLOBIN 11.2 GM/DL (13.0-17.0); LYMPH % 18.1 % (9.0-44.0); LYMPHOCYTE # 1.1 TH/MM3 (1.0-4.8); MEAN CORPUSCULAR HEMOGLOBIN 29.3 PG (27.0-34.0); MEAN CORPUSCULAR HGB CONC 32.6 % (32.0-36.0); MEAN PLATELET VOLUME 8.9 FL (7.0-11.0); MONO % 6.9 % (0.0-8.0); MONOCYTE # 0.4 TH/MM3 (0-0.9); NEUT % 73.7 % (16.0-70.0); PLATELET COUNT 184 TH/MM3 (150-450); RED BLOOD COUNT 3.83 MIL/MM3 (4.50-5.90); RED CELL DISTRIBUTION WIDTH 15.1 % (11.6-17.2); WHITE BLOOD COUNT 5.9 TH/MM3 (4.0-11.0)
[2017-11-29 17:13] LABS: INTERNATIONAL NORMALIZED RATIO 1.2 RATIO; PROTHROMBIN TIME - PATIENT 11.7 SEC (9.8-11.6)
[2017-11-29] MEDS ORDERED: AMIODARONE INJ 450 MG in DEXTROSE 5% IN WATE(EXCEL) INJ 241 ML IV PRN ×2 (17:21)
[2017-11-29 17:22] LABS: BLOOD UREA NITROGEN 17 MG/DL (7-18); CALCIUM 9.4 MG/DL (8.5-10.1); CHLORIDE 102 MEQ/L (98-107); CREATININE 0.99 MG/DL (0.60-1.30); GLOMERULAR FILTRATION RATE 74 ML/MIN (>89); GLUCOSE,RANDOM 112 MG/DL (74-106); MAGNESIUM 1.5 MG/DL (1.5-2.5); SODIUM (NA) 140 MEQ/L (136-145)
[2017-11-29 17:26] LABS: TROPONIN I LESS THAN 0.02 NG/ML (0.02-0.05)
--- NOTE | 2017-11-29 17:36 | EKG ---
Date Performed: 11/29/2017 Time Performed: 15:39:10 PTAGE: 72 years EKG: ATRIAL FLUTTER/TACHYCARDIA WITH RAPID VENTRICULAR RESPONSE MODERATE T-WAVE ABNORMALITY Comp ared to prior electrocardiogram, atrial flutter is now present . DOCTOR: Varinder Llamas Interpretating Date/Time 11/29/2017 17:34:33
[2017-11-29] MEDS: AMIODARONE INJ 450 MG in SODIUM CHLOR 0.9% (EXCEL) INJ 241 ML IV PRN (17:49)
--- NOTE | 2017-11-29 17:55 | PD ---
HPI Chief Complaint: Cardiac Complaint Time Seen by Provider: 15:45 Travel History International Travel<30 days: No Contact w/Intl Traveler<30days: No Traveled to known affect area: No History of Present Illness HPI The patient is 72 years old. He has a history of A. fib with RVR. Patient has history of A. fib with RVR. He reports compliance with Eliquis and diltiazem. He reports an ablation as scheduled. He reports using nebs every 4 hours at home. He is in O2 dependent CHF COPD patient. He has shortness of breath. He denies chest pain. He reports persistent tachycardia despite complains of meds and for that reason is here in the ER. Location cardiac. Timing constant. PFSH Past Medical History Hx Anticoagulant Therapy: No Arthritis: Yes Asthma: Yes Autoimmune Disease: No Blood Disorders: No Anxiety: Yes Depression: No Heart Rhythm Problems: No Cancer: No Cardiac Catheterization: Yes Cardiovascular Problems: Yes High Cholesterol: Yes Chemotherapy: No Chest Pain: No Congestive Heart Failure: Yes COPD: Yes Cerebrovascular Accident: Yes Diabetes: Yes Patient Takes Glucophage: Yes Diminished Hearing: No Endocrine: Yes Gastrointestinal Disorders: Yes GERD: No Genitourinary: Yes Headaches: Yes Hiatal Hernia: No Hypertension: Yes Immune Disorder: No Implanted Vascular Access Dvce: No Kidney Stones: No Musculoskeletal: Yes Neurologic: Yes Psychiatric: Yes Reproductive: No Respiratory: Yes Immunizations Current: Yes Migraines: Yes Seizures: No Sleep Apnea: No Thyroid Disease: Yes (hypo) Ulcer: No Tetanus Vaccination: > 5 Years Influenza Vaccination: No Past Surgical History Abdominal Surgery: Yes (UMBILICAL HERNIA REPAIR.) Cardiac Surgery: Yes ([place] ANGIOPLASTY 1993) Endocrine Surgery: No Eye Surgery: No Genitourinary Surgery: No Gynecologic Surgery: No Hysterectomy: No Neurologic Surgery: No Thoracic Surgery: No Other Surgery: Yes Social History Alcohol Use: No Tobacco Use: No (quit 1993) Substance Use: No Allergies-Medications (Allergen,Severity, Reaction): Coded Allergies: codeine (Verified Adverse Reaction, Intermediate, Nausea/Vomiting, 11/29/17 ) Reported Meds & Prescriptions Reported Meds & Active Scripts Active Ventolin Hfa 18 GM Inh (Albuterol Sulfate) 90 Mcg/Act Aer 2 Puff INH Q4-6H PRN Claritin (Loratadine) 10 Mg Cap 10 Mg PO DAILY Oxygen (O2) Device Liter [employer] CONTINUOUS Oxygen Concentrator Portable Gaseous 4 L/min via Nasal Canula Continuous For 99 months Symbicort Inh (Budesonide/Formoterol Fumarate) 80-4.5 Mcg/Act Aero 1 Puff INH Q12HR Reported Lantus Inj (Insulin Glargine) 1,000 Unit/10 Ml Vial 40 Units SQ HS Diltiazem ER 24 HR (Diltiazem HCl) 240 Mg Caper 240 Mg PO DAILY Eliquis (Apixaban) 5 Mg Tab 5 Mg PO BID Finasteride 5 Mg Tab 5 Mg PO DAILY Do not crush. Furosemide 40 Mg Tab 40 Mg PO DAILY Lorazepam 0.5 Mg Tab 0.5 Mg PO DAILY PRN Glimepiride 4 Mg Tab 4 Mg PO BIDAC Lantus Inj (Insulin Glargine) 1,000 Unit/10 Ml Vial 35 Units SQ DAILY Novolog Penfill Inj (Insulin Aspart) 300 Unit/3 Ml Pen 2-40 Units SQ TIDAC PRN sliding scale Coq10 (Coenzyme Q10 (Ubidecarenone)) 50 Mg Cap 100 Mg PO DAILY [place] 3 1000 mg ([place]-3 Fatty Acids) 1 Cap Cap 2 Cap PO DAILY Metoprolol Tartrate 50 Mg Tab 25 Mg PO BID Lorazepam 0.5 Mg Tab 0.5 Mg PO BID PRN Levothyroxine (Levothyroxine Sodium) 300 Mcg Tab 300 Mcg PO DAILY Janumet Xr (Sitagliptin-Metformin ER) 50-1,000 Mg Tab 1 Tab PO BID Gabapentin 300 Mg Cap 300 Mg PO HS Doxazosin (Doxazosin Mesylate) 4 Mg Tab 4 Mg PO DAILY Atorvastatin (Atorvastatin Calcium) 20 Mg Tab 20 Mg PO HS Review of Systems Except as stated in HPI: all other systems reviewed are Neg General / Constitutional: No: Fever Physical Exam Narrative GENERAL: Well-nourished well-developed 72-year-old male prominent abdominal habitus Vital Signs Date Time Temp Pulse Resp B/P (MAP) Pulse Ox O2 Delivery O2 Flow Rate FiO2 11/29/17 17:49 124 127/61 11/29/17 17:45 124 23 127/61 (83) 97 Nasal Cannula 3.00 11/29/17 17:28 128 24 134/79 (97) 97 Nasal Cannula 3.00 11/29/17 17:23 128 134/79 11/29/17 16:30 128 22 145/79 (101) 97 Nasal Cannula 2.00 11/29/17 16:07 97 Nasal Cannula 2.00 11/29/17 16:07 36 90 Room Air 11/29/17 15:52 130 36 142/77 (98) 97 Nasal Cannula 11/29/17 15:43 Room Air 11/29/17 15:30 97.9 131 22 161/81 (107) 90 SKIN: Warm and dry. HEAD: Atraumatic. Normocephalic. EYES: Pupils equal and round. No scleral icterus. No injection or drainage. ENT: No nasal bleeding or discharge. Mucous membranes pink and moist. NECK: Trachea midline. No JVD. CARDIOVASCULAR: Tachycardia. Somewhat irregular RESPIRATORY: No accessory muscle use. Clear to auscultation. Breath sounds equal bilaterally. GASTROINTESTINAL: Abdomen soft, non-tender, nondistended. Hepatic and splenic margins not palpable. MUSCULOSKELETAL: Extremities without clubbing, cyanosis, or edema. No obvious deformities. NEUROLOGICAL: Awake and alert. No obvious cranial nerve deficits. Motor grossly within normal limits. Five out of 5 muscle strength in the arms and legs. Normal speech. PSYCHIATRIC: Appropriate mood and affect; insight and judgment normal. Data Data Last Documented VS Vital Signs Date Time Temp Pulse Resp B/P (MAP) Pulse Ox O2 Delivery O2 Flow Rate FiO2 11/29/17 17:49 124 127/61 11/29/17 17:45 23 97 Nasal Cannula 3.00 11/29/17 15:30 97.9 Orders Orders Electrocardiogram (11/29/17 15:57) Basic Metabolic Panel (Bmp) (11/29/17 15:57) Ckmb (Isoenzyme) Profile (11/29/17 15:57) Complete Blood Count With Diff (11/29/17 15:57) Magnesium (Mg) (11/29/17 15:57) Prothrombin Time / Inr (Pt) (11/29/17 15:57) Act Partial Throm Time (Ptt) (11/29/17 15:57) Troponin I (11/29/17 15:57) Ecg Monitoring (11/29/17 15:57) Iv Access Insert/Monitor (11/29/17 15:57) Oximetry (11/29/17 15:57) Oxygen Administration (11/29/17 15:57) Sodium Chloride 0.9% Flush (Ns Flush) (11/29/17 16:00) Chest, Single Ap (11/29/17 ) Diltiazem Inj (Cardizem Inj) (11/29/17 16:00) Metoprolol Tartrate Inj (Lopressor Inj) (11/29/17 16:15) ^ Medication Alert (11/29/17 16:35) ^ Discontinue (11/29/17 16:35) Dextrose 5% In [place]... W/Amiodarone Inj (11/29/17 16:35) Vital Signs (Adult) JONATHAN.Q4H (11/29/17 16:35) Sodium Chlor 0.9% (... W/Amiodarone Inj (11/29/17 17:21) Admit Order (Ed Use Only) (11/29/17 ) Tool Hardener / Telemetry JONATHAN.Q8H (11/29/17 17:53) Vital Signs (Adult) Q4H (11/29/17 17:53) Activity Bed Rest (11/29/17 17:53) Labs Laboratory Tests Test 11/29/17 16:20 White Blood Count 5.9 TH/MM3 Red Blood Count 3.83 MIL/MM3 Hemoglobin 11.2 GM/DL Hematocrit 34.5 % Mean Corpuscular Volume 90.0 FL Mean Corpuscular Hemoglobin 29.3 PG Mean Corpuscular Hemoglobin Concent 32.6 % Red Cell Distribution Width 15.1 % Platelet Count 184 TH/MM3 Mean Platelet Volume 8.9 FL Neutrophils (%) (Auto) 73.7 % Lymphocytes (%) (Auto) 18.1 % Monocytes (%) (Auto) 6.9 % Eosinophils (%) (Auto) 0.6 % Basophils (%) (Auto) 0.7 % Neutrophils # (Auto) 4.4 TH/MM3 Lymphocytes # (Auto) 1.1 TH/MM3 Monocytes # (Auto) 0.4 TH/MM3 Eosinophils # (Auto) 0.0 TH/MM3 Basophils # (Auto) 0.0 TH/MM3 CBC Comment DIFF FINAL Differential Comment Prothrombin Time 11.7 SEC Prothromb Time International Ratio 1.2 RATIO Activated Partial Thromboplast Time 28.1 SEC Blood Urea Nitrogen 17 MG/DL Creatinine 0.99 MG/DL Random Glucose 112 MG/DL Calcium Level 9.4 MG/DL Magnesium Level 1.5 MG/DL Sodium Level 140 MEQ/L Potassium Level 3.7 MEQ/L Chloride Level 102 MEQ/L Carbon Dioxide Level 30.0 MEQ/L Anion Gap 8 MEQ/L Estimat Glomerular Filtration Rate 74 ML/MIN Total Creatine Kinase 61 U/L Troponin I LESS THAN 0.02 NG/ML MDM Medical Decision Making Medical Screen Exam Complete: Yes Emergency Medical Condition: Yes Medical Record Reviewed: Yes Differential Diagnosis NSTEMI, unstable angina, coronary vasospasm, PE, PTX, aortic dissection, pericarditis, myocarditis, endocarditis, PNA, esophageal disease, aneurysm, musculoskeletal etiologies, anxiety, cocaine/sympathomimetic abuse Narrative Course CBC & BMP Diagram 11/29/17 16:20 Calcium Level 9.4, Magnesium Level 1.5 Troponins less than 0.02 EKG shows atrial flutter with a rate of 131 Last Impressions Chest X-Ray 11/29/17 0000 Signed Impressions: Service Date/Time: Wednesday, November 29, 2017 15:59 - CONCLUSION: 1. Cardiomegaly with small left basilar effusion and atelectatic changes at the right base. There is minimal fluid seen at the right base as well. Overall the appearance of the chest is improved compared to a previous dated 10/20/17 Nikita Pascual MD Patient has no history of atrial flutter. He is on Eliquis and diltiazem. He will be admitted for rate control. Amiodarone started. Discussed with Dr. Corbett. The patient has had no chest pain with anticipated conversion to a sinus rhythm seen with the patient is on amiodarone. Critical Care Narrative Aggregate critical care time was 40 minutes. Time to perform other separately billable procedures was not included in the critical care time. My time did not include minutes spent treating any other patients simultaneously or on activities that did not directly contribute to the patient's treatment. The services I provided to this patient were to treat and/or prevent clinically significant deterioration that could result in: Unstable sinus dysrhythmia I provided critical care services requiring my management, as noted below: Chart data review, documentation time, medication orders and management, vital sign assessments/reviewing monitor data, ordering and reviewing lab tests, ordering and interpreting/reviewing x-rays and diagnostic studies, care of the patient and discussion of the patient with the admitting physicians. Diagnosis Primary Impression: Atrial fibrillation with RVR Additional Impressions: Dyspnea Qualified Codes: R06.00 - Dyspnea, unspecified Pleural effusion Admitting Information Admitting Physician Requests: Admit Nikita Dyer MD Nov 29, 2017 17:55
[2017-11-29] MEDS ORDERED: SENNOSIDES 8.6 MG TAB PO PRN (18:30)
[2017-11-29] MEDS ORDERED: NALOXONE HCL 0.4 MG/ML AMP IV PUSH PRN (18:30)
[2017-11-29] MEDS ORDERED: ACETAMINOPHEN 325 MG TAB PO PRN (18:30)
[2017-11-29] MEDS ORDERED: LACTULOSE SYRUP 20 GM/30 ML CUP PO PRN (18:30)
[2017-11-29] MEDS ORDERED: MAGNESIUM HYDROXIDE SUSP 30 ML CUP PO PRN (18:30)
[2017-11-29] MEDS ORDERED: ONDANSETRON HCL 4 MG/2 ML VIAL IVP PRN (18:30)
[2017-11-29] MEDS ORDERED: BISACODYL 10 MG SUPP RECTAL PRN (18:30)
[2017-11-29] MEDS ORDERED: GLUCAGON 1 MG/ML VIAL OTHER PRN (18:45)
[2017-11-29] MEDS ORDERED: DEXTROSE 50% IN WATER 50 ML VIAL(D50) IV PUSH PRN (18:45)
--- NOTE | 2017-11-29 18:51 | HHI.HP ---
HPI Service [facility] Hospitalists Primary Care Physician Adri Hudson MD Admission Diagnosis AFib RVR Diagnoses: Chief Complaint: A. fib with RVR Travel History International Travel<30 Days: No Contact w/Intl Traveler <30 Da: No Traveled to Known Affected Are: No History of Present Illness This is a 72-year-old male with past medical history significant for recently diagnosed atrial fibrillation on Eliquis, hypertension, coronary artery disease status post previous [place] 1993, congestive heart failure, diabetes, chronic respiratory failure on home oxygen, COPD and hypothyroidism who presents to [facility] ED having been sent over by Dr. Nova's office for atrial fibrillation with RVR. Patient states he was seen in Dr. Otoole's office 2 weeks ago and started on generic for Cardizem and Eliquis. He had an appointment and Dr. Nova's office today to discuss cardiac ablation procedure but was noted to have elevated heart rate and was sent to the ED for admission. Patient states that he recently purchased a pulse oximeter and is noticed that his heart rate has been running in the 120s at home. He does admit that he uses albuterol treatments 3-4 times a day consistently. He denies any recent illness. He denies any fever or chills. Denies any change in his chronic shortness of breath. Denies any complaints of chest pain. Denies any dizziness, lightheadedness, sensation of near syncope or vision changes. He denies any nausea vomiting or abdominal pain. He states he is urinating without any difficulties and denies any bowel complaints. In fact patient states that he has felt fine since his discharge from the hospital on 10/23/17. Patient was recently admitted 10/19/17 to 10/23/17 with acute COPD exacerbation. Prior to that admission, patient was admitted 10/09 to 10/12 with hypoxia, hyperkalemia and weakness with right sided pleural effusion with unsuccessful attempt at thoracentesis. He was also noted to have abdominal wall cellulitis that admission which was treated with Bactrim. He was discharged on p.o. Lasix to attempt diuresis at home. Prior to that admission, patient had an attempted thoracentesis but only 10 mL of fluid was removed. Review of Systems Except as stated in HPI: all other systems reviewed are Neg Past Family Social History Past Medical History Atrial fibrillation on Eliquis Hypertension Coronary artery disease status post [place] 1993 Congestive heart failure COPD Chronic respiratory failure with oxygen dependence Hyperlipidemia History of 6th nerve palsy Hypothyroidism BPH Past Surgical History umbilical hernia coronary angiogram and angioplasty Reported Medications Ventolin Hfa 18 GM Inh (Albuterol Sulfate) 90 Mcg/Act Aer 2 Puff INH Q4-6H PRN Claritin (Loratadine) 10 Mg Cap 10 Mg PO DAILY Oxygen (O2) Device Liter [employer] CONTINUOUS Oxygen Concentrator Portable Gaseous 4 L/min via Nasal Canula Continuous For 99 months Symbicort Inh (Budesonide/Formoterol Fumarate) 80-4.5 Mcg/Act Aero 1 Puff INH Q12HR Lantus Inj (Insulin Glargine) 1,000 Unit/10 Ml Vial 40 Units SQ HS Diltiazem ER 24 HR (Diltiazem HCl) 240 Mg Caper 240 Mg PO DAILY Eliquis (Apixaban) 5 Mg Tab 5 Mg PO BID Finasteride 5 Mg Tab 5 Mg PO DAILY Do not crush. Furosemide 40 Mg Tab 40 Mg PO DAILY Lorazepam 0.5 Mg Tab 0.5 Mg PO DAILY PRN Glimepiride 4 Mg Tab 4 Mg PO BIDAC Lantus Inj (Insulin Glargine) 1,000 Unit/10 Ml Vial 35 Units SQ DAILY Novolog Penfill Inj (Insulin Aspart) 300 Unit/3 Ml Pen 2-40 Units SQ TIDAC PRN sliding scale Coq10 (Coenzyme Q10 (Ubidecarenone)) 50 Mg Cap 100 Mg PO DAILY [place] 3 1000 mg ([place]-3 Fatty Acids) 1 Cap Cap 2 Cap PO DAILY Metoprolol Tartrate 50 Mg Tab 25 Mg PO BID Lorazepam 0.5 Mg Tab 0.5 Mg PO BID PRN Levothyroxine (Levothyroxine Sodium) 300 Mcg Tab 300 Mcg PO DAILY Janumet Xr (Sitagliptin-Metformin ER) 50-1,000 Mg Tab 1 Tab PO BID Gabapentin 300 Mg Cap 300 Mg PO HS Doxazosin (Doxazosin Mesylate) 4 Mg Tab 4 Mg PO DAILY Atorvastatin (Atorvastatin Calcium) 20 Mg Tab 20 Mg PO HS Allergies: Coded Allergies: codeine (Verified Adverse Reaction, Intermediate, Nausea/Vomiting, 11/29/17 ) Active Ordered Medications Current Medications Medications (Trade) Dose Ordered Sig/[place] Route Start Time Stop Time Status Last Admin (NS Flush) 2 ml UNSCH PRN IVF 11/29/17 16:00 (Lopressor Inj) 5 mg Q5M PRN IV PUSH 11/29/17 16:15 11/29/17 16:22 Amiodarone HCl 450 mg/Sodium Chloride 250 ml @ 33.33 mls/ hr [id number] PRN IV 11/29/17 17:21 11/29/17 17:49 Family History Mother, emphysema Social History Patient has remote history of tobacco use. Denies any alcohol abuse or illicit drug use. Physical Exam Vital Signs Vital Signs Date Time Temp Pulse Resp B/P (MAP) Pulse Ox O2 Delivery O2 Flow Rate FiO2 11/29/17 17:49 124 127/61 11/29/17 17:28 128 24 134/79 (97) 97 Nasal Cannula 3.00 11/29/17 17:23 128 134/79 11/29/17 16:30 128 22 145/79 (101) 97 Nasal Cannula 2.00 11/29/17 16:07 97 Nasal Cannula 2.00 11/29/17 16:07 36 90 Room Air 11/29/17 15:52 130 36 142/77 (98) 97 Nasal Cannula 11/29/17 15:43 Room Air 11/29/17 15:30 97.9 131 22 161/81 (107) 90 Physical Exam GENERAL: This is a well-nourished, well-developed obese male patient, in no apparent distress. Awake and alert. SKIN: No rashes, ecchymoses or lesions. Cool and dry. HEAD: Atraumatic. Normocephalic. No temporal or scalp tenderness. EYES: Pupils equal round and reactive. Extraocular motions intact. No scleral icterus. No injection or drainage. ENT: Nose without bleeding or purulent drainage. Throat without erythema, tonsillar hypertrophy or exudate. Uvula midline. Airway patent. NECK: Trachea midline. No lymphadenopathy. Supple, nontender, no meningeal signs. CARDIOVASCULAR: Tachycardic without murmurs, gallops, or rubs. RESPIRATORY: On 2LNC. No accessory muscle use. Diminished breath sounds. No wheezes, rales, or rhonchi. GASTROINTESTINAL: Abdomen soft, non-tender, nondistended. No hepato-splenomegaly , or palpable masses. No guarding. MUSCULOSKELETAL: Extremities without clubbing, cyanosis, or edema. No joint tenderness, effusion, or edema noted. No calf tenderness. NEUROLOGICAL: Awake and alert. Cranial nerves II through XII grossly intact. Motor and sensory grossly within normal limits. No focal neurologic findings. Normal speech. Laboratory Laboratory Tests Test 11/29/17 16:20 White Blood Count 5.9 Red Blood Count 3.83 Hemoglobin 11.2 Hematocrit 34.5 Mean Corpuscular Volume 90.0 Mean Corpuscular Hemoglobin 29.3 Mean Corpuscular Hemoglobin Concent 32.6 Red Cell Distribution Width 15.1 Platelet Count 184 Mean Platelet Volume 8.9 Neutrophils (%) (Auto) 73.7 Lymphocytes (%) (Auto) 18.1 Monocytes (%) (Auto) 6.9 Eosinophils (%) (Auto) 0.6 Basophils (%) (Auto) 0.7 Neutrophils # (Auto) 4.4 Lymphocytes # (Auto) 1.1 Monocytes # (Auto) 0.4 Eosinophils # (Auto) 0.0 Basophils # (Auto) 0.0 CBC Comment DIFF FINAL Differential Comment Prothrombin Time 11.7 Prothromb Time International Ratio 1.2 Activated Partial Thromboplast Time 28.1 Blood Urea Nitrogen 17 Creatinine 0.99 Random Glucose 112 Calcium Level 9.4 Magnesium Level 1.5 Sodium Level 140 Potassium Level 3.7 Chloride Level 102 Carbon Dioxide Level 30.0 Anion Gap 8 Estimat Glomerular Filtration Rate 74 Total Creatine Kinase 61 Troponin I LESS THAN 0.02 Result Diagram: 11/29/17 1620 11/29/17 1620 Imaging Last Impressions Chest X-Ray 11/29/17 0000 Signed Impressions: Service Date/Time: Wednesday, November 29, 2017 15:59 - CONCLUSION: 1. Cardiomegaly with small left basilar effusion and atelectatic changes at the right base. There is minimal fluid seen at the right base as well. Overall the appearance of the chest is improved compared to a previous dated 10/20/17 MD Blossom Aguilari VTE Risk Assessment Caprini VTE Risk Assessment: Mod/High Risk (score >= 2) Caprini Risk Assessment Model Point Value = 1 Point Value = 2 Point Value = 3 Point Value = 5 Age 41-60 Minor surgery BMI > 25 kg/m2 Swollen legs Varicose veins or History of unexplained or recurrent spontaneous Oral contraceptives or hormone replacement Sepsis (< 1 month) Serious lung disease, including pneumonia (< 1 month) Abnormal pulmonary function Acute myocardial infarction Congestive heart failure (< 1 month) History of inflammatory bowel disease Medical patient at bed rest Age 61-74 Arthroscopic surgery Major open surgery (> 45 min) Laparoscopic surgery (> 45 min) Malignancy Confined to bed (> 72 hours) Immobilizing plaster cast Central venous access Age >= 75 History of VTE Family history of VTE Factor V Leiden Prothrombin [id number] Lupus anticoagulant Anticardiolipin antibodies Elevated serum homocysteine Heparin-induced thrombocytopenia Other congenital or acquired thrombophilia Stroke (< 1 month) Elective arthroplasty Hip, pelvis, or leg fracture Acute spinal cord injury (< 1 month) Prophylaxis Regimen Total Risk Factor Score Risk Level Prophylaxis Regimen 0-1 Low Early ambulation 2 Moderate Order ONE of the following: *Sequential Compression Device (SCD) *Heparin 5000 units SQ BID 3-4 Higher Order ONE of the following medications: *Heparin 5000 units SQ TID *Enoxaparin/Lovenox 40 mg SQ daily (WT < 150 kg, CrCl > 30 mL/min) *Enoxaparin/Lovenox 30 mg SQ daily (WT < 150 kg, CrCl > 10-29 mL/min) *Enoxaparin/Lovenox 30 mg SQ BID (WT < 150 kg, CrCl > 30 mL/min) AND/OR *Sequential Compression Device (SCD) 5 or more Highest Order ONE of the following medications: *Heparin 5000 units SQ TID (Preferred with Epidurals) *Enoxaparin/Lovenox 40 mg SQ daily (WT < 150 kg, CrCl > 30 mL/min) *Enoxaparin/Lovenox 30 mg SQ daily (WT < 150 kg, CrCl > 10-29 mL/min) *Enoxaparin/Lovenox 30 mg SQ BID (WT < 150 kg, CrCl > 30 mL/min) AND *Sequential Compression Device (SCD) Assessment and Plan Assessment and Plan 72-year-old male with past medical history significant for recently diagnosed atrial fibrillation on Eliquis, hypertension, coronary artery disease status post previous [place] 1993, congestive heart failure, diabetes, chronic respiratory failure on home oxygen, COPD and hypothyroidism who presents to [facility] ED having been sent over by Dr. Nova's office for atrial fibrillation with RVR. Atrial fibrillation with RVR: Patient with recently diagnosed A. fib started on Cardizem and Eliquis by Dr. Otoole seen in Dr. Nova's office earlier today to discuss possible cardiac ablation procedure -Patient placed on amiodarone drip in the ED, continue -continue on home dose of po Cardizem -obtain TSH level -Continuous cardiac cath lab radiology technologist -Consult patient's contract designer Dr. Otoole, appreciate assistance -Continue on Eliquis -monitor HR CHF, diastolic, not in acute exacerbation Recent hospitalizations for large pleural effusions with thoracentesis failure Echo with EF 60-65% CXR today shows cardiomegaly with small left basilar effusion and atelectatic changes at the right base. There is minimal fluid seen at the right base as well. Overall the appearance of the chest is improved compared to a previous dated 10/20/17, images reviewed by me -Resume patient on home dose of metoprolol 25 mg twice daily, Lasix 40 mg daily -Monitor for signs of fluid overload DM BS 112 at ED presentation -Hold oral diabetic medications and scheduled insulin for now -Accu-Cheks and insulin sliding scale Chronic respiratory insufficiency, O2 dependent COPD, not in acute exacerbation Discussed with patient use of albuterol in relation to atrial fibrillation -Continue on supplemental oxygen -Resume home dose of bronchodilator therapy -Atrovent neb q6h while awake Other comorbidities include CAD with remote hx of [place], HTN, dyslipidemia, BPH and hypothyroidism, chronic, stable - continue home medications, no change in baseline. DVT prophylaxis -patient is on Eliquis Discussed Condition With patient, Dr. Corbett Physician Certification Order for Inpatient Services The services are ordered in accordance with Medicare regulations or non- Medicare payer requirements, as applicable. In the case of services not specified as inpatient-only, they are appropriately provided as inpatient services in accordance with the 2-midnight benchmark. days is the estimated time the patient will need to remain in the hospital, assuming treatment plan goals are met and no additional complications. Tatum Navarrete Nov 29, 2017 18:51
[2017-11-29] MEDS: RESP: IPRATROPIUM 0.5 MG/2.5 ML NEB NEB SCH (19:14)
[2017-11-29] MEDS: GABAPENTIN 300 MG CAP PO SCH (20:19)
[2017-11-29] MEDS: DOCUSATE SODIUM 50 MG/SENNA 8.6 MG TAB PO SCH (20:19)
[2017-11-29] MEDS: INSULIN ASPART SUPPLEMENTAL SCALE SQ SCH (20:20)
[2017-11-29] MEDS: ATORVASTATIN 20 MG TAB PO SCH (20:20)
[2017-11-29] MEDS: APIXABAN 5 MG TABLET PO SCH (20:20)
[2017-11-29] MEDS: BUDESONIDE-FORMOTEROL 80/4.5 MCG INHALER INH SCH (23:30)
[2017-11-29] MEDS: FLUTICASONE PROPIONATE 50 MCG/ACT 16 GM NASAL SPRAY EACH NARE SCH (23:31)
[2017-11-29] MEDS: LORazepam 0.5 MG TAB PO PRN (23:32)
[2017-11-30] VITALS (30 sets, daily range): BP systolic 132–150; BP diastolic 68–88; PULSE 121–128; RESP 18–20; TEMP 97–98.2; O2SAT 92–98
[2017-11-30] MEDS: AMIODARONE INJ 450 MG in SODIUM CHLOR 0.9% (EXCEL) INJ 241 ML IV PRN ×2 (03:33→20:36)
[2017-11-30 06:33] LABS: AUTOMATED NEUTROPHIL # 4.1 TH/MM3 (1.8-7.7); BASOPHIL % 0.7 % (0.0-2.0); EOSINOPHIL % 0.5 % (0.0-4.0); HEMATOCRIT 32.8 % (39.0-51.0); HEMOGLOBIN 10.6 GM/DL (13.0-17.0); LYMPHOCYTE # 0.9 TH/MM3 (1.0-4.8); MEAN CELL VOLUME 91.5 FL (80.0-100.0); MEAN CORPUSCULAR HEMOGLOBIN 29.7 PG (27.0-34.0); MEAN CORPUSCULAR HGB CONC 32.5 % (32.0-36.0); MEAN PLATELET VOLUME 8.8 FL (7.0-11.0); MONOCYTE # 0.3 TH/MM3 (0-0.9); NEUT % 75.8 % (16.0-70.0); PLATELET COUNT 164 TH/MM3 (150-450); RED BLOOD COUNT 3.58 MIL/MM3 (4.50-5.90); RED CELL DISTRIBUTION WIDTH 14.9 % (11.6-17.2); WHITE BLOOD COUNT 5.3 TH/MM3 (4.0-11.0)
[2017-11-30 06:51] LABS: ALBUMIN 3.2 GM/DL (3.4-5.0); ALT (GPT) 16 U/L (12-78); BICARBONATE 31.1 MEQ/L (21.0-32.0); BLOOD UREA NITROGEN 13 MG/DL (7-18); CALCIUM 8.8 MG/DL (8.5-10.1); CHLORIDE 103 MEQ/L (98-107); CREATININE 0.86 MG/DL (0.60-1.30); GLOMERULAR FILTRATION RATE 87 ML/MIN (>89); GLUCOSE,RANDOM 177 MG/DL (74-106); SODIUM (NA) 141 MEQ/L (136-145)
[2017-11-30 06:58] LABS: ALKALINE PHOSPHATASE 34 U/L (45-117); AST (GOT) 14 U/L (15-37); TOTAL BILIRUBIN ADULT 0.3 MG/DL (0.2-1.0); TOTAL PROTEIN 6.9 GM/DL (6.4-8.2); TROPONIN I LESS THAN 0.02 NG/ML (0.02-0.05)
[2017-11-30] MEDS: INSULIN ASPART SUPPLEMENTAL SCALE SQ SCH ×4 (08:00→21:00)
[2017-11-30] MEDS: RESP: IPRATROPIUM 0.5 MG/2.5 ML NEB NEB SCH ×3 (08:39→19:33)
[2017-11-30] MEDS ORDERED: FATTY ACIDS PO SCH (09:00)
[2017-11-30] MEDS ORDERED: NON-FORMULARY DRUG (Coenzyme Q10 (Ubidecarenone) (Coq10) 100 MG) PO SCH (09:00)
[2017-11-30] MEDS: DOCUSATE SODIUM 50 MG/SENNA 8.6 MG TAB PO SCH ×2 (09:00→21:00)
[2017-11-30] MEDS ORDERED: OMEGA PO SCH (09:00)
[2017-11-30] MEDS: ACETAMINOPHEN 325 MG TAB PO PRN (09:25)
[2017-11-30] MEDS: FINASTERIDE 5 MG TAB PO SCH (09:25)
[2017-11-30] MEDS: DILTIAZEM-CD 240 MG CAP ER PO SCH (09:27)
[2017-11-30] MEDS: LORazepam 0.5 MG TAB PO PRN ×2 (09:27→19:22)
[2017-11-30] MEDS: APIXABAN 5 MG TABLET PO SCH (09:27)
[2017-11-30] MEDS: FUROSEMIDE 40 MG TAB PO SCH (09:27)
[2017-11-30] MEDS: DOXAZOSIN MESYLATE 4 MG TAB PO SCH (09:28)
[2017-11-30] MEDS: LORATADINE 10 MG TAB PO SCH (09:28)
[2017-11-30] MEDS: FLUTICASONE PROPIONATE 50 MCG/ACT 16 GM NASAL SPRAY EACH NARE SCH ×2 (09:29→21:27)
[2017-11-30] MEDS: BUDESONIDE-FORMOTEROL 80/4.5 MCG INHALER INH SCH ×2 (09:30→21:26)
[2017-11-30] MEDS: LEVOTHYROXINE SODIUM 150 MCG TAB PO SCH (09:35)
--- NOTE | 2017-11-30 10:50 | HHI.PR ---
Subjective Remarks Patient denies any chest pain, shortness of breath, nausea or vomiting. Denies any palpitations at this time. No lightheadedness or dizziness. Objective Vitals Vital Signs Date Time Temp Pulse Resp B/P (MAP) Pulse Ox O2 Delivery O2 Flow Rate FiO2 11/30/17 08:44 96 Nasal Cannula 3.00 11/30/17 08:22 98.2 125 20 142/77 (98) 98 11/30/17 06:00 126 11/30/17 05:00 124 11/30/17 04:00 122 11/30/17 03:33 125 132/68 11/30/17 03:00 124 11/30/17 03:00 97.8 125 20 132/68 (89) 94 11/30/17 02:00 123 11/30/17 01:00 122 11/30/17 00:00 124 11/29/17 23:30 98.3 121 22 122/59 (80) 96 11/29/17 23:00 124 11/29/17 22:14 11/29/17 22:00 98.3 125 22 138/86 (103) 93 11/29/17 22:00 125 11/29/17 21:27 124 20 129/68 (88) 97 Nasal Cannula 3.00 11/29/17 19:14 96 Nasal Cannula 3.00 11/29/17 19:08 128 20 141/72 (95) 96 Nasal Cannula 3.00 11/29/17 18:28 98 Nasal Cannula 3.00 11/29/17 18:15 126 19 132/72 (92) 98 Nasal Cannula 3.00 11/29/17 18:00 124 19 128/63 (84) 98 Nasal Cannula 3.00 11/29/17 17:49 124 127/61 11/29/17 17:45 124 23 127/61 (83) 97 Nasal Cannula 3.00 11/29/17 17:28 128 24 134/79 (97) 97 Nasal Cannula 3.00 11/29/17 17:23 128 134/79 11/29/17 16:30 128 22 145/79 (101) 97 Nasal Cannula 2.00 11/29/17 16:07 97 Nasal Cannula 2.00 11/29/17 16:07 36 90 Room Air 11/29/17 15:52 130 36 142/77 (98) 97 Nasal Cannula 11/29/17 15:43 Room Air 11/29/17 15:30 97.9 131 22 161/81 (107) 90 I/O 11/29/17 11/29/17 11/29/17 11/30/17 11/30/17 11/30/17 07:00 15:00 23:00 07:00 15:00 23:00 Intake Total 600 ml 240 ml Output Total 975 ml Balance 600 ml -735 ml Intake Oral 240 ml IV Total 600 ml Output Urine Total 975 ml # Bowel Movements 0 Result Diagram: 11/30/17 0454 11/30/17 0454 Imaging Last Impressions Chest X-Ray 11/29/17 0000 Signed Impressions: Service Date/Time: Wednesday, November 29, 2017 15:59 - CONCLUSION: 1. Cardiomegaly with small left basilar effusion and atelectatic changes at the right base. There is minimal fluid seen at the right base as well. Overall the appearance of the chest is improved compared to a previous dated 10/20/17 Nikita Pascual MD Objective Remarks GENERAL: This is a well-nourished, Awake and alert. CARDIOVASCULAR: Irregularly irregular without murmurs RESPIRATORY: Diminished breath sounds. No wheezes GASTROINTESTINAL: Abdomen soft, non-tender, nondistended. No guarding. Obese abdomen MUSCULOSKELETAL: Extremities without edema. NEUROLOGICAL: Awake and alert. Normal speech. A/P Assessment and Plan 72-year-old male with past medical history significant for recently diagnosed atrial fibrillation on Eliquis, hypertension, coronary artery disease status post previous [place] 1993, congestive heart failure, diabetes, chronic respiratory failure on home oxygen, COPD and hypothyroidism who presents to [facility] ED having been sent over by Dr. Nova's office for atrial fibrillation with RVR. Atrial fibrillation with RVR: Patient with recently diagnosed A. fib started on Cardizem and Eliquis by Dr. Otoole. Currently on an amiodarone drip. Patient continues to be on atrial fibrillation. Continue home dose of p.o. Cardizem. TSH within normal limits. Continue telemetry. Cardiology has been consulted. Patient is also known to Dr. Nova, I will consult him as patient was being considered for ablation. continue Eliquis. CHF, diastolic, not in acute exacerbation Recent hospitalizations for large pleural effusions with thoracentesis failure Echo with EF 60-65% CXR today shows cardiomegaly with small left basilar effusion and atelectatic changes at the right base. There is minimal fluid seen at the right base as well. Overall the appearance of the chest is improved compared to a previous dated 10/20/17. on home dose of metoprolol 25 mg twice daily, Lasix 40 mg daily. Monitor for signs of fluid overload DM BS 112 at ED presentation -Hold oral diabetic medications and scheduled insulin for now -Accu-Cheks and insulin sliding scale Chronic respiratory insufficiency, O2 dependent COPD, not in acute exacerbation. Atrovent neb q6h while awake Other comorbidities include CAD with remote hx of [place], HTN, dyslipidemia, BPH and hypothyroidism, chronic, stable - continue home medications, no change in baseline. DVT prophylaxis -patient is on Eliquis Discharge Planning Awaiting recommendations from cardiology India Plunkett MD November 30, 2017 10:50
--- NOTE | 2017-11-30 15:02 | MB ---
cc: Meggan Nova MD DATE: 11/30/2017 REASON FOR CONSULTATION: Atrial fibrillation, atrial flutter with rapid ventricular response. HISTORY OF PRESENT ILLNESS: Mr. Otoole is a 72-year-old gentleman with history of tachyarrhythmia, morbid obesity, high blood pressure, hyperlipidemia, COPD, hypothyroidism, who was admitted to the emergency room due to atrial fibrillation, atrial flutter with rapid ventricular response. Amiodarone was initiated. Heart rate is still high. He is on Cardizem. I was consulted for further evaluation and management. The chart was reviewed. The patient was evaluated. ALLERGIES: CODEINE. SOCIAL HISTORY: Negative for smoking and drinking. FAMILY HISTORY: Noncontributory to his current medical condition. MEDICATIONS: He is on Plavix. He is on Symbicort, Lantus, Cardizem 240 mg a day, Eliquis 5 mg twice a day, finasteride, Lasix 40 mg a day, glimepiride 4 mg twice a day, NovoLog, metoprolol 50 mg twice a day, lorazepam, Neurontin, atorvastatin. He is on amiodarone IV during hospitalization. REVIEW OF SYSTEMS: The patient refers shortness of breath and palpitation, shortness of breath on minimal activity. No fever. PHYSICAL EXAMINATION: GENERAL: Alert, fully oriented. VITAL SIGNS: Blood pressure is 148/81, pulse 124, respiratory rate 20-22. LUNGS: . CARDIOVASCULAR: S1, S2, tachycardic, irregular. ABDOMEN: Obese. No mass. No bruits. EXTREMITIES: No edema. DIAGNOSTIC DATA: Electrocardiogram showed what appeared to be atrial fibrillation versus atrial flutter with rapid ventricular response. LABORATORY DATA: Hemoglobin 10.6, white blood cell 5.3. Potassium is 3.8, creatinine 0.86. Troponin less than 0.02. TSH 1.52. INR 1.2. ASSESSMENT AND RECOMMENDATIONS: Mr. Otoole has atrial flutter, atrial , possible atrial fibrillation. Heart rate is difficult to control despite multiple medications. Electrophysiology study and ablation discussed with him. The risks, the nature and the benefits of the procedure are clearly stated to him. Risks include pneumothorax, cardiac perforation, stroke and even . He understood and agreed to proceed. I will keep him n.p.o. after midnight, procedure tomorrow morning. Arturo julian. MD MILVIA Da Silva/FLORENCIA , 02:08 PM , 03:01 PM
[2017-11-30] MEDS ORDERED: TEMAZEPAM 15 MG CAP PO PRN (21:00)
[2017-11-30] MEDS: ATORVASTATIN 20 MG TAB PO SCH (21:26)
[2017-11-30] MEDS: GABAPENTIN 300 MG CAP PO SCH (21:27)
[2017-12-01] VITALS (19 sets, daily range): BP systolic 139–152; BP diastolic 68–78; PULSE 95–128; RESP 18–20; TEMP 97.6–99.7; O2SAT 92–99
[2017-12-01] MEDS ORDERED: LACTATED RINGER'S 1000 ML IV PRN (04:00)
[2017-12-01] MEDS ORDERED: SODIUM CHLORID 0.9% 500 ML IV PRN (04:00)
[2017-12-01] MEDS ORDERED: CHLORHEXIDINE GLUCONATE 2 % 1 PACK (2 CLOTHS) TOPICAL PRN (04:00)
[2017-12-01] MEDS ORDERED: POVIDONE IODINE 5% (ANTISEPSIS KIT) 4 APPLICATIONS EACH NARE PRN (04:00)
[2017-12-01] MEDS ORDERED: METOPROLOL TARTRATE 25 MG TAB PO PRN (04:00)
[2017-12-01] MEDS: LEVOTHYROXINE SODIUM 150 MCG TAB PO SCH (05:48)
[2017-12-01] MEDS: RESP: IPRATROPIUM 0.5 MG/2.5 ML NEB NEB SCH ×2 (07:42→13:52)
[2017-12-01] MEDS: INSULIN ASPART SUPPLEMENTAL SCALE SQ SCH ×2 (07:43→12:00)
[2017-12-01] MEDS: FLUTICASONE PROPIONATE 50 MCG/ACT 16 GM NASAL SPRAY EACH NARE SCH ×2 (07:52→20:46)
[2017-12-01] MEDS: BUDESONIDE-FORMOTEROL 80/4.5 MCG INHALER INH SCH ×2 (07:52→20:46)
[2017-12-01] MEDS: DILTIAZEM-CD 240 MG CAP ER PO SCH (07:53)
[2017-12-01] MEDS: FINASTERIDE 5 MG TAB PO SCH (07:53)
[2017-12-01] MEDS: FUROSEMIDE 40 MG TAB PO SCH (07:54)
[2017-12-01] MEDS: LORATADINE 10 MG TAB PO SCH (07:54)
[2017-12-01] MEDS: LORazepam 0.5 MG TAB PO PRN (07:55)
[2017-12-01] MEDS: DOXAZOSIN MESYLATE 4 MG TAB PO SCH (07:55)
[2017-12-01] MEDS: DOCUSATE SODIUM 50 MG/SENNA 8.6 MG TAB PO SCH ×2 (07:56→20:46)
[2017-12-01] MEDS: ACETAMINOPHEN 325 MG TAB PO PRN (07:56)
[2017-12-01] MEDS ORDERED: MIDAZOLAM HCL 2 MG/2 ML VIAL ONE (09:27)
[2017-12-01] MEDS ORDERED: ISOPROTERENOL HCL 0.2 MG/ML AMP IV ONE (09:27)
[2017-12-01] MEDS ORDERED: FAMOTIDINE 20 MG/2 ML VIAL ONE (09:27)
--- NOTE | 2017-12-01 10:50 | CATHPROC ---
Patient Name: BOWEN VARGAS Study #: [id number] Initial MD: Meggan Nova Date of : 1945 Study Date: 12/01/2017 Cardiac Catheterization Report 12/01/2017 10:49:55 AM Financial #: [id number] 1 of 8 Patient Name: BOWEN VARGAS Study #: [id number] Initial MD: Meggan Nova Date of : 1945 Study Date: 12/01/2017 Entire Case Report Patient Information Patient Name BOWEN VARGAS Date of 1945 Age 72 years Financial # [id number] Gender M AlternateID Lab Number 2 Room Number 254 Height (in) 69.0 Height (cm) 175.3 BSA 2.31 Weight (lbs) 260.0 Weight (kg) 118.2 Patient Address/Phone Number Home Address [facility] Home Phone Number [phone] [facility] [id number] Study Information Study Number Admission Scheduled Start Study Start [id number] Nov 29 2017 5:55PM 11/30/2017 Dec 01 2017 8:49AM [place] [facility] Electrophysiology Study Admit Source Facility Department Other [facility] [address] Clerk Physician and Clinical Staff Initial Meggan Page Publication Manager Lissett Lynch,RN Publication Manager Shahrzad Lora,RT(R) TECH2 Other Anesthesia, OPENING MACHINE CLEANER Recorder Yelitza Page,SANJUANITA Scrub Thai Vásquez,RT(R) Procedures Performed Procedure Location (Site) Vessel Name RF Ablation Isthmus Other 12/01/2017 10:49:55 AM Financial #: [id number] 2 of 8 Patient Name: BOWEN VARGAS Study #: [id number] Initial MD: Meggan Nova Date of : 1945 Study Date: 12/01/2017 Equipment Time Boat Hoist Operator Helper Description Size Mfg Part Number Used/Scraped BIOSENSE SERNA CATHETER, CELSIUS DS, 8MM, F [id number] 09:19 FR 7 Used INC. TYPE QUAD *[id number] 10:22 [facility] MEDICAL VASCADE, FR5 CLOSURE SYSTEM FR 5 Used *[id number] 10:22 [employer] MEDICAL VASCADE, FR5 CLOSURE SYSTEM FR 5 Used *[id number] 10:23 [employer] MEDICAL VASCADE, FR5 CLOSURE SYSTEM FR 5 Used *[id number] 10:22 [employer] MEDICAL VASCADE, FR6 CLOSURE SYSTEM FR 6\7 Used *[id number] 10:22 [employer] MEDICAL VASCADE, FR6 CLOSURE SYSTEM FR 6\7 Used *[id number] 09:17 [employer] PACK, CCL CUSTOM * Used *[id number] 09:17 MEDLINE PACER JAMISON, LIMB * 2530 *[id number] Used [id number] 09:17 [employer] BLANKET,WARM AIR CCL * Used *[id number] 09:17 [employer] MEDICAL CATHETER, JSN, QUAD FR 5 Used *[id number] 123235 09:17 [employer] MEDICAL CATHETER, JSN, QUAD FR 5 Used *[id number] 09:17 [employer] MEDICAL CATHETER, JSN, QUAD FR 5 Used *[id number] 687541 09:17 [employer] MEDICAL CATHETER, JSN, QUAD FR 5 Used *[id number] 10:08 [employer] MEDICAL CATHETER, JSN, QUAD FR 5 Used *[id number] 09:17 [employer] MEDICAL ELECTRODE KIT, SETELLA X SURFACE * Used *[id number] 790588 09:18 [employer] MEDICAL SHEATH, EPS, FR5 FAST CATH FR 5 Used *[id number] 854344 09:18 [employer] MEDICAL SHEATH, EPS, FR5 FAST CATH FR 5 Used *[id number] 683694 09:18 [employer] MEDICAL SHEATH, EPS, FR5 FAST CATH FR 5 Used *[id number] 727091 09:18 [facility] [employer] MEDICAL SHEATH, EPS, FR6 FAST CATH FR 6 Used *[id number] 417565 09:18 [employer] MEDICAL SHEATH, EPS, FR8 FAST CATH FR 8 Used *[id number] [facility] PAD, ELECTROSURGICAL 09:17 * [id number] *[id number] Used SURGICAL GROUNDING (BLUE) Insurance Information Insurance Payor Private Health Insurance Third Green Party Third Green Party Number [employer] [facility] 12/01/2017 10:49:55 AM Financial #: [id number] 3 of 8 Patient Name: BOWEN VARGAS Study #: [id number] Initial MD: Meggan Nova Date of : 1945 Study Date: 12/01/2017 History: Allergies Allergy Reaction No Known Allergies codeine Nausea/Vomiting History: Risk Factors Family History of Hypertension Dyslipidemia Previous Heart Failure Premature CAD Yes Yes Yes Yes Prior PCI Prior CABG Yes No Chronic Lung Diabetes Diabetes Therapy Disease Yes Yes Insulin Labs Hgb (g/dl) Hct (%) WBC (l/cumm) Platelets (thousands) 11.60-17.00 35.00-51.00 4.00-11.00 150.00-450.00 10.6 32.8 5.3 164 Glucose (mg/dl) BUN (mg/dl) Creatinine (mg/dl) BUN:Creatinine (1:x) 74.00-106.00 7.00-18.00 0.50-1.30 10.00-20.00 177 13 0.9 14.4 Na (meq/l) K (meq/l) 136.00-145.00 3.50-5.10 141 3.8 INR (PTT:PT) 0.90-1.10 1.2 Medication Medication Total Dose (Bolus/Oral) Medication Total Dosage/Unit 1% XYLOCAINE 40 mL Medications (Bolus/Oral) Medication Time Given Dosage/Unit Administered By Reason 1% XYLOCAINE 12/01/2017 9:57:25 AM 20 mL Meggan Nova 20 mL 1% XYLOCAINE given in lab by Meggan Nova in Left Groin via Subcutaneous. 1% XYLOCAINE 12/01/2017 10:01:09 AM 20 mL Meggan Nova 20 mL 1% XYLOCAINE given in lab by Meggan Nova in Right Groin via Subcutaneous. 12/01/2017 10:49:55 AM Financial #: [id number] 4 of 8 Patient Name: BOWEN VARGAS Study #: [id number] Initial MD: Meggan Nova Date of : 1945 Study Date: 8 Medication (Drip) Medication Time Given Dosage/Unit Concentration/Unit Diluent (ml) Solution ISUPREL 12/01/2017 10:18:05 AM 4 mcg/min 1 mg 250 NaCl .9 4 mcg/min ISUPREL given in lab by Meggan Nova via Peripheral IV. Pump/Drip Flow = 60 ml/hr using Na Cl .9 with a concentration of 1 mg in 250 ml. Initial Case Assessment Cardiovascular HR NIBP 120 142/76 Edema Present Skin color Skin None Flush Warm Dry Circulatory - Right Pulses Dorsalis Pedis 1 Scale (0,1,2,3,4,d) Circulatory - Left Pulses Dorsalis Pedis 1 Scale (0,1,2,3,4,d) Circulatory - Lower Extremities Color Lower Right Color Lower Left Normal Normal Neurological State Oriented to time-place- Alert Moves all extremities person Respiration - General Respiration Rate SpO2 (%) O2 (lpm) Short Of Breath (B/min) 22 94 2 Yes 12/01/2017 10:49:55 AM Financial #: [id number] Patient Name: BOWEN VARGAS Study #: [id number] Initial MD: Meggan Nova Date of : 1945 Study Date: 12/01/2017 Final Case Assessment Cardiovascular HR Rhythm NIBP Chest Pain 96 SR 105/59 0 Edema Present Skin color Skin None Normal Warm Dry Circulatory - Right Pulses Dorsalis Pedis 1 Scale (0,1,2,3,4,d) Circulatory - Left Pulses Dorsalis Pedis 1 Scale (0,1,2,3,4,d) Neurological State Oriented to time-place- Alert Moves all extremities person Respiration - General Respiration Rate SpO2 (%) O2 (lpm) (B/min) 18 94 4 Chronological Log Time Study Chronological Log 9:11:03 Patient arrived via Bed. 9:11:04 Patient Name, D.O.B, / Armband Verified By R.N. 9:11:05 Consent signed by the physician and the patient and verified by the Circuit Court Clerk staff. 9:11:06 Pre-op and post- op instructions given; patient acknowledges understanding of instructions. 9:11:07 Verbal Stimulation=2 Physical Stimulation=2 Airway=1 Respiration=2 TOTAL=7. (0=absent, 1=li mited, 2=present) 9:11:08 Anesthesia at bedside. Assumes care of patient. 9:11:10 Patient has been NPO for More than 6Hrs. 9:11:11 Skin Breakdown- left groin purplish pink discoloration in folds of thigh through crum 9:11:12 Patient Warmer Placed on the Table. 9:11:13 Disposable Defibrillator Pads Placed On Patient. 9:11:14 Lore Prominences Protected 9:11:17 A # 20 IV was noted in the Forearm (right). Grade = 0 0.9% NaCl @ KVO 12/01/2017 10:49:55 AM Financial #: [id number] Patient Name: BOWEN VARGAS Study #: [id number] Initial MD: Meggan Nova Date of : 1945 Study Date: 12/01/2017 9:11:19 A # 20 IV was noted in the Forearm (left). Grade = 0 0.9% NaCl @ KVO 9:11:22 History and physical on the chart or being dictated. Assessment: Initial Case, GN=827 BPM, YBHS=859/76 mmhg, Edema=None, Color=Flush, Skin = Warm, D ry Right Pulses: Carlitos Ped=1 Left Pulses: Carlitos Ped=1 9:30:39 Lower Right Extremities: Color=Normal Lower Left Extremities: Color=Normal Neurological: State=Alert, Ox3, MATT Respiration: Resp=22 B/min, SpO2=94 %, O2=2 lpm, Short of Breath 9:31:20 Bilateral groins prepped with 2% chlorhexidine. 9:33:47 Table restraints applied according to hospital policy 9:34:55 A sterile drape was applied after a 3 minute prep drying time. 9:39:43 MD paged to update on anesthesia decision to proceed with General anesthesia instead of MAC . 9:40:34 MD responded 9:41:19 Anesthesia present for intubation using Glidescope to facilitate. 9:44:47 paged Time Out. Correct patient, procedure, procedure equipment, site and side verified with physicia n present. Time 9:56:00 concurred by MD, individual staff and OPENING MACHINE CLEANER. Time Out #2 - Consents verified, patient in correct position, all results are labled and displa yed, safety precautions 9:56:12 taken, antibiotics administered. Time out concurred by MD, individual staff and OPENING MACHINE CLEANER in procedu re 9:57:21 Case Start 9:57:25 20 mL 1% XYLOCAINE given in lab by Meggan Nova in Left Groin via Subcutaneous. 9:59:33 Vascular access was obtained in the Fem Vein (left). 9:59:37 Vascular access was obtained in the Fem Vein (left). 9:59:37 Vascular access was obtained in the Fem Vein (left). 9:59:48 A SHEATH, EPS, FR5 FAST CATH FR 5 was advanced into the Fem Vein (left) using the Modified Seldinger technique. 9:59:58 A SHEATH, EPS, FR5 FAST CATH FR 5 was advanced into the Fem Vein (left) using the Modified Seldinger technique. 10:00:01 A SHEATH, EPS, FR5 FAST CATH FR 5 was advanced into the Fem Vein (left) using the Modified Seldinger technique. 10:01:09 20 mL 1% XYLOCAINE given in lab by Meggan Nova in Right Groin via Subcutaneous. 10:01:16 Vascular access was obtained in the Fem Vein (right). 10:01:26 Vascular access was obtained in the Fem Vein (right). 10:03:01 A SHEATH, EPS, FR6 FAST CATH FR 6 was advanced into the Fem Vein (right) using the Modified Seldinger technique. 10:03:19 A SHEATH, EPS, FR8 FAST CATH FR 8 was advanced into the Fem Vein (right) using the Modified Seldinger technique. A CATHETER, JSN, QUAD FR 5 was advanced vis Fem Vein (right) and placed in the CS. Placement wa s visually 10:03:31 confirmed under fluoroscopy. A CATHETER, JSN, QUAD FR 5 was advanced vis Fem Vein (left) and placed in the HIS. Placement wa s visually 10:03:56 confirmed under fluoroscopy. A CATHETER, JSN, QUAD FR 5 was advanced vis Fem Vein (left) and placed in the HRA. Placement wa s visually 10:11:02 confirmed under fluoroscopy. A CATHETER, JSN, QUAD FR 5 was advanced vis Fem Vein (left) and placed in the RVA. Placement wa s visually 10:11:11 confirmed under fluoroscopy. 10:12:46 RF Ablation of the Isthmus with a CATHETER, NANCY DS, 8MM, F TYPE QUAD FR 7. 4 mcg/min ISUPREL given in lab by Meggan Nova via Peripheral IV. Pump/Drip Flow = 60 ml/hr us ing NaCl .9 with a 10:18:05 concentration of 1 mg in 250 ml. 12/01/2017 10:49:55 AM Financial #: [id number] Patient Name: BOWEN VARGAS Study #: [id number] Initial MD: Meggan Nova Date of : 1945 Study Date: 12/01/2017 10:20:50 Catheter(s) removed without difficulty RIGHT GROIN VENOUS ACCESS CLOSED WITH VASCADE X2 10:35:04 LEFT GROIN VENOUS ACCESS CLOSED WITH VASCADE X3 10:36:00 Case End Assessment: Final Case, HR=96 BPM, Rhythm=SR, KWMO=650/59 mmhg, Chest Pain=0, Edema=None, [place] r=Normal, Skin = Warm, Dry Right Pulses: Carlitos Ped=1 10:36:13 Left Pulses: Carlitos Ped=1 Neurological: State=Alert, Ox3, MATT Respiration: Resp=18 B/min, SpO2=94 %, O2=4 lpm 10:47:09 PACU called. Spoke to KALE 10:49:13 Sterile dressing applied to site 10:49:14 No case complications noted. 10:49:15 Cine recording checked. 10:49:16 Bedside Report will be given. 10:49:21 Defibrillator and ground pads removed. Skin intact. 10:49:22 [facility] - Contrast Media Used In Study Contrast Total Opened (mL) Total Used (mL) Total Wasted (mL) Unspecified 0 0 0 End Study - Maximum Contrast Load Max Contrast Load (mL) 656.6 End Study - Radiation Exposure Fluoro Time (minutes) 5.8 End Study - Patient Disposition Complications Transferred To Interventional Outcome No Telemetry Bed successful 12/01/2017 10:49:55 AM Financial #: [id number]
[2017-12-01] MEDS ORDERED: PROPOFOL 1000 MG/100 ML INJ 100 ML ONE ×2 (11:03→14:18)
[2017-12-01] MEDS ORDERED: PROPOFOL 200 MG/20 ML AMP IV ONE (12:00)
[2017-12-01] MEDS ORDERED: PHENYLEPH/NS 1000 MCG/10 ML SYR IV ONE (12:00)
[2017-12-01] MEDS ORDERED: ROCURONIUM INJ 50 MG/5 ML SYRINGE IV PUSH ONE (12:00)
[2017-12-01] MEDS ORDERED: SUCCINYLCHOLINE CHLORIDE 100 MG/5 ML SYRINGE IV PUSH ONE (12:00)
[2017-12-01] MEDS ORDERED: LIDOCAINE HCL 1% PF 5 ML SYRINGE OTHER ONE (12:00)
[2017-12-01] MEDS ORDERED: DO NOT ADM ANY ANTICOAGULANT DRUGS PRN (12:00)
[2017-12-01] MEDS ORDERED: MORPHINE SULFATE 4 MG/ML INJ ONE (12:23)
[2017-12-01] MEDS ORDERED: *RESP: ALBUTEROL 2.5 MG/3 ML NEB (PRN) PERIprocedural Use ONLY NEB ONE (13:08)
[2017-12-01] MEDS ORDERED: *morphine SULFATE 4 MG/ML PERIprocedure ONLY ONE (13:26)
--- NOTE | 2017-12-01 14:08 | RADRPT ---
EXAM DATE/TIME: 12/01/2017 14:39 [place] COMPARISON: CHEST SINGLE AP, November 29, 2017, 15:59. INDICATIONS : ET tube placement. MEDICAL HISTORY : Myocardial infarction. Congestive heart failure. Hypercholesterolemia. Thyroid disease. CVA. Head tra [place]is. Migraines. HTN. COPD. Emphysema. Asthma. Dyspnea. UTI. Arthritis. SURGICAL HISTORY : Umbilical hernia repair. Balloon angioplasty. Cardiac cath. ENCOUNTER: Initial ACUITY: 1 day PAIN SCORE: Non-responsive. LOCATION: Bilateral chest FINDINGS: The ET tube has been placed. ET tube appears to be in good position overlying the tracheal air shadow . There is no pneumothorax. There is increasing parenchymal consolidation in the left mid to left low er lung compared to the prior exam. There is an infiltrate in the right lung base. No definite pneumo thorax. The heart size remains enlarged. CONCLUSION: 1. The ET tube appears to be in good position. No pneumothorax. 2. Increasing consolidation in the left mid to left lower lung. Hermelindo Arthur MD on December 01, 2017 at 14:06 Board Certified Radiologist. This report was verified electronically.
[2017-12-01 14:49] LABS: AUTOMATED NEUTROPHIL # 6.6 TH/MM3 (1.8-7.7); BASOPHIL % 0.6 % (0.0-2.0); EOSINOPHIL % 0.1 % (0.0-4.0); HEMATOCRIT 32.8 % (39.0-51.0); HEMOGLOBIN 10.7 GM/DL (13.0-17.0); LYMPH % 5.4 % (9.0-44.0); LYMPHOCYTE # 0.4 TH/MM3 (1.0-4.8); MEAN CELL VOLUME 90.6 FL (80.0-100.0); MEAN CORPUSCULAR HEMOGLOBIN 29.5 PG (27.0-34.0); MEAN CORPUSCULAR HGB CONC 32.6 % (32.0-36.0); MEAN PLATELET VOLUME 8.7 FL (7.0-11.0); MONO % 5.7 % (0.0-8.0); MONOCYTE # 0.4 TH/MM3 (0-0.9); NEUT % 88.2 % (16.0-70.0); PLATELET COUNT 203 TH/MM3 (150-450); RED BLOOD COUNT 3.61 MIL/MM3 (4.50-5.90); WHITE BLOOD COUNT 7.5 TH/MM3 (4.0-11.0)
[2017-12-01] MEDS: FUROSEMIDE 40 MG/4 ML VIAL IV PUSH SCH ×2 (14:55→18:06)
[2017-12-01] MEDS ORDERED: FUROSEMIDE 20 MG/2 ML VIAL ONE (14:57)
[2017-12-01 15:07] LABS: ALBUMIN 3.6 GM/DL (3.4-5.0); AST (GOT) 17 U/L (15-37); BICARBONATE 29.6 MEQ/L (21.0-32.0); BLOOD UREA NITROGEN 15 MG/DL (7-18); CALCIUM 8.8 MG/DL (8.5-10.1); CHLORIDE 99 MEQ/L (98-107); CREATININE 1.12 MG/DL (0.60-1.30); GLOMERULAR FILTRATION RATE 64 ML/MIN (>89); GLUCOSE,RANDOM 272 MG/DL (74-106); SODIUM (NA) 137 MEQ/L (136-145)
[2017-12-01 15:08] LABS: ALT (GPT) 20 U/L (12-78)
[2017-12-01 15:11] LABS: ALKALINE PHOSPHATASE 41 U/L (45-117); TOTAL BILIRUBIN ADULT 0.4 MG/DL (0.2-1.0); TOTAL PROTEIN 7.5 GM/DL (6.4-8.2)
[2017-12-01] MEDS: FAMOTIDINE 20 MG/2 ML VIAL IV PUSH SCH ×2 (15:12→20:46)
--- NOTE | 2017-12-01 15:16 | MB ---
cc: Jonny Bazzi MD DATE: 12/01/2017 HISTORY OF PRESENT ILLNESS: The patient is a 72-year-old male with past medical history of chronic atrial fibrillation, on Eliquis, hypertension, coronary artery disease with previous VT in 1993, CHF, diabetes mellitus, COPD, on home oxygen, and hypothyroidism. He was admitted under hospitalist service on 11/29 for AFib with RVR. The patient was seen by Dr. Nova, and he underwent EP study with radiofrequency ablation for his atrial fibrillation. The patient was not able to be weaned off the ventilation post-procedure and critical care medicine was consulted for critical care management. He had NS 500 mL during the procedure, EBL less than 30 mL, and urine output 200 mL in the PACU. When seen, the patient is sedated with Diprivan and on full mechanical ventilation. ABG on the ventilator showed acute hypercapnic respiratory acidosis with a pH of 7.27, CO2 of 68, PaO2 of 78, bicarbonate 30, saturation of 90% on PRVC rate of 15, tidal volume 500, I time 1.0, PEEP of 8 and 60% FIO2. Chest x-ray showed ET tube above the tara, increasing consolidation in the left mid to left lower lung. He had echocardiogram on 10/19, which showed EF of 60-65%. PAST MEDICAL HISTORY: Significant for chronic atrial fibrillation, on Eliquis, hypertension, coronary artery disease with previous VT, diastolic CHF, COPD, on home oxygen, hyperlipidemia, hypothyroidism, BPH. PAST SURGICAL HISTORY: Previous umbilical hernia repair. Previous coronary angiogram with angioplasty. REPORTED MEDICATIONS: Include Ventolin, Claritin, on 2 liters home oxygen, Symbicort, diltiazem, Eliquis, Lasix, lorazepam, Lantus, omega 3, metoprolol, levothyroxine, doxazosin, atorvastatin. ALLERGIES: CODEINE. FAMILY HISTORY: Not contributing to present illness. SOCIAL HISTORY: The patient has remote history of tobacco use. REVIEW OF SYSTEMS: As per HPI. Rest of review of systems unobtainable as the patient is intubated. PHYSICAL EXAMINATION: GENERAL: A 72-year-old male, remained on mechanical ventilation postop. VITAL SIGNS: Temperature 98.0, pulse of 103, blood pressure 146/59, sats 93%. Vent setting: PRVC rate of 15, tidal volume 500, I time 1.0, PEEP of 8, FiO2 of 60%. HEENT: Atraumatic, normocephalic. Pupils are equal, round, reactive to light and accommodation. Extraocular muscles intact. Conjunctivae pink. Nonicteric sclerae. Oral mucosa within normal. NECK: Supple. No JVD, adenopathy, thyromegaly. Trachea midline. HEART: Tachycardic. Normal S1, S2. No murmurs, rubs or gallops noted. LUNGS: Bilateral equal air entry. Overall, diminished at the bases. ABDOMEN: Soft, obese, nontender. No distention. Positive bowel sounds. EXTREMITIES: No cyanosis or clubbing. Trace edema. NEUROLOGIC: Intubated and sedated with Diprivan. LABORATORY DATA: From 11/30, sodium 141, potassium 3.8, chloride 103, CO2 of 31, BUN 13, creatinine 0.86, glucose 177. WBC 5.3, hemoglobin 10.6, hematocrit 32, platelet count 164. INR 1.2, PT 11.7, PTT 28. ABG showed pH of 7.27, CO2 of 68, pO2 of 78, bicarbonate 30, saturation 90%. RADIOGRAPHIC STUDIES: Chest x-ray showed ET tube above tara, increasing consolidation in the left mid and left lower lung. IMPRESSION: 1. Vent-dependent respiratory failure postop. 2. Status post electrophysiology study with radiofrequency ablation for atrial fibrillation. 3. Chronic atrial fibrillation, on Eliquis at home. 4. Chronic obstructive pulmonary disease, on home oxygen. 5. Hypertension. 6. History of coronary artery disease. 7. Hypothyroidism. 8. Diabetes mellitus. 9. Anemia. 10. History of diastolic congestive heart failure. RECOMMENDATIONS: 1. Continue with Diprivan infusion for sedation and daily sedation vacation when appropriate. 2. Continue with vent support and maintain sats above 92%. 3. Bronchodilators in the form of DuoNeb q. 4 plus q. 2 p.r.n. Initiate ICU vent bundle. 4. Increased respiratory rate to 18 and tidal volume to 550, and repeat ABG in 1 hour. 5. Monitor heart rate and blood pressure closely, and maintain MAP greater than 65 mmHg. Continue with antihypertensive medications. He is currently on Cardura 4 mg daily, Cardizem-CD 240 mg daily. Echocardiogram from 10/19 showed an EF of 60-65%. Dr. Nova from cardiology is following. 6. Monitor renal function, I's and O's and electrolyte replacement per protocol. Change Lasix to 40 mg IV b.i.d., and we will check a BNP level. 7. Keep n.p.o. for now and place on Pepcid for GI prophylaxis. Start nutrition support within next 24 hours if patient remains intubated. 8. Monitor for signs of infection, which include fever and WBC. Check sputum culture and urinalysis with culture if indicated. Panculture if spikes a fever. 9. Monitor CBC and coags. The patient is on Eliquis 5 mg b.i.d. 10. Sliding scale insulin with Accu-Cheks for glycemic control. In addition, he is on levothyroxine. TSH measured at 1.52. 11. GI prophylaxis with Pepcid and DVT prophylaxis with SCDs. In addition, he is on Eliquis. 12. We will check labs now, which include CBC and BMP. Further recommendations will be based on hospital course. MD CASSIE Curtis/FLORENCIA , 02:40 PM , 03:15 PM
[2017-12-01 15:56] LABS: MAGNESIUM 1.5 MG/DL (1.5-2.5); PHOSPHORUS 4.3 MG/DL (2.5-4.9)
[2017-12-01] MEDS: RESP: ALBUTEROL 2.5 MG/IPRATROPIUM 0.5 MG NEB (SCH) NEB ×2 (16:00→21:30)
[2017-12-01] MEDS ORDERED: INSULIN ASPART SUPPLEMENTAL SCALE SQ SCH (16:00)
[2017-12-01] MEDS: PROPOFOL 1000 MG/100 ML IV PRN ×2 (17:37→21:00)
[2017-12-01] MEDS ORDERED: DEXTROSE 50% IN WATER 50 ML VIAL(D50) IV PUSH PRN (17:45)
[2017-12-01] MEDS ORDERED: GLUCAGON 1 MG/ML VIAL OTHER PRN (17:45)
[2017-12-01] MEDS: INSULIN NovoLIN REGULAR SUPPLEMENTAL SCALE SQ SCH ×2 (18:04→22:00)
[2017-12-01] MEDS: oxyCODONE/ACETAMINOPHEN 5 MG/325 MG TAB PO PRN (20:45)
[2017-12-01] MEDS: ATORVASTATIN 20 MG TAB PO SCH (20:45)
[2017-12-01] MEDS: APIXABAN 5 MG TABLET PO SCH (20:45)
[2017-12-01] MEDS: GABAPENTIN 300 MG CAP PO SCH (20:45)
[2017-12-02] VITALS (12 sets, daily range): BP systolic 130–149; BP diastolic 60–70; PULSE 88–104; RESP 12–19; TEMP 98.8–100; O2SAT 91–100
[2017-12-02] MEDS: RESP: ALBUTEROL 2.5 MG/IPRATROPIUM 0.5 MG NEB (SCH) NEB ×6 (00:33→20:47)
[2017-12-02] MEDS: oxyCODONE/ACETAMINOPHEN 5 MG/325 MG TAB PO PRN ×4 (01:14→21:45)
[2017-12-02] MEDS: PROPOFOL 1000 MG/100 ML IV PRN ×11 (01:15→21:56)
[2017-12-02] MEDS: INSULIN NovoLIN REGULAR SUPPLEMENTAL SCALE SQ SCH ×6 (02:00→21:56)
[2017-12-02] MEDS: LEVOTHYROXINE SODIUM 150 MCG TAB PO SCH (04:54)
[2017-12-02 05:10] LABS: AUTOMATED NEUTROPHIL # 7.5 TH/MM3 (1.8-7.7); BASOPHIL % 0.5 % (0.0-2.0); EOSINOPHIL % 0.2 % (0.0-4.0); HEMATOCRIT 31.8 % (39.0-51.0); HEMOGLOBIN 10.5 GM/DL (13.0-17.0); LYMPH % 7.6 % (9.0-44.0); LYMPHOCYTE # 0.7 TH/MM3 (1.0-4.8); MEAN CELL VOLUME 90.1 FL (80.0-100.0); MEAN CORPUSCULAR HEMOGLOBIN 29.7 PG (27.0-34.0); MEAN PLATELET VOLUME 8.9 FL (7.0-11.0); MONO % 5.4 % (0.0-8.0); MONOCYTE # 0.5 TH/MM3 (0-0.9); NEUT % 86.3 % (16.0-70.0); PLATELET COUNT 210 TH/MM3 (150-450); RED BLOOD COUNT 3.53 MIL/MM3 (4.50-5.90); RED CELL DISTRIBUTION WIDTH 15.7 % (11.6-17.2); WHITE BLOOD COUNT 8.7 TH/MM3 (4.0-11.0)
--- NOTE | 2017-12-02 05:19 | RADRPT ---
EXAM DATE/TIME: 12/02/2017 04:32 [facility] COMPARISON: CHEST SINGLE AP, December 01, 2017, 14:39. INDICATIONS : Shortness of breath, possible pulmonary disease. MEDICAL HISTORY : Myocardial infarction. Congestive heart failure. Hypercholesterolemia. Hypertension COPD Emphysem a SURGICAL HISTORY : Umbilical hernia repair. ENCOUNTER: Subsequent ACUITY: 2 days PAIN SCORE: Non-responsive. LOCATION: Bilateral chest FINDINGS: A single view of the chest demonstrates stable, extensive bilateral airspace disease, left worse than right. Heart size appears prominent. Endotracheal tube remains appropriately positioned above the ca allen. Nasogastric tube is in place with the tube entering the stomach and extending off the inferior aspect of the image CONCLUSION: 1. Interval placement of a nasogastric tube which enters the gastric lumen. 2. Otherwise stable examination with bilateral extensive airspace disease and cardiomegaly Abraham Urbina MD on December 02, 2017 at 5:17 Board Certified Radiologist. This report was verified electronically.
[2017-12-02 05:22] LABS: INTERNATIONAL NORMALIZED RATIO 1.2 RATIO; PROTHROMBIN TIME - PATIENT 11.7 SEC (9.8-11.6)
[2017-12-02 05:37] LABS: BICARBONATE 30.4 MEQ/L (21.0-32.0); CALCIUM 8.5 MG/DL (8.5-10.1); CREATININE 1.32 MG/DL (0.60-1.30)
[2017-12-02] MEDS: DILTIAZEM-CD 240 MG CAP ER PO SCH (08:27)
[2017-12-02] MEDS: FINASTERIDE 5 MG TAB PO SCH (08:27)
[2017-12-02] MEDS: DOCUSATE SODIUM 50 MG/SENNA 8.6 MG TAB PO SCH ×2 (08:30→21:44)
[2017-12-02] MEDS: FAMOTIDINE 20 MG/2 ML VIAL IV PUSH SCH ×2 (08:30→21:44)
[2017-12-02] MEDS: FUROSEMIDE 40 MG/4 ML VIAL IV PUSH SCH (08:30)
[2017-12-02] MEDS: LORATADINE 10 MG TAB PO SCH (08:30)
[2017-12-02] MEDS: APIXABAN 5 MG TABLET PO SCH (08:30)
[2017-12-02] MEDS: DOXAZOSIN MESYLATE 4 MG TAB PO SCH (08:34)
[2017-12-02] MEDS: BUDESONIDE-FORMOTEROL 80/4.5 MCG INHALER INH SCH ×2 (09:00→20:46)
[2017-12-02] MEDS: FLUTICASONE PROPIONATE 50 MCG/ACT 16 GM NASAL SPRAY EACH NARE SCH ×2 (09:00→20:46)
[2017-12-02] MEDS ORDERED: MORPHINE SULFATE 4 MG/ML INJ IV PUSH ONE (09:45)
--- NOTE | 2017-12-02 10:18 | HHI.CCPN ---
Subjective Remarks/Hospital Course Patient is a 72-year-old male with past medical history of chronic atrial fibrillation, on Eliquis, hypertension, coronary artery disease with previous [place] in 1993, CHF, diabetes mellitus, COPD, on home oxygen, and hypothyroidism. He was admitted under hospitalist service on 11/29 for AFib with RVR. The patient was seen by Dr. Nova, and he underwent EP study with radiofrequency ablation for his atrial fibrillation. The patient was not able to be weaned off the ventilation post-procedure and critical care medicine was consulted for critical care management. He had NS 500 mL during the procedure, EBL less than 30 mL, and urine output 200 mL in the PACU. When seen, the patient is sedated with Diprivan and on full mechanical ventilation. ABG on the ventilator showed acute hypercapnic respiratory acidosis with a pH of 7.27, CO2 of 68, PaO2 of 78, bicarbonate 30, saturation of 90% on PRVC rate of 15, tidal volume 500, I time 1.0, PEEP of 8 and 60% FIO2. Chest x-ray showed ET tube above the tara, increasing consolidation in the left mid to left lower lung. He had echocardiogram on 10/19, which showed EF of 60-65%. 12/02 Patient remains sedated and intubated. Afebrile. Objective Vital Signs Date Time Temp Pulse Resp B/P (MAP) Pulse Ox O2 Delivery O2 Flow Rate FiO2 12/02/17 07:38 96 50 12/02/17 07:00 102 12/02/17 07:00 99.3 12 130/60 (83) 12/01/17 17:00 Mechanical Ventilator 12/01/17 07:42 3.00 Intake and Output 12/02/17 12/02/17 12/03/17 08:00 16:00 00:00 Intake Total 260 ml Output Total 615 ml Balance -355 ml Result Diagram: 12/02/17 0335 12/02/17 0335 Other Results Laboratory Tests Test 12/01/17 13:55 12/01/17 14:34 12/02/17 03:35 12/02/17 05:45 Blood Gas Puncture Site RT RADIAL RT RADIAL Blood Gas Patient Temperature 98.6 98.6 Blood Gas HCO3 30 mmol/L 30 mmol/L Blood Gas Base Excess 3.5 mmol/L 5.1 mmol/L Blood Gas Oxygen Saturation 90 % 94 % Arterial Blood pH 7.27 7.38 Arterial Blood Partial Pressure CO2 68 mmHg 52 mmHg Arterial Blood Partial Pressure O2 78 mmHg 88 mmHg Arterial Blood Oxygen Content 13.7 Vol % 13.7 Vol % Arterial Blood Carboxyhemoglobin 1.7 % 1.5 % Arterial Blood Methemoglobin 1.2 % 1.3 % Blood Gas Hemoglobin 10.8 G/DL 10.3 G/DL Oxygen Delivery Device VENTILATOR VENTILATOR Blood Gas Ventilator Setting PRVC/AC PRVC/AC Blood Gas Inspired Oxygen 60 % 60 % White Blood Count 7.5 TH/MM3 8.7 TH/MM3 Red Blood Count 3.61 MIL/MM3 3.53 MIL/MM3 Hemoglobin 10.7 GM/DL 10.5 GM/DL Hematocrit 32.8 % 31.8 % Mean Corpuscular Volume 90.6 FL 90.1 FL Mean Corpuscular Hemoglobin 29.5 PG 29.7 PG Mean Corpuscular Hemoglobin Concent 32.6 % 33.0 % Red Cell Distribution Width 15.0 % 15.7 % Platelet Count 203 TH/MM3 210 TH/MM3 Mean Platelet Volume 8.7 FL 8.9 FL Neutrophils (%) (Auto) 88.2 % 86.3 % Lymphocytes (%) (Auto) 5.4 % 7.6 % Monocytes (%) (Auto) 5.7 % 5.4 % Eosinophils (%) (Auto) 0.1 % 0.2 % Basophils (%) (Auto) 0.6 % 0.5 % Neutrophils # (Auto) 6.6 TH/MM3 7.5 TH/MM3 Lymphocytes # (Auto) 0.4 TH/MM3 0.7 TH/MM3 Monocytes # (Auto) 0.4 TH/MM3 0.5 TH/MM3 Eosinophils # (Auto) 0.0 TH/MM3 0.0 TH/MM3 Basophils # (Auto) 0.0 TH/MM3 0.0 TH/MM3 CBC Comment DIFF FINAL DIFF FINAL Differential Comment Blood Urea Nitrogen 15 MG/DL 20 MG/DL Creatinine 1.12 MG/DL 1.32 MG/DL Random Glucose 272 MG/DL 243 MG/DL Total Protein 7.5 GM/DL Albumin 3.6 GM/DL Calcium Level 8.8 MG/DL 8.5 MG/DL Alkaline Phosphatase 41 U/L Aspartate Amino Transf (AST/SGOT) 17 U/L Alanine Aminotransferase (ALT/SGPT) 20 U/L Total Bilirubin 0.4 MG/DL Sodium Level 137 MEQ/L 138 MEQ/L Potassium Level 4.1 MEQ/L 3.7 MEQ/L Chloride Level 99 MEQ/L 99 MEQ/L Carbon Dioxide Level 29.6 MEQ/L 30.4 MEQ/L Anion Gap 8 MEQ/L 9 MEQ/L Estimat Glomerular Filtration Rate 64 ML/MIN 53 ML/MIN Phosphorus Level 4.3 MG/DL Magnesium Level 1.5 MG/DL B-Type Natriuretic Peptide 73 PG/ML Prothrombin Time 11.7 SEC Prothromb Time International Ratio 1.2 RATIO Activated Partial Thromboplast Time 27.8 SEC Imaging Last Impressions Chest X-Ray 12/02/17 0600 Signed Impressions: Service Date/Time: November 04:32 - CONCLUSION: 1. Interval placement of a nasogastric tube which enters the gastric lumen. 2. Otherwise stable examination with bilateral extensive airspace disease and cardiomegaly Abraham Urbina MD Objective Remarks GENERAL: Patient is 72 yo intubated and sedated SKIN: Warm and dry. HEAD: Normocephalic. EYES: No scleral icterus. No injection or drainage. NECK: Supple, trachea midline. No JVD or lymphadenopathy. CARDIOVASCULAR: Regular rate and rhythm without murmurs, gallops, or rubs. RESPIRATORY: Breath sounds equal bilaterally. No accessory muscle use. GASTROINTESTINAL: Abdomen soft, non-tender, nondistended. MUSCULOSKELETAL: No cyanosis, or edema. Neuro: Sedated, intubated. A/P Assessment and Plan 1. VDRF 2. S/p EP study with radiofrequency ablation for atrial fibrillation. 3. Chronic atrial fibrillation, on Eliquis at home. 4. COPD on home oxygen. 5 B/L airspace disease 6. Hypertension. 7. History of coronary artery disease. 8. Hypothyroidism. 9. Diabetes mellitus. 10. Anemia. 11. History of diastolic congestive heart failure. Plan Neuro: On Diprivan infusion for sedation. Daily sedation vacation Pulm: Continue with vent support and maintain sats> 92%. Bronchodilators , ICU vent bundle. check CT chest wo contrast Broch today showed some bloody secretions LLL, no evidence of active bleeding or endobronchial lesions BAL performed RLL . Will hold Eliquis CV: Monitor HR and BP and maintain MAP>65 mmHg. On Cardura 4 mg daily, change Cardizem CD to Cardizem 60mg Q6 Echo from 10/19 showed an EF of 60-65%. Dr. Nova is following. : Monitor renal function, I's and O's and electrolyte replacement per protocol. Hold Lasix GI: On Pepcid for GI prophylaxis. Start tube feeds today if patient remains intubated. ID: Monitor for signs of infection(fever and WBC). sputum culture: GNR, check BC x [address] Zosyn empirically Heme: Monitor CBC- On Eliquis 5 mg b.i.d. Endo: SSI with Accu-Cheks for glycemic control. On levothyroxine. TSH: 1.52. GI prophylaxis with Pepcid and DVT prophylaxis with SCDs, will hold Eliquis in case of any procedures needed also patient had some bloody secretions during bronch. Level 3 Jonny Bazzi MD December 02, 2017 10:18
[2017-12-02] MEDS: PIPERACIL-TAZO 4.5 GM PREMIX 100 ML IV SCH ×2 (14:04→21:45)
[2017-12-02] MEDS: DILTIAZEM HCL 60 MG TAB PO SCH ×2 (14:04→21:45)
--- NOTE | 2017-12-02 14:38 | RADRPT ---
EXAM DATE/TIME: 12/02/2017 13:52 [facility] COMPARISON: CHEST SINGLE AP, December 02, 2017, 4:32. INDICATIONS : S/p bronchoscopy MEDICAL HISTORY : Myocardial infarction. Congestive heart failure. Hypertension. COPD, emphysema SURGICAL HISTORY : None. ENCOUNTER: Initial ACUITY: 3 days PAIN SCORE: Non-responsive. LOCATION: Bilateral chest FINDINGS: Stable ETT and NGT. Improved aeration of the left upper and right lower lobes with persistent pleural parenchymal disease in the left lower lobe. No significant pneumothorax. Cardiomediastinal contours are stable. Remainder of the exam is unchanged. CONCLUSION: 1. Improved aeration of the left upper and right lower lobe following bronchoscopy. 2. No pneumothorax. Zhen Stallworth MD on December 02, 2017 at 14:35 Board Certified Radiologist. This report was verified electronically.
--- NOTE | 2017-12-02 15:54 | EKG ---
Date Performed: 12/01/2017 Time Performed: 11:43:36 PTAGE: 72 years EKG: SINUS TACHYCARDIA BORDERLINE RIGHT AXIS DEVIATION NONSPECIFIC ST & T-WAVE ABNORMALITY ABNOR MAL ECG PREVIOUS TRACING : 11/29/2017 15.39 Probable left ventricular hypertrophy. Since the prior trac ing, the atrial flutter has resolved, and the patient is now in Sinus rhythm with sinus tachycardia. The lateral ST-T wave changes have improved, but the inferior ST-T wave benz ges persist. Clinical correlation remains important. DOCTOR: Lucila Jaimes Interpretating Date/Time 12/02/2017 15:54:18
--- NOTE | 2017-12-02 15:57 | EKG ---
Date Performed: 12/02/2017 Time Performed: 05:52:22 PTAGE: 72 years EKG: Sinus tachycardia Rightward axis IV conduction defect Inferior/lateral ST-T changes suggest myocardial injury/ischemia Abnormal ECG PREVIOUS TRACING : 12/01/2017 11.43 Probable left ventricular hypertrophy. Since the most recen t tracing, there has been some improvement in the inferior T-wave changes, but no other significant s erial change. DOCTOR: Lucila Jaimes Interpretating Date/Time 12/02/2017 15:54:55
[2017-12-02] MEDS ORDERED: RESP: ACETYLCYSTEINE 10% 10 ML NEB NEB SCH (16:00)
[2017-12-02] MEDS: RESP: ACETYLCYSTEINE 10% 30 ML NEB NEB SCH ×2 (16:00→20:47)
--- NOTE | 2017-12-02 17:38 | RADRPT ---
EXAM DATE/TIME: 12/02/2017 17:16 [facility] COMPARISON: CHEST SINGLE AP, December 02, 2017, 13:52. INDICATIONS : Left lower lobe consolidation RADIATION DOSE: 9.59 CTDIvol (mGy) MEDICAL HISTORY : Cerebrovascular disease. Cardiovascular disease Chronic obstructive pulmonary disease. Hypertension, Emphysema, Asthma, Diabetes SURGICAL HISTORY : None. ENCOUNTER: Initial ACUITY: 1 day PAIN SCALE: Non-responsive LOCATION: Left chest TECHNIQUE: Volumetric scanning of the chest was performed. Using automated exposure control and adjustment of t he mA and/or kV according to patient size, radiation dose was kept as low as reasonably achievable to obtain optimal diagnostic quality images. DICOM format image data is available electronically for r eview and comparison. Follow-up recommendations for detected pulmonary nodules are based at a minimum on nodule size and pa tient risk factors according to Fleischner Society Guidelines. FINDINGS: LUNGS: Multisegmental bilateral lower lobe consolidation with air bronchograms. PLEURAE: Focal pleural effusion medially in the right lower chest measuring up to 3.7 cm. No pleural effusion on the left side. MEDIASTINUM: The heart and great vessels demonstrate no acute abnormality. There is no mediastinal or hilar lymph adenopathy. Mediastinal lipomatosis. AXILLAE: Within normal limits. No lymphadenopathy. MUSCULOSKELETAL: Within normal limits for patient age. MISCELLANEOUS: ET tube tip above the tara. Gastric tube tip within the stomach. CONCLUSION: 1. Multisegmental consolidation bilateral lower lobes. 2. Small medial right pleural effusion. Ravi Johnson MD on December 02, 2017 at 17:33 Board Certified Radiologist. This report was verified electronically.
[2017-12-02] MEDS ORDERED: RESP: ACETYLCYSTEINE 10% 30 ML NEB NEB SCH (20:00)
[2017-12-02] MEDS: GABAPENTIN 300 MG CAP PO SCH (21:45)
[2017-12-02] MEDS: ATORVASTATIN 20 MG TAB PO SCH (21:45)
[2017-12-03] VITALS (12 sets, daily range): BP systolic 126–158; BP diastolic 50–60; PULSE 90–96; RESP 18–20; TEMP 98–99.2; O2SAT 89–98
[2017-12-03] MEDS: RESP: ALBUTEROL 2.5 MG/IPRATROPIUM 0.5 MG NEB (SCH) NEB ×6 (00:31→20:04)
[2017-12-03] MEDS: oxyCODONE/ACETAMINOPHEN 5 MG/325 MG TAB PO PRN ×4 (01:46→23:10)
[2017-12-03] MEDS: INSULIN NovoLIN REGULAR SUPPLEMENTAL SCALE SQ SCH ×6 (02:00→22:00)
[2017-12-03] MEDS: PROPOFOL 1000 MG/100 ML IV PRN ×2 (02:31→06:19)
[2017-12-03] MEDS: DILTIAZEM HCL 60 MG TAB PO SCH ×4 (02:32→20:00)
[2017-12-03] MEDS: PIPERACIL-TAZO 4.5 GM PREMIX 100 ML IV SCH ×4 (02:32→20:00)
[2017-12-03] MEDS: RESP: ACETYLCYSTEINE 10% 30 ML NEB NEB SCH ×5 (04:30→20:04)
[2017-12-03 04:38] LABS: AUTOMATED NEUTROPHIL # 5.8 TH/MM3 (1.8-7.7); BASOPHIL % 0.4 % (0.0-2.0); EOSINOPHIL % 0.2 % (0.0-4.0); HEMOGLOBIN 10.4 GM/DL (13.0-17.0); LYMPH % 9.8 % (9.0-44.0); LYMPHOCYTE # 0.7 TH/MM3 (1.0-4.8); MEAN CELL VOLUME 90.6 FL (80.0-100.0); MEAN CORPUSCULAR HEMOGLOBIN 29.6 PG (27.0-34.0); MEAN CORPUSCULAR HGB CONC 32.6 % (32.0-36.0); MEAN PLATELET VOLUME 8.9 FL (7.0-11.0); MONO % 6.6 % (0.0-8.0); MONOCYTE # 0.5 TH/MM3 (0-0.9); PLATELET COUNT 186 TH/MM3 (150-450); RED BLOOD COUNT 3.53 MIL/MM3 (4.50-5.90); RED CELL DISTRIBUTION WIDTH 15.8 % (11.6-17.2)
[2017-12-03 05:03] LABS: ALBUMIN 3.2 GM/DL (3.4-5.0); BICARBONATE 26.7 MEQ/L (21.0-32.0); BLOOD UREA NITROGEN 20 MG/DL (7-18); CALCIUM 8.3 MG/DL (8.5-10.1); CHLORIDE 97 MEQ/L (98-107); GLOMERULAR FILTRATION RATE 59 ML/MIN (>89); GLUCOSE,RANDOM 277 MG/DL (74-106); SODIUM (NA) 137 MEQ/L (136-145)
[2017-12-03 05:04] LABS: ALT (GPT) 14 U/L (12-78); AST (GOT) 16 U/L (15-37)
[2017-12-03 05:06] LABS: ALKALINE PHOSPHATASE 39 U/L (45-117); TOTAL BILIRUBIN ADULT 0.9 MG/DL (0.2-1.0); TOTAL PROTEIN 7.4 GM/DL (6.4-8.2)
[2017-12-03] MEDS: LEVOTHYROXINE SODIUM 150 MCG TAB PO SCH (05:59)
[2017-12-03] MEDS: DOXAZOSIN MESYLATE 4 MG TAB PO SCH (07:37)
[2017-12-03] MEDS: FINASTERIDE 5 MG TAB PO SCH (07:37)
[2017-12-03] MEDS: FAMOTIDINE 20 MG/2 ML VIAL IV PUSH SCH (07:40)
[2017-12-03] MEDS: FLUTICASONE PROPIONATE 50 MCG/ACT 16 GM NASAL SPRAY EACH NARE SCH ×2 (08:52→21:00)
[2017-12-03] MEDS: DOCUSATE SODIUM 50 MG/SENNA 8.6 MG TAB PO SCH ×2 (08:53→21:00)
[2017-12-03] MEDS: LORATADINE 10 MG TAB PO SCH (08:53)
[2017-12-03] MEDS: BUDESONIDE-FORMOTEROL 80/4.5 MCG INHALER INH SCH ×2 (08:53→21:00)
--- NOTE | 2017-12-03 09:28 | HHI.CCPN ---
Subjective Remarks/Hospital Course Patient is a 72-year-old male with past medical history of chronic atrial fibrillation, on Eliquis, hypertension, coronary artery disease with previous [place] in 1993, CHF, diabetes mellitus, COPD, on home oxygen, and hypothyroidism. He was admitted under hospitalist service on 11/29 for AFib with RVR. The patient was seen by Dr. Nova, and he underwent EP study with radiofrequency ablation for his atrial fibrillation. The patient was not able to be weaned off the ventilation post-procedure and critical care medicine was consulted for critical care management. He had NS 500 mL during the procedure, EBL less than 30 mL, and urine output 200 mL in the PACU. When seen, the patient is sedated with Diprivan and on full mechanical ventilation. ABG on the ventilator showed acute hypercapnic respiratory acidosis with a pH of 7.27, CO2 of 68, PaO2 of 78, bicarbonate 30, saturation of 90% on PRVC rate of 15, tidal volume 500, I time 1.0, PEEP of 8 and 60% FIO2. Chest x-ray showed ET tube above the tara, increasing consolidation in the left mid to left lower lung. He had echocardiogram on 10/19, which showed EF of 60-65%. 12/02 Patient remains sedated and intubated. Afebrile. 12/03 Patient s/p bronch yesterday showed bloody secretions with suctioning. Awake and alert tolerating CPAP trials. Objective Vital Signs Date Time Temp Pulse Resp B/P (MAP) Pulse Ox O2 Delivery O2 Flow Rate FiO2 12/03/17 08:39 20 12/03/17 07:20 40 12/03/17 04:30 96 12/03/17 03:00 99.2 91 126/60 (82) 12/03/17 03:00 Mechanical Ventilator 12/01/17 07:42 3.00 Intake and Output 12/03/17 12/03/17 12/04/17 08:00 16:00 00:00 Intake Total 411 ml Output Total 580 ml Balance -169 ml Result Diagram: 12/03/17 0333 12/03/17 0333 Other Results Laboratory Tests Test 12/03/17 03:33 12/03/17 08:50 White Blood Count 7.0 TH/MM3 Red Blood Count 3.53 MIL/MM3 Hemoglobin 10.4 GM/DL Hematocrit 32.0 % Mean Corpuscular Volume 90.6 FL Mean Corpuscular Hemoglobin 29.6 PG Mean Corpuscular Hemoglobin Concent 32.6 % Red Cell Distribution Width 15.8 % Platelet Count 186 TH/MM3 Mean Platelet Volume 8.9 FL Neutrophils (%) (Auto) 83.0 % Lymphocytes (%) (Auto) 9.8 % Monocytes (%) (Auto) 6.6 % Eosinophils (%) (Auto) 0.2 % Basophils (%) (Auto) 0.4 % Neutrophils # (Auto) 5.8 TH/MM3 Lymphocytes # (Auto) 0.7 TH/MM3 Monocytes # (Auto) 0.5 TH/MM3 Eosinophils # (Auto) 0.0 TH/MM3 Basophils # (Auto) 0.0 TH/MM3 CBC Comment DIFF FINAL Differential Comment Blood Urea Nitrogen 20 MG/DL Creatinine 1.20 MG/DL Random Glucose 277 MG/DL Total Protein 7.4 GM/DL Albumin 3.2 GM/DL Calcium Level 8.3 MG/DL Alkaline Phosphatase 39 U/L Aspartate Amino Transf (AST/SGOT) 16 U/L Alanine Aminotransferase (ALT/SGPT) 14 U/L Total Bilirubin 0.9 MG/DL Sodium Level 137 MEQ/L Potassium Level 3.5 MEQ/L Chloride Level 97 MEQ/L Carbon Dioxide Level 26.7 MEQ/L Anion Gap 13 MEQ/L Estimat Glomerular Filtration Rate 59 ML/MIN Blood Gas Puncture Site RT RADIAL Blood Gas Patient Temperature 98.6 Blood Gas HCO3 29 mmol/L Blood Gas Base Excess 4.7 mmol/L Blood Gas Oxygen Saturation 91 % Arterial Blood pH 7.39 Arterial Blood Partial Pressure CO2 50 mmHg Arterial Blood Partial Pressure O2 72 mmHg Arterial Blood Oxygen Content 12.8 Vol % Arterial Blood Carboxyhemoglobin 1.7 % Arterial Blood Methemoglobin 1.3 % Blood Gas Hemoglobin 9.9 G/DL Oxygen Delivery Device VENTILATOR Blood Gas Ventilator Setting CPAP+5/10PS Blood Gas Inspired Oxygen 40 % Imaging Last Impressions Chest X-Ray 12/02/17 0600 Signed Impressions: Service Date/Time: November 04:32 - CONCLUSION: 1. Interval placement of a nasogastric tube which enters the gastric lumen. 2. Otherwise stable examination with bilateral extensive airspace disease and cardiomegaly Abraham Urbina MD Chest CT 12/02/17 0000 Signed Impressions: Service Date/Time: November 17:16 - CONCLUSION: 1. Multisegmental consolidation bilateral lower lobes. 2. Small medial right pleural effusion. Ravi Johnson MD Objective Remarks GENERAL: Patient is 72 yo intubated and sedated SKIN: Warm and dry. HEAD: Normocephalic. EYES: No scleral icterus. No injection or drainage. NECK: Supple, trachea midline. No JVD or lymphadenopathy. CARDIOVASCULAR: Regular rate and rhythm without murmurs, gallops, or rubs. RESPIRATORY: Breath sounds equal bilaterally. No accessory muscle use. GASTROINTESTINAL: Abdomen soft, non-tender, nondistended. MUSCULOSKELETAL: No cyanosis, or edema. Neuro: Sedated, intubated. A/P Assessment and Plan 1. VDRF 2. S/p EP study with radiofrequency ablation for atrial fibrillation. 3. Chronic atrial fibrillation, on Eliquis at home. 4. COPD on home oxygen. 5 B/L airspace disease 6. Hypertension. 7. History of coronary artery disease. 8. Hypothyroidism. 9. Diabetes mellitus. 10. Anemia. 11. History of diastolic congestive heart failure. Plan Neuro: On Diprivan infusion for sedation. Daily sedation vacation Pulm: Continue with vent support and maintain sats> 92%. Bronchodilators , ICU vent bundle. SBT daily and possible extubation today CT chest: Multisegmental consolidation bilateral lower lobes. Small medial right pleural effusion. Broch 5/3 showed some bloody secretions LLL, no evidence of active bleeding or endobronchial lesions BAL performed RLL . Eliquis held CV: Monitor HR and BP and maintain MAP>65 mmHg. On Cardura 4 mg daily, Cardizem 60mg Q6 Echo from 10/19 showed an EF of 60-65%. Dr. Nova is following. : Monitor renal function, I's and O's and electrolyte replacement per protocol. GI: On Pepcid for GI prophylaxis. Start tube feeds today if patient remains intubated. ID: Monitor for signs of infection(fever and WBC). sputum culture: GNR, Follow up on blood cultures Continue Zosyn. Check strep pneumonia and Legionella urinary Ag, follow up on BAL results Heme: Monitor CBC- On Eliquis 5 mg b.i.d. Endo: SSI with Accu-Cheks for glycemic control. On levothyroxine. TSH: 1.52. GI prophylaxis with Pepcid and DVT prophylaxis with SCDs, will hold Eliquis in case of any procedures needed also patient had some bloody secretions during bronch. Level 3 Jonny Bazzi MD December 03, 2017 09:28
[2017-12-03] MEDS: RESP: ALBUTEROL 2.5 MG/IPRATROPIUM 0.5 MG NEB (PRN) NEB (09:44)
[2017-12-03] MEDS: LORazepam 0.5 MG TAB PO PRN (17:29)
[2017-12-03] MEDS: FAMOTIDINE 20 MG TAB PO SCH (21:00)
[2017-12-03] MEDS: GABAPENTIN 300 MG CAP PO SCH (21:00)
[2017-12-03] MEDS: ATORVASTATIN 20 MG TAB PO SCH (21:00)
[2017-12-04] VITALS (10 sets, daily range): BP systolic 123–159; BP diastolic 44–74; PULSE 79–96; RESP 20–24; TEMP 97–100.1; O2SAT 90–99
[2017-12-04] MEDS: RESP: ALBUTEROL 2.5 MG/IPRATROPIUM 0.5 MG NEB (SCH) NEB ×6 (00:18→20:55)
[2017-12-04] MEDS: RESP: ACETYLCYSTEINE 10% 30 ML NEB NEB SCH ×6 (00:19→20:00)
[2017-12-04] MEDS: INSULIN NovoLIN REGULAR SUPPLEMENTAL SCALE SQ SCH ×4 (02:00→12:18)
[2017-12-04] MEDS: DILTIAZEM HCL 60 MG TAB PO SCH ×4 (02:57→20:41)
[2017-12-04] MEDS: PIPERACIL-TAZO 4.5 GM PREMIX 100 ML IV SCH ×4 (02:57→20:42)
[2017-12-04 04:29] LABS: AUTOMATED NEUTROPHIL # 5.2 TH/MM3 (1.8-7.7); BASOPHIL % 0.5 % (0.0-2.0); EOSINOPHIL % 0.6 % (0.0-4.0); HEMATOCRIT 31.6 % (39.0-51.0); HEMOGLOBIN 10.2 GM/DL (13.0-17.0); LYMPHOCYTE # 0.8 TH/MM3 (1.0-4.8); MEAN CELL VOLUME 91.7 FL (80.0-100.0); MEAN CORPUSCULAR HEMOGLOBIN 29.5 PG (27.0-34.0); MEAN CORPUSCULAR HGB CONC 32.2 % (32.0-36.0); MEAN PLATELET VOLUME 9.1 FL (7.0-11.0); MONO % 6.7 % (0.0-8.0); MONOCYTE # 0.4 TH/MM3 (0-0.9); NEUT % 79.2 % (16.0-70.0); PLATELET COUNT 191 TH/MM3 (150-450); RED BLOOD COUNT 3.44 MIL/MM3 (4.50-5.90); RED CELL DISTRIBUTION WIDTH 15.5 % (11.6-17.2); WHITE BLOOD COUNT 6.5 TH/MM3 (4.0-11.0)
[2017-12-04 05:06] LABS: ALBUMIN 3.1 GM/DL (3.4-5.0); ALKALINE PHOSPHATASE 42 U/L (45-117); ALT (GPT) 15 U/L (12-78); AST (GOT) 13 U/L (15-37); BICARBONATE 30.8 MEQ/L (21.0-32.0); BLOOD UREA NITROGEN 21 MG/DL (7-18); CALCIUM 8.7 MG/DL (8.5-10.1); CHLORIDE 98 MEQ/L (98-107); CREATININE 1.12 MG/DL (0.60-1.30); GLOMERULAR FILTRATION RATE 64 ML/MIN (>89); GLUCOSE,RANDOM 372 MG/DL (74-106); SODIUM (NA) 137 MEQ/L (136-145); TOTAL BILIRUBIN ADULT 0.6 MG/DL (0.2-1.0); TOTAL PROTEIN 7.5 GM/DL (6.4-8.2)
[2017-12-04] MEDS: LEVOTHYROXINE SODIUM 150 MCG TAB PO SCH (06:00)
--- NOTE | 2017-12-04 08:41 | HHI.CCPN ---
Subjective Remarks/Hospital Course Patient is a 72-year-old male with past medical history of chronic atrial fibrillation, on Eliquis, hypertension, coronary artery disease with previous [place] in 1993, CHF, diabetes mellitus, COPD, on home oxygen, and hypothyroidism. He was admitted under hospitalist service on 11/29 for AFib with RVR. The patient was seen by Dr. Nova, and he underwent EP study with radiofrequency ablation for his atrial fibrillation. The patient was not able to be weaned off the ventilation post-procedure and critical care medicine was consulted for critical care management. He had NS 500 mL during the procedure, EBL less than 30 mL, and urine output 200 mL in the PACU. When seen, the patient is sedated with Diprivan and on full mechanical ventilation. ABG on the ventilator showed acute hypercapnic respiratory acidosis with a pH of 7.27, CO2 of 68, PaO2 of 78, bicarbonate 30, saturation of 90% on PRVC rate of 15, tidal volume 500, I time 1.0, PEEP of 8 and 60% FIO2. Chest x-ray showed ET tube above the tara, increasing consolidation in the left mid to left lower lung. He had echocardiogram on 10/19, which showed EF of 60-65%. 12/02 Patient remains sedated and intubated. Afebrile. 12/03 Patient s/p bronch yesterday showed bloody secretions with suctioning. Awake and alert tolerating CPAP trials. 12/04 Patient was extubated yesterday on 6L oxygen. He was on BIPAP overnight for approx 4 hrs. Afebrile. Objective Vital Signs Date Time Temp Pulse Resp B/P (MAP) Pulse Ox O2 Delivery O2 Flow Rate FiO2 12/04/17 08:29 95 Nasal Cannula 6.00 12/04/17 03:00 92 12/04/17 03:00 98.9 22 145/67 (93) 12/04/17 00:10 40 Intake and Output 12/04/17 12/04/17 12/05/17 08:00 16:00 00:00 Intake Total 1060 ml Output Total 700 ml Balance 360 ml Result Diagram: 12/04/17 0302 12/04/17 0302 Other Results Laboratory Tests Test 12/03/17 08:50 12/04/17 03:02 Blood Gas Puncture Site RT RADIAL Blood Gas Patient Temperature 98.6 Blood Gas HCO3 29 mmol/L Blood Gas Base Excess 4.7 mmol/L Blood Gas Oxygen Saturation 91 % Arterial Blood pH 7.39 Arterial Blood Partial Pressure CO2 50 mmHg Arterial Blood Partial Pressure O2 72 mmHg Arterial Blood Oxygen Content 12.8 Vol % Arterial Blood Carboxyhemoglobin 1.7 % Arterial Blood Methemoglobin 1.3 % Blood Gas Hemoglobin 9.9 G/DL Oxygen Delivery Device VENTILATOR Blood Gas Ventilator Setting CPAP+5/10PS Blood Gas Inspired Oxygen 40 % White Blood Count 6.5 TH/MM3 Red Blood Count 3.44 MIL/MM3 Hemoglobin 10.2 GM/DL Hematocrit 31.6 % Mean Corpuscular Volume 91.7 FL Mean Corpuscular Hemoglobin 29.5 PG Mean Corpuscular Hemoglobin Concent 32.2 % Red Cell Distribution Width 15.5 % Platelet Count 191 TH/MM3 Mean Platelet Volume 9.1 FL Neutrophils (%) (Auto) 79.2 % Lymphocytes (%) (Auto) 13.0 % Monocytes (%) (Auto) 6.7 % Eosinophils (%) (Auto) 0.6 % Basophils (%) (Auto) 0.5 % Neutrophils # (Auto) 5.2 TH/MM3 Lymphocytes # (Auto) 0.8 TH/MM3 Monocytes # (Auto) 0.4 TH/MM3 Eosinophils # (Auto) 0.0 TH/MM3 Basophils # (Auto) 0.0 TH/MM3 CBC Comment DIFF FINAL Differential Comment Blood Urea Nitrogen 21 MG/DL Creatinine 1.12 MG/DL Random Glucose 372 MG/DL Total Protein 7.5 GM/DL Albumin 3.1 GM/DL Calcium Level 8.7 MG/DL Alkaline Phosphatase 42 U/L Aspartate Amino Transf (AST/SGOT) 13 U/L Alanine Aminotransferase (ALT/SGPT) 15 U/L Total Bilirubin 0.6 MG/DL Sodium Level 137 MEQ/L Potassium Level 3.9 MEQ/L Chloride Level 98 MEQ/L Carbon Dioxide Level 30.8 MEQ/L Anion Gap 8 MEQ/L Estimat Glomerular Filtration Rate 64 ML/MIN Imaging Last Impressions Chest X-Ray 12/02/17 0600 Signed Impressions: Service Date/Time: November 04:32 - CONCLUSION: 1. Interval placement of a nasogastric tube which enters the gastric lumen. 2. Otherwise stable examination with bilateral extensive airspace disease and cardiomegaly Abraham Urbina MD Chest CT 12/02/17 0000 Signed Impressions: Service Date/Time: November 17:16 - CONCLUSION: 1. Multisegmental consolidation bilateral lower lobes. 2. Small medial right pleural effusion. Ravi Johnson MD Objective Remarks GENERAL: Patient is 72 yo lying in bed in NAD SKIN: Warm and dry. HEAD: Normocephalic. EYES: No scleral icterus. No injection or drainage. NECK: Supple, trachea midline. No JVD or lymphadenopathy. CARDIOVASCULAR: Regular rate and rhythm without murmurs, gallops, or rubs. RESPIRATORY: Breath sounds equal bilaterally. No accessory muscle use. GASTROINTESTINAL: Abdomen soft, non-tender, nondistended. MUSCULOSKELETAL: No cyanosis, or edema. Neuro: Awake and alert A/P Assessment and Plan 1. Resp Insuff extubated 12/03 2. S/p EP study with radiofrequency ablation for atrial fibrillation. 3. Chronic atrial fibrillation, on Eliquis at home. 4. COPD on home oxygen. 5 B/L airspace disease 6. Hypertension. 7. History of coronary artery disease. 8. Hypothyroidism. 9. Diabetes mellitus. 10. Anemia. 11. History of diastolic congestive heart failure. Plan Neuro: Awake and alert, avoid sedatives Pulm: Continue with oxygen and maintain sats> 92%. Bronchodilator, IS, add Symbicort NIPPV PRN for resp distress CT chest: Multisegmental consolidation bilateral lower lobes. Small medial right pleural effusion. Broch 12/02 showed some bloody secretions LLL, no evidence of active bleeding or endobronchial lesions BAL performed RLL + Pseudomonas species . Eliquis held CV: Monitor HR and BP and maintain MAP>65 mmHg. On Cardura 4 mg daily, Cardizem 60mg Q6 Echo from 10/19 showed an EF of 60-65%. Dr. Nova is following. : Monitor renal function, I's and O's and electrolyte replacement per protocol. GI: On Pepcid for GI prophylaxis. On PO heart healthy diet ID: Monitor for signs of infection(fever and WBC). sputum, BAL culture: Pseudomonas species, Follow up on blood cultures- NGTD Continue Zosyn. strep pneumonia and Legionella urinary Ag negative, Heme: Monitor CBC- Resume Eliquis 5 mg b.i.d. Endo: Increase SSI to high with Accu-Cheks, add Levemir 10u BID for glycemic control. On levothyroxine. TSH: 1.52. GI prophylaxis with Pepcid and DVT prophylaxis with SCDs, resume Eliquis Level 3 Jonny Bazzi MD December 04, 2017 08:41
[2017-12-04] MEDS ORDERED: DEXTROSE 50% IN WATER 50 ML VIAL(D50) IV PUSH PRN ×3 (08:45→19:00)
[2017-12-04] MEDS ORDERED: GLUCAGON 1 MG/ML VIAL OTHER PRN (08:45)
[2017-12-04] MEDS ORDERED: INSULIN DETEMIR 100 UNITS/ML VIAL SQ SCH (09:00)
[2017-12-04] MEDS: BUDESONIDE-FORMOTEROL 80/4.5 MCG INHALER INH SCH (09:00)
[2017-12-04] MEDS: LORATADINE 10 MG TAB PO SCH (10:04)
[2017-12-04] MEDS: DOCUSATE SODIUM 50 MG/SENNA 8.6 MG TAB PO SCH ×2 (10:04→20:41)
[2017-12-04] MEDS: DOXAZOSIN MESYLATE 4 MG TAB PO SCH (10:04)
[2017-12-04] MEDS: FINASTERIDE 5 MG TAB PO SCH (10:04)
[2017-12-04] MEDS: FAMOTIDINE 20 MG TAB PO SCH ×2 (10:04→20:41)
[2017-12-04] MEDS: ACETAMINOPHEN 325 MG TAB PO PRN ×3 (10:04→22:36)
[2017-12-04] MEDS: BUDESONIDE-FORMOTEROL 160/4.5 MCG INHALER INH SCH ×2 (10:05→20:42)
[2017-12-04] MEDS: FLUTICASONE PROPIONATE 50 MCG/ACT 16 GM NASAL SPRAY EACH NARE SCH ×2 (10:05→20:42)
[2017-12-04] MEDS: APIXABAN 5 MG TABLET PO SCH ×2 (10:05→20:41)
[2017-12-04] MEDS ORDERED: INSULIN REGULAR (IV INFUSION) 100 UNITS in SODIUM CHLORIDE 0.9% INJ 99 ML IV PRN (15:30)
[2017-12-04] MEDS ORDERED: MISC INFORMATION OTHER ONE ×2 (15:30→19:00)
[2017-12-04] MEDS: ATORVASTATIN 20 MG TAB PO SCH (20:41)
[2017-12-04] MEDS: GABAPENTIN 300 MG CAP PO SCH (20:41)
[2017-12-04] MEDS: LORazepam 0.5 MG TAB PO PRN (22:35)
[2017-12-05] VITALS (10 sets, daily range): BP systolic 105–156; BP diastolic 48–76; PULSE 63–84; RESP 18–24; TEMP 98.2–98.9; O2SAT 89–94
[2017-12-05] MEDS: RESP: ALBUTEROL 2.5 MG/IPRATROPIUM 0.5 MG NEB (SCH) NEB ×4 (00:05→11:47)
[2017-12-05] MEDS: RESP: ACETYLCYSTEINE 10% 30 ML NEB NEB SCH ×6 (00:06→22:30)
[2017-12-05] MEDS: INSULIN REGULAR (IV INFUSION) 100 UNITS in SODIUM CHLORIDE 0.9% INJ 99 ML IV PRN ×2 (01:16→14:59)
[2017-12-05] MEDS: DILTIAZEM HCL 60 MG TAB PO SCH ×4 (02:00→21:07)
[2017-12-05] MEDS: PIPERACIL-TAZO 4.5 GM PREMIX 100 ML IV SCH ×4 (02:00→21:07)
[2017-12-05 05:28] LABS: AUTOMATED NEUTROPHIL # 5.1 TH/MM3 (1.8-7.7); BASOPHIL % 0.5 % (0.0-2.0); EOSINOPHIL # 0.1 TH/MM3 (0-0.4); EOSINOPHIL % 1.4 % (0.0-4.0); HEMATOCRIT 29.7 % (39.0-51.0); HEMOGLOBIN 9.6 GM/DL (13.0-17.0); LYMPH % 10.4 % (9.0-44.0); LYMPHOCYTE # 0.7 TH/MM3 (1.0-4.8); MEAN CELL VOLUME 89.9 FL (80.0-100.0); MEAN CORPUSCULAR HEMOGLOBIN 29.2 PG (27.0-34.0); MEAN CORPUSCULAR HGB CONC 32.4 % (32.0-36.0); MONO % 6.6 % (0.0-8.0); MONOCYTE # 0.4 TH/MM3 (0-0.9); NEUT % 81.1 % (16.0-70.0); PLATELET COUNT 206 TH/MM3 (150-450); RED BLOOD COUNT 3.31 MIL/MM3 (4.50-5.90); WHITE BLOOD COUNT 6.3 TH/MM3 (4.0-11.0)
[2017-12-05 05:49] LABS: BICARBONATE 29.9 MEQ/L (21.0-32.0); CALCIUM 9.3 MG/DL (8.5-10.1); CREATININE 0.89 MG/DL (0.60-1.30); MAGNESIUM 2.1 MG/DL (1.5-2.5); PHOSPHORUS 1.9 MG/DL (2.5-4.9)
[2017-12-05] MEDS: LEVOTHYROXINE SODIUM 150 MCG TAB PO SCH (05:59)
--- NOTE | 2017-12-05 08:42 | HHI.CCPN ---
Subjective Remarks/Hospital Course Patient is a 72-year-old male with past medical history of chronic atrial fibrillation, on Eliquis, hypertension, coronary artery disease with previous [place] in 1993, CHF, diabetes mellitus, COPD, on home oxygen, and hypothyroidism. He was admitted under hospitalist service on 11/29 for AFib with RVR. The patient was seen by Dr. Nova, and he underwent EP study with radiofrequency ablation for his atrial fibrillation. The patient was not able to be weaned off the ventilation post-procedure and critical care medicine was consulted for critical care management. He had NS 500 mL during the procedure, EBL less than 30 mL, and urine output 200 mL in the PACU. When seen, the patient is sedated with Diprivan and on full mechanical ventilation. ABG on the ventilator showed acute hypercapnic respiratory acidosis with a pH of 7.27, CO2 of 68, PaO2 of 78, bicarbonate 30, saturation of 90% on PRVC rate of 15, tidal volume 500, I time 1.0, PEEP of 8 and 60% FIO2. Chest x-ray showed ET tube above the tara, increasing consolidation in the left mid to left lower lung. He had echocardiogram on 10/19, which showed EF of 60-65%. 12/02 Patient remains sedated and intubated. Afebrile. 12/03 Patient s/p bronch yesterday showed bloody secretions with suctioning. Awake and alert tolerating CPAP trials. 12/04 Patient was extubated yesterday on 6L oxygen. He was on BIPAP overnight for approx 4 hrs. Afebrile. 12/05 No events overnight. On 5L oxygen. Afebrile. On Insulin drip. Objective Vital Signs Date Time Temp Pulse Resp B/P (MAP) Pulse Ox O2 Delivery O2 Flow Rate FiO2 12/05/17 07:32 94 Nasal Cannula 5.00 12/05/17 07:00 98.2 84 24 149/70 (96) 12/05/17 03:47 40 Intake and Output 12/05/17 12/05/17 12/06/17 08:00 16:00 00:00 Intake Total 780 ml Output Total 900 ml Balance -120 ml Result Diagram: 12/05/17 0437 12/05/17 0437 Other Results Laboratory Tests Test 12/05/17 04:37 White Blood Count 6.3 TH/MM3 Red Blood Count 3.31 MIL/MM3 Hemoglobin 9.6 GM/DL Hematocrit 29.7 % Mean Corpuscular Volume 89.9 FL Mean Corpuscular Hemoglobin 29.2 PG Mean Corpuscular Hemoglobin Concent 32.4 % Red Cell Distribution Width 15.0 % Platelet Count 206 TH/MM3 Mean Platelet Volume 9.0 FL Neutrophils (%) (Auto) 81.1 % Lymphocytes (%) (Auto) 10.4 % Monocytes (%) (Auto) 6.6 % Eosinophils (%) (Auto) 1.4 % Basophils (%) (Auto) 0.5 % Neutrophils # (Auto) 5.1 TH/MM3 Lymphocytes # (Auto) 0.7 TH/MM3 Monocytes # (Auto) 0.4 TH/MM3 Eosinophils # (Auto) 0.1 TH/MM3 Basophils # (Auto) 0.0 TH/MM3 CBC Comment DIFF FINAL Differential Comment Blood Urea Nitrogen 20 MG/DL Creatinine 0.89 MG/DL Random Glucose 210 MG/DL Calcium Level 9.3 MG/DL Phosphorus Level 1.9 MG/DL Magnesium Level 2.1 MG/DL Sodium Level 137 MEQ/L Potassium Level 3.7 MEQ/L Chloride Level 100 MEQ/L Carbon Dioxide Level 29.9 MEQ/L Anion Gap 7 MEQ/L Estimat Glomerular Filtration Rate 84 ML/MIN Imaging Last Impressions Chest X-Ray 12/02/17 0600 Signed Impressions: Service Date/Time: November 04:32 - CONCLUSION: 1. Interval placement of a nasogastric tube which enters the gastric lumen. 2. Otherwise stable examination with bilateral extensive airspace disease and cardiomegaly Abraham Urbina MD Chest CT 12/02/17 0000 Signed Impressions: Service Date/Time: November 17:16 - CONCLUSION: 1. Multisegmental consolidation bilateral lower lobes. 2. Small medial right pleural effusion. Ravi Johnson MD Objective Remarks GENERAL: Patient is 72 yo lying in bed in NAD SKIN: Warm and dry. HEAD: Normocephalic. EYES: No scleral icterus. No injection or drainage. NECK: Supple, trachea midline. No JVD or lymphadenopathy. CARDIOVASCULAR: Regular rate and rhythm without murmurs, gallops, or rubs. RESPIRATORY: Breath sounds equal bilaterally. No accessory muscle use. GASTROINTESTINAL: Abdomen soft, non-tender, nondistended. MUSCULOSKELETAL: No cyanosis, or edema. Neuro: Awake and alert A/P Assessment and Plan 1. Resp Insuff extubated 12/03 2. S/p EP study with radiofrequency ablation for atrial fibrillation. 3. Chronic atrial fibrillation, on Eliquis at home. 4. COPD on home oxygen. 5 B/L airspace disease 6. Hypertension. 7. History of coronary artery disease. 8. Hypothyroidism. 9. Diabetes mellitus. 10. Anemia. 11. History of diastolic congestive heart failure. Plan Neuro: Awake and alert, avoid sedatives Pulm: Continue with oxygen and maintain sats> 92%. Bronchodilator, IS, Symbicort NIPPV PRN for resp distress CT chest: Multisegmental consolidation bilateral lower lobes. Small medial right pleural effusion. Broch 12/02 showed some bloody secretions LLL, no evidence of active bleeding or endobronchial lesions BAL performed RLL + Pseudomonas species . CV: Monitor HR and BP and maintain MAP>65 mmHg. On Cardura 4 mg daily, Cardizem 60mg Q6, add Lopressor 50mg Q12 Echo from 10/19 showed an EF of 60-65%. Dr. Nova is following. : Monitor renal function, I's and O's and electrolyte replacement per protocol. Will need Phos replacement today. GI: On Pepcid for GI prophylaxis. On PO heart healthy diet ID: Monitor for signs of infection(fever and WBC). sputum, BAL culture: Pseudomonas species, Follow up on blood cultures- NGTD Continue Zosyn. strep pneumonia and Legionella urinary Ag negative, Heme: Monitor CBC- Eliquis 5 mg b.i.d. Endo: On Insulin drip for glycemic control On levothyroxine 300mcg daily. TSH: 1.52. GI prophylaxis with Pepcid and DVT prophylaxis with SCDs, Eliquis Level 2 Jonny Bazzi MD December 05, 2017 08:42
[2017-12-05] MEDS ORDERED: POTASSIUM CHLOR 40 MEQ PREMIX 100 ML IV PRN ×2 (08:45)
[2017-12-05] MEDS ORDERED: SODIUM PHOSPHATE INJ 30 MMOL in SODIUM CHLOR 0.9% 250 ML INJ 240 ML IV PRN (08:45)
[2017-12-05] MEDS ORDERED: MAGNESIUM SULFATE INJ 4 GM in SODIUM CHLORIDE 0.9% INJ 92 ML IV PRN (08:45)
[2017-12-05] MEDS ORDERED: MAGNESIUM OXIDE 400 MG TAB PO PRN (08:45)
[2017-12-05] MEDS ORDERED: POTASSIUM PHOSPHATE MONOBASIC 500 MG TAB PO/TUBE PRN (08:45)
[2017-12-05] MEDS ORDERED: POTASSIUM CHLORIDE 25 MEQ EFFERVESCENT TAB PO PRN (08:45)
[2017-12-05] MEDS ORDERED: MAGNESIUM SULFATE INJ 2 GM in SODIUM CHLORIDE 0.9% INJ 96 ML IV PRN (08:45)
[2017-12-05] MEDS ORDERED: POTASSIUM PHOSPHATE INJ 30 MMOL in SODIUM CHLOR 0.9% 250 ML INJ 250 ML IV PRN (08:45)
[2017-12-05] MEDS ORDERED: POTASSIUM PHOSPHATE MONOBASIC 500 MG TAB PO PRN (08:45)
[2017-12-05] MEDS ORDERED: POTASSIUM CHLOR 20 MEQ PREMIX 100 ML IV PRN ×2 (08:45)
[2017-12-05] MEDS: LORATADINE 10 MG TAB PO SCH (09:13)
[2017-12-05] MEDS: FAMOTIDINE 20 MG TAB PO SCH ×2 (09:13→21:08)
[2017-12-05] MEDS: LORazepam 0.5 MG TAB PO PRN (09:13)
[2017-12-05] MEDS: APIXABAN 5 MG TABLET PO SCH ×2 (09:13→21:08)
[2017-12-05] MEDS: FINASTERIDE 5 MG TAB PO SCH (09:13)
[2017-12-05] MEDS: METOPROLOL TARTRATE 50 MG TAB PO SCH ×2 (09:14→21:08)
[2017-12-05] MEDS: DOXAZOSIN MESYLATE 4 MG TAB PO SCH (09:14)
[2017-12-05] MEDS: DOCUSATE SODIUM 50 MG/SENNA 8.6 MG TAB PO SCH ×2 (09:14→21:00)
[2017-12-05] MEDS: ACETAMINOPHEN 325 MG TAB PO PRN (09:14)
[2017-12-05] MEDS: BUDESONIDE-FORMOTEROL 160/4.5 MCG INHALER INH SCH ×2 (09:15→21:08)
[2017-12-05] MEDS: FLUTICASONE PROPIONATE 50 MCG/ACT 16 GM NASAL SPRAY EACH NARE SCH ×2 (09:15→21:09)
[2017-12-05] MEDS: RESP: ALBUTEROL 2.5 MG/IPRATROPIUM 0.5 MG NEB (PRN) NEB ×2 (17:20→22:30)
[2017-12-05] MEDS: GABAPENTIN 300 MG CAP PO SCH (21:00)
[2017-12-05] MEDS: ATORVASTATIN 20 MG TAB PO SCH (21:08)
[2017-12-06] VITALS (13 sets, daily range): BP systolic 117–158; BP diastolic 48–84; PULSE 59–83; RESP 16–22; TEMP 97.5–98.8; O2SAT 91–97
[2017-12-06] MEDS: RESP: ACETYLCYSTEINE 10% 30 ML NEB NEB SCH ×5 (00:03→15:08)
[2017-12-06] MEDS: RESP: ALBUTEROL 2.5 MG/IPRATROPIUM 0.5 MG NEB (PRN) NEB ×7 (00:03→23:38)
[2017-12-06] MEDS: ACETAMINOPHEN 325 MG TAB PO PRN ×2 (00:05→22:44)
[2017-12-06] MEDS: LORazepam 0.5 MG TAB PO PRN ×3 (00:05→22:44)
[2017-12-06] MEDS: DILTIAZEM HCL 60 MG TAB PO SCH ×4 (02:00→20:06)
[2017-12-06] MEDS: PIPERACIL-TAZO 4.5 GM PREMIX 100 ML IV SCH ×4 (02:00→20:06)
[2017-12-06 04:06] LABS: AUTOMATED NEUTROPHIL # 4.3 TH/MM3 (1.8-7.7); BASOPHIL # 0.1 TH/MM3 (0-0.2); BASOPHIL % 0.9 % (0.0-2.0); EOSINOPHIL # 0.1 TH/MM3 (0-0.4); EOSINOPHIL % 1.6 % (0.0-4.0); HEMATOCRIT 28.5 % (39.0-51.0); HEMOGLOBIN 9.4 GM/DL (13.0-17.0); LYMPH % 15.8 % (9.0-44.0); LYMPHOCYTE # 0.9 TH/MM3 (1.0-4.8); MEAN CELL VOLUME 89.7 FL (80.0-100.0); MEAN CORPUSCULAR HEMOGLOBIN 29.7 PG (27.0-34.0); MEAN CORPUSCULAR HGB CONC 33.1 % (32.0-36.0); MEAN PLATELET VOLUME 8.8 FL (7.0-11.0); MONOCYTE # 0.4 TH/MM3 (0-0.9); NEUT % 74.7 % (16.0-70.0); PLATELET COUNT 212 TH/MM3 (150-450); RED BLOOD COUNT 3.18 MIL/MM3 (4.50-5.90); RED CELL DISTRIBUTION WIDTH 15.2 % (11.6-17.2); WHITE BLOOD COUNT 5.8 TH/MM3 (4.0-11.0)
[2017-12-06 04:30] LABS: CREATININE 0.94 MG/DL (0.60-1.30); PHOSPHORUS 2.8 MG/DL (2.5-4.9)
[2017-12-06] MEDS: LEVOTHYROXINE SODIUM 150 MCG TAB PO SCH (05:34)
[2017-12-06] MEDS: DOCUSATE SODIUM 50 MG/SENNA 8.6 MG TAB PO SCH ×2 (09:00→21:00)
[2017-12-06] MEDS: METOPROLOL TARTRATE 50 MG TAB PO SCH ×2 (09:14→21:17)
[2017-12-06] MEDS: APIXABAN 5 MG TABLET PO SCH ×2 (09:14→21:17)
[2017-12-06] MEDS: FINASTERIDE 5 MG TAB PO SCH (09:14)
[2017-12-06] MEDS: FLUTICASONE PROPIONATE 50 MCG/ACT 16 GM NASAL SPRAY EACH NARE SCH ×2 (09:14→20:07)
[2017-12-06] MEDS: DOXAZOSIN MESYLATE 4 MG TAB PO SCH (09:14)
[2017-12-06] MEDS: FAMOTIDINE 20 MG TAB PO SCH ×2 (09:14→21:17)
[2017-12-06] MEDS: BUDESONIDE-FORMOTEROL 160/4.5 MCG INHALER INH SCH ×2 (09:15→20:07)
--- NOTE | 2017-12-06 09:15 | RADRPT ---
EXAM DATE/TIME: 12/06/2017 08:33 [facility] COMPARISON: CHEST SINGLE AP, December 02, 2017, 13:52. INDICATIONS : Shortness of breath. MEDICAL HISTORY : Myocardial infarction. Congestive heart failure. Hypertension. COPD SURGICAL HISTORY : None. ENCOUNTER: Subsequent ACUITY: 1 week PAIN SCORE: 0/10 LOCATION: Bilateral chest FINDINGS: The heart size is enlarged. There is increased density at the right base. There is blunting of the co stophrenic angles bilaterally. CONCLUSION: 1. Cardiomegaly. 2. Right base consolidation or atelectasis. 3. Blunting of the costophrenic angles which may represent mild bilateral effusions. Sanchez Larios MD on December 06, 2017 at 9:12 Board Certified Radiologist. This report was verified electronically.
[2017-12-06] MEDS: LORATADINE 10 MG TAB PO SCH (09:19)
--- NOTE | 2017-12-06 11:44 | HHI.CCPN ---
Subjective Remarks/Hospital Course Patient is a 72-year-old male with past medical history of chronic atrial fibrillation, on Eliquis, hypertension, coronary artery disease with previous [place] in 1993, CHF, diabetes mellitus, COPD, on home oxygen, and hypothyroidism. He was admitted under hospitalist service on 11/29 for AFib with RVR. The patient was seen by Dr. Nova, and he underwent EP study with radiofrequency ablation for his atrial fibrillation. The patient was not able to be weaned off the ventilation post-procedure and critical care medicine was consulted for critical care management. He had NS 500 mL during the procedure, EBL less than 30 mL, and urine output 200 mL in the PACU. When seen, the patient is sedated with Diprivan and on full mechanical ventilation. ABG on the ventilator showed acute hypercapnic respiratory acidosis with a pH of 7.27, CO2 of 68, PaO2 of 78, bicarbonate 30, saturation of 90% on PRVC rate of 15, tidal volume 500, I time 1.0, PEEP of 8 and 60% FIO2. Chest x-ray showed ET tube above the tara, increasing consolidation in the left mid to left lower lung. He had echocardiogram on 10/19, which showed EF of 60-65%. 12/02 Patient remains sedated and intubated. Afebrile. 12/03 Patient s/p bronch yesterday showed bloody secretions with suctioning. Awake and alert tolerating CPAP trials. 12/04 Patient was extubated yesterday on 6L oxygen. He was on BIPAP overnight for approx 4 hrs. Afebrile. 12/05 No events overnight. On 5L oxygen. Afebrile. On Insulin drip. 12/06 Patient remains on 5L oxygen, on insulin drip 14u/hr. Afebrile. States he takes high doses of Lantus and NovoLog insulin at home. Objective Vital Signs Date Time Temp Pulse Resp B/P (MAP) Pulse Ox O2 Delivery O2 Flow Rate FiO2 12/06/17 07:38 93 Nasal Cannula 5.00 12/06/17 04:25 40 12/06/17 04:00 98.8 74 16 117/48 (71) Intake and Output 12/06/17 12/06/17 12/07/17 08:00 16:00 00:00 Intake Total 870 ml Output Total 750 ml Balance 120 ml Result Diagram: 12/06/17 0322 12/06/17 0322 Other Results Laboratory Tests Test 12/06/17 03:22 White Blood Count 5.8 TH/MM3 Red Blood Count 3.18 MIL/MM3 Hemoglobin 9.4 GM/DL Hematocrit 28.5 % Mean Corpuscular Volume 89.7 FL Mean Corpuscular Hemoglobin 29.7 PG Mean Corpuscular Hemoglobin Concent 33.1 % Red Cell Distribution Width 15.2 % Platelet Count 212 TH/MM3 Mean Platelet Volume 8.8 FL Neutrophils (%) (Auto) 74.7 % Lymphocytes (%) (Auto) 15.8 % Monocytes (%) (Auto) 7.0 % Eosinophils (%) (Auto) 1.6 % Basophils (%) (Auto) 0.9 % Neutrophils # (Auto) 4.3 TH/MM3 Lymphocytes # (Auto) 0.9 TH/MM3 Monocytes # (Auto) 0.4 TH/MM3 Eosinophils # (Auto) 0.1 TH/MM3 Basophils # (Auto) 0.1 TH/MM3 CBC Comment DIFF FINAL Differential Comment Blood Urea Nitrogen 23 MG/DL Creatinine 0.94 MG/DL Random Glucose 172 MG/DL Calcium Level 9.0 MG/DL Phosphorus Level 2.8 MG/DL Sodium Level 139 MEQ/L Potassium Level 3.7 MEQ/L Chloride Level 101 MEQ/L Carbon Dioxide Level 31.0 MEQ/L Anion Gap 7 MEQ/L Estimat Glomerular Filtration Rate 79 ML/MIN Imaging Last Impressions Chest X-Ray 12/06/17 0000 Signed Impressions: Service Date/Time: Wednesday, December 06, 2017 08:33 - CONCLUSION: 1. Cardiomegaly. 2. Right base consolidation or atelectasis. 3. Blunting of the costophrenic angles which may represent mild bilateral effusions. Sanchez Larios MD Chest CT 12/02/17 0000 Signed Impressions: Service Date/Time: November 17:16 - CONCLUSION: 1. Multisegmental consolidation bilateral lower lobes. 2. Small medial right pleural effusion. Ravi Johnson MD Objective Remarks GENERAL: Patient is 72 yo lying in bed in NAD SKIN: Warm and dry. HEAD: Normocephalic. EYES: No scleral icterus. No injection or drainage. NECK: Supple, trachea midline. No JVD or lymphadenopathy. CARDIOVASCULAR: Regular rate and rhythm without murmurs, gallops, or rubs. RESPIRATORY: Breath sounds equal bilaterally. No accessory muscle use. GASTROINTESTINAL: Abdomen soft, non-tender, nondistended. MUSCULOSKELETAL: No cyanosis, or edema. Neuro: Awake and alert A/P Assessment and Plan 1. Resp Insuff extubated 12/03 2. S/p EP study with radiofrequency ablation for atrial fibrillation. 3. Chronic atrial fibrillation, on Eliquis at home. 4. COPD on home oxygen. 5 B/L airspace disease 6. Hypertension. 7. History of coronary artery disease. 8. Hypothyroidism. 9. Diabetes mellitus. 10. Anemia. 11. History of diastolic congestive heart failure. Plan Neuro: Awake and alert, avoid sedatives Pulm: Continue with oxygen and maintain sats> 92%. Bronchodilator, IS, Symbicort NIPPV PRN for resp distress CT chest: Multisegmental consolidation bilateral lower lobes. Small medial right pleural effusion. Broch 12/02 showed some bloody secretions LLL, no evidence of active bleeding or endobronchial lesions BAL performed RLL + Pseudomonas species . CXR today- Cardiomegaly. Right base consolidation or atelectasis. Blunting of the costophrenic angles which may represent mild bilateral effusions. CV: Monitor HR and BP and maintain MAP>65 mmHg. On Cardura 4 mg daily, Cardizem 60mg Q6, Lopressor 50mg Q12 Echo from 10/19 showed an EF of 60-65%. Dr. Nova is following. : Monitor renal function, I's and O's and electrolyte replacement per protocol. GI: On Pepcid for GI prophylaxis. On PO heart healthy diet ID: Monitor for signs of infection(fever and WBC). sputum, BAL culture: Pseudomonas species, Follow up on blood cultures- NGTD Continue Zosyn. strep pneumonia and Legionella urinary Ag negative, Heme: Monitor CBC- Eliquis 5 mg b.i.d. Endo: On Insulin drip for glycemic control On levothyroxine 300mcg daily. TSH: 1.52. GI prophylaxis with Pepcid and DVT prophylaxis with SCDs, Eliquis Level 2 Jonny Bazzi MD December 06, 2017 11:44
[2017-12-06] MEDS ORDERED: LOW DOSE INSULIN NOVOLOG SUPPLEMENTAL SCALE SQ SCH ×3 (17:00→17:15)
[2017-12-06] MEDS: METOPROLOL TARTRATE 5 MG/5 ML VIAL IV PUSH PRN (18:22)
[2017-12-06] MEDS ORDERED: GLUCAGON 1 MG/ML VIAL OTHER PRN (20:45)
[2017-12-06] MEDS ORDERED: FUROSEMIDE 40 MG/4 ML VIAL IV PUSH ONE (20:45)
[2017-12-06] MEDS ORDERED: POTASSIUM CHLORIDE 20 MEQ CONTROLLED RELEASE TAB PO ONE (20:45)
[2017-12-06] MEDS ORDERED: DEXTROSE 50% IN WATER 50 ML VIAL(D50) IV PUSH PRN (20:45)
[2017-12-06] MEDS: ATORVASTATIN 20 MG TAB PO SCH (21:16)
[2017-12-06] MEDS: GABAPENTIN 300 MG CAP PO SCH (21:17)
[2017-12-06] MEDS: INSULIN GLARGINE 1,000 UNITS/10 ML VIAL SQ SCH (21:17)
[2017-12-06] MEDS: INSULIN ASPART SUPPLEMENTAL SCALE SQ SCH (21:18)
[2017-12-07] VITALS (10 sets, daily range): BP systolic 130–176; BP diastolic 53–81; PULSE 60–85; RESP 18–22; TEMP 98.1–98.7; O2SAT 91–97
[2017-12-07] MEDS: DILTIAZEM HCL 60 MG TAB PO SCH ×4 (03:13→20:46)
[2017-12-07] MEDS: PIPERACIL-TAZO 4.5 GM PREMIX 100 ML IV SCH ×4 (03:13→20:37)
[2017-12-07] MEDS: RESP: ALBUTEROL 2.5 MG/IPRATROPIUM 0.5 MG NEB (PRN) NEB ×3 (04:03→15:12)
[2017-12-07 05:35] LABS: AUTOMATED NEUTROPHIL # 3.3 TH/MM3 (1.8-7.7); BASOPHIL # 0.1 TH/MM3 (0-0.2); BASOPHIL % 1.1 % (0.0-2.0); EOSINOPHIL # 0.1 TH/MM3 (0-0.4); EOSINOPHIL % 1.7 % (0.0-4.0); HEMATOCRIT 29.6 % (39.0-51.0); HEMOGLOBIN 9.6 GM/DL (13.0-17.0); LYMPH % 19.3 % (9.0-44.0); LYMPHOCYTE # 0.9 TH/MM3 (1.0-4.8); MEAN CELL VOLUME 90.8 FL (80.0-100.0); MEAN CORPUSCULAR HEMOGLOBIN 29.4 PG (27.0-34.0); MEAN CORPUSCULAR HGB CONC 32.4 % (32.0-36.0); MEAN PLATELET VOLUME 8.7 FL (7.0-11.0); MONO % 7.5 % (0.0-8.0); MONOCYTE # 0.4 TH/MM3 (0-0.9); NEUT % 70.4 % (16.0-70.0); PLATELET COUNT 195 TH/MM3 (150-450); RED BLOOD COUNT 3.26 MIL/MM3 (4.50-5.90); WHITE BLOOD COUNT 4.7 TH/MM3 (4.0-11.0)
[2017-12-07] MEDS: LEVOTHYROXINE SODIUM 150 MCG TAB PO SCH (05:45)
[2017-12-07 06:04] LABS: BICARBONATE 30.2 MEQ/L (21.0-32.0); CALCIUM 8.7 MG/DL (8.5-10.1); CREATININE 0.95 MG/DL (0.60-1.30); MAGNESIUM 1.5 MG/DL (1.5-2.5); PHOSPHORUS 3.1 MG/DL (2.5-4.9)
[2017-12-07] MEDS: DOCUSATE SODIUM 50 MG/SENNA 8.6 MG TAB PO SCH ×2 (09:00→21:00)
[2017-12-07] MEDS: INSULIN GLARGINE 1,000 UNITS/10 ML VIAL SQ SCH ×2 (09:00→21:00)
[2017-12-07] MEDS: METOPROLOL TARTRATE 50 MG TAB PO SCH ×2 (09:27→20:47)
[2017-12-07] MEDS: DOXAZOSIN MESYLATE 4 MG TAB PO SCH (09:27)
[2017-12-07] MEDS: FAMOTIDINE 20 MG TAB PO SCH ×2 (09:27→20:46)
[2017-12-07] MEDS: APIXABAN 5 MG TABLET PO SCH ×2 (09:27→20:47)
[2017-12-07] MEDS: FINASTERIDE 5 MG TAB PO SCH (09:27)
[2017-12-07] MEDS: LORATADINE 10 MG TAB PO SCH (09:27)
[2017-12-07] MEDS: INSULIN ASPART SUPPLEMENTAL SCALE SQ SCH ×4 (09:28→21:00)
[2017-12-07] MEDS: FLUTICASONE PROPIONATE 50 MCG/ACT 16 GM NASAL SPRAY EACH NARE SCH ×2 (09:36→20:49)
[2017-12-07] MEDS: BUDESONIDE-FORMOTEROL 160/4.5 MCG INHALER INH SCH ×2 (09:36→20:50)
--- NOTE | 2017-12-07 11:26 | HHI.CCPN ---
Subjective Remarks/Hospital Course Patient is a 72-year-old male with past medical history of chronic atrial fibrillation, on Eliquis, hypertension, coronary artery disease with previous [place] in 1993, CHF, diabetes mellitus, COPD, on home oxygen, and hypothyroidism. He was admitted under hospitalist service on 11/29 for AFib with RVR. The patient was seen by Dr. Nova, and he underwent EP study with radiofrequency ablation for his atrial fibrillation. The patient was not able to be weaned off the ventilation post-procedure and critical care medicine was consulted for critical care management. He had NS 500 mL during the procedure, EBL less than 30 mL, and urine output 200 mL in the PACU. When seen, the patient is sedated with Diprivan and on full mechanical ventilation. ABG on the ventilator showed acute hypercapnic respiratory acidosis with a pH of 7.27, CO2 of 68, PaO2 of 78, bicarbonate 30, saturation of 90% on PRVC rate of 15, tidal volume 500, I time 1.0, PEEP of 8 and 60% FIO2. Chest x-ray showed ET tube above the tara, increasing consolidation in the left mid to left lower lung. He had echocardiogram on 10/19, which showed EF of 60-65%. 12/02 Patient remains sedated and intubated. Afebrile. 12/03 Patient s/p bronch yesterday showed bloody secretions with suctioning. Awake and alert tolerating CPAP trials. 12/04 Patient was extubated yesterday on 6L oxygen. He was on BIPAP overnight for approx 4 hrs. Afebrile. 12/05 No events overnight. On 5L oxygen. Afebrile. On Insulin drip. 12/06 Patient remains on 5L oxygen, on insulin drip 14u/hr. Afebrile. States he takes high doses of Lantus and NovoLog insulin at home. 12/07: Resting comfortably. On 6 L O2 nasal cannula. Feels that he is breathing close to his baseline. Sugars remain high in the 300s. Presuming glimepiride and Janumet as well as increasing Lantus to 35 units in the morning and 40 units nightly. He is also on a sliding scale insulin. Resuming Lasix. Objective Vital Signs Date Time Temp Pulse Resp B/P (MAP) Pulse Ox O2 Delivery O2 Flow Rate FiO2 12/07/17 07:37 92 Nasal Cannula 5.00 12/07/17 03:41 98.6 66 19 130/53 (78) 12/06/17 23:39 40 Intake and Output 12/07/17 12/07/17 12/08/17 08:00 16:00 00:00 Intake Total 410 ml Output Total 1300 ml Balance -890 ml Result Diagram: 12/07/17 0425 12/07/17 0425 Other Results Microbiology Date/Time Source Procedure Growth Status 12/04/17 23:10 Urine Catheterized Urine Legionella Antigen - Final PRESUMPTIVE NEGATIVE FOR LEGIONELLA P... Complete 12/04/17 23:10 Urine Catheterized Urine Streptococcus pneumoniae Antigen (M - Final PRESUMPTIVE NEGATIVE FOR STREPTOCOCCU... Complete Imaging Last Impressions Chest X-Ray 12/06/17 0000 Signed Impressions: Service Date/Time: Wednesday, December 06, 2017 08:33 - CONCLUSION: 1. Cardiomegaly. 2. Right base consolidation or atelectasis. 3. Blunting of the costophrenic angles which may represent mild bilateral effusions. Sanchez Larios MD Chest CT 12/02/17 0000 Signed Impressions: Service Date/Time: November 17:16 - CONCLUSION: 1. Multisegmental consolidation bilateral lower lobes. 2. Small medial right pleural effusion. Ravi Johnson MD Objective Remarks GENERAL: Patient is 72 yo lying in bed in NAD SKIN: Warm and dry. HEAD: Normocephalic. EYES: No scleral icterus. No injection or drainage. NECK: Supple, trachea midline. No JVD or lymphadenopathy. CARDIOVASCULAR: Regular rate and rhythm without murmurs, gallops, or rubs. RESPIRATORY: Breath sounds equal bilaterally. No accessory muscle use. GASTROINTESTINAL: Abdomen soft, non-tender, nondistended. MUSCULOSKELETAL: No cyanosis, or edema. Neuro: Awake and alert A/P Assessment and Plan 1. Resp Insuff extubated 12/03 2. S/p EP study with radiofrequency ablation for atrial fibrillation. 3. Chronic atrial fibrillation, on Eliquis at home. 4. COPD on home oxygen. 5 B/L airspace disease 6. Hypertension. 7. History of coronary artery disease. 8. Hypothyroidism. 9. Diabetes mellitus. 10. Anemia. 11. History of diastolic congestive heart failure. Plan Neuro: Awake and alert, avoid sedatives Pulm: Continue with oxygen and maintain sats> 92%. Bronchodilator, IS, Symbicort NIPPV PRN for resp distress CT chest: Multisegmental consolidation bilateral lower lobes. Small medial right pleural effusion. Broch 12/02 showed some bloody secretions LLL, no evidence of active bleeding or endobronchial lesions BAL performed RLL + Pseudomonas species . CXR 12/06- Cardiomegaly. Right base consolidation or atelectasis. Blunting of the costophrenic angles which may represent mild bilateral effusions. CV: Monitor HR and BP and maintain MAP>65 mmHg. On Cardura 4 mg daily, Cardizem 60mg Q6, Lopressor 50mg Q12. Resume Lasix 40 mg p.o. daily Echo from 10/19 showed an EF of 60-65%. Dr. Nova is following. : Monitor renal function, I's and O's and electrolyte replacement per protocol. GI: On Pepcid for GI prophylaxis. On PO heart healthy diet ID: Monitor for signs of infection(fever and WBC). sputum, BAL culture: Pseudomonas species, Follow up on blood cultures- NGTD Continue Zosyn. strep pneumonia and Legionella urinary Ag negative, Heme: Monitor CBC- Eliquis 5 mg b.i.d. Endo: Off insulin drip. On SSI, increase Lantus to 35 units in a.m. and 40 units nightly. Resume oral glimepiride and Janumet. On levothyroxine 300mcg daily. TSH: 1.52. GI prophylaxis with Pepcid and DVT prophylaxis with SCDs, Eliquis Consult and transfer to hospitalist service for further medical management. Transfer to [facility]. Critical care signing off, please reconsult if needed. Level 2 Ian Collins MD December 07, 2017 11:26
[2017-12-07] MEDS: INSULIN DETEMIR 100 UNITS/ML VIAL SQ SCH (12:10)
[2017-12-07] MEDS: FUROSEMIDE 40 MG TAB PO SCH (12:48)
[2017-12-07] MEDS: POTASSIUM CHLORIDE 20 MEQ CONTROLLED RELEASE TAB PO SCH (12:48)
[2017-12-07] MEDS: GLIMEPIRIDE 4 MG TAB PO SCH ×2 (13:07→16:00)
[2017-12-07] MEDS: metFORMIN HCL 500 MG TAB PO SCH ×2 (13:08→20:46)
[2017-12-07] MEDS: RESP: ALBUTEROL 2.5 MG/IPRATROPIUM 0.5 MG NEB (SCH) NEB ×3 (16:00→23:24)
[2017-12-07] MEDS: GABAPENTIN 300 MG CAP PO SCH (20:45)
[2017-12-07] MEDS: ATORVASTATIN 20 MG TAB PO SCH (20:47)
[2017-12-07] MEDS: LORazepam 0.5 MG TAB PO PRN (22:52)
[2017-12-07] MEDS: ACETAMINOPHEN 325 MG TAB PO PRN (22:52)
[2017-12-08] VITALS (11 sets, daily range): BP systolic 116–156; BP diastolic 51–72; PULSE 52–71; RESP 18–20; TEMP 97.8–98.2; O2SAT 94–98
[2017-12-08] MEDS: DILTIAZEM HCL 60 MG TAB PO SCH ×2 (01:47→08:00)
[2017-12-08] MEDS: PIPERACIL-TAZO 4.5 GM PREMIX 100 ML IV SCH ×2 (01:47→08:29)
[2017-12-08] MEDS: RESP: ALBUTEROL 2.5 MG/IPRATROPIUM 0.5 MG NEB (SCH) NEB ×3 (04:29→11:59)
[2017-12-08 04:47] LABS: AUTOMATED NEUTROPHIL # 4.4 TH/MM3 (1.8-7.7); BASOPHIL # 0.1 TH/MM3 (0-0.2); BASOPHIL % 1.1 % (0.0-2.0); EOSINOPHIL # 0.1 TH/MM3 (0-0.4); HEMATOCRIT 30.4 % (39.0-51.0); LYMPH % 18.2 % (9.0-44.0); LYMPHOCYTE # 1.1 TH/MM3 (1.0-4.8); MEAN CELL VOLUME 89.6 FL (80.0-100.0); MEAN CORPUSCULAR HEMOGLOBIN 29.5 PG (27.0-34.0); MEAN CORPUSCULAR HGB CONC 32.9 % (32.0-36.0); MEAN PLATELET VOLUME 8.9 FL (7.0-11.0); MONO % 7.3 % (0.0-8.0); MONOCYTE # 0.4 TH/MM3 (0-0.9); NEUT % 71.4 % (16.0-70.0); PLATELET COUNT 225 TH/MM3 (150-450); WHITE BLOOD COUNT 6.1 TH/MM3 (4.0-11.0)
[2017-12-08] MEDS: oxyCODONE/ACETAMINOPHEN 5 MG/325 MG TAB PO PRN (04:55)
[2017-12-08 05:13] LABS: ALBUMIN 2.6 GM/DL (3.4-5.0); ALT (GPT) 19 U/L (12-78); AST (GOT) 20 U/L (15-37); BICARBONATE 30.4 MEQ/L (21.0-32.0); BLOOD UREA NITROGEN 23 MG/DL (7-18); CHLORIDE 98 MEQ/L (98-107); CREATININE 1.06 MG/DL (0.60-1.30); GLOMERULAR FILTRATION RATE 68 ML/MIN (>89); GLUCOSE,RANDOM 146 MG/DL (74-106); SODIUM (NA) 138 MEQ/L (136-145)
[2017-12-08 05:16] LABS: ALKALINE PHOSPHATASE 49 U/L (45-117); TOTAL BILIRUBIN ADULT 0.3 MG/DL (0.2-1.0); TOTAL PROTEIN 7.1 GM/DL (6.4-8.2)
[2017-12-08] MEDS: LEVOTHYROXINE SODIUM 150 MCG TAB PO SCH (05:49)
[2017-12-08] MEDS: INSULIN DETEMIR 100 UNITS/ML VIAL SQ SCH ×2 (07:59→08:23)
[2017-12-08] MEDS: metFORMIN HCL 500 MG TAB PO SCH (08:00)
[2017-12-08] MEDS: INSULIN GLARGINE 1,000 UNITS/10 ML VIAL SQ SCH ×2 (08:00→08:30)
[2017-12-08] MEDS: POTASSIUM CHLORIDE 20 MEQ CONTROLLED RELEASE TAB PO SCH (08:01)
[2017-12-08] MEDS: FUROSEMIDE 40 MG TAB PO SCH (08:01)
[2017-12-08] MEDS: FINASTERIDE 5 MG TAB PO SCH (08:01)
[2017-12-08] MEDS: GLIMEPIRIDE 4 MG TAB PO SCH (08:02)
[2017-12-08] MEDS: FAMOTIDINE 20 MG TAB PO SCH (08:02)
[2017-12-08] MEDS: METOPROLOL TARTRATE 50 MG TAB PO SCH (08:02)
[2017-12-08] MEDS: APIXABAN 5 MG TABLET PO SCH (08:02)
[2017-12-08] MEDS: DOXAZOSIN MESYLATE 4 MG TAB PO SCH (08:02)
[2017-12-08] MEDS: LORATADINE 10 MG TAB PO SCH (08:02)
[2017-12-08] MEDS: INSULIN ASPART SUPPLEMENTAL SCALE SQ SCH ×2 (08:14→12:16)
[2017-12-08] MEDS: DOCUSATE SODIUM 50 MG/SENNA 8.6 MG TAB PO SCH (08:24)
--- NOTE | 2017-12-08 08:40 | HHI.PR ---
Subjective Remarks Pleasant , at the margin of the bed says he feels much better. Says he is not short of breath, no lower extremity edema. No chest pain or lightheadedness. Denies nausea, vomiting, diarrhea or constipation. Objective Vitals Vital Signs Date Time Temp Pulse Resp B/P (MAP) Pulse Ox O2 Delivery O2 Flow Rate FiO2 12/08/17 07:19 94 Nasal Cannula 4.00 12/08/17 05:49 18 12/08/17 03:55 96 Nasal Cannula 5.00 12/08/17 03:55 96 12/08/17 03:00 52 12/08/17 03:00 96 Nasal Cannula 5.00 Humidified 12/08/17 03:00 98.2 52 18 122/58 (79) 96 12/08/17 01:14 96 40 12/08/17 00:00 18 12/07/17 23:22 97 40 12/07/17 23:00 60 12/07/17 23:00 98.5 74 18 131/55 (80) 96 12/07/17 23:00 96 Nasal Cannula 5.00 Humidified 12/07/17 20:37 94 Nasal Cannula 5.00 12/07/17 19:00 74 12/07/17 19:00 98.6 74 18 132/74 (93) 95 12/07/17 19:00 95 Nasal Cannula 5.00 Humidified 12/07/17 15:00 98.7 66 22 154/73 (100) 94 12/07/17 15:00 66 12/07/17 15:00 94 Nasal Cannula 6.00 Humidified 12/07/17 11:00 76 12/07/17 11:00 98.1 76 20 176/81 (112) 92 12/07/17 11:00 92 Nasal Cannula 6.00 Humidified I/O 12/07/17 12/07/17 12/07/17 12/08/17 12/08/17 12/08/17 07:00 15:00 23:00 07:00 15:00 23:00 Intake Total 410 ml 1520 ml 820 ml Output Total 1300 ml 1575 ml 1000 ml Balance -890 ml -55 ml -180 ml Intake Oral 300 ml 1420 ml 720 ml IV Total 110 ml 100 ml 100 ml Output Urine Total 1300 ml 1575 ml 1000 ml # Voids 5 # Bowel Movements 0 3 1 Result Diagram: 12/08/17 0347 12/08/17 0347 Imaging Last Impressions Chest X-Ray 12/06/17 0000 Signed Impressions: Service Date/Time: Wednesday, December 06, 2017 08:33 - CONCLUSION: 1. Cardiomegaly. 2. Right base consolidation or atelectasis. 3. Blunting of the costophrenic angles which may represent mild bilateral effusions. Sanchez Larios MD Chest CT 12/02/17 0000 Signed Impressions: Service Date/Time: November 17:16 - CONCLUSION: 1. Multisegmental consolidation bilateral lower lobes. 2. Small medial right pleural effusion. Ravi Johnson MD Objective Remarks GENERAL: Pleasant 72 yo F in bed. CARDIOVASCULAR: Regular rate and rhythm. RESPIRATORY: No accessory muscle use. Clear to auscultation. Breath sounds equal bilaterally. GASTROINTESTINAL: Abdomen soft, non-tender, nondistended. Hepatic and splenic margins not palpable. MUSCULOSKELETAL: Extremities without clubbing, cyanosis, or edema. No obvious deformities. NEUROLOGICAL: Awake and alert. No obvious cranial nerve deficits. Motor grossly within normal limits. Five out of 5 muscle strength in the arms and legs. Normal speech. PSYCHIATRIC: Appropriate mood and affect; insight and judgment normal. Procedures EP with ablation by Dr Nova A/P Assessment and Plan Patient is a 72-year-old male with past medical history of chronic atrial fibrillation, on Eliquis, hypertension, coronary artery disease with previous [place] in 1993, CHF, diabetes mellitus, COPD, on home oxygen, and hypothyroidism. He was admitted under hospitalist service on 11/29 for AFib with RVR. The patient was seen by Dr. Nova, and he underwent EP study with radiofrequency ablation for his atrial fibrillation. The patient was not able to be weaned off the ventilation post-procedure and critical care medicine was consulted for critical care management. He had NS 500 mL during the procedure, EBL less than 30 mL, and urine output 200 mL in the PACU. When seen, the patient is sedated with Diprivan and on full mechanical ventilation. ABG on the ventilator showed acute hypercapnic respiratory acidosis with a pH of 7.27, CO2 of 68, PaO2 of 78, bicarbonate 30, saturation of 90% on PRVC rate of 15, tidal volume 500, I time 1.0, PEEP of 8 and 60% FIO2. Chest x-ray showed ET tube above the tara, increasing consolidation in the left mid to left lower lung. Extubated successfully. He had echocardiogram on 10/19, which showed EF of 60-65%. Had EP with ablation, cleared by cardio for DC. 12/08/17: Had EP with ablation, cleared by cardio for DC. Weaned off O2 to 2-3 L by nasal cannula. Patient says this is his baseline, Has O2 at home. Sugars better controlled, says with his home meds. Wants to go home. Says has meds at home. Resp Failure extubated 12/03 S/p EP study with radiofrequency ablation for atrial fibrillation. Chronic atrial fibrillation, on Eliquis at home. COPD on home oxygen. B/L airspace disease Hypertension. History of coronary artery disease. Hypothyroidism. Diabetes mellitus. Anemia. History of diastolic congestive heart failure. Plan Neuro: Awake and alert, avoid sedatives Pulm: Continue with oxygen and maintain sats> 92%. Bronchodilator, IS, Symbicort NIPPV PRN for resp distress CT chest: Multisegmental consolidation bilateral lower lobes. Small medial right pleural effusion. Broch 12/02 showed some bloody secretions LLL, no evidence of active bleeding or endobronchial lesions BAL performed RLL + Pseudomonas species . CXR 12/06- Cardiomegaly. Right base consolidation or atelectasis. Blunting of the costophrenic angles which may represent mild bilateral effusions. CV: Monitor HR and BP and maintain MAP>65 mmHg. On Cardura 4 mg daily, Cardizem 60mg Q6, Lopressor 50mg Q12. Resume Lasix 40 mg p.o. daily Echo from 10/19 showed an EF of 60-65%. Dr. Nova is following. : Monitor renal function, I's and O's and electrolyte replacement per protocol. GI: On Pepcid for GI prophylaxis. On PO heart healthy diet ID: Monitor for signs of infection(fever and WBC). sputum, BAL culture: Pseudomonas species, Follow up on blood cultures- NGTD Continue Zosyn. strep pneumonia and Legionella urinary Ag negative, Heme: Monitor CBC- Eliquis 5 mg b.i.d. Endo: high BS off insulin drip. BS is better with his home meds On levothyroxine 300mcg daily. TSH: 1.52. GI prophylaxis with Pepcid and DVT prophylaxis with SCDs, Eliquis The patient improved significantly. His at his baseline. The patient is cleared by consultants for discharge. Patient wants to go home. He will follow -up with PCP and consultants as outpatient. Kathia Chahal MD December 08, 2017 08:40
[2017-12-08] MEDS: FLUTICASONE PROPIONATE 50 MCG/ACT 16 GM NASAL SPRAY EACH NARE SCH (09:00)
[2017-12-08] MEDS ORDERED: METO-309 PO (09:19)
--- NOTE | 2017-12-08 09:19 | HHI.DS ---
Discharge Summary Admission Date Nov 29, 2017 at 17:55 Discharge Date: December 08, 2017 Admitting Diagnosis AFib RVR (1) Acute respiratory failure with hypoxia and hypercapnia ICD Code: J96.01 - Acute respiratory failure with hypoxia; J96.02 - Acute respiratory failure with hypercapnia (2) History of myocardial infarction ICD Code: I25.2 - Old myocardial infarction Status: Acute (3) Diastolic heart failure ICD Code: I50.30 - Unspecified diastolic (congestive) heart failure Status: Acute (4) Hypertension ICD Code: I10 - Essential (primary) hypertension Status: Acute (5) Chronic obstructive pulmonary disease ICD Code: J44.9 - Chronic obstructive pulmonary disease, unspecified Status: Acute (6) Hypothyroidism ICD Code: E03.9 - Hypothyroidism, unspecified Status: Acute (7) Hyperlipidemia ICD Code: E78.5 - Hyperlipidemia, unspecified Status: Acute (8) Diabetes ICD Code: E11.9 - Type 2 diabetes mellitus without complications Status: Acute (9) Coronary artery disease ICD Code: I25.10 - Atherosclerotic heart disease of [place] coronary artery without angina pectoris Status: Acute (10) COPD with acute exacerbation ICD Code: J44.1 - Chronic obstructive pulmonary disease with (acute) exacerbation (11) VICKIE (acute kidney injury) ICD Code: N17.9 - Acute kidney failure, unspecified (12) NSTEMI (non-ST elevated myocardial infarction) ICD Code: I21.4 - NSTEMI (non-ST elevated myocardial infarction) Status: Acute (13) Pleural effusion ICD Code: J90 - Pleural effusion, not elsewhere classified Procedures EP with ablation Brief History - From Admission This is a 72-year-old male with past medical history significant for recently diagnosed atrial fibrillation on Eliquis, hypertension, coronary artery disease status post previous [place] 1993, congestive heart failure, diabetes, chronic respiratory failure on home oxygen, COPD and hypothyroidism who presents to [facility] ED having been sent over by Dr. Nova's office for atrial fibrillation with RVR. Patient states he was seen in Dr. Otoole's office 2 weeks ago and started on generic for Cardizem and Eliquis. He had an appointment and Dr. Nova's office today to discuss cardiac ablation procedure but was noted to have elevated heart rate and was sent to the ED for admission. Patient states that he recently purchased a pulse oximeter and is noticed that his heart rate has been running in the 120s at home. He does admit that he uses albuterol treatments 3-4 times a day consistently. He denies any recent illness. He denies any fever or chills. Denies any change in his chronic shortness of breath. Denies any complaints of chest pain. Denies any dizziness, lightheadedness, sensation of near syncope or vision changes. He denies any nausea vomiting or abdominal pain. He states he is urinating without any difficulties and denies any bowel complaints. In fact patient states that he has felt fine since his discharge from the hospital on 10/23/17. Patient was recently admitted 10/19/17 to 10/23/17 with acute COPD exacerbation. Prior to that admission, patient was admitted 10/09 to 10/12 with hypoxia, hyperkalemia and weakness with right sided pleural effusion with unsuccessful attempt at thoracentesis. He was also noted to have abdominal wall cellulitis that admission which was treated with Bactrim. He was discharged on p.o. Lasix to attempt diuresis at home. Prior to that admission, patient had an attempted thoracentesis but only 10 mL of fluid was removed. CBC/BMP: 12/08/17 0347 12/08/17 0347 Significant Findings Laboratory Tests Test 12/06/17 03:22 12/07/17 04:25 12/08/17 03:47 Red Blood Count 3.18 MIL/MM3 (4.50-5.90) 3.26 MIL/MM3 (4.50-5.90) 3.40 MIL/MM3 (4.50-5.90) Hemoglobin 9.4 GM/DL (13.0-17.0) 9.6 GM/DL (13.0-17.0) 10.0 GM/DL (13.0-17.0) Hematocrit 28.5 % (39.0-51.0) 29.6 % (39.0-51.0) 30.4 % (39.0-51.0) Neutrophils (%) (Auto) 74.7 % (16.0-70.0) 70.4 % (16.0-70.0) 71.4 % (16.0-70.0) Lymphocytes # (Auto) 0.9 TH/MM3 (1.0-4.8) 0.9 TH/MM3 (1.0-4.8) Blood Urea Nitrogen 23 MG/DL (7-18) 21 MG/DL (7-18) 23 MG/DL (7-18) Random Glucose 172 MG/DL (74-106) 259 MG/DL (74-106) 146 MG/DL (74-106) Estimat Glomerular Filtration Rate 79 ML/MIN (>89) 78 ML/MIN (>89) 68 ML/MIN (>89) Albumin 2.6 GM/DL (3.4-5.0) Imaging Last Impressions Chest X-Ray 12/06/17 0000 Signed Impressions: Service Date/Time: Wednesday, December 06, 2017 08:33 - CONCLUSION: 1. Cardiomegaly. 2. Right base consolidation or atelectasis. 3. Blunting of the costophrenic angles which may represent mild bilateral effusions. Sanchez Larios MD Chest CT 12/02/17 0000 Signed Impressions: Service Date/Time: November 17:16 - CONCLUSION: 1. Multisegmental consolidation bilateral lower lobes. 2. Small medial right pleural effusion. Ravi Johnson MD PE at Discharge GENERAL: Pleasant 72 yo F in bed. CARDIOVASCULAR: Regular rate and rhythm. RESPIRATORY: No accessory muscle use. Clear to auscultation. Breath sounds equal bilaterally. GASTROINTESTINAL: Abdomen soft, non-tender, nondistended. Hepatic and splenic margins not palpable. MUSCULOSKELETAL: Extremities without clubbing, cyanosis, or edema. No obvious deformities. NEUROLOGICAL: Awake and alert. No obvious cranial nerve deficits. Motor grossly within normal limits. Five out of 5 muscle strength in the arms and legs. Normal speech. PSYCHIATRIC: Appropriate mood and affect; insight and judgment normal. Hospital Course Patient is a 72-year-old male with past medical history of chronic atrial fibrillation, on Eliquis, hypertension, coronary artery disease with previous [place] in 1993, CHF, diabetes mellitus, COPD, on home oxygen, and hypothyroidism. He was admitted under hospitalist service on 11/29 for AFib with RVR. The patient was seen by Dr. Avtar, and he underwent EP study with radiofrequency ablation for his atrial fibrillation. The patient was not able to be weaned off the ventilation post-procedure and critical care medicine was consulted for critical care management. He had NS 500 mL during the procedure, EBL less than 30 mL, and urine output 200 mL in the PACU. When seen, the patient is sedated with Diprivan and on full mechanical ventilation. ABG on the ventilator showed acute hypercapnic respiratory acidosis with a pH of 7.27, CO2 of 68, PaO2 of 78, bicarbonate 30, saturation of 90% on PRVC rate of 15, tidal volume 500, I time 1.0, PEEP of 8 and 60% FIO2. Chest x-ray showed ET tube above the tara, increasing consolidation in the left mid to left lower lung. Extubated successfully. He had echocardiogram on 10/19, which showed EF of 60-65%. Had EP with ablation, cleared by cardio for DC. The patient improved significantly. He is at his baseline. The patient is cleared by consultants for discharge. Patient wants to go home. He will follow -up with PCP and consultants as outpatient. 12/08/17: Had EP with ablation, cleared by cardio for DC. Weaned off O2 to 2-3 L by nasal cannula. Patient says this is his baseline, Has O2 at home. Sugars better controlled, says with his home meds. Wants to go home. Says has meds at home. Resp Failure extubated 12/03 S/p EP study with radiofrequency ablation for atrial fibrillation. Chronic atrial fibrillation, on Eliquis at home. COPD on home oxygen. B/L airspace disease Hypertension. History of coronary artery disease. Hypothyroidism. Diabetes mellitus. Anemia. History of diastolic congestive heart failure. Plan Neuro: Awake and alert, avoid sedatives Pulm: Continue with oxygen and maintain sats> 92%. Bronchodilator, IS, Symbicort NIPPV PRN for resp distress CT chest: Multisegmental consolidation bilateral lower lobes. Small medial right pleural effusion. Broch 12/02 showed some bloody secretions LLL, no evidence of active bleeding or endobronchial lesions BAL performed RLL + Pseudomonas species . CXR 12/06- Cardiomegaly. Right base consolidation or atelectasis. Blunting of the costophrenic angles which may represent mild bilateral effusions. CV: Monitor HR and BP and maintain MAP>65 mmHg. On Cardura mg daily, Cardizem 60mg Q6, Lopressor 50mg Q12. Resume Lasix 40 mg p.o. daily Echo from 10/19 showed an EF of 60-65%. Dr. Nova is following. : Monitor renal function, I's and O's and electrolyte replacement per protocol. GI: On Pepcid for GI prophylaxis. On PO heart healthy diet ID: Monitor for signs of infection(fever and WBC). sputum, BAL culture: Pseudomonas species, Follow up on blood cultures- NGTD Continue Zosyn. strep pneumonia and Legionella urinary Ag negative, Heme: Monitor CBC- Eliquis 5 mg b.i.d. Endo: high BS off insulin drip. BS is better with his home meds On levothyroxine 300mcg daily. TSH: 1.52. GI prophylaxis with Pepcid and DVT prophylaxis with SCDs, Eliquis The patient improved significantly. He is at his baseline. The patient is cleared by consultants for discharge. Patient wants to go home. He will follow -up with PCP and consultants as outpatient. Pt Condition on Discharge: Stable Discharge Disposition: Disch w/ Home Health Serv Discharge Time: > 30 minutes Discharge Instructions DIET: Follow Instructions for: Heart Healthy Diet, Diabetic Diet Activities you can perform: Regular-No Restrictions Follow up Referrals: Cardiology - 1 Week PCP Follow-up - 2-3 Days New Medications: Metoprolol Tartrate (Lopressor) 50 Mg Tab 50 MG PO Q12HR for Blood Pressure Management, #60 TAB Continued Medications: Albuterol 18 GM Inh (Ventolin Hfa 18 GM Inh) 90 Mcg/Act Aer 2 PUFF INH Q4-6H PRN for SHORTNESS OF BREATH, #1 INHALER 0 Refills Apixaban (Eliquis) 5 Mg Tab 5 MG PO BID for Blood Clot Prevention, TAB 0 Refills Atorvastatin (Atorvastatin) 20 Mg Tab 20 MG PO HS for Cholesterol Management, #30 TAB 0 Refills Budesonide-Formoterol Inh (Symbicort Inh) 80-4.5 Mcg/Act Aero 1 PUFF INH Q12HR for Asthma Management, #1 INHALER 0 Refills Coenzyme Q10 (Ubidecarenone) (Coq10) 50 Mg Cap 100 MG PO DAILY Diltiazem ER 24 HR (Diltiazem ER 24 HR) 240 Mg Caper 240 MG PO DAILY, CAP Doxazosin (Doxazosin) 4 Mg Tab 4 MG PO DAILY, TAB Finasteride (Finasteride) 5 Mg Tab 5 MG PO DAILY for Manage Prostate Problems, TAB 0 Refills Do not crush. Fluticasone Nasal [place] (Flonase Nasal [place]) 50 Mcg/Act [place] 100 MCG EACH NARE BID for Allergies, BOTTLE 0 Refills Furosemide (Furosemide) 40 Mg Tab 40 MG PO DAILY, TAB 0 Refills Gabapentin (Gabapentin) 300 Mg Cap 300 MG PO HS, #60 CAP 0 Refills Glimepiride (Glimepiride) 4 Mg Tab 4 MG PO BIDAC for Blood Sugar Management, TAB 0 Refills Insulin Aspart Inj (Novolog Penfill Inj) 300 Unit/3 Ml Pen 2-40 UNITS SQ TIDAC PRN for Blood Sugar Management, BOX 0 Refills sliding scale Insulin Glargine Inj (Lantus Inj) 1,000 Unit/10 Ml Vial 35 UNITS SQ DAILY for Blood Sugar Management, VIAL 0 Refills Insulin Glargine Inj (Lantus Inj) 1,000 Unit/10 Ml Vial 40 UNITS SQ HS for Blood Sugar Management, VIAL 0 Refills Levothyroxine (Levothyroxine) 300 Mcg Tab 300 MCG PO DAILY for Thyroid, #30 TAB 0 Refills Loratadine (Claritin) 10 Mg Cap 10 MG PO DAILY for Allergy Management, #30 CAP 4 Refills Lorazepam (Lorazepam) 0.5 Mg Tab 0.5 MG PO DAILY PRN for ANXIETY, TAB 0 Refills [place]-3 Fatty Acids ([place] 3 1000 mg) 1 Cap Cap 2 CAP PO DAILY Oxygen (O2) (Oxygen (O2)) Device LITER TAMMI.CANULA CONTINUOUS for Prevent Hypoxemia, #4 Oxygen Concentrator Portable Gaseous 4 L/min via Nasal [place] Continuous For 99 months Sitagliptin-Metformin ER (Janumet Xr) 50-1,000 Mg Tab 1 TAB PO BID for Blood Sugar Management, #30 TAB 0 Refills Discontinued Medications: Lorazepam (Lorazepam) 0.5 Mg Tab 0.5 MG PO BID PRN for ANXIETY, TAB 0 Refills Metoprolol Tartrate (Metoprolol Tartrate) 50 Mg Tab 25 MG PO BID, #30 TAB 0 Refills Kathia Chahal MD December 08, 2017 09:19
--- NOTE | 2017-12-08 09:22 | HHI.FF ---
Face to Face Verification Diagnosis: (1) Hyperlipidemia (2) Hypothyroidism (3) Diabetes (4) Hypertension (5) History of myocardial infarction (6) Coronary artery disease (7) Diastolic heart failure (8) Chronic obstructive pulmonary disease (9) Acute respiratory failure with hypoxia and hypercapnia Home Health Nursing Order: Medical education Signs/symptoms of disease process Diabetic education CHF education Medication education-adverse effect Nursing assessment with vital signs I have seen patient Anthony Otoole on 12/08/17. My clinical findings support the need for the requested home health care services because: Ltd mobility - disease progression I certify that my clinical findings support that this patient is homebound because: Post-op weakness Kathia Chahal MD December 08, 2017 09:22
[2017-12-08] MEDS: BUDESONIDE-FORMOTEROL 160/4.5 MCG INHALER INH SCH (09:51)
[2017-12-08] MEDS: LORazepam 0.5 MG TAB PO PRN (11:08)
[2017-12-08] MEDS: ACETAMINOPHEN 325 MG TAB PO PRN (11:10)
== END 2017-12-08 13:10 | disposition home health service (06) | DRG 273 ==
LOC: NEPE 15:18 → NEDA 17:55 → HCIS 22:03 → HCPC 12-01 13:22 → HCVI 12-01 17:06
PROVIDERS: ADMIT Hospitalist; ATTEND Hospitalist
PROC: 5A1945Z Respiratory Ventilation, 24-96 Consecutive Hours (ICD-10-PCS; 2017-12-01)
PROC: 4A023FZ Measurement of Cardiac Rhythm, Percutaneous Approach (ICD-10-PCS; 2017-12-01)
PROC: 4A0234Z Measurement of Cardiac Electrical Activity, Percutaneous Approach (ICD-10-PCS; 2017-12-01)
PROC: 02583ZZ Destruction of Conduction Mechanism, Percutaneous Approach (ICD-10-PCS; principal; 2017-12-01 10:00)
PROC: 0B9F8ZX Drainage of Right Lower Lung Lobe, Via Natural or Artificial Opening Endoscopic, Diagnostic (ICD-10-PCS; 2017-12-02)
DX: I48.92 Unspecified atrial flutter (principal); J95.821 Acute postprocedural respiratory failure; N17.9 Acute kidney failure, unspecified; Z99.11 Dependence on respirator [ventilator] status; E87.2 Acidosis; I50.32 Chronic diastolic (congestive) heart failure; I11.0 Hypertensive heart disease with heart failure; E11.9 Type 2 diabetes mellitus without complications; D64.9 Anemia, unspecified; J96.10 Chronic respiratory failure, unspecified whether with hypoxia or hypercapnia; Z68.41 Body mass index [BMI] 40.0-44.9, adult; Z99.81 Dependence on supplemental oxygen; E03.9 Hypothyroidism, unspecified; I48.2 Chronic atrial fibrillation; Z79.4 Long term (current) use of insulin; G43.909 Migraine, unspecified, not intractable, without status migrainosus; E78.5 Hyperlipidemia, unspecified; Z86.73 Personal history of transient ischemic attack (TIA), and cerebral infarction without residual deficits; M19.90 Unspecified osteoarthritis, unspecified site; F41.9 Anxiety disorder, unspecified; J44.9 Chronic obstructive pulmonary disease, unspecified; Z87.891 Personal history of nicotine dependence; Z79.01 Long term (current) use of anticoagulants; I25.2 Old myocardial infarction; I25.10 Atherosclerotic heart disease of native coronary artery without angina pectoris; N40.0 Benign prostatic hyperplasia without lower urinary tract symptoms; Z82.5 Family history of asthma and other chronic lower respiratory diseases; E66.01 Morbid (severe) obesity due to excess calories; Z79.899 Other long term (current) drug therapy
CPT/HCPCS: 36600; 71045; 71250; 76937; 80048; 80053; 82550; 82805; 82948; 83735; 83880; 84100; 84443; 84484; 85025; 85610; 85730; 87015; 87040; 87070; 87077; 87102; 87116; 87186; 87205; 87206; 87449; 93005; 93613; 93623; 93653; 94002; 94003; 94150; 94640; 94664; 96365; 96375; C1730; C1732; C2630; J0282; J0330; J1815; J1817; J1940; J2250; J2270; J2370; J2543; J3010; J7050; J7608; J7613; J7644

== ENCOUNTER 2017-12-14 10:26 | Inpatient (IN) | payer OTHER, MEDICARE ==
[2017-12-14] VITALS (7 sets, daily range): BP systolic 100–156; BP diastolic 47–69; PULSE 57–76; RESP 19–22; TEMP 96.4–97.8; O2SAT 93–97
[~2017-12-14] VITALS: Ht 175.3 cm; Wt 129.3 kg
[~2017-12-14 10:26] MED LIST changes: -AMLO10TA2 PO; +APIX5TAB PO; -ASPI81TA23 PO; -Albuterol-Ipratropium Neb NEB; -CHOL1TAB42 PO; +DILT240C7 PO; +FINA5TAB2 PO; +FLUT1SPR5 EACH NARE; +FURO40TA PO; +GLIM4TAB PO; -LEVA750T9 PO; -LISI10TA3 PO; -MELA5 PO; +METO-309 PO; -METO50TA PO; -PRED20 PO; -SPIRCAP INH; -TAMS5CAP PO
[2017-12-14] MEDS ORDERED: SODIUM CHLORIDE 0.9% FLUSH 10 ML FLUSH IVF PRN (10:45)
--- NOTE | 2017-12-14 10:50 | PD ---
HPI Chief Complaint: urinary retention Time Seen by Provider: 10:34 Travel History International Travel<30 days: No Contact w/Intl Traveler<30days: No History of Present Illness HPI 72-year-old male with history of enlarged prostate, congestive heart failure, COPD, diabetes mellitus on insulin therapy, hypothyroidism presents emergency department complaining of the inability to urinate 2-3 days. Patient states that his last urination was 2-3 days ago. Says that he has been able to move his bowels and says that his last bowel movement was yesterday which was normal for him. Admits to having loose stools since his discharge from [facility] several days ago. Says he has had 1-2 stools daily. Says he was hospitalized for s/p cardiac ablation for atrial fibrillation. Patient denies abdominal pain but states he "feels bloated". He denies any new medications since his discharge. He does not follow urologist. He has no history of urinary retention previously. Denies fevers or chills. Denies unusual chest pain or shortness of breath. Denies back pain. He states compliance with his medication. He says that he has been using a medication for his enlarged prostate prescribed by Dr. Saxena, his primary care physician. PFS Past Medical History Hx Anticoagulant Therapy: No Arthritis: Yes Asthma: Yes Autoimmune Disease: No Blood Disorders: No Anxiety: Yes Depression: No Heart Rhythm Problems: Yes (afib this admit) Cancer: No Cardiac Catheterization: Yes Cardiovascular Problems: Yes High Cholesterol: Yes Chemotherapy: No Chest Pain: No Congestive Heart Failure: Yes COPD: Yes Cerebrovascular Accident: Yes Diabetes: Yes Diminished Hearing: No Endocrine: Yes Gastrointestinal Disorders: Yes GERD: No Genitourinary: Yes Headaches: Yes Hiatal Hernia: No Hypertension: Yes Immune Disorder: No Implanted Vascular Access Dvce: No Kidney Stones: No Musculoskeletal: Yes Neurologic: Yes Psychiatric: Yes Reproductive: No Respiratory: Yes Immunizations Current: Yes Migraines: Yes Seizures: No Sleep Apnea: No Thyroid Disease: Yes (hypo) Ulcer: No Past Surgical History Abdominal Surgery: Yes (UMBILICAL HERNIA REPAIR.) Cardiac Surgery: Yes ([place] ANGIOPLASTY 1993) Endocrine Surgery: No Eye Surgery: No Genitourinary Surgery: No Gynecologic Surgery: No Hysterectomy: No Neurologic Surgery: No Thoracic Surgery: No Other Surgery: Yes Social History Alcohol Use: No Tobacco Use: No (quit 1993) Substance Use: No Allergies-Medications (Allergen,Severity, Reaction): Coded Allergies: codeine (Verified Adverse Reaction, Intermediate, Nausea/Vomiting, 12/14/17 ) Reported Meds & Prescriptions Reported Meds & Active Scripts Active Ventolin Hfa 18 GM Inh (Albuterol Sulfate) 90 Mcg/Act Aer 2 Puff INH Q4-6H PRN Claritin (Loratadine) 10 Mg Cap 10 Mg PO DAILY Oxygen (O2) Device Liter TAMMI.CANULA CONTINUOUS Oxygen Concentrator Portable Gaseous 4 L/min via Nasal Canula Continuous For 99 months Symbicort Inh (Budesonide/Formoterol Fumarate) 80-4.5 Mcg/Act Aero 1 Puff INH Q12HR Reported Metoprolol Tartrate 25 Mg Tab 25 Mg PO BID Lantus Inj (Insulin Glargine) 1,000 Unit/10 Ml Vial 40 Units SQ HS Flonase Nasal [place] (Fluticasone Nasal [place]) 50 Mcg/Act [place] 100 Mcg EACH NARE BID Diltiazem ER 24 HR (Diltiazem HCl) 240 Mg Caper 240 Mg PO DAILY Eliquis (Apixaban) 5 Mg Tab 5 Mg PO BID Finasteride 5 Mg Tab 5 Mg PO DAILY Do not crush. Furosemide 40 Mg Tab 40 Mg PO DAILY Lorazepam 0.5 Mg Tab 0.5 Mg PO TID PRN Glimepiride 4 Mg Tab 4 Mg PO BIDAC Lantus Inj (Insulin Glargine) 1,000 Unit/10 Ml Vial 40 Units SQ DAILY Novolog Penfill Inj (Insulin Aspart) 300 Unit/3 Ml Pen 2-40 Units SQ TIDAC PRN sliding scale Coq10 (Coenzyme Q10 (Ubidecarenone)) 50 Mg Cap 100 Mg PO DAILY [place] 3 1000 mg ([place]-3 Fatty Acids) 1 Cap Cap 2 Cap PO DAILY Levothyroxine (Levothyroxine Sodium) 300 Mcg Tab 300 Mcg PO DAILY Janumet Xr (Sitagliptin-Metformin ER) 50-1,000 Mg Tab 1 Tab PO BID Gabapentin 300 Mg Cap 300 Mg PO BID Doxazosin (Doxazosin Mesylate) 4 Mg Tab 4 Mg PO DAILY Atorvastatin (Atorvastatin Calcium) 20 Mg Tab 20 Mg PO HS Review of Systems Except as stated in HPI: all other systems reviewed are Neg Physical Exam Narrative GENERAL: WD, WN in NAD SKIN: Focused skin assessment warm/dry. HEAD: Atraumatic. Normocephalic. EYES: Pupils equal and round. No scleral icterus. No injection or drainage. ENT: No nasal bleeding or discharge. Mucous membranes pink and moist. NECK: Trachea midline. No JVD. No lymphadenopathy CARDIOVASCULAR: Regular rate and rhythm. No murmur appreciated. RESPIRATORY: No accessory muscle use. Clear to auscultation. Breath sounds equal bilaterally. GASTROINTESTINAL: Abdomen soft, non-tender, nondistended. Protuberant. no hepato-splenomegaly, or palpable masses. No guarding. No CVA tenderness MUSCULOSKELETAL: No obvious deformities. No clubbing. No cyanosis. No edema. Homans sign negative bilaterally NEUROLOGICAL: Awake and alert. No obvious cranial nerve deficits. Motor grossly within normal limits. Normal speech. PSYCHIATRIC: Appropriate mood and affect; insight and judgment normal. Data Data Last Documented VS Vital Signs Date Time Temp Pulse Resp B/P (MAP) Pulse Ox O2 Delivery O2 Flow Rate FiO2 12/14/17 12:05 59 20 118/69 (85) 97 Nasal Cannula 5.00 12/14/17 11:00 97.8 Orders Orders Complete Blood Count With Diff (12/14/17 10:44) Comprehensive Metabolic Panel (12/14/17 10:44) Urinalysis - C+S If Indicated (12/14/17 10:44) Ecg Monitoring (12/14/17 10:44) Iv Access Insert/Monitor (12/14/17 10:44) Sodium Chloride 0.9% Flush (Ns Flush) (12/14/17 10:45) Urinary Catheter Insert/Apply (12/14/17 10:50) Sodium Chlor 0.9% 1000 Ml Inj (Ns 1000 M (12/14/17 12:00) Place In Observation (12/14/17 ) Vital Signs (Adult) Q4H (12/14/17 12:22) Activity Oob Ad [place] (12/14/17 12:22) Diet Heart Healthy (12/14/17 Lunch) Sodium Chlor 0.9% 1000 Ml Inj (Ns 1000 M (12/14/17 12:22) Sodium Chloride 0.9% Flush (Ns Flush) (12/14/17 12:30) Sodium Chloride 0.9% Flush (Ns Flush) (12/14/17 21:00) Basic Metabolic Panel (Bmp) (12/15/17 06:00) Naloxone Inj (Narcan Inj) (12/14/17 12:30) Sennosides (Senokot) (12/14/17 21:00) Admit Order (Ed Use Only) (12/14/17 12:24) Bedside Glucose JONATHAN.CSUGAR (12/14/17 12:25) Blood Glucose Goal (Criteria) (12/14/17 12:25) Hypoglycemia 70 Mg/Dl Or < (12/14/17 12:25) Notify Dr: Other (12/14/17 12:25) Dextrose 50% In Zaira (Vial) Inj (D50w (Vi (12/14/17 12:30) Glucagon Inj (Glucagon Inj) (12/14/17 12:30) Insulin Aspart Supplemtl Scale (Novolog (12/14/17 17:00) Albuterol Hfa Inh (Proair Hfa Inh) (12/14/17 13:00) Apixaban (Eliquis) (12/14/17 21:00) Atorvastatin (Lipitor) (12/14/17 21:00) Doxazosin (Cardura) (12/15/17 09:00) Levothyroxine (Synthroid) (12/15/17 06:00) Lorazepam (Ativan) (12/14/17 13:00) Metoprolol Tartrate (Lopressor) (12/14/17 21:00) Diltiazem Cd (Cardizem Cd) (12/15/17 09:00) Basic Metabolic Panel (Bmp) (12/14/17 17:27) Insulin Detemir Inj (Levemir Inj) (12/15/17 09:00) Insulin Detemir Inj (Levemir Inj) (12/14/17 21:00) Labs Laboratory Tests Test 12/14/17 11:10 12/14/17 11:30 White Blood Count 6.8 TH/MM3 Red Blood Count 3.27 MIL/MM3 Hemoglobin 9.7 GM/DL Hematocrit 29.4 % Mean Corpuscular Volume 90.1 FL Mean Corpuscular Hemoglobin 29.7 PG Mean Corpuscular Hemoglobin Concent 32.9 % Red Cell Distribution Width 15.0 % Platelet Count 229 TH/MM3 Mean Platelet Volume 8.7 FL Neutrophils (%) (Auto) 83.9 % Lymphocytes (%) (Auto) 11.2 % Monocytes (%) (Auto) 3.8 % Eosinophils (%) (Auto) 0.7 % Basophils (%) (Auto) 0.4 % Neutrophils # (Auto) 5.7 TH/MM3 Lymphocytes # (Auto) 0.8 TH/MM3 Monocytes # (Auto) 0.3 TH/MM3 Eosinophils # (Auto) 0.0 TH/MM3 Basophils # (Auto) 0.0 TH/MM3 CBC Comment DIFF FINAL Differential Comment Blood Urea Nitrogen 66 MG/DL Creatinine 2.10 MG/DL Random Glucose 139 MG/DL Total Protein 7.0 GM/DL Albumin 3.0 GM/DL Calcium Level 8.6 MG/DL Alkaline Phosphatase 46 U/L Aspartate Amino Transf (AST/SGOT) 9 U/L Alanine Aminotransferase (ALT/SGPT) 17 U/L Total Bilirubin 0.2 MG/DL Sodium Level 137 MEQ/L Potassium Level 5.0 MEQ/L Chloride Level 100 MEQ/L Carbon Dioxide Level 28.7 MEQ/L Anion Gap 8 MEQ/L Estimat Glomerular Filtration Rate 31 ML/MIN Urine Collection Type CLEAN CATCH Urine Color YELLOW Urine Turbidity CLEAR Urine pH 5.0 Urine Specific Cornel[place] GREATER/EQUAL 1.030 Urine Protein NEG mg/dL Urine Glucose (UA) NEG mg/dL Urine Ketones NEG mg/dL Urine Occult Blood MOD Urine Nitrite NEG Urine Bilirubin NEG Urine Urobilinogen 0.2 MG/DL Urine Leukocyte Esterase NEG Urine RBC 15-19 /hpf Urine WBC 0-2 /hpf Urine Squamous Epithelial Cells 0-5 /hpf Urine Amorphous Sediment FEW Urine Hyaline Casts 6-9 /lpf Microscopic Urinalysis Comment CULT NOT INDICATED Urine Collection Time 11:30 [facility] Medical Decision Making Medical Screen Exam Complete: Yes Emergency Medical Condition: Yes Differential Diagnosis Urinary retention, BPH, urinary tract infection, AK I, medication noncompliance Narrative Course 72-year-old male with history of enlarged prostate, congestive heart failure, COPD, diabetes mellitus on insulin therapy, hypothyroidism presents emergency department complaining of the inability to urinate 2-3 days. Patient states that his last urination was 2-3 days ago. Says that he has been able to move his bowels and says that his last bowel movement was yesterday which was normal for him. Admits to having loose stools since his discharge from [facility] several days ago. Says he has had 1-2 stools daily. Says he was hospitalized for s/p cardiac ablation for atrial fibrillation. Patient denies abdominal pain but states he "feels bloated". He denies any new medications since his discharge. He does not follow urologist. He has no history of urinary retention previously. Denies fevers or chills. Denies unusual chest pain or shortness of breath. Denies back pain. He states compliance with his medication. He says that he has been using a medication for his enlarged prostate prescribed by Dr. Saxena, his primary care physician. Vital signs are stable. Labs were drawn to evaluate for kidney function. A Larson catheter was placed as patient states he has not had urine production in 2-3 days. Patient expressed approximately 300 cc of urine. CBC & BMP Diagram 12/14/17 11:10 Total Protein 7.0, Albumin 3.0 L, Calcium Level 8.6, Alkaline Phosphatase 46, Aspartate Amino Transf (AST/SGOT) 9 L, Alanine Aminotransferase (ALT/SGPT) 17, Total Bilirubin 0.2 Urinalysis unconvincing of urinary tract infection. Patient be admitted for acute kidney injury and urinary retention. There is significant decrease in function from his last labs which were drawn December 08. Recommend serial labs to ensure stability and improvement. I spoke with Dr. Mclean who accepted the admission for observation. Diagnosis Primary Impression: VICKIE (acute kidney injury) Additional Impression: Urinary retention Admitting Information Admitting Physician Requests: Observation Condition: Stable Judith De Leon December 14, 2017 10:50
[2017-12-14 11:16] LABS: AUTOMATED NEUTROPHIL # 5.7 TH/MM3 (1.8-7.7); BASOPHIL % 0.4 % (0.0-2.0); EOSINOPHIL % 0.7 % (0.0-4.0); HEMATOCRIT 29.4 % (39.0-51.0); HEMOGLOBIN 9.7 GM/DL (13.0-17.0); LYMPH % 11.2 % (9.0-44.0); LYMPHOCYTE # 0.8 TH/MM3 (1.0-4.8); MEAN CELL VOLUME 90.1 FL (80.0-100.0); MEAN CORPUSCULAR HEMOGLOBIN 29.7 PG (27.0-34.0); MEAN CORPUSCULAR HGB CONC 32.9 % (32.0-36.0); MEAN PLATELET VOLUME 8.7 FL (7.0-11.0); MONO % 3.8 % (0.0-8.0); MONOCYTE # 0.3 TH/MM3 (0-0.9); NEUT % 83.9 % (16.0-70.0); PLATELET COUNT 229 TH/MM3 (150-450); RED BLOOD COUNT 3.27 MIL/MM3 (4.50-5.90); WHITE BLOOD COUNT 6.8 TH/MM3 (4.0-11.0)
--- NOTE | 2017-12-14 11:26 | PD ---
Physical Exam Date Seen by Provider: December 14, 2017 Narrative Patient presents complaining with urinary retention. He has a history of both CHF and COPD. Data Data Last Documented VS Vital Signs Date Time Temp Pulse Resp B/P (MAP) Pulse Ox O2 Delivery O2 Flow Rate FiO2 12/14/17 11:00 97.8 69 20 156/66 (96) 96 Orders Orders Complete Blood Count With Diff (12/14/17 10:44) Comprehensive Metabolic Panel (12/14/17 10:44) Urinalysis - C+S If Indicated (12/14/17 10:44) Ecg Monitoring (12/14/17 10:44) Iv Access Insert/Monitor (12/14/17 10:44) Sodium Chloride 0.9% Flush (Ns Flush) (12/14/17 10:45) Urinary Catheter Insert/Apply (12/14/17 10:50) Labs Laboratory Tests Test 12/14/17 11:10 White Blood Count 6.8 TH/MM3 Red Blood Count 3.27 MIL/MM3 Hemoglobin 9.7 GM/DL Hematocrit 29.4 % Mean Corpuscular Volume 90.1 FL Mean Corpuscular Hemoglobin 29.7 PG Mean Corpuscular Hemoglobin Concent 32.9 % Red Cell Distribution Width 15.0 % Platelet Count 229 TH/MM3 Mean Platelet Volume 8.7 FL Neutrophils (%) (Auto) 83.9 % Lymphocytes (%) (Auto) 11.2 % Monocytes (%) (Auto) 3.8 % Eosinophils (%) (Auto) 0.7 % Basophils (%) (Auto) 0.4 % Neutrophils # (Auto) 5.7 TH/MM3 Lymphocytes # (Auto) 0.8 TH/MM3 Monocytes # (Auto) 0.3 TH/MM3 Eosinophils # (Auto) 0.0 TH/MM3 Basophils # (Auto) 0.0 TH/MM3 CBC Comment DIFF FINAL Differential Comment [facility] Supervised Visit with ROWENA: Yes Interpretation(s) EKG shows a sinus rhythm with no acute ischemic changes Narrative Course I, Dr. Patel, have reviewed the advance practice practitioner's documentation and am in agreement, met with the patient face to face, made the diagnosis, and the medical decision making was done by me. *My assessment and Findings: Patient is markedly obese. He is sitting on the side of the bed. He is having some dyspnea. A Larson catheter will be placed. He will probably be discharged home with a Larson and with instructions to follow-up with urology. Please see Judith De Leon PA-C's note for further details, lab and radiology results, final diagnosis and disposition. Cleo Patel MD December 14, 2017 11:26
[2017-12-14 11:28] LABS: CHLORIDE 100 MEQ/L (98-107); SODIUM (NA) 137 MEQ/L (136-145)
[2017-12-14 11:31] LABS: CALCIUM 8.6 MG/DL (8.5-10.1)
[2017-12-14 11:32] LABS: BICARBONATE 28.7 MEQ/L (21.0-32.0); BLOOD UREA NITROGEN 66 MG/DL (7-18); GLUCOSE,RANDOM 139 MG/DL (74-106)
[2017-12-14 11:35] LABS: ALT (GPT) 17 U/L (12-78); AST (GOT) 9 U/L (15-37); GLOMERULAR FILTRATION RATE 31 ML/MIN (>89)
[2017-12-14 11:37] LABS: TOTAL BILIRUBIN ADULT 0.2 MG/DL (0.2-1.0)
[2017-12-14 11:38] LABS: ALKALINE PHOSPHATASE 46 U/L (45-117)
[2017-12-14 11:43] LABS: BILIRUBIN, URINE NEG (NEG); BLOOD, URINE MOD (NEG); GLUCOSE,URINE NEG (NEG); KETONE, URINE NEG (NEG); NITRITE,URINE NEG (NEG); URINE COLOR YELLOW (YELLW/STRAW); URINE LEUKOCYTE ESTERASE NEG (NEG)
[2017-12-14 11:49] LABS: AMORPHOUS SEDIMENT, URINE FEW; RBC, URINE 15-19 /hpf (0-3); SQUAMOUS EPITHELIAL CELL URINE 0-5 /hpf (0-5); WBC, URINE 0-2 /hpf (0-5)
[2017-12-14] MEDS ORDERED: SODIUM CHLOR 0.9% 1000 ML INJ 1,000 ML IV ONE (12:00)
[2017-12-14] MEDS ORDERED: METO25TA3 PO (12:18)
[2017-12-14] MEDS ORDERED: NALOXONE HCL 0.4 MG/ML AMP IV PUSH PRN (12:30)
[2017-12-14] MEDS ORDERED: SODIUM CHLORIDE 0.9% FLUSH 10 ML FLUSH IV FLUSH PRN (12:30)
[2017-12-14] MEDS ORDERED: GLUCAGON 1 MG/ML VIAL OTHER PRN (12:30)
[2017-12-14] MEDS ORDERED: DEXTROSE 50% IN WATER 50 ML VIAL(D50) IV PUSH PRN (12:30)
[2017-12-14] MEDS ORDERED: ALBUTEROL SULFATE 90 MCG/ACT HFA 8 GM INHALER INH PRN (13:00)
--- NOTE | 2017-12-14 13:47 | HHI.HP ---
[facility] Adri Hudson MD Admission Diagnosis Urinary retention, VICKIE Diagnoses: (1) Urinary retention (2) VICKIE (acute kidney injury) Chief Complaint: Dehydration Urinary retention Poor p.o. intake Travel History International Travel<30 Days: No Contact w/Intl Traveler <30 Da: No Traveled to Known Affected Are: No History of Present Illness This is a pleasant 72-year-old male patient with a known medical history of atrial fibrillation on Eliquis, hypertension, CAD with history of [place], CHF, diabetes, chronic respiratory failure on home O2, COPD and hypothyroidism who presented to the ED with complaints of inability to urinate for 3 days. Patient states he has not ate or drink for the past 3 days, admits to poor appetite. Does admit to abdominal distention, denies any increase in lower extremity swelling. Patient does admit to his last bowel movement yesterday, denies any significant constipation or diarrhea. He states he has been feeling bloated for the past few days in his abdomen. Last saw his PCP 2 weeks ago with no changes in medicines. Denies any recent fevers, chills, cough, shortness of breath, nausea, vomiting, diarrhea or dysuria. Patient does admit to history of enlarged prostate. Denies following with the urologist. Patient does live with son. Upon presentation patient's creatinine is 2.1, GFR 31, BUN 66. UA unremarkable. Requiring 5 L nasal cannula. It should be noted that patient was just hospitalized end of October for atrial fibrillation RVR. Does admit to home O2, requires 4 L nasal cannula. Admits to using his albuterol inhaler 3-4 times a day. Denies any dizziness, lightheadedness, chest pain. Does admit to occasional blurry vision. Patient was also admitted end of September with acute COPD exacerbation as well. Prior to that admission, patient was admitted with hypoxia, hyperglycemia and weakness with right-sided pleural effusion with unsuccessful attempt at thoracentesis. Patient was also found to have abdominal wall cellulitis was treated with Bactrim. Patient was discharged home on Lasix and has continued since discharge. Review of Systems Constitutional: DENIES: Fatigue, Fever, Chills Eyes: COMPLAINS OF: Blurred vision Cardiovascular: DENIES: Chest pain, Palpitations Gastrointestinal: COMPLAINS OF: Nausea, DENIES: Abdominal pain, Black stools, Bloody stools, Constipation, Diarrhea, Vomiting Musculoskeletal: DENIES: Joint pain Immunologic/allergic: DENIES: Eczema Neurologic: DENIES: Abnormal gait Psychiatric: DENIES: Anxiety Except as stated in HPI: all other systems reviewed are Neg Past Family Social History Past Medical History Atrial fibrillation on Eliquis Hypertension Coronary artery disease status post NV 1993 Congestive heart failure COPD Chronic respiratory failure with oxygen dependence Hyperlipidemia History of 6th nerve palsy Hypothyroidism BPH Past Surgical History umbilical hernia coronary angiogram and angioplasty Reported Medications Active Ventolin Hfa 18 GM Inh (Albuterol Sulfate) 90 Mcg/Act Aer 2 Puff INH Q4-6H PRN Claritin (Loratadine) 10 Mg Cap 10 Mg PO DAILY Oxygen (O2) Device Liter TAMMI.CANULA CONTINUOUS Oxygen Concentrator Portable Gaseous 4 L/min via Nasal Canula Continuous For 99 months Symbicort Inh (Budesonide/Formoterol Fumarate) 80-4.5 Mcg/Act Aero 1 Puff INH Q12HR Reported Metoprolol Tartrate 25 Mg Tab 25 Mg PO BID Lantus Inj (Insulin Glargine) 1,000 Unit/10 Ml Vial 40 Units SQ HS Flonase Nasal [place] (Fluticasone Nasal [place]) 50 Mcg/Act [place] 100 Mcg EACH NARE BID Diltiazem ER 24 HR (Diltiazem HCl) 240 Mg Caper 240 Mg PO DAILY Eliquis (Apixaban) 5 Mg Tab 5 Mg PO BID Finasteride 5 Mg Tab 5 Mg PO DAILY Do not crush. Furosemide 40 Mg Tab 40 Mg PO DAILY Lorazepam 0.5 Mg Tab 0.5 Mg PO TID PRN Glimepiride 4 Mg Tab 4 Mg PO BIDAC Lantus Inj (Insulin Glargine) 1,000 Unit/10 Ml Vial 40 Units SQ DAILY Novolog Penfill Inj (Insulin Aspart) 300 Unit/3 Ml Pen 2-40 Units SQ TIDAC PRN sliding scale Coq10 (Coenzyme Q10 (Ubidecarenone)) 50 Mg Cap 100 Mg PO DAILY Mikado 3 1000 mg ([place]ikado-3 Fatty Acids) 1 Cap Cap 2 Cap PO DAILY Levothyroxine (Levothyroxine Sodium) 300 Mcg Tab 300 Mcg PO DAILY Janumet Xr (Sitagliptin-Metformin ER) 50-1,000 Mg Tab 1 Tab PO BID Gabapentin 300 Mg Cap 300 Mg PO BID Doxazosin (Doxazosin Mesylate) 4 Mg Tab 4 Mg PO DAILY Atorvastatin (Atorvastatin Calcium) 20 Mg Tab 20 Mg PO HS Allergies: Coded Allergies: codeine (Verified Adverse Reaction, Intermediate, Nausea/Vomiting, 12/14/17 ) Active Ordered Medications Current Medications Medications (Trade) Dose Ordered Sig/[place] Route Start Time Stop Time Status Last Admin (NS Flush) 2 ml UNSCH PRN IVF 12/14/17 10:45 12/14/17 12:30 Sodium Chloride 1,000 ml @ 100 mls/hr Q10H IV 12/14/17 12:22 (NS Flush) 2 ml UNSCH PRN IV FLUSH 12/14/17 12:30 (NS Flush) 2 ml BID IV FLUSH 12/14/17 21:00 (Narcan Inj) 0.4 mg UNSCH PRN IV PUSH 12/14/17 12:30 (Senokot) 17.2 mg Q12HR PRN PO 12/14/17 21:00 (D50w (Vial) Inj) 50 ml UNSCH PRN IV PUSH 12/14/17 12:30 (Glucagon Inj) 1 mg UNSCH PRN OTHER 12/14/17 12:30 (NovoLOG SUPPLEMENTAL SCALE) 1 ACHS SLIDING SCALE SQ 12/14/17 17:00 (Proair Hfa Inh) 2 puff Q6HR PRN INH 12/14/17 13:00 (Eliquis) 5 mg BID PO 12/14/17 21:00 (Lipitor) 20 mg HS PO 12/14/17 21:00 (Cardura) 4 mg DAILY PO 12/15/17 09:00 (Levemir Inj) 40 units DAILY SQ 12/15/17 09:00 (Levemir Inj) 40 units HS SQ 12/14/17 21:00 (Synthroid) 300 mcg DAILY@0600 PO 12/15/17 06:00 (Ativan) 0.5 mg TID PRN PO 12/14/17 13:00 (Lopressor) 25 mg BID PO 12/14/17 21:00 (Cardizem Cd) 240 mg DAILY PO 12/15/17 09:00 Family History Mother, emphysema Social History Patient has remote history of tobacco use. Denies any alcohol abuse or illicit drug use. Physical Exam Vital Signs Vital Signs Date Time Temp Pulse Resp B/P (MAP) Pulse Ox O2 Delivery O2 Flow Rate FiO2 12/14/17 11:00 97.8 69 20 156/66 (96) 96 12/14/17 10:45 20 Physical Exam GENERAL: Well-developed, well-nourished obese male patient on 5 L nasal cannula supplemental O2 SKIN: Warm and dry. No rash. HEAD: Normocephalic. Atraumatic. EYES: Pupils equal and round. No scleral icterus. No injection or drainage. ENT: No nasal bleeding or discharge. Mucous membranes pink and moist. NECK: Supple. Trachea midline. CARDIOVASCULAR: Regular rate and rhythm. No murmur appreciated. RESPIRATORY: No accessory muscle use. Diminished breath sounds in bases. Breath sounds equal bilaterally. GASTROINTESTINAL: Abdomen non-tender, round. Hypoactive bowel sounds x4. MUSCULOSKELETAL: No obvious deformities. Extremities without clubbing, cyanosis , or edema. NEUROLOGICAL: Awake and alert. No obvious cranial nerve deficits. Motor grossly within normal limits. 5/5 muscle strength in bilateral upper and lower extremities. Normal speech. PSYCHIATRIC: Appropriate mood and affect; insight and judgment normal. Laboratory Laboratory Tests Test 12/14/17 11:10 12/14/17 11:30 White Blood Count 6.8 Red Blood Count 3.27 Hemoglobin 9.7 Hematocrit 29.4 Mean Corpuscular Volume 90.1 Mean Corpuscular Hemoglobin 29.7 Mean Corpuscular Hemoglobin Concent 32.9 Red Cell Distribution Width 15.0 Platelet Count 229 Mean Platelet Volume 8.7 Neutrophils (%) (Auto) 83.9 Lymphocytes (%) (Auto) 11.2 Monocytes (%) (Auto) 3.8 Eosinophils (%) (Auto) 0.7 Basophils (%) (Auto) 0.4 Neutrophils # (Auto) 5.7 Lymphocytes # (Auto) 0.8 Monocytes # (Auto) 0.3 Eosinophils # (Auto) 0.0 Basophils # (Auto) 0.0 CBC Comment DIFF FINAL Differential Comment Blood Urea Nitrogen 66 Creatinine 2.10 Random Glucose 139 Total Protein 7.0 Albumin 3.0 Calcium Level 8.6 Alkaline Phosphatase 46 Aspartate Amino Transf (AST/SGOT) 9 Alanine Aminotransferase (ALT/SGPT) 17 Total Bilirubin 0.2 Sodium Level 137 Potassium Level 5.0 Chloride Level 100 Carbon Dioxide Level 28.7 Anion Gap 8 Estimat Glomerular Filtration Rate 31 Urine Collection Type CLEAN CATCH Urine Color YELLOW Urine Turbidity CLEAR Urine pH 5.0 Urine Specific [place] GREATER/EQUAL 1.030 Urine Protein NEG Urine Glucose (UA) NEG Urine Ketones NEG Urine Occult Blood MOD Urine Nitrite NEG Urine Bilirubin NEG Urine Urobilinogen 0.2 Urine Leukocyte Esterase NEG Urine RBC 15-19 Urine WBC 0-2 Urine Squamous Epithelial Cells 0-5 Urine Amorphous Sediment FEW Urine Hyaline Casts 6-9 Microscopic Urinalysis Comment CULT NOT INDICATED Urine Collection Time 11:30 Result Diagram: 12/14/17 1110 12/14/17 1110 Septic Shock Reassessment Septic shock perfusion: reassessment completed Caprini VTE Risk Assessment Caprini VTE Risk Assessment: Mod/High Risk (score >= 2) Caprini Risk Assessment Model Point Value = 1 Point Value = 2 Point Value = 3 Point Value = 5 Age 41-60 Minor surgery BMI > 25 kg/m2 Swollen legs Varicose veins or History of unexplained or recurrent spontaneous Oral contraceptives or hormone replacement Sepsis (< 1 month) Serious lung disease, including pneumonia (< 1 month) Abnormal pulmonary function Acute myocardial infarction Congestive heart failure (< 1 month) History of inflammatory bowel disease Medical patient at bed rest Age 61-74 Arthroscopic surgery Major open surgery (> 45 min) Laparoscopic surgery (> 45 min) Malignancy Confined to bed (> 72 hours) Immobilizing plaster cast Central venous access Age >= 75 History of VTE Family history of VTE Factor V Leiden Prothrombin [id number] Lupus anticoagulant Anticardiolipin antibodies Elevated serum homocysteine Heparin-induced thrombocytopenia Other congenital or acquired thrombophilia Stroke (< 1 month) Elective arthroplasty Hip, pelvis, or leg fracture Acute spinal cord injury (< 1 month) Prophylaxis Regimen Total Risk Factor Score Risk Level Prophylaxis Regimen 0-1 Low Early ambulation 2 Moderate Order ONE of the following: *Sequential Compression Device (SCD) *Heparin 5000 units SQ BID 3-4 Higher Order ONE of the following medications: *Heparin 5000 units SQ TID *Enoxaparin/Lovenox 40 mg SQ daily (WT < 150 kg, CrCl > 30 mL/min) *Enoxaparin/Lovenox 30 mg SQ daily (WT < 150 kg, CrCl > 10-29 mL/min) *Enoxaparin/Lovenox 30 mg SQ BID (WT < 150 kg, CrCl > 30 mL/min) AND/OR *Sequential Compression Device (SCD) 5 or more Highest Order ONE of the following medications: *Heparin 5000 units SQ TID (Preferred with Epidurals) *Enoxaparin/Lovenox 40 mg SQ daily (WT < 150 kg, CrCl > 30 mL/min) *Enoxaparin/Lovenox 30 mg SQ daily (WT < 150 kg, CrCl > 10-29 mL/min) *Enoxaparin/Lovenox 30 mg SQ BID (WT < 150 kg, CrCl > 30 mL/min) AND *Sequential Compression Device (SCD) Assessment and Plan Problem List: (1) Atrial fibrillation ICD Code: I48.91 - Unspecified atrial fibrillation (2) VICKIE (acute kidney injury) ICD Code: N17.9 - Acute kidney failure, unspecified (3) Hypertension ICD Code: I10 - Essential (primary) hypertension Status: Acute (4) Diabetes ICD Code: E11.9 - Type 2 diabetes mellitus without complications Status: Acute (5) Hyperlipidemia ICD Code: E78.5 - Hyperlipidemia, unspecified Status: Acute (6) Hypothyroidism ICD Code: E03.9 - Hypothyroidism, unspecified Status: Acute (7) Coronary artery disease ICD Code: I25.10 - Atherosclerotic heart disease of [place] coronary artery without angina pectoris Status: Acute (8) CHF (congestive heart failure) ICD Code: I50.9 - Heart failure, unspecified Status: Acute Assessment and Plan 72-year-old male with past medical history significant for recently diagnosed atrial fibrillation on Eliquis, hypertension, coronary artery disease status post previous [place] 1993, congestive heart failure, diabetes, chronic respiratory failure on home oxygen, COPD and hypothyroidism who presents to [facility] ED with complaints of urinary retention 3 days. Acute kidney injury secondary to poor p.o. intake versus dehydration - Creatinine 2.0 on presentation. Review of history, earlier this month patient's creatinine is 1.06. Was given 1 L NS bolus in ED. Will hydrate. Continue IV fluids. - Avoid nephrotoxins. - Larson catheter placed, monitor output. - Start on Tamsulosin. - UA negative. - Monitor BMP. Atrial fibrillation on Eliquis - Controlled. Will continue Eliquis and p.o. Cardizem and metoprolol. - Continuous cardiac surgeon, monitor HR CHF, diastolic, not in acute exacerbation Recent hospitalizations for large pleural effusions with thoracentesis failure Echo with EF 60-65% - Resume patient on home dose of metoprolol 25 mg twice daily, Lasix 40 mg daily - Monitor for signs of fluid overload DM - Hold oral diabetic medications and scheduled insulin for now - Accu-Cheks and insulin sliding scale Chronic respiratory insufficiency, O2 dependent COPD, not in acute exacerbation - Continue on supplemental oxygen - Resume home dose of bronchodilator therapy - Atrovent neb q6h while awake Other comorbidities include CAD with remote hx of [place], HTN, dyslipidemia, BPH and hypothyroidism, chronic, stable - continue home medications, no change in baseline. DVT prophylaxis - patient is on Norma Little December 14, 2017 13:47
[2017-12-14] MEDS: SODIUM CHLOR 0.9% 1000 ML INJ 1,000 ML IV SCH ×2 (15:44→22:29)
[2017-12-14] MEDS: INSULIN ASPART SUPPLEMENTAL SCALE SQ SCH ×2 (16:54→20:22)
[2017-12-14] MEDS: TAMSULOSIN HCL 0.4 MG CAP PO SCH (16:57)
[2017-12-14 18:32] LABS: BICARBONATE 29.3 MEQ/L (21.0-32.0); CALCIUM 8.6 MG/DL (8.5-10.1)
[2017-12-14 18:36] LABS: CREATININE 1.8 MG/DL (0.60-1.30)
[2017-12-14] MEDS: SODIUM CHLORIDE 0.9% FLUSH 10 ML FLUSH IV FLUSH SCH (20:18)
[2017-12-14] MEDS: APIXABAN 5 MG TABLET PO SCH (20:19)
[2017-12-14] MEDS: METOPROLOL TARTRATE 25 MG TAB PO SCH (20:19)
[2017-12-14] MEDS: ATORVASTATIN 20 MG TAB PO SCH (20:19)
[2017-12-14] MEDS ORDERED: INSULIN DETEMIR 100 UNITS/ML VIAL SQ SCH (21:00)
[2017-12-14] MEDS ORDERED: SENNOSIDES 8.6 MG TAB PO PRN (21:00)
[2017-12-14] MEDS: LORazepam 0.5 MG TAB PO PRN (22:28)
[2017-12-15] VITALS: BP 131/44; PULSE 76; RESP 22; TEMP 96.8; O2SAT 93
[2017-12-15] MEDS: LEVOTHYROXINE SODIUM 150 MCG TAB PO SCH (05:41)
[2017-12-15 06:18] LABS: AUTOMATED NEUTROPHIL # 5.1 TH/MM3 (1.8-7.7); BASOPHIL # 0.1 TH/MM3 (0-0.2); BASOPHIL % 0.9 % (0.0-2.0); CALCIUM 8.8 MG/DL (8.5-10.1); EOSINOPHIL # 0.1 TH/MM3 (0-0.4); EOSINOPHIL % 0.8 % (0.0-4.0); HEMATOCRIT 31.6 % (39.0-51.0); HEMOGLOBIN 9.9 GM/DL (13.0-17.0); LYMPH % 14.5 % (9.0-44.0); MEAN CELL VOLUME 89.8 FL (80.0-100.0); MEAN CORPUSCULAR HGB CONC 31.2 % (32.0-36.0); MEAN PLATELET VOLUME 9.6 FL (7.0-11.0); MONO % 5.5 % (0.0-8.0); MONOCYTE # 0.4 TH/MM3 (0-0.9); NEUT % 78.3 % (16.0-70.0); PLATELET COUNT 196 TH/MM3 (150-450); RED BLOOD COUNT 3.53 MIL/MM3 (4.50-5.90); RED CELL DISTRIBUTION WIDTH 14.6 % (11.6-17.2); WHITE BLOOD COUNT 6.7 TH/MM3 (4.0-11.0)
[2017-12-15 06:19] LABS: BICARBONATE 26.8 MEQ/L (21.0-32.0)
[2017-12-15 06:23] LABS: CREATININE 1.2 MG/DL (0.60-1.30)
[2017-12-15] MEDS: INSULIN ASPART SUPPLEMENTAL SCALE SQ SCH ×4 (07:56→22:02)
[2017-12-15 08:00] VITALS: BP 137/64; PULSE 80; RESP 19; TEMP 97.5; O2SAT 95
[2017-12-15] MEDS: APIXABAN 5 MG TABLET PO SCH ×2 (08:02→21:53)
[2017-12-15] MEDS: SODIUM CHLOR 0.9% 1000 ML INJ 1,000 ML IV SCH (08:02)
[2017-12-15] MEDS: DILTIAZEM-CD 240 MG CAP ER PO SCH (08:02)
[2017-12-15] MEDS: METOPROLOL TARTRATE 25 MG TAB PO SCH ×2 (08:02→21:54)
[2017-12-15] MEDS: DOXAZOSIN MESYLATE 4 MG TAB PO SCH (08:02)
[2017-12-15] MEDS: TAMSULOSIN HCL 0.4 MG CAP PO SCH (08:02)
[2017-12-15] MEDS: SODIUM CHLORIDE 0.9% FLUSH 10 ML FLUSH IV FLUSH SCH ×2 (08:03→21:53)
--- NOTE | 2017-12-15 08:37 | HHI.PR ---
Subjective Remarks Follow-up dehydration and AK I. Patient seen and examined, sitting up in chair in no apparent distress. On 4 L nasal cannula, this is baseline for patient. Patient does complain of abdominal distention. Did have one bowel movement overnight. Potassium mildly elevated 5.5, will give Kayexalate. Obtain KUB today. Await PT eval. Patient has been urinating, no dysuria. No signs of retention. Vital signs stable. Afebrile. Eating well, no abdominal pain, nausea or vomiting. Objective Vitals Vital Signs Date Time Temp Pulse Resp B/P (MAP) Pulse Ox O2 Delivery O2 Flow Rate FiO2 12/15/17 08:00 97.5 80 19 137/64 (88) 95 12/15/17 00:00 96.8 76 22 131/44 (73) 93 12/14/17 20:00 94 Nasal Cannula 5.00 12/14/17 20:00 96.4 76 22 131/60 (83) 93 12/14/17 16:49 97.6 64 20 100/47 (64) 96 12/14/17 15:19 12/14/17 15:17 95 Nasal Cannula 5.00 12/14/17 14:00 60 20 122/59 (80) 96 Nasal Cannula 5.00 12/14/17 13:00 57 19 119/66 (83) 96 Nasal Cannula 5.00 12/14/17 12:05 59 20 118/69 (85) 97 Nasal Cannula 5.00 12/14/17 11:00 97.8 69 20 156/66 (96) 96 12/14/17 10:45 20 I/O 12/14/17 12/14/17 12/14/17 12/15/17 12/15/17 12/15/17 07:00 15:00 23:00 07:00 15:00 23:00 Intake Total 1420 ml 1396 ml 120 ml Output Total 900 ml 2250 ml 675 ml Balance 520 ml -854 ml -555 ml Intake Oral 420 ml 120 ml IV Total 1000 ml 1396 ml Output Urine Total 900 ml 2250 ml 675 ml # Bowel Movements 2 4 Result Diagram: 12/15/17 0540 12/15/17 0540 Objective Remarks GENERAL: Well-developed, well-nourished obese male patient in NAD. On supplemental O2. SKIN: Warm and dry. No rash. HEAD: Normocephalic. Atraumatic. EYES: Pupils equal and round. No scleral icterus. No injection or drainage. ENT: No nasal bleeding or discharge. Mucous membranes pink and moist. NECK: Supple. Trachea midline. CARDIOVASCULAR: Regular rate and rhythm. S1, S2 noted. No murmur appreciated. RESPIRATORY: No accessory muscle use. Clear to auscultation. Breath sounds equal bilaterally. GASTROINTESTINAL: Abdomen hard, non-tender, distended. Normoactive bowel sounds x4. No open areas and abdomen, prior history of cellulitis. No redness. MUSCULOSKELETAL: No obvious deformities. Extremities without clubbing, cyanosis , or edema. NEUROLOGICAL: Awake and alert. No obvious cranial nerve deficits. Motor grossly within normal limits. 5/5 muscle strength in bilateral upper and lower extremities. Normal speech. PSYCHIATRIC: Appropriate mood and affect; insight and judgment normal. A/P Problem List: (1) Atrial fibrillation ICD Code: I48.91 - Unspecified atrial fibrillation (2) VICKIE (acute kidney injury) ICD Code: N17.9 - Acute kidney failure, unspecified (3) Hypertension ICD Code: I10 - Essential (primary) hypertension Status: Acute (4) Diabetes ICD Code: E11.9 - Type 2 diabetes mellitus without complications Status: Acute (5) Hyperlipidemia ICD Code: E78.5 - Hyperlipidemia, unspecified Status: Acute (6) Hypothyroidism ICD Code: E03.9 - Hypothyroidism, unspecified Status: Acute (7) Coronary artery disease ICD Code: I25.10 - Atherosclerotic heart disease of [place] coronary artery without angina pectoris Status: Acute (8) CHF (congestive heart failure) ICD Code: I50.9 - Heart failure, unspecified Status: Acute Assessment and Plan 72-year-old male with past medical history significant for recently diagnosed atrial fibrillation on Eliquis, hypertension, coronary artery disease status post previous [place] 1993, congestive heart failure, diabetes, chronic respiratory failure on home oxygen, COPD and hypothyroidism who presents to [facility] ED with complaints of urinary retention 3 days. Acute kidney injury secondary to poor p.o. intake versus dehydration - Creatinine 2.0 on presentation. Review of history, earlier this month patient's creatinine is 1.06. Was given 1 L NS bolus in ED. Will hydrate. Continue IV fluids. Creatinine improved today. - Avoid nephrotoxins. - Larson catheter placed, output adequate. Removed overnight. Urinating well no signs of retention. Continue to monitor. - Start on Tamsulosin. Continue - UA negative. - Monitor BMP. Hyperkalemia, suspect secondary to above. Will give 1 dose of Kayexalate. Potassium 5.5 today. Continue to monitor. Atrial fibrillation on Eliquis - Controlled. Will continue Eliquis and p.o. Cardizem and metoprolol. - Continuous personnel monitor, monitor HR. Stable overnight. CHF, diastolic, not in acute exacerbation Recent hospitalizations for large pleural effusions with thoracentesis failure Echo with EF 60-65% - Resume patient on home dose of metoprolol 25 mg twice daily, Lasix 40 mg daily. Monitor intake and output. - Monitor for signs of fluid overload. Gently hydrate for acute kidney injury. Limit fluid intake by mouth. DM - Hold oral diabetic medications and scheduled insulin for now - Accu-Cheks and insulin sliding scale. Stable. Monitor blood sugar trends. Chronic respiratory insufficiency, O2 dependent COPD, not in acute exacerbation - Continue on supplemental oxygen. Patient is on 4 L nasal cannula, this is patient's baseline at home. - Resume home dose of bronchodilator therapy - Atrovent neb q6h while awake - Duo nebs scheduled. Other comorbidities include CAD with remote hx of [place], HTN, dyslipidemia, BPH and hypothyroidism, chronic, stable - continue home medications, no change in baseline. DVT prophylaxis - patient is on Eliquis Norma Manzanares December 15, 2017 08:37
[2017-12-15] MEDS ORDERED: SODIUM POLYSTYRENE SULFONATE SUSP 15 GM/60 ML CUP PO ONE (08:45)
[2017-12-15] MEDS ORDERED: INSULIN DETEMIR 100 UNITS/ML VIAL SQ SCH (09:00)
--- NOTE | 2017-12-15 10:11 | HHI.FF ---
Face to Face Verification Diagnosis: (1) VICKIE (acute kidney injury) (2) Hypertension (3) Hypothyroidism (4) Hyperlipidemia (5) CHF (congestive heart failure) (6) Diabetes (7) Atrial fibrillation (8) Coronary artery disease Physical Therapy Order: Evaluate and Treat, Improve ambulation, Strength and gait training Home Health Nursing Order: Signs/symptoms of disease process Medication education-adverse effect Nursing assessment with vital signs I have seen patient Anthony Otoole on 12/15/17. My clinical findings support the need for the requested home health care services because: Deconditioned w/ increased weakness Limited ability to care for self I certify that my clinical findings support that this patient is homebound because: Hx COPD- exertion dyspnea/weakness Norma Manzanares December 15, 2017 10:10
[2017-12-15] MEDS: FUROSEMIDE 40 MG TAB PO SCH (10:52)
[2017-12-15 12:00] VITALS: BP 139/64; PULSE 77; RESP 20; TEMP 96.9; O2SAT 95
--- NOTE | 2017-12-15 13:40 | RADRPT ---
EXAM DATE/TIME: 12/15/2017 12:56 [facility] COMPARISON: CHEST SINGLE AP, December 06, 2017, 8:33. INDICATIONS : Short of breath. MEDICAL HISTORY : Cerebrovascular disease. Cardiovascular disease Chronic obstructive pulmonary disease. Hypertension, Emphysema, Asthma, Diabetes SURGICAL HISTORY : None. ENCOUNTER: Subsequent ACUITY: 2 days PAIN SCORE: 0/10 LOCATION: Bilateral chest FINDINGS: Persistent diffuse interstitial prominence with right lateral lower lung zone pleural-parenchymal [place]. Cardiac silhouette is mildly enlarged. Remainder of the exam is unchanged. CONCLUSION: 1. No significant interval change. 2. Cardiomegaly with mild positive fluid balance. 3. Stable small pleural effusions and associated airspace disease at the lung bases. Zhen Stallworth MD on December 15, 2017 at 13:35 Board Certified Radiologist. This report was verified electronically.
--- NOTE | 2017-12-15 13:44 | HHI.DCPOC ---
Discharge Care Plan Diagnosis: (1) VICKIE (acute kidney injury) (2) Urinary retention (3) Hypertension (4) Hypothyroidism (5) Hyperlipidemia (6) CHF (congestive heart failure) (7) Diabetes (8) Atrial fibrillation Goals to Promote Your Health * To prevent worsening of your condition and complications * To maintain your health at the optimal level Directions to Meet Your Goals Take your medications as prescribed Follow your dietary instruction Follow activity as directed Keep your appointments as scheduled Take your immunizations and boosters as scheduled If your symptoms worsen call your PCP, if no PCP go to Urgent Care Center or Emergency Room Smoking is Dangerous to Your Health. Avoid second hand smoke Call the 24-hour hour crisis hotline for domestic abuse at Norma Manzanares December 15, 2017 13:44
[2017-12-15] MEDS: RESP: ALBUTEROL 2.5 MG/IPRATROPIUM 0.5 MG NEB (SCH) NEB ×2 (14:45→19:56)
[2017-12-15] MEDS ORDERED: FUROSEMIDE 20 MG/2 ML VIAL IV PUSH ONE (14:45)
[2017-12-15 16:00] VITALS: BP 147/67; PULSE 82; RESP 20; TEMP 98; O2SAT 95
--- NOTE | 2017-12-15 16:18 | RADRPT ---
EXAM DATE/TIME: 12/15/2017 12:56 [facility] COMPARISON: No previous studies available for comparison. INDICATIONS : Distention. MEDICAL HISTORY : Cerebrovascular disease. Cardiovascular disease Chronic obstructive pulmonary disease. Hypertension, Emphysema, Asthma, Diabetes SURGICAL HISTORY : None. ENCOUNTER: Subsequent ACUITY: 2 days PAIN SCORE: 0/10 LOCATION: Bilateral Abdomen FINDINGS: Supine view of the abdomen was performed. Limited anatomic detail due to the patient's body habitus. Nonobstructed bowel gas pattern without pneumoperitoneum. Right basilar consolidation/effusion. CONCLUSION: 1. Nonobstructed bowel gas pattern without pneumoperitoneum. 2. Right basilar consolidation/effusion. Abraham Urbina MD on December 15, 2017 at 16:14 Board Certified Radiologist. This report was verified electronically.
--- NOTE | 2017-12-15 16:41 | MB ---
cc: Kayla Garza MD, [place] W MD DATE: 12/15/2017 REASON FOR CONSULTATION: Sleep apnea. HISTORY OF PRESENT ILLNESS: Mr. Otoole is a 72-year-old male who has known history of COPD, congestive heart failure, coronary artery disease, atrial fibrillation, diabetes mellitus, chronic respiratory failure on home oxygen therapy admitted with progressive abdominal distention, increasing ankle edema. He did have evidence of renal insufficiency which seemed prerenal. The patient does snore loudly while sleeping, per his family, tired and sleepy in the daytime. He is obese and underlying obstructive sleep apnea was suspect. Arrangements were made in the past for him for outpatient evaluation; however, he was not able to make the appointment, which it is not clear to me whether that was difficulty with reliable transportation or forgetfulness. Nonetheless, whatever the case may be, the patient does indeed need polysomnographic evaluation for possible sleep disordered breathing, especially given his chronic respiratory failure. PAST MEDICAL HISTORY: COPD, congestive heart failure, coronary artery disease, myocardial infarction in the past, hypertension, atrial fibrillation, hyperlipidemia, hypothyroid and BPH. MEDICATIONS: 1. Albuterol p.r.n. 2. Metoprolol. 3. Insulin. 4. Flonase. 5. Diltiazem. 6. Eliquis. 7. Finasteride. 8. Lasix. 9. Lorazepam. 10. Glimepiride 11. Insulin 12. CoQ10 omega 3 13. Levothyroxine 14. Janumet 15. Gabapentin 16. Doxazosin. 17. Atorvastatin. ALLERGIES: CODEINE. FAMILY HISTORY: Noncontributory. REVIEW OF SYSTEMS: 12 point review of systems as per HPI and past history, otherwise negative. PHYSICAL EXAMINATION: GENERAL: The patient is alert. VITAL SIGNS: Temperature 97.8, pulse 70, respirations 18, blood pressure 150/64, oxygen saturation 96% on 5 liters oxygen. HEENT: Unremarkable. Eyes without icterus. NECK: Without adenopathy or thyroid enlargement. Central trachea. CHEST: Without dullness to percussion. Clear to auscultation. HEART: PMI not appreciated. S1, S2 audible. No murmur, no rub. ABDOMEN: Lax, audible bowel sounds. EXTREMITIES: No clubbing, cyanosis, 2+ edema. LABORATORY DATA: White count 6.8, hemoglobin 9.7, hematocrit 29, platelets 229,000. Sodium 137, potassium 5.0, BUN 66, creatinine 2.1, glucose 139. IMAGING STUDIES: Chest x-ray upon presentation with evidence of cardiomegaly and mild congestive change. Small bibasilar effusions are noted as well. IMPRESSION: 1. Chronic obstructive pulmonary disease. 2. Chronic respiratory failure on oxygen therapy. 3. Sleep disordered breathing, obstructive sleep apnea suspect 4. Coronary artery disease. 5. Atrial fibrillation. 6. Diabetes mellitus. 7. Hypertension. 8. Hypothyroidism. PLAN: The patient is to continue oxygen therapy. Bronchodilator therapy would be appropriate. We will attempt to arrange for polysomnographic evaluation upon the patient's discharge to be done the same day prior to going home to assess severity of the disordered breathing and initiate therapy as needed. Meanwhile, we will obtain followup pulmonary function, room air arterial blood gas, thyroid function and a TSH. Every effort should be made to educate the patient as to dietary needs in an attempt to lose weight. I do thank you for asking me to partake in Mr. Otoole's care. Kayla Garza MD WWW/ , 04:04 PM , 04:39 PM
[2017-12-15 19:56] VITALS: O2SAT 96
[2017-12-15 20:00] VITALS: BP 143/66; PULSE 76; RESP 21; TEMP 97.8; O2SAT 94
[2017-12-15] MEDS ORDERED: ACETAMINOPHEN 325 MG TAB PO ONE (20:45)
[2017-12-15] MEDS ORDERED: SIMETHICONE 125 MG CHEWABLE TAB PO ONE (20:45)
[2017-12-15] MEDS: traZODone HCL 50 MG TAB PO SCH (21:53)
[2017-12-15] MEDS: ATORVASTATIN 20 MG TAB PO SCH (21:53)
--- NOTE | 2017-12-15 22:53 | EKG ---
Date Performed: 12/14/2017 Time Performed: 10:37:39 PTAGE: 72 years EKG: Sinus rhythm NONSPECIFIC T-WAVE ABNORMALITY BORDERLINE ECG PREVIOUS TRACING : 12/02/2017 05.52 Since the previous tracing, no significant change noted DOCTOR: Tony Hutchison Interpretating Date/Time 12/15/2017 22:51:09
[2017-12-16] VITALS (8 sets, daily range): BP systolic 141–170; BP diastolic 70–79; PULSE 65–86; RESP 20–23; TEMP 97.1–98.7; O2SAT 91–100
[2017-12-16 05:50] LABS: BICARBONATE 33.5 MEQ/L (21.0-32.0); CALCIUM 8.9 MG/DL (8.5-10.1)
[2017-12-16 05:54] LABS: CREATININE 0.89 MG/DL (0.60-1.30)
[2017-12-16] MEDS: LEVOTHYROXINE SODIUM 150 MCG TAB PO SCH (06:12)
--- NOTE | 2017-12-16 07:37 | HHI.PR ---
Subjective Remarks Follow-up dehydration, COPD exacerbation. Patient seen and examined, sitting on side of bed with accessory muscle use. On 5 L nasal cannula. Did diuresed well overnight. Still complains of dyspnea with exertion as well as occasional shortness of breath while at rest. Eating well with no abdominal pain, nausea or vomiting. Vital signs are stable. Afebrile. Diminished breath sounds today. Will start on steroids antibiotics. Objective Vitals Vital Signs Date Time Temp Pulse Resp B/P (MAP) Pulse Ox O2 Delivery O2 Flow Rate FiO2 12/16/17 00:00 98.2 77 23 146/70 (95) 93 12/15/17 20:00 94 Nasal Cannula 5.00 Humidified 12/15/17 20:00 97.8 76 21 143/66 (91) 94 12/15/17 19:56 96 Nasal Cannula 5.00 12/15/17 16:00 98.0 82 20 147/67 (93) 95 12/15/17 12:00 96.9 77 20 139/64 (89) 95 12/15/17 08:00 97.5 80 19 137/64 (88) 95 I/O 12/15/17 12/15/17 12/15/17 12/16/17 12/16/17 12/16/17 07:00 15:00 23:00 07:00 15:00 23:00 Intake Total 1396 ml 120 ml 2299 ml 480 ml Output Total 2250 ml 675 ml 3175 ml 2775 ml Balance -854 ml -555 ml -876 ml -2295 ml Intake Oral 120 ml 900 ml 480 ml IV Total 1396 ml 1399 ml Output Urine Total 2250 ml 675 ml 3175 ml 2775 ml # Bowel Movements 4 2 0 Result Diagram: 12/15/17 0540 12/16/17 0515 Imaging Last Impressions Chest X-Ray 12/15/17 0000 Signed Impressions: Service Date/Time: Friday, December 15, 2017 12:56 - CONCLUSION: 1. No significant interval change. 2. Cardiomegaly with mild positive fluid balance. 3. Stable small pleural effusions and associated airspace disease at the lung bases. Zhen Stallworth MD Abdomen X-Ray 12/15/17 0000 Signed Impressions: Service Date/Time: Wednesday, December 15, 2017 12:56 - CONCLUSION: 1. Nonobstructed bowel gas pattern without pneumoperitoneum. 2. Right basilar consolidation/effusion. Abraham Urbina MD Objective Remarks GENERAL: Well-developed, well-nourished obese male patient in NAD. On supplemental O2. Apparent accessory muscle use. SKIN: Warm and dry. No rash. HEAD: Normocephalic. Atraumatic. EYES: Pupils equal and round. No scleral icterus. No injection or drainage. ENT: No nasal bleeding or discharge. Mucous membranes pink and moist. NECK: Supple. Trachea midline. CARDIOVASCULAR: Regular rate and rhythm. S1, S2 noted. No murmur appreciated. RESPIRATORY: Diminished breath sounds throughout all lung finley. Breath sounds equal bilaterally. GASTROINTESTINAL: Abdomen hard, non-tender, distended. Normoactive bowel sounds x4. No open areas and abdomen, prior history of cellulitis. No redness. MUSCULOSKELETAL: No obvious deformities. Extremities without clubbing, cyanosis , or edema. NEUROLOGICAL: Awake and alert. No obvious cranial nerve deficits. Motor grossly within normal limits. 5/5 muscle strength in bilateral upper and lower extremities. Normal speech. PSYCHIATRIC: Appropriate mood and affect; insight and judgment normal. A/P Problem List: (1) Atrial fibrillation ICD Code: I48.91 - Unspecified atrial fibrillation (2) VICKIE (acute kidney injury) ICD Code: N17.9 - Acute kidney failure, unspecified (3) Hypertension ICD Code: I10 - Essential (primary) hypertension Status: Acute (4) Diabetes ICD Code: E11.9 - Type 2 diabetes mellitus without complications Status: Acute (5) Hyperlipidemia ICD Code: E78.5 - Hyperlipidemia, unspecified Status: Acute (6) Hypothyroidism ICD Code: E03.9 - Hypothyroidism, unspecified Status: Acute (7) Coronary artery disease ICD Code: I25.10 - Atherosclerotic heart disease of [place] coronary artery without angina pectoris Status: Acute (8) CHF (congestive heart failure) ICD Code: I50.9 - Heart failure, unspecified Status: Acute Assessment and Plan 72-year-old male with past medical history significant for recently diagnosed atrial fibrillation on Eliquis, hypertension, coronary artery disease status post previous [place] 1993, congestive heart failure, diabetes, chronic respiratory failure on home oxygen, COPD and hypothyroidism who presents to [facility] ED with complaints of urinary retention 3 days. Acute kidney injury secondary to poor p.o. intake versus dehydration - Creatinine 2.0 on presentation. Review of history, earlier this month patient's creatinine is 1.06. Was given 1 L NS bolus in ED. Will hydrate. Continue IV fluids. Creatinine improved today. - Avoid nephrotoxins. - Larson catheter placed, output adequate. Removed overnight. Urinating well no signs of retention. Continue to monitor. - Start on Tamsulosin. Continue - UA negative. - Monitor BMP. - CXR negative, showing mild fluid, have diuresed and restarted Lasix from home. Patient is urinating well, no retention noted since removal of FC. I do not think this was urinary retention related but VICKIE and dehydration secondary to poor PO intake and diuresis. Hyperkalemia, suspect secondary to above. Will give 1 dose of Kayexalate. Potassium 5.5 today. Continue to monitor. Atrial fibrillation on Eliquis - Controlled. Will continue Eliquis and p.o. Cardizem and metoprolol. - Continuous environmental monitoring specialist, monitor HR. Stable overnight. CHF, diastolic, not in acute exacerbation Recent hospitalizations for large pleural effusions with thoracentesis failure Echo with EF 60-65% - Resume patient on home dose of metoprolol 25 mg twice daily, Lasix 40 mg daily. Monitor intake and output. - Monitor for signs of fluid overload. Gently hydrate for acute kidney injury. Limit fluid intake by mouth. DM - Hold oral diabetic medications and scheduled insulin for now - Accu-Cheks and insulin sliding scale. Stable. Monitor blood sugar trends. Chronic respiratory insufficiency, O2 dependent COPD in acute exacerbation - Continue on supplemental oxygen. Patient is on 4 L nasal cannula, this is patient's baseline at home. Requiring 5 L at this time. - Will start on IV steroids and antibiotics. Patient has not shown any improvement in the past couple days. - Resume home dose of bronchodilator therapy - Atrovent neb q6h while awake - Duo nebs scheduled. Other comorbidities include CAD with remote hx of [place], HTN, dyslipidemia, BPH and hypothyroidism, chronic, stable - continue home medications, no change in baseline. DVT prophylaxis - patient is on Eliquis Norma Manzanares December 16, 2017 07:37
[2017-12-16] MEDS: RESP: ALBUTEROL 2.5 MG/IPRATROPIUM 0.5 MG NEB (SCH) NEB ×3 (07:38→20:16)
[2017-12-16] MEDS ORDERED: AZITHROMYCIN 250 MG TAB PO ONE (08:00)
[2017-12-16] MEDS: INSULIN ASPART SUPPLEMENTAL SCALE SQ SCH ×4 (08:00→21:01)
[2017-12-16] MEDS: METOPROLOL TARTRATE 25 MG TAB PO SCH ×2 (09:00→20:55)
[2017-12-16] MEDS: methylPREDNISolone SOD SUCC 40 MG/1 ML VIAL IV PUSH SCH ×3 (09:46→20:51)
[2017-12-16] MEDS: cefTRIAXone INJ 1,000 MG in SODIUM CHLORIDE 0.9% INJ 100 ML IV SCH (09:47)
[2017-12-16] MEDS: DOXAZOSIN MESYLATE 4 MG TAB PO SCH (09:47)
[2017-12-16] MEDS: LORazepam 0.5 MG TAB PO PRN ×2 (09:47→17:52)
[2017-12-16] MEDS: CETIRIZINE HCL 10 MG TAB PO SCH (09:48)
[2017-12-16] MEDS: TAMSULOSIN HCL 0.4 MG CAP PO SCH (09:48)
[2017-12-16] MEDS: FUROSEMIDE 40 MG TAB PO SCH (09:50)
[2017-12-16] MEDS: APIXABAN 5 MG TABLET PO SCH ×2 (09:50→20:55)
[2017-12-16] MEDS: DILTIAZEM-CD 240 MG CAP ER PO SCH (09:51)
[2017-12-16] MEDS: SODIUM CHLORIDE 0.9% FLUSH 10 ML FLUSH IV FLUSH SCH ×2 (09:51→20:50)
[2017-12-16] MEDS: ACETAMINOPHEN 325 MG TAB PO PRN ×2 (09:51→20:56)
[2017-12-16] MEDS ORDERED: RESP: ALBUTEROL 2.5 MG/IPRATROPIUM 0.5 MG NEB (PRN) NEB (10:30)
[2017-12-16] MEDS: BUDESONIDE-FORMOTEROL 80/4.5 MCG INHALER INH SCH ×2 (12:00→20:50)
[2017-12-16] MEDS: LISINOPRIL 5 MG TAB PO SCH (12:59)
--- NOTE | 2017-12-16 16:58 | HHI.PR ---
Subjective Remarks SDB ? RADHA Objective Vital Signs Date Time Temp Pulse Resp B/P (MAP) Pulse Ox O2 Delivery O2 Flow Rate FiO2 12/16/17 16:35 98.0 65 20 170/72 (104) 93 12/16/17 12:03 Nasal Cannula 4.00 12/16/17 11:52 97.7 86 22 141/79 (99) 95 12/16/17 10:33 18 12/16/17 08:23 98.7 86 21 164/74 (104) 95 12/16/17 07:42 93 Nasal Cannula 4.00 12/16/17 00:00 98.2 77 23 146/70 (95) 93 12/15/17 20:00 94 Nasal Cannula 5.00 Humidified 12/15/17 20:00 97.8 76 21 143/66 (91) 94 12/15/17 19:56 96 Nasal Cannula 5.00 I/O 12/15/17 12/15/17 12/15/17 12/16/17 12/16/17 12/16/17 07:00 15:00 23:00 07:00 15:00 23:00 Intake Total 1396 ml 120 ml 2299 ml 480 ml 480 ml Output Total 2250 ml 675 ml 3175 ml 2775 ml 1400 ml Balance -854 ml -555 ml -876 ml -2295 ml -920 ml Intake Oral 120 ml 900 ml 480 ml 480 ml IV Total 1396 ml 1399 ml Output Urine Total 2250 ml 675 ml 3175 ml 2775 ml 1400 ml # Bowel Movements 4 2 0 1 Result Diagram: 12/15/17 0540 12/16/17 0515 Assessment and Plan Assessment and Plan IMP SDB ? RADHA COPD AFIB DM HTN HYPOTHYROIDISM PLAN TRIAL BIPAP Kayla Garza MD December 16, 2017 16:58
[2017-12-16] MEDS: ATORVASTATIN 20 MG TAB PO SCH (20:54)
[2017-12-16] MEDS: traZODone HCL 50 MG TAB PO SCH (20:55)
[2017-12-17] VITALS: BP 160/66; PULSE 55; RESP 18; TEMP 97.2; O2SAT 97
[2017-12-17 01:05] VITALS: O2SAT 100
[2017-12-17] MEDS: methylPREDNISolone SOD SUCC 40 MG/1 ML VIAL IV PUSH SCH ×2 (02:29→09:10)
[2017-12-17 04:10] VITALS: O2SAT 100
[2017-12-17] MEDS: LEVOTHYROXINE SODIUM 150 MCG TAB PO SCH (06:14)
[2017-12-17] MEDS: RESP: ALBUTEROL 2.5 MG/IPRATROPIUM 0.5 MG NEB (SCH) NEB (07:27)
[2017-12-17 07:30] VITALS: O2SAT 95
[2017-12-17 08:00] VITALS: BP 164/71; PULSE 84; RESP 20; TEMP 97.7; O2SAT 96
[2017-12-17] MEDS: INSULIN ASPART SUPPLEMENTAL SCALE SQ SCH (08:00)
--- NOTE | 2017-12-17 08:17 | HHI.PR ---
Objective Vitals Vital Signs Date Time Temp Pulse Resp B/P (MAP) Pulse Ox O2 Delivery O2 Flow Rate FiO2 12/17/17 07:30 95 Nasal Cannula 4.00 12/17/17 04:10 100 45 12/17/17 01:05 100 45 12/17/17 00:00 97.2 55 18 160/66 (97) 97 12/16/17 23:15 100 45 12/16/17 23:15 95 Nasal Cannula 4.00 12/16/17 20:16 95 Nasal Cannula 4.00 12/16/17 20:09 97.1 73 20 167/77 (107) 91 12/16/17 20:00 91 Nasal Cannula 4.00 Humidified 12/16/17 16:35 98.0 65 20 170/72 (104) 93 12/16/17 12:03 Nasal Cannula 4.00 12/16/17 11:52 97.7 86 22 141/79 (99) 95 12/16/17 10:33 18 12/16/17 08:23 98.7 86 21 164/74 (104) 95 I/O 12/16/17 12/16/17 12/16/17 12/17/17 12/17/17 12/17/17 07:00 15:00 23:00 07:00 15:00 23:00 Intake Total 480 ml 480 ml Output Total 2775 ml 1400 ml 700 ml 1200 ml Balance -2295 ml -920 ml -700 ml -1200 ml Intake Oral 480 ml 480 ml Output Urine Total 2775 ml 1400 ml 700 ml 1200 ml # Voids 3 # Bowel Movements 0 1 3 Result Diagram: 12/15/17 0540 12/16/17 0515 Objective Remarks GENERAL: Well-developed, well-nourished obese male patient in NAD. On supplemental O2. Apparent accessory muscle use. SKIN: Warm and dry. No rash. HEAD: Normocephalic. Atraumatic. EYES: Pupils equal and round. No scleral icterus. No injection or drainage. ENT: No nasal bleeding or discharge. Mucous membranes pink and moist. NECK: Supple. Trachea midline. CARDIOVASCULAR: Regular rate and rhythm. S1, S2 noted. No murmur appreciated. RESPIRATORY: Diminished breath sounds throughout all lung finley. Breath sounds equal bilaterally. GASTROINTESTINAL: Abdomen hard, non-tender, distended. Normoactive bowel sounds x4. No open areas and abdomen, prior history of cellulitis. No redness. MUSCULOSKELETAL: No obvious deformities. Extremities without clubbing, cyanosis , or edema. NEUROLOGICAL: Awake and alert. No obvious cranial nerve deficits. Motor grossly within normal limits. 5/5 muscle strength in bilateral upper and lower extremities. Normal speech. PSYCHIATRIC: Appropriate mood and affect; insight and judgment normal. A/P Problem List: (1) Atrial fibrillation ICD Code: I48.91 - Unspecified atrial fibrillation (2) VICKIE (acute kidney injury) ICD Code: N17.9 - Acute kidney failure, unspecified (3) Hypertension ICD Code: I10 - Essential (primary) hypertension Status: Acute (4) Diabetes ICD Code: E11.9 - Type 2 diabetes mellitus without complications Status: Acute (5) Hyperlipidemia ICD Code: E78.5 - Hyperlipidemia, unspecified Status: Acute (6) Hypothyroidism ICD Code: E03.9 - Hypothyroidism, unspecified Status: Acute (7) Coronary artery disease ICD Code: I25.10 - Atherosclerotic heart disease of [place] coronary artery without angina pectoris Status: Acute (8) CHF (congestive heart failure) ICD Code: I50.9 - Heart failure, unspecified Status: Acute Assessment and Plan 72-year-old male with past medical history significant for recently diagnosed atrial fibrillation on Eliquis, hypertension, coronary artery disease status post previous [place] 1993, congestive heart failure, diabetes, chronic respiratory failure on home oxygen, COPD and hypothyroidism who presents to [facility] ED with complaints of urinary retention 3 days. Acute kidney injury secondary to poor p.o. intake versus dehydration - Creatinine 2.0 on presentation. Review of history, earlier this month patient's creatinine is 1.06. Was given 1 L NS bolus in ED. Will hydrate. Continue IV fluids. Creatinine improved today. - Avoid nephrotoxins. - Larson catheter placed, output adequate. Removed overnight. Urinating well no signs of retention. Continue to monitor. - Start on Tamsulosin. Continue - UA negative. - Monitor BMP. - CXR negative, showing mild fluid, have diuresed and restarted Lasix from home. Patient is urinating well, no retention noted since removal of FC. I do not think this was urinary retention related but VCIKIE and dehydration secondary to poor PO intake and diuresis. Hyperkalemia, suspect secondary to above. Will give 1 dose of Kayexalate. Potassium 5.5 today. Continue to monitor. Atrial fibrillation on Eliquis - Controlled. Will continue Eliquis and p.o. Cardizem and metoprolol. - Continuous panel monitor, monitor HR. Stable overnight. CHF, diastolic, not in acute exacerbation Recent hospitalizations for large pleural effusions with thoracentesis failure Echo with EF 60-65% - Resume patient on home dose of metoprolol 25 mg twice daily, Lasix 40 mg daily. Monitor intake and output. - Monitor for signs of fluid overload. Gently hydrate for acute kidney injury. Limit fluid intake by mouth. DM - Hold oral diabetic medications and scheduled insulin for now - Accu-Cheks and insulin sliding scale. Stable. Monitor blood sugar trends. Chronic respiratory insufficiency, O2 dependent COPD in acute exacerbation - Continue on supplemental oxygen. Patient is on 4 L nasal cannula, this is patient's baseline at home. Requiring 5 L at this time. - Will start on IV steroids and antibiotics. Patient has not shown any improvement in the past couple days. - Resume home dose of bronchodilator therapy - Atrovent neb q6h while awake - Duo nebs scheduled. Other comorbidities include CAD with remote hx of [place], HTN, dyslipidemia, BPH and hypothyroidism, chronic, stable - continue home medications, no change in baseline. DVT prophylaxis - patient is on Anandis Norma Manzanares December 17, 2017 08:17
[2017-12-17] MEDS ORDERED: AZITHROMYCIN 250 MG TAB PO SCH (09:00)
[2017-12-17] MEDS: BUDESONIDE-FORMOTEROL 80/4.5 MCG INHALER INH SCH (09:08)
[2017-12-17] MEDS: cefTRIAXone INJ 1,000 MG in SODIUM CHLORIDE 0.9% INJ 100 ML IV SCH (09:09)
[2017-12-17] MEDS: TAMSULOSIN HCL 0.4 MG CAP PO SCH (09:10)
[2017-12-17] MEDS: LORazepam 0.5 MG TAB PO PRN (09:10)
[2017-12-17] MEDS: METOPROLOL TARTRATE 25 MG TAB PO SCH (09:10)
[2017-12-17] MEDS: LISINOPRIL 5 MG TAB PO SCH (09:10)
[2017-12-17] MEDS: DOXAZOSIN MESYLATE 4 MG TAB PO SCH (09:10)
[2017-12-17] MEDS: DILTIAZEM-CD 240 MG CAP ER PO SCH (09:11)
[2017-12-17] MEDS: CETIRIZINE HCL 10 MG TAB PO SCH (09:11)
[2017-12-17] MEDS: SODIUM CHLORIDE 0.9% FLUSH 10 ML FLUSH IV FLUSH SCH (09:11)
[2017-12-17] MEDS: FUROSEMIDE 40 MG TAB PO SCH (09:11)
[2017-12-17] MEDS: APIXABAN 5 MG TABLET PO SCH (09:11)
[2017-12-17] MEDS: ACETAMINOPHEN 325 MG TAB PO PRN (09:15)
[2017-12-17] MEDS ORDERED: LISI-519 PO (09:49)
[2017-12-17] MEDS ORDERED: MEDR4PAK PO (09:49)
[2017-12-17] MEDS ORDERED: TAMS5CAP PO (09:49)
[2017-12-17] MEDS ORDERED: CETI10 PO (09:49)
[2017-12-17] MEDS ORDERED: AZIT250T3 PO (09:49)
--- NOTE | 2017-12-17 09:52 | HHI.DS ---
Discharge Summary Admission Date December 16, 2017 at 07:44 Discharge Date: December 17, 2017 Admitting Diagnosis Urinary retention, VICKIE (1) Atrial fibrillation ICD Code: I48.91 - Unspecified atrial fibrillation (2) VICKIE (acute kidney injury) ICD Code: N17.9 - Acute kidney failure, unspecified (3) Hypertension ICD Code: I10 - Essential (primary) hypertension Status: Acute (4) Diabetes ICD Code: E11.9 - Type 2 diabetes mellitus without complications Status: Acute (5) Hyperlipidemia ICD Code: E78.5 - Hyperlipidemia, unspecified Status: Acute (6) Hypothyroidism ICD Code: E03.9 - Hypothyroidism, unspecified Status: Acute (7) Coronary artery disease ICD Code: I25.10 - Atherosclerotic heart disease of koi coronary artery without angina pectoris Status: Acute (8) CHF (congestive heart failure) ICD Code: I50.9 - Heart failure, unspecified Status: Acute Procedures Please see below. Brief History - From Admission This is a pleasant 72-year-old male patient with a known medical history of atrial fibrillation on Eliquis, hypertension, CAD with history of [place], CHF, diabetes, chronic respiratory failure on home O2, COPD and hypothyroidism who presented to the ED with complaints of inability to urinate for 3 days. Patient states he has not ate or drink for the past 3 days, admits to poor appetite. Does admit to abdominal distention, denies any increase in lower extremity swelling. Patient does admit to his last bowel movement yesterday, denies any significant constipation or diarrhea. He states he has been feeling bloated for the past few days in his abdomen. Last saw his PCP 2 weeks ago with no changes in medicines. Denies any recent fevers, chills, cough, shortness of breath, nausea, vomiting, diarrhea or dysuria. Patient does admit to history of enlarged prostate. Denies following with the urologist. Patient does live with son. Upon presentation patient's creatinine is 2.1, GFR 31, BUN 66. UA unremarkable. Requiring 5 L nasal cannula. It should be noted that patient was just hospitalized end of October for atrial fibrillation RVR. Does admit to home O2, requires 4 L nasal cannula. Admits to using his albuterol inhaler 3-4 times a day. Denies any dizziness, lightheadedness, chest pain. Does admit to occasional blurry vision. Patient was also admitted end of September with acute COPD exacerbation as well. Prior to that admission, patient was admitted with hypoxia, hyperglycemia and weakness with right-sided pleural effusion with unsuccessful attempt at thoracentesis. Patient was also found to have abdominal wall cellulitis was treated with Bactrim. Patient was discharged home on Lasix and has continued since discharge. CBC/BMP: 12/15/17 0540 12/16/17 0515 Significant Findings Laboratory Tests Test 12/14/17 11:10 12/14/17 11:30 12/14/17 18:05 12/15/17 05:40 Red Blood Count 3.27 MIL/MM3 (4.50-5.90) 3.53 MIL/MM3 (4.50-5.90) Hemoglobin 9.7 GM/DL (13.0-17.0) 9.9 GM/DL (13.0-17.0) Hematocrit 29.4 % (39.0-51.0) 31.6 % (39.0-51.0) Neutrophils (%) (Auto) 83.9 % (16.0-70.0) 78.3 % (16.0-70.0) Lymphocytes # (Auto) 0.8 TH/MM3 (1.0-4.8) Blood Urea Nitrogen 66 MG/DL (7-18) 64 MG/DL (7-18) 53 MG/DL (7-18) Creatinine 2.10 MG/DL (0.60-1.30) 1.80 MG/DL (0.60-1.30) Random Glucose 139 MG/DL (74-106) 73 MG/DL (74-106) 122 MG/DL (74-106) Albumin 3.0 GM/DL (3.4-5.0) Aspartate Amino Transf (AST/SGOT) 9 U/L (15-37) Estimat Glomerular Filtration Rate 31 ML/MIN (>89) 37 ML/MIN (>89) 59 ML/MIN (>89) Urine Occult Blood MOD (NEG) Urine RBC 15-19 /hpf (0-3) Urine Hyaline Casts 6-9 /lpf (RARE) Mean Corpuscular Hemoglobin Concent 31.2 % (32.0-36.0) Potassium Level 5.5 MEQ/L (3.5-5.1) Test 12/15/17 16:28 12/16/17 05:15 12/16/17 15:31 Blood Gas HCO3 28 mmol/L (22-26) 29 mmol/L (22-26) Blood Gas Base Excess 3.0 mmol/L (-2-2) 4.5 mmol/L (-2-2) Arterial Blood pH 7.36 (7.380-7.420) Arterial Blood Partial Pressure CO2 50 mmHG (38-42) 46 mmHG (38-42) Blood Gas Hemoglobin 9.5 G/DL (12.0-16.0) 9.9 G/DL (12.0-16.0) Blood Urea Nitrogen 35 MG/DL (7-18) Random Glucose 201 MG/DL (74-106) Carbon Dioxide Level 33.5 MEQ/L (21.0-32.0) Anion Gap 4 MEQ/L (5-15) Estimat Glomerular Filtration Rate 84 ML/MIN (>89) Imaging Last Impressions Chest X-Ray 12/15/17 0000 Signed Impressions: Service Date/Time: Friday, December 15, 2017 12:56 - CONCLUSION: 1. No significant interval change. 2. Cardiomegaly with mild positive fluid balance. 3. Stable small pleural effusions and associated airspace disease at the lung bases. Zhen Stallworth MD Abdomen X-Ray 12/15/17 0000 Signed Impressions: Service Date/Time: Friday, December 15, 2017 12:56 - CONCLUSION: 1. Nonobstructed bowel gas pattern without pneumoperitoneum. 2. Right basilar consolidation/effusion. Abraham Urbina MD PE at Discharge GENERAL: Well-developed, well-nourished obese male patient in NAD. On supplemental O2. Apparent accessory muscle use. SKIN: Warm and dry. No rash. HEAD: Normocephalic. Atraumatic. EYES: Pupils equal and round. No scleral icterus. No injection or drainage. ENT: No nasal bleeding or discharge. Mucous membranes pink and moist. NECK: Supple. Trachea midline. CARDIOVASCULAR: Regular rate and rhythm. S1, S2 noted. No murmur appreciated. RESPIRATORY: Diminished breath sounds throughout all lung finley. Breath sounds equal bilaterally. GASTROINTESTINAL: Abdomen hard, non-tender, distended. Normoactive bowel sounds x4. No open areas and abdomen, prior history of cellulitis. No redness. MUSCULOSKELETAL: No obvious deformities. Extremities without clubbing, cyanosis , or edema. NEUROLOGICAL: Awake and alert. No obvious cranial nerve deficits. Motor grossly within normal limits. 5/5 muscle strength in bilateral upper and lower extremities. Normal speech. PSYCHIATRIC: Appropriate mood and affect; insight and judgment normal. Pt update on day of discharge Follow-up dehydration, COPD exacerbation. Patient seen and examined, sitting on side of bed comfortably in nad. On 4 LNC. No accessory muscle use. Much improved. States he feels much better. Afebrile. VSS. Eating well. No ab pain, n /v/d. Hospital Course 72-year-old male with past medical history significant for recently diagnosed atrial fibrillation on Eliquis, hypertension, coronary artery disease status post previous [place] 1993, congestive heart failure, diabetes, chronic respiratory failure on home oxygen, COPD and hypothyroidism who presents to [facility] ED with complaints of urinary retention 3 days. Patient had acute kidney injury secondary to poor p.o. intake versus dehydration. Creatinine 2.0 on presentation. Review of history, earlier this month patient's creatinine is 1.06. Was given 1 L NS bolus in ED. Will hydrate. Continue IV fluids. Creatinine improved. Avoid nephrotoxins.Larson catheter placed, output adequate. Removed overnight. Urinating well no signs of retention. Continue to monitor. Started on Tamsulosin. UA negative. CXR negative, showing mild fluid, have diuresed and restarted Lasix from home. Patient is urinating well, no retention noted since removal of FC. I do not think this was urinary retention related but VICKIE and dehydration secondary to poor PO intake and diuresis. Hyperkalemia, suspect secondary to above was given 1 dose of Kayexalate and resolved. Atrial fibrillation on Eliquis controlled during hospitalization. Will continue Eliquis and p.o. Cardizem and metoprolol. Patient with CHF, diastolic, not in acute exacerbation, multiple recent hospitalizations for large pleural effusions with thoracentesis failure, echo with EF 60-65. Resume patient on home dose of metoprolol 25 mg twice daily, Lasix 40 mg daily. Patient with chronic respiratory insufficiency, O2 dependent, COPD in acute exacerbation, continue on supplemental oxygen. Patient is on 4 L nasal cannula , this is patient's baseline at home. Dcd on this. Given IV steroids during hospitalization and antibiotics, medrol dose on DC and antibiotics. Other comorbidities include CAD with remote hx of [place], HTN, dyslipidemia, BPH and hypothyroidism, chronic, stable - continue home medications, no change in baseline. Patient to follow with Dr. Garza today in his office. Working on getting patient an outpatient sleep study. CM assisting. Patient has [employer] and will need auth. Further treatment plan per PCP and Dr. Garza. Patient has been stabilized to baseline prior to DC. Extensive time was taken by staff and medical team regarding education regarding CHF and management. Booklet offered. Son was at bedside and educated as well. Pt Condition on Discharge: Stable Discharge Disposition: Disch w/ Home Health Serv Discharge Time: > 30 minutes Discharge Instructions DIET: Follow Instructions for: Heart Healthy Diet, Diabetic Diet Speech Therapy-Diet Recommends: Regular Activities you can perform: Regular-No Restrictions Follow up Referrals: PCP Follow-up - 1 Week PCP Follow-up Pulmonology - 2-3 Days with Kayla Garza MD Pulmonology New Medications: Methylprednisolone Dosepak (Medrol Dosepak) 4 Mg Dspk 4 MG PO DIRECTED, #1 DSPK 0 Refills Per Pharmacist direction Azithromycin (Azithromycin) 250 Mg Tab 250 MG PO DAILY for infection for 4 Days, #4 TAB Cetirizine (Cetirizine) 10 Mg Tab 10 MG PO DAILY for allergies for 30 Days, #30 TAB Lisinopril (Lisinopril) 5 Mg Tab 5 MG PO DAILY for hypertension for 30 Days, #30 TAB Tamsulosin (Flomax) 0.4 Mg Cap 0.4 MG PO DAILY for retention for 30 Days, #30 CAP Continued Medications: Albuterol 18 GM Inh (Ventolin Hfa 18 GM Inh) 90 Mcg/Act Aer 2 PUFF INH Q4-6H PRN for SHORTNESS OF BREATH, #1 INHALER 0 Refills Apixaban (Eliquis) 5 Mg Tab 5 MG PO BID for Blood Clot Prevention, TAB 0 Refills Atorvastatin (Atorvastatin) 20 Mg Tab 20 MG PO HS for Cholesterol Management, #30 TAB 0 Refills Budesonide-Formoterol Inh (Symbicort Inh) 80-4.5 Mcg/Act Aero 1 PUFF INH Q12HR for Asthma Management, #1 INHALER 0 Refills Coenzyme Q10 (Ubidecarenone) (Coq10) 50 Mg Cap 100 MG PO DAILY Diltiazem ER 24 HR (Diltiazem ER 24 HR) 240 Mg Caper 240 MG PO DAILY, CAP Doxazosin (Doxazosin) 4 Mg Tab 4 MG PO DAILY, TAB Finasteride (Finasteride) 5 Mg Tab 5 MG PO DAILY for Manage Prostate Problems, TAB 0 Refills Do not crush. Fluticasone Nasal [place] (Flonase Nasal [place]) 50 Mcg/Act [place] 100 MCG EACH NARE BID for Allergies, BOTTLE 0 Refills Furosemide (Furosemide) 40 Mg Tab 40 MG PO DAILY, TAB 0 Refills Gabapentin (Gabapentin) 300 Mg Cap 300 MG PO BID, #60 CAP 0 Refills Glimepiride (Glimepiride) 4 Mg Tab 4 MG PO BIDAC for Blood Sugar Management, TAB 0 Refills Insulin Aspart Inj (Novolog Penfill Inj) 300 Unit/3 Ml Pen 2-40 UNITS SQ TIDAC PRN for Blood Sugar Management, BOX 0 Refills sliding scale Insulin Glargine Inj (Lantus Inj) 1,000 Unit/10 Ml Vial 40 UNITS SQ DAILY for Blood Sugar Management, VIAL 0 Refills Insulin Glargine Inj (Lantus Inj) 1,000 Unit/10 Ml Vial 40 UNITS SQ HS for Blood Sugar Management, VIAL 0 Refills Levothyroxine (Levothyroxine) 300 Mcg Tab 300 MCG PO DAILY for Thyroid, #30 TAB 0 Refills Loratadine (Claritin) 10 Mg Cap 10 MG PO DAILY for Allergy Management, #30 CAP 4 Refills Lorazepam (Lorazepam) 0.5 Mg Tab 0.5 MG PO TID PRN for ANXIETY, TAB 0 Refills Metoprolol Tartrate (Metoprolol Tartrate) 25 Mg Tab 25 MG PO BID, #60 TAB 0 Refills Roxana-3 Fatty Acids (Roxana 3 1000 mg) 1 Cap Cap 2 CAP PO DAILY Oxygen (O2) (Oxygen (O2)) Device LITER TAMMI.CANULA CONTINUOUS for Prevent Hypoxemia, #4 Oxygen Concentrator Portable Gaseous 4 L/min via Nasal Canula Continuous For 99 months Sitagliptin-Metformin ER (Janumet Xr) 50-1,000 Mg Tab 1 TAB PO BID for Blood Sugar Management, #30 TAB 0 Refills Norma Manzanares December 17, 2017 09:52
[2017-12-17 10:16] VITALS: RESP 18
== END 2017-12-17 12:17 | disposition home health service (06) | DRG 683 ==
LOC: PHED 10:26 → PHEDA 12:27 → PH3A 15:10 → OBSVTOIN 12-16 07:44
PROVIDERS: ADMIT Hospitalist; ATTEND Hospitalist
DX: N17.9 Acute kidney failure, unspecified (principal); Z68.41 Body mass index [BMI] 40.0-44.9, adult; J96.10 Chronic respiratory failure, unspecified whether with hypoxia or hypercapnia; I11.0 Hypertensive heart disease with heart failure; I50.32 Chronic diastolic (congestive) heart failure; J44.1 Chronic obstructive pulmonary disease with (acute) exacerbation; E87.5 Hyperkalemia; E11.9 Type 2 diabetes mellitus without complications; E03.9 Hypothyroidism, unspecified; R33.9 Retention of urine, unspecified; I25.10 Atherosclerotic heart disease of native coronary artery without angina pectoris; G47.33 Obstructive sleep apnea (adult) (pediatric); E66.9 Obesity, unspecified; E78.5 Hyperlipidemia, unspecified; I25.2 Old myocardial infarction; R60.0 Localized edema; R14.0 Abdominal distension (gaseous); I48.91 Unspecified atrial fibrillation; N40.0 Benign prostatic hyperplasia without lower urinary tract symptoms; Z86.73 Personal history of transient ischemic attack (TIA), and cerebral infarction without residual deficits; Z98.61 Coronary angioplasty status; Z87.891 Personal history of nicotine dependence; Z99.81 Dependence on supplemental oxygen; Z88.5 Allergy status to narcotic agent; Z79.01 Long term (current) use of anticoagulants; Z79.4 Long term (current) use of insulin
CPT/HCPCS: 36600; 51702; 71045; 74018; 80048; 80053; 81001; 82805; 82948; 84443; 85025; 93005; 94002; 94640; 94664; 96361; 96372; 96374; G0378; G8987-GP; G8988-GP; J0696; J1815; J1940; J2920; J7030